=== PATIENT | female | born 1985 | race Caucasian/White ===

== ENCOUNTER 2016-11-20 10:23 | Emergency (ER) | payer MEDICAID, OTHER ==
[~2016-11-20] VITALS: Ht 162.6 cm; Wt 74.5 kg
[2016-11-20] MEDS ORDERED: CETI10TA (10:43)
[2016-11-20] MEDS ORDERED: SULF50TA (10:43)
[2016-11-20] MEDS ORDERED: FLUO10CA9 (10:43)
[2016-11-20] MEDS ORDERED: NABU500T (10:43)
[2016-11-20] MEDS ORDERED: PANT20TA PO (10:43)
[2016-11-20] MEDS ORDERED: FOLI1TAB4 (10:43)
[2016-11-20] MEDS ORDERED: TRAZ-136 (10:43)
[2016-11-20 11:14] LABS: BASO % 0.7 % (0.0-1.0); EOS # 0.4 K/mm3 (0.0-0.50); EOS % 7.2 % (0.0-3.0); LARGE UNSTAINED CELL # 0.1 K/mm3 (0.0-0.4); LARGE UNSTAINED CELL % 0.9 % (0.0-4.0); LYMPH # 1.1 K/mm3 (1.5-4.5); LYMPH % 20.5 % (24.0-44.0); MEAN CORPUSCULAR HEMOGLOBIN 30.8 pg (27.0-33.0); MEAN CORPUSCULAR HGB CONC 32.2 g/dl (32.0-36.5); MEAN CORPUSCULAR VOLUME 95.8 fl (80.0-96.0); MONO # 0.4 K/mm3 (0.0-0.8); MONO % 6.9 % (0.0-5.0); NEUTROPHILS # 3.3 K/mm3 (1.8-7.7); NEUTROPHILS % 63.8 % (36.0-66.0); PLATELET COUNT, AUTOMATED 250 k/mm3 (150-450); WHITE BLOOD COUNT 5.2 K/mm3 (4.0-10.0)
[2016-11-20 11:38] VITALS: BP 133/74
--- NOTE | 2016-11-20 11:45 | REP ---
Pelvic ultrasound including transabdominal, endovaginal and Doppler ultrasound assessment: The bladder is suboptimally distended. The uterus is anteverted and normal size measuring 8.1 x 4.6 x 6.5 cm. The endometrium is upper normal thickness measuring 16.3 mm. However, there is a 3.1 cm nodule versus clot centrally in the endometrial canal. The ovaries are normal size. The right ovary measures 4 x 1 x 3 point 1 x 3.4 cm. Left ovary measures 2.8 x 2.4 x 1.3 cm. There is a 3.1 cm hemorrhagic cyst in the right ovary. There is vascular flow in both right and left ovaries with the Doppler resistive index of the parenchymal arteries on the right measuring 0.64 on the left 0.63. There is a trace of free fluid in the right adnexa. Impression: Hemorrhagic right adnexal 3.1 cm cyst. Polyp/clot within the endometrial canal. There is vascular flow in both ovaries. Trace free fluid in the right adnexa. Signed by Duglas Madison MD 11/20/2016 11:37 A
[2016-11-20] MEDS ORDERED: NAPR500T PO (12:03)
--- NOTE | 2016-11-20 15:48 | ED PDOC ---
Post-Departure Follow-Up dr choudhury and dr banerjee faxed formal report of pelvic us for fu winstong Radha Lopez MD Nov 20, 2016 15:48
== END 2016-11-20 12:10 | disposition home or self-care (01) ==
LOC: M ED 10:23
DX: N92.0 Excessive and frequent menstruation with regular cycle (principal); N83.201 Unspecified ovarian cyst, right side; K21.9 Gastro-esophageal reflux disease without esophagitis; M06.9 Rheumatoid arthritis, unspecified; F99 Mental disorder, not otherwise specified; Z79.899 Other long term (current) drug therapy; Z88.8 Allergy status to other drugs, medicaments and biological substances; Z91.013 Allergy to seafood; F17.210 Nicotine dependence, cigarettes, uncomplicated

== ENCOUNTER 2018-01-04 18:49 | Emergency (ER) | payer OTHER ==
[2018-01-04 19:26] LABS: BASO % 0.4 % (0.0-1.0); EOS # 0.2 10^3/uL (0.0-0.50); HEMATOCRIT 39.4 % (36.0-47.0); HEMOGLOBIN 12.6 g/dl (12.0-15.5); IMMATURE GRANULOCYTE % 0.2 % (0-3.0); LYMPH # 1.5 10^3/uL (1.5-4.5); LYMPH % 31.7 % (24.0-44.0); MEAN CORPUSCULAR VOLUME 90.8 fl (80.0-96.0); MONO # 0.6 10^3/uL (0.0-0.8); MONO % 11.8 % (0.0-5.0); NEUTROPHILS # 2.5 10^3/uL (1.8-7.7); NEUTROPHILS % 50.9 % (36.0-66.0); PLATELET COUNT, AUTOMATED 326 10^3/uL (150-450); RED BLOOD COUNT 4.34 10^6/uL (4.00-5.40); RED CELL DISTRIBUTION WIDTH 13.2 % (11.5-14.5); WHITE BLOOD COUNT 4.8 10^3/uL (4.0-10.0)
== END 2018-01-04 20:32 | disposition home or self-care (01) ==
LOC: M ED 18:49
DX: T81.31XA Disruption of external operation (surgical) wound, not elsewhere classified, initial encounter (principal); Y92.9 Unspecified place or not applicable; Y93.9 Activity, unspecified; Z72.0 Tobacco use; Z79.899 Other long term (current) drug therapy; Z91.013 Allergy to seafood; Z88.8 Allergy status to other drugs, medicaments and biological substances
CPT/HCPCS: 76705

== ENCOUNTER → 2018-05-15 | Outpatient (REF) | payer OTHER ==
[~2018-05-15] MED LIST: CETI10TA; FLUO10CA9; FOLI1TAB11; MELO7.5T7 PO; NABU500T; NAPR-50 PO; PANT20TA2 PO; SULF50TA; TRAZ-163
== END ==
LOC: M LAB REF 11:55
PROVIDERS: ATTEND Physician Assistant
DX: R68.89 Other general symptoms and signs (principal)

== ENCOUNTER → 2018-05-27 | Outpatient (CLI) | payer OTHER | LOC: M LAB 16:06 | PROVIDERS: ATTEND Obstetrics & Gynecology Obstetrics | DX: Z11.3 Encounter for screening for infections with a predominantly sexual mode of transmission (principal) ==

== ENCOUNTER 2018-10-01 13:31 | Emergency (ER) | payer OTHER ==
[~2018-10-01] VITALS: Ht 165.1 cm; Wt 86.4 kg
[~2018-10-01 13:31] MED LIST changes: -NAPR-50 PO; +NAPR-837 PO
[2018-10-01] MEDS ORDERED: PANT20TA2 (13:38)
[2018-10-01] MEDS ORDERED: CEFU1TAB22 (13:38)
[2018-10-01] MEDS ORDERED: VENTAER (13:38)
--- NOTE | 2018-10-01 14:58 | REP ---
Clinical: Pain at the first metacarpal base. Technique: AP, lateral, bilateral oblique views. Findings: The carpal bones, surrounding osseous structures, soft tissues, and joint spaces are normal. There is no evidence for acute fracture or dislocation. No subcutaneous emphysema or radiodense foreign body. Impression: No acute fracture or dislocation Electronically Signed by Mekhi Larson MD 10/01/2018 02:49 P
[2018-10-01] MEDS ORDERED: IBUPROFEN 600 MG TAB PO ONE (16:30)
[2018-10-01 16:46] VITALS: BP 109/71
== END 2018-10-01 16:47 | disposition home or self-care (01) ==
LOC: M ED 13:31
DX: S63.502A Unspecified sprain of left wrist, initial encounter (principal); S60.212A Contusion of left wrist, initial encounter; S60.222A Contusion of left hand, initial encounter; W22.09XA Striking against other stationary object, initial encounter; Y92.098 Other place in other non-institutional residence as the place of occurrence of the external cause; F41.9 Anxiety disorder, unspecified; F32.9 Major depressive disorder, single episode, unspecified; G47.00 Insomnia, unspecified; M06.9 Rheumatoid arthritis, unspecified; J45.909 Unspecified asthma, uncomplicated; F17.210 Nicotine dependence, cigarettes, uncomplicated; Z88.8 Allergy status to other drugs, medicaments and biological substances; Z91.013 Allergy to seafood; Z91.030 Bee allergy status; Z91.018 Allergy to other foods; Z79.899 Other long term (current) drug therapy; Z79.2 Long term (current) use of antibiotics

== ENCOUNTER → 2019-01-07 | Outpatient (CLI) | payer OTHER ==
[~2019-01-07] MED LIST changes: +CEFU1TAB22; +PANT20TA2; +VENTAER
--- NOTE | 2019-01-08 03:14 | REP ---
Clinical: Trauma. Pain. Contusion. Technique: AP, lateral, bilateral oblique views right wrist . Findings: The carpal bones, surrounding osseous structures, soft tissues, and joint spaces are normal. There is no evidence for acute fracture or dislocation. No subcutaneous emphysema or radiodense foreign body. Impression: No acute fracture or dislocation Electronically Signed by Mekhi Lasron MD 01/08/2019 03:06 A
== END ==
LOC: M WUC 18:57
PROVIDERS: ATTEND Physician Assistant
DX: M25.531 Pain in right wrist (principal)

== ENCOUNTER 2019-02-08 11:41 | Observation (INO) | payer OTHER ==
[~2019-02-08] VITALS: Ht 160 cm; Wt 82.5 kg
[~2019-02-08 11:41] MED LIST changes: -TRAZ-163; +TRAZ-163 PO
[2019-02-08 12:23] LABS: VENOUS BASE EXCESS -1.9 (-2.0-2.0); VENOUS HCO3 23.2 MEQ/L (23.0-27.0); VENOUS O2 SATURATION 77.7 % (60.0-80.0); VENOUS PARTIAL PRESSURE CO2 40.5 mmHg (38.0-50.0); VENOUS PARTIAL PRESSURE O2 41.6 mmHg (30.0-50.0); VENOUS PH 7.375 UNITS (7.330-7.430); VENOUS STANDARD HCO3 22.4 MEQ/L; VENOUS TOTAL CO2 24.4 MEQ/L (24.0-28.0)
[2019-02-08 12:27] LABS: BASO % 0.3 % (0.0-1.0); EOS % 0.1 % (0.0-3.0); HEMATOCRIT 47.2 % (36.0-47.0); LYMPH % 9.6 % (24.0-44.0); MEAN CORPUSCULAR HEMOGLOBIN 30.6 pg (27.0-33.0); MEAN CORPUSCULAR HGB CONC 31.8 g/dl (32.0-36.5); MEAN CORPUSCULAR VOLUME 96.3 fl (80.0-96.0); MONO # 0.9 10^3/uL (0.0-0.8); MONO % 9.1 % (0.0-5.0); NEUTROPHILS # 8.1 10^3/uL (1.5-8.5); NEUTROPHILS % 80.5 % (36.0-66.0); PLATELET COUNT, AUTOMATED 359 10^3/uL (150-450)
[2019-02-08 12:54] LABS: HCG, SERUM QUALITATIVE NEGATIVE (NEGATIVE)
[2019-02-08] MEDS ORDERED: NS 1,000 ML IV ONE ×2 (13:00)
--- NOTE | 2019-02-08 13:28 | ECGEPIP ---
[facility] - ED Test Date: 2019-02-08 Pat Name: MARY LOU GARAY Department: Room: - Gender: Female [employer]: claudia : 1985 Requested By: Annette Matta Order Number: [id number] Reading MD: Annette Matta Measurements Intervals Gibson Rate: 79 P: 36 HI: 138 QRS: 87 QRSD: 89 T: 19 QT: 382 QTc: 439 Interpretive Statements SINUS RHYTHM baseline artifact may affect interpretation No prior Electronically Signed on 02-08-2019 13:28:00 EST by Annette Matta
[2019-02-08 13:51] LABS: ACETAMINOPHEN LEVEL < 2.0 UG/ML (10.0-30.0); ALBUMIN 4.6 GM/DL (3.2-5.2); ALT/SGPT 27 U/L (12-78); BILIRUBIN,DIRECT 0.2 MG/DL (0.0-0.2); BILIRUBIN,TOTAL 0.6 MG/DL (0.2-1.0); BLOOD UREA NITROGEN 14 MG/DL (7-18); CALCIUM LEVEL 9.8 MG/DL (8.5-10.1); CARBON DIOXIDE LEVEL 25 MEQ/L (21-32); CHLORIDE LEVEL 107 MEQ/L (98-107); CPK CREATINE PHOSPHOKINASE 110 U/L (26-192); CREATININE FOR GFR 1.04 MG/DL (0.55-1.30); ETHYL ALCOHOL (ETHANOL) < 0.003 % (0.000-0.010); GLOMERULAR FILTRATION RATE > 60.0 (>60); GLUCOSE, FASTING 124 MG/DL (70-100); POTASSIUM SERUM 3.9 MEQ/L (3.5-5.1); SALICYLATE LEVEL < 1.7 MG/DL (5.0-30.0); SODIUM LEVEL 142 MEQ/L (136-145); TOTAL PROTEIN 8.3 GM/DL (6.4-8.2)
--- NOTE | 2019-02-08 14:02 | REP ---
CT BRAIN WITHOUT CONTRAST: 02/08/2019. CLINICAL HISTORY: Altered mental status. FINDINGS: No prior study. Standard noncontrast protocol utilized. Lateral ventricles are midline, symmetric, and without dilatation or displacement. Basal ganglia are symmetric and normal. Third and fourth ventricles were unremarkable. White matter tracts unremarkable. Daley-white junction differentiation well maintained. Cortical stripe is preserved. There is no intra- or extra-axial hemorrhage, mass, acute infarct, edema or other focal abnormality. No abnormal calcifications. Brainstem and cerebellum are unremarkable. The basal cisterns are intact. Mastoids, sinuses, skull base, and calvarium are all unremarkable. IMPRESSION: 1. Normal noncontrast CT brain. Electronically Signed by Christofer Segura MD 02/08/2019 07:57 P
[2019-02-08 15:50] LABS: AMPHETAMINES LEVEL URINE NEGATIVE (NEGATIVE); BARBITURATES URINE NEGATIVE (NEGATIVE); BENZODIAZEPINES URINE NEGATIVE (NEGATIVE); CANNABINOIDS URINE NEGATIVE (NEGATIVE); COCAINE METABOLITE URINE NEGATIVE (NEGATIVE); METHADONE URINE NEGATIVE (NEGATIVE); OPIATES URINE NEGATIVE (NEGATIVE); PHENCYCLIDINE URINE NEGATIVE (NEGATIVE)
[2019-02-08] MEDS ORDERED: FLUO20CA20 PO (16:14)
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
[2019-02-08] MEDS: NS 1,000 ML IV SCH ×2 (17:30→23:32)
[2019-02-08 17:41] VITALS: BP 140/79
[2019-02-09] MEDS: RAMELTEON 8 MG TAB (ROZEREM) PO SCH ×2 (00:30→23:53)
[2019-02-09 06:00] VITALS: BP 130/80
[2019-02-09 07:06] LABS: HEMATOCRIT 39.1 % (36.0-47.0); MEAN CORPUSCULAR HEMOGLOBIN 31.2 pg (27.0-33.0); MEAN CORPUSCULAR VOLUME 97.5 fl (80.0-96.0); RED BLOOD COUNT 4.01 10^6/uL (4.00-5.40); WHITE BLOOD COUNT 7.4 10^3/uL (4.0-10.0)
[2019-02-09 07:47] LABS: ALBUMIN 3.3 GM/DL (3.2-5.2); ALT/SGPT 20 U/L (12-78); BILIRUBIN,TOTAL 0.5 MG/DL (0.2-1.0); BLOOD UREA NITROGEN 12 MG/DL (7-18); CALCIUM LEVEL 8.2 MG/DL (8.5-10.1); CARBON DIOXIDE LEVEL 27 MEQ/L (21-32); CHLORIDE LEVEL 108 MEQ/L (98-107); CREATININE FOR GFR 0.78 MG/DL (0.55-1.30); GLOMERULAR FILTRATION RATE > 60.0 (>60); GLUCOSE, FASTING 112 MG/DL (70-100); MAGNESIUM LEVEL 2.1 MG/DL (1.8-2.4); PHOSPHORUS LEVEL 2.2 MG/DL (2.5-4.9); POTASSIUM SERUM 3.9 MEQ/L (3.5-5.1); SODIUM LEVEL 140 MEQ/L (136-145); TOTAL PROTEIN 6.3 GM/DL (6.4-8.2)
[2019-02-09 08:02] LABS: HEMOGLOBIN 12.5 g/dl (12.0-15.5)
[2019-02-09 08:03] LABS: PLATELET COUNT, AUTOMATED 250 10^3/uL (150-450)
--- NOTE | 2019-02-09 10:26 | IPNPDOC ---
Date Seen The patient was seen on 02/09/19. Progress Note SUBJECTIVE: 33-year-old female with history of asthma and depression, admitted for bizarre behavior. Patient was very noncompliant yesterday, today she is willing to speak with me and let me examine her. She has family at bedside, who report that she was behaving normally one week ago at [facility] and appeared to have acute changes in her mentation over the past few days. She lives with her boyfriend reports that she's been acting strangely, she reports to me that her boyfriend is a serial killer and he has been arrested by FBI. He also reports that FBI had been hurting her for her entire life for the benefit of other people and now they're no longer after her because to take her boyfriend. She is very paranoid and making up stories and arguing with her family because they're disagreeing with her. She is comfortable in bed, has no complaints at this time. 10 point review of system is negative except for above PHYSICAL EXAMINATION: VITAL SIGNS: Please see below. GENERAL: No distress HEENT: Normocephalic, atraumatic, moist mucous membranes NECK: Supple CARDIOVASCULAR EXAMINATION: S1, S2, no murmurs RESPIRATORY EXAMINATION: Clear to auscultation, no wheezing ABDOMINAL EXAMINATION: Soft, nontender, nondistended, positive bowel sounds EXTREMITIES: Range of motion intact SKIN: No rash NEUROLOGICAL EXAMINATION: Alert and oriented 3, no focal deficits PSYCHIATRIC EXAMINATION: Paranoid LABORATORY DATA, IMAGING STUDIES, MICROBIOLOGY: Please see below. ASSESSMENT AND PLAN: 33-year-old female with history of depression admitted for likely psychotic breakdown. PROBLEMS: 1. Acute psychosis: Based on patient's presentation and history, I believe she is having an acute psychotic episode. I don't believe there is involvement of drugs in her current presentation, U tox is also negative. Patient will remain on one-to-one for now, psychiatry consulted (Dr. Villalobos). VS, I&O, 24H, Fishbone Vital Signs/I&O Vital Signs Date Time Temp Pulse Resp B/P (MAP) Pulse Ox O2 Delivery O2 Flow Rate FiO2 02/09/19 06:00 97.9 57 16 130/80 (97) 98 Room Air I&O- Last 24 Hours up to 6 AM 02/09/19 06:00 Intake Total 3480 ml Output Total 600 ml Balance 2880 ml Laboratory Data 24H LABS Laboratory Tests 2 02/08/19 11:50: Immature Granulocyte % (Auto) 0.4, Neutrophils (%) (Auto) 80.5H, Lymphocytes (%) (Auto) 9.6L, Monocytes (%) (Auto) 9.1H, Eosinophils (%) (Auto) 0.1, Basophils (%) (Auto) 0.3, Neutrophils # (Auto) 8.1, Lymphocytes # (Auto) 1.0L, Monocytes # (Auto) 0.9H, Eosinophils # (Auto) 0.0, Basophils # (Auto) 0.0, Nucleated Red Blood Cells % (auto) 0.0, Anion Gap 10, Glomerular Filtration Rate > 60.0, Calcium Level 9.8, Total Bilirubin 0.6, Direct Bilirubin 0.2, Aspartate Amino Transf (AST/SGOT) 18, Alanine Aminotransferase (ALT/SGPT) 27, Alkaline Phosphatase 98, Total Creatine Kinase 110, Total Protein 8.3H, Albumin 4.6, Albumin/Globulin Ratio 1.24, Thyroid Stimulating Hormone (TSH) 3.030, Human Chorionic Gonadotropin, Qual NEGATIVE, Salicylates Level < 1.7L, Acetaminophen Level < 2.0L, Ethyl Alcohol Level < 0.003 02/08/19 12:07: Blood Gas Bicarbonate Standard 22.4, Venous Blood pH 7.375, Venous Blood Partial Pressure CO2 40.5, Venous Blood Partial Pressure O2 41.6, Venous Blood Total Carbon Dioxide 24.4, Venous Blood HCO3 23.2, Venous Blood Oxygen Saturation 77.7, Venous Blood Base Excess -1.9 02/08/19 12:32: Bedside Glucose (Misc Panel) 119H 02/08/19 15:11: Urine Opiates Screen NEGATIVE, Urine Methadone Screen NEGATIVE, Urine Barbiturates Screen NEGATIVE, Urine Phencyclidine Screen NEGATIVE, Urine Amphetamines Screen NEGATIVE, Urine Benzodiazepines Screen NEGATIVE, Urine Cocaine Metabolite Screen NEGATIVE, Urine Cannabinoids Screen NEGATIVE 02/09/19 06:54: Nucleated Red Blood Cells % (auto) 0.0, Anion Gap 5L, Glomerular Filtration Rate > 60.0, Calcium Level 8.2#L, Phosphorus Level 2.2L, Magnesium Level 2.1, Total Bilirubin 0.5, Aspartate Amino Transf (AST/SGOT) 14, Alanine Aminotransferase (ALT/SGPT) 20, Alkaline Phosphatase 72, Total Protein 6.3#L, Albumin 3.3#, Albumin/Globulin Ratio 1.10 CBC/BMP Laboratory Tests 02/08/19 11:50 02/09/19 06:54 ANMOL GARZA MD Feb 09, 2019 10:25
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
[2019-02-09] MEDS: K-PHOS NEUTRAL 250MG TABLET (SOD.PHOSPHATE/POT.PHOSPHATE) PO SCH ×3 (13:25→23:53)
[2019-02-09] MEDS: risperiDONE 0.5 MG TAB PO SCH ×2 (13:25→23:53)
--- NOTE | 2019-02-09 13:38 | REP ---
RIGHT FOOT COMPLETE: 02/09/2019. COMPARISON: 05/09/2011. CLINICAL HISTORY: Pain for a few days. No known injury. FINDINGS: Lateral view shows no heel spurs. Subtalar joints are intact. Visualized portions of distal tibia and fibula intact. Talonavicular, calcaneocuboid joints are normal. Tarsal bones, metatarsals, and phalanges are without fracture or focal lesion. No abnormality of the Lisfranc joint is suggested on this study. IMPRESSION: 1. Negative right foot series for fracture or other acute finding. Electronically Signed by Christofer Segura MD 02/09/2019 05:15 P
[2019-02-09] MEDS ORDERED: RAMELTEON 8 MG TAB (ROZEREM) PO ONE (15:00)
[2019-02-09 22:00] VITALS: BP 132/80
[2019-02-10 06:00] VITALS: BP 130/80
[2019-02-10 06:06] LABS: HEMATOCRIT 38.9 % (36.0-47.0); HEMOGLOBIN 12.9 g/dl (12.0-15.5); MEAN CORPUSCULAR HEMOGLOBIN 31.2 pg (27.0-33.0); MEAN CORPUSCULAR HGB CONC 33.2 g/dl (32.0-36.5); PLATELET COUNT, AUTOMATED 253 10^3/uL (150-450); RED BLOOD COUNT 4.14 10^6/uL (4.00-5.40); WHITE BLOOD COUNT 6.3 10^3/uL (4.0-10.0)
[2019-02-10 06:29] LABS: BLOOD UREA NITROGEN 8 MG/DL (7-18); CALCIUM LEVEL 8.5 MG/DL (8.5-10.1); CARBON DIOXIDE LEVEL 28 MEQ/L (21-32); CHLORIDE LEVEL 106 MEQ/L (98-107); CREATININE FOR GFR 0.69 MG/DL (0.55-1.30); GLOMERULAR FILTRATION RATE > 60.0 (>60); GLUCOSE, FASTING 106 MG/DL (70-100); POTASSIUM SERUM 3.6 MEQ/L (3.5-5.1); SODIUM LEVEL 141 MEQ/L (136-145)
[2019-02-10] MEDS: risperiDONE 0.5 MG TAB PO SCH ×2 (09:00→21:36)
[2019-02-10 14:00] VITALS: BP 149/85
--- NOTE | 2019-02-10 16:18 | IPNPDOC ---
Date Seen The patient was seen on 02/10/19. Progress Note SUBJECTIVE: 33-year-old female with history of asthma and depression, admitted for bizarre behavior. Patient was very noncompliant yesterday, today she is willing to speak with me and let me examine her. She has family at bedside, who report that she was behaving normally one week ago at [facility] and appeared to have acute changes in her mentation over the past few days. She lives with her boyfriend reports that she's been acting strangely, she reports to me that her boyfriend is a serial killer and he has been arrested by FBI. He also reports that FBI had been hurting her for her entire life for the benefit of other people and now they're no longer after her because to take her boyfriend. She is very paranoid and making up stories and arguing with her family because they're disagreeing with her. She is comfortable in bed, has no complaints at this time. 02/10/2019 Patient remains on one-to-one, very delusional, yelling and berating staff, does not wish to be examined by me today. 10 point review of system is negative except for above PHYSICAL EXAMINATION: Refuse physical examination LABORATORY DATA, IMAGING STUDIES, MICROBIOLOGY: Please see below. ASSESSMENT AND PLAN: 33-year-old female with history of depression admitted for likely psychotic breakdown. PROBLEMS: 1. Paranoid delusional disorder: Management as per psychiatry, awaiting transfer to inpatient mental health unit, continue one-to-one, no active medical issues at this time. VS, I&O, 24H, Fishbone Vital Signs/I&O Vital Signs Date Time Temp Pulse Resp B/P (MAP) Pulse Ox O2 Delivery O2 Flow Rate FiO2 02/10/19 14:00 97.8 94 20 149/85 (106) 96 Room Air I&O- Last 24 Hours up to 6 AM 02/10/19 06:00 Intake Total 520 ml Balance 520 ml Laboratory Data 24H LABS Laboratory Tests 2 02/10/19 05:47: Nucleated Red Blood Cells % (auto) 0.0, Anion Gap 7L, Glomerular Filtration Rate > 60.0, Calcium Level 8.5 CBC/BMP Laboratory Tests 02/10/19 05:47 ANMOL GARZA MD Feb 10, 2019 16:18
--- NOTE | 2019-02-10 19:38 | MHCRPDOC ---
[facility] Consultation Consultation DATE OF CONSULTATION: 02/10/19 CONSULTATION REQUESTED BY: REASON FOR CONSULTATION: As per previous notes: "CHIEF COMPLAINT: Bizarre behavior HISTORY OF PRESENT ILLNESS: 33-year-old female with past medical history of asthma and depression brought to the emergency department for bizarre behavior. Patient is laying comfortably in bed, not answering any of my questions, actively ignoring me, not following commands and refused physical examination. Information obtained from ED provider and nurse, family is no longer at bedside. As per emergency department staff patient was brought in by her grandparents for bizarre behavior, early in the day she had thrown her out of the car, was acting in a bizarre manner such as randomly laughing/crying with stories that did not make any sense. In the ED, patient has received 2 L of normal saline, all blood work has returned normal including U tox, CT head was also within normal limits." RELEVANT HISTORY: The patient reports a confusing history where she says her boyfriend is a serial killer, a psychopath, a pedophile, and he has people from the [employer] going after. she mentions several timnes she was talking to him through a sign language and she also talks to her dogs that way. she had a big argument with her boyfriend because he told her she's crazy but she says she's not mentally ill, she told him he's the crazy one. She says she's at her best moment, she thinks she can do whatever she wants, to, she's super happy, she feels at the [place] of the world. PAST PSYCHIATRIC HISTORY: she says she was diagnosed with depression, denies c urrent therapy, current medications or current psych treatment. PAST MEDICAL HISTORY: Unknown FAMILY HISTORY: Mother: Unknown Father: Unknown Siblings: Unknown Children: No children PERSONAL AND SOCIAL HISTORY: The patient was born and raised in [place]. She says she lives with her Bf who is a "psychopaths" Resides in: [place] Marital Status: S Single Children: None Employment: patient is not answering my questions, she keeps talking about what she wants to talk SUBSTANCE ABUSE HISTORY: Smoking: Unknown ETOH: Unknown Illicit Drugs: Unknown LEGAL HISTORY: . MENTAL STATUS EXAMINATION: Patient is a 33 year old female, who is alert, dressed in personal clothes, happy, talkative. Speech is rapid, pressured, circumstantial. Thought processes including: circumstantial and tangential, disorganized. Thought content: focused on being discharged, angry thoughts, denies SI/HI, denies TAV hallucinations but she has grandiose, paranoid and bizarre delusions. Abstract reasoning, and computation: Not assessed at this time. Description of associations: Loose. Description of abnormal or psychotic thoughts: Paranoid, bizarre and grandiose delusions are present. Judgment: Poor Insight: Poor. Orientation to oriented to place and person but not time and date. Recent and remote memory: recent memory is poor. Attention span and concentration: she's not able to focus. Fund of knowledge: Unable to assess, she's psychotic Mood: "I'm great, how are you?". Affect: Congruent with mood DIAGNOSIS: 1. Unspecified psychotic disorder, r/o Bipolar 1 disorder, manic episode with psychosis PLAN: 1. There's no beds available at [facility] at this tiem, she won't be transfered to [facility]. Dr. Colon had talked to Dr. Lange about the psossibility of transferring her tomorrow, 02/11/19 because there's no beds available at this time 2. She would benefit from Zyprexa Zydis 5 mgs PO Q6H for psychosis and it would help her with agitation too. She has refused to take Risperidone 0.5 mgs PO BID, maybe she would accept Zyprexa. Legals are going to be in the chart. Vital Signs Vital Signs Date Time Temp Pulse Resp B/P (MAP) Pulse Ox O2 Delivery O2 Flow Rate FiO2 02/10/19 14:00 97.8 94 20 149/85 (106) 96 Room Air Laboratory Data 24H Labs Laboratory Tests 2 02/10/19 05:47: Nucleated Red Blood Cells % (auto) 0.0, Anion Gap 7L, Glomerular Filtration Rate > 60.0, Calcium Level 8.5 Home Medications Current Medications Current Medications Medications (Trade) Dose Ordered Sig/Omar Route PRN Reason Start Time Stop Time Status Last Admin Dose Admin Home Med (Med Rec Complete!) ASDIRECTED XX 02/08/19 16:30 02/08/19 16:31 DC Potassium Phos/ Sodium Phos (K-Phos Neutral) 500 mg TID PO 02/09/19 09:00 02/09/19 21:01 DC 02/09/19 23:53 Ramelteon (Rozerem) 8 mg QHS PO 02/08/19 21:00 02/09/19 23:53 Risperidone (RisperDAL) 0.5 mg BID PO 02/09/19 09:00 02/09/19 23:53 Sodium Chloride 1,000 ml @ 80 mls/hr [id number] IV 02/08/19 17:30 02/09/19 10:19 DC 02/08/19 23:32 Scheduled Fluoxetine Hcl (Fluoxetine HCl) 20 Mg Capsule, 20 MG PO DAILY, (Reported) Trazodone HCl (Trazodone HCl) 100 Mg Tab, 100 MG PO QHS, (Reported) Allergies Coded Allergies: tree nut (Verified Allergy, Intermediate, ears and tongue itches, 10/01/18) bee pollen (Verified Allergy, Unknown, 10/01/18) shellfish derived (Verified Allergy, Unknown, 10/01/18) topiramate (Verified Adverse Reaction, Unknown, killed her WBCs, 10/01/18) SUE FLORENTINO MD Feb 10, 2019 19:38
[2019-02-10] MEDS: RAMELTEON 8 MG TAB (ROZEREM) PO SCH (21:36)
[2019-02-10 22:00] VITALS: BP 121/59
[2019-02-11 06:00] VITALS: BP 139/84
[2019-02-11] MEDS: risperiDONE 0.5 MG TAB PO SCH (08:14)
--- NOTE | 2019-02-11 13:11 | MHIPNPDOC ---
[facility] Progress Note Progress Note Inpatient Progress Note Jyoti Khoury MRN: N/A Date of : N/A Date of Service: 02/11/2019 History of Present Illness 33-year-old woman who has been seen by multiple psychiatrists who has disorganized and paranoid behavior is recommended for admission, however she is needed to be seen in order to fill out her 939 paperwork which was misplaced. Interval History The patient is seen today. She has multiple family members around but consents to my interview with her briefly in order to fill out her paperwork. She reportedly is still having difficulty with bizarre behavior, although is amenable to interview. She has been hypersexual and focused on male providers and staff, continuing to be fairly impaired. Mental Status Examination General: Well dressed with good hygiene Speech: Mildly pressured. Thought process: Circumstantial. MSK: Smooth and coordinated gait, no signs of tremors or involuntary orofacial movements Thought content: Mildly bizarre. Abstract reasoning, and computation: Impaired. Description of associations: Impaired. Description of abnormal or psychotic thoughts: Denies any suicidal or homicidal ideation. Judgment: Impaired. Insight: Impaired. Orientation: Alert and orientated 3 Cognition: Grossly normal Recent and remote memory: Intact Attention span and concentration: Intact Fund of knowledge: Adequate Mood: "okay" Affect: Flat with little range. Diagnoses Unspecified psychotic disorder. Assessment and Plan 939 paperwork completed. Patient will be admitted to inpatient mental health. Disposition Admission to inpatient mental health. Time Spent 10 minutes. Sunday Vital Signs Vital Signs Date Time Temp Pulse Resp B/P (MAP) Pulse Ox O2 Delivery O2 Flow Rate FiO2 02/11/19 06:00 96.8 64 18 139/84 (102) 97 Room Air Current Medications Current Medications Medications (Trade) Dose Ordered Sig/Omar Route PRN Reason Start Time Stop Time Status Last Admin Dose Admin Home Med (Med Rec Complete!) ASDIRECTED XX 02/08/19 16:30 02/08/19 16:31 DC Potassium Phos/ Sodium Phos (K-Phos Neutral) 500 mg TID PO 02/09/19 09:00 02/09/19 21:01 DC 02/09/19 23:53 Ramelteon (Rozerem) 8 mg QHS PO 02/08/19 21:00 02/10/19 21:36 Risperidone (RisperDAL) 0.5 mg BID PO 02/09/19 09:00 02/11/19 08:14 Sodium Chloride 1,000 ml @ 80 mls/hr [id number] IV 02/08/19 17:30 02/09/19 10:19 DC 02/08/19 23:32 Allergies Coded Allergies: tree nut (Verified Allergy, Intermediate, ears and tongue itches, 10/01/18) bee pollen (Verified Allergy, Unknown, 10/01/18) shellfish derived (Verified Allergy, Unknown, 10/01/18) topiramate (Verified Adverse Reaction, Unknown, killed her WBCs, 10/01/18) DION ROBISON DO Feb 11, 2019 13:11
[2019-02-11 14:00] VITALS: BP 130/80
--- NOTE | 2019-02-11 15:31 | DS.PDOC ---
Discharge Summary General Date of Admission Feb 08, 2019 at 11:42 Date of Discharge 02/11/2019 Attending Physician: ANMOL GARZA MD Discharge Summary PROCEDURES PERFORMED DURING STAY: None. ADMITTING DIAGNOSES: 1. Acute psychotic episode. DISCHARGE DIAGNOSES: 1. Acute psychotic episode. COMPLICATIONS/CHIEF COMPLAINT: Bizarre Behavior. HISTORY OF PRESENT ILLNESS: 33-year-old female with past medical history of anxiety/depression, was admitted for acute psychotic episode, initially admitted to the medical floor with perception that this was due to drug use. Her urine tox was negative and patient's symptoms persisted despite monitoring for 48 hours, evaluated by psychiatry who agreed the patient is undergoing acute psychotic episode. Patient will be transferred to inpatient mental health unit for further management. Patient is medically stable for discharge to inpatient mental health unit. HOSPITAL COURSE: As above. DISCHARGE MEDICATIONS: Please see below. ALLERGIES: Please see below. PHYSICAL EXAMINATION: VITAL SIGNS: Please see below. GENERAL: No distress HEENT: Normocephalic, atraumatic, moist mucous membranes NECK: Supple CARDIOVASCULAR EXAMINATION: S1, S2, no murmurs RESPIRATORY EXAMINATION: Clear to auscultation, no wheezing ABDOMINAL EXAMINATION: Soft, nontender, nondistended, positive bowel sounds EXTREMITIES: Range of motion intact SKIN: No rash NEUROLOGICAL EXAMINATION: Alert and oriented 3, no focal deficits PSYCHIATRIC EXAMINATION: Calm and cooperative LABORATORY DATA: Please see below. PROGNOSIS: Good ACTIVITY: As tolerated. DIET: Regular DISCHARGE PLAN: Follow with PCP and psychiatrist after discharge from inpatient mental health unit DISPOSITION: [facility]. DISCHARGE INSTRUCTIONS: 1. As above. DISCHARGE CONDITION: Stable. TIME SPENT ON DISCHARGE: Greater than 24 minutes. Vital Signs/I&Os Vital Signs Date Time Temp Pulse Resp B/P (MAP) Pulse Ox O2 Delivery O2 Flow Rate FiO2 02/11/19 06:00 96.8 64 18 139/84 (102) 97 Room Air I&O- Last 24 Hours up to 6 AM 02/11/19 06:00 Intake Total 1500 ml Output Total 0 ml Balance 1500 ml Discharge Medications Scheduled Fluoxetine Hcl (Fluoxetine HCl) 20 Mg Capsule, 20 MG PO DAILY, (Reported) Trazodone HCl (Trazodone HCl) 100 Mg Tab, 100 MG PO QHS, (Reported) Allergies Coded Allergies: tree nut (Verified Allergy, Intermediate, ears and tongue itches, 10/01/18) bee pollen (Verified Allergy, Unknown, 10/01/18) shellfish derived (Verified Allergy, Unknown, 10/01/18) topiramate (Verified Adverse Reaction, Unknown, killed her WBCs, 10/01/18) ANMOL GARZA MD Feb 11, 2019 15:31
== END 2019-02-11 15:16 ==
LOC: M ED 11:41 → M ED INP 11:42 → M MSPAV 17:41
PROVIDERS: ADMIT Internal Medicine; ATTEND Internal Medicine
DX: F23 Brief psychotic disorder (principal); F22 Delusional disorders; R41.82 Altered mental status, unspecified; F32.9 Major depressive disorder, single episode, unspecified; J45.909 Unspecified asthma, uncomplicated; Z79.899 Other long term (current) drug therapy; Z88.8 Allergy status to other drugs, medicaments and biological substances; Z91.013 Allergy to seafood; Z91.030 Bee allergy status; Z91.018 Allergy to other foods; F17.200 Nicotine dependence, unspecified, uncomplicated
CPT/HCPCS: 36415; 70450; 73630; 80048; 80053; 80076; 80307; 82550; 82803; 83735; 84100; 84443; 84703; 85025; 85027; 93005; 93041; 96360; 96361; 99285; G0480

== ENCOUNTER 2019-02-11 13:58 | Inpatient (IN) | payer MEDICAID, OTHER ==
[~2019-02-11] VITALS: Ht 162.6 cm; Wt 83.0 kg
[~2019-02-11 13:58] MED LIST changes: +FLUO20CA20 PO
[2019-02-11] MEDS ORDERED: OLANZapine ORAL DISINTEGRATING TAB 5MG PO PRN (14:15)
[2019-02-11 16:00] VITALS: BP 121/73
[2019-02-11] MEDS: traZODone 50 MG TAB PO PRN (23:34)
[2019-02-12 06:28] VITALS: BP 126/81
[2019-02-12] MEDS: FLUTICASONE HFA 110 MCG 12 GM INHALER (FLOVENT) INH SCH ×3 (09:00→21:31)
[2019-02-12] MEDS: COMBIVENT RESPIMAT 100-20MCG INHALER 4GM INH SCH ×5 (09:00→21:00)
[2019-02-12] MEDS: MOM 30ML SUSPENSION UDC PO PRN (09:12)
[2019-02-12] MEDS: IBUPROFEN 400 MG TAB PO PRN (09:13)
[2019-02-12] MEDS ORDERED: COMBIVENT RESPIMAT 100-20MCG INHALER 4GM INH PRN (10:30)
--- NOTE | 2019-02-12 10:41 | MHHPEPDOC ---
[facility] History & Physical History and Physical DATE OF ADMISSION: Feb 11, 2019 at 15:18 New Patient Jyoti Khoury MRN: N/A Date of : N/A Date of Service: 02/12/2019 Chief Complaint "My boyfriend is a serial killer." History of Present Illness The patient, a 33-year-old woman with no reported psychiatric history presents to [facility] initially for bizarre behavior. She is admitted to the medical floor where she was observed with no cause for her unusual behavior. She is admitted to the psychiatric unit due to her bizarre behaviour consistent with ivan in terms of pressured speech, delusional thought process and hypersexuality. When I attempted to meet with the patient with a director data processing present as she has been quite focused on male providers and refuses to see most females. The patient was unable to relate any effectively useful information as she was tangential talking about various dilutional and paranoid topics. The psychosocial information below is extracted from the chart and updated as appropriate. Review Of Systems Patient is unable to engage in a full and comprehensive review of systems due to her mental state. Past Psychiatric History The patient has no reported history of psychiatric involvement. No history of admissions, suicides or medication trials and I'm able to determine from the chart. Allergies Please see below. Family Psychiatric History Unclear if has any family history, patient too sick to determine. Social History The patient reportedly works at [employer] and is employed. Reportedly has a boyfriend. Unclear other aspects of her social history. Substance Abuse History The patient reportedly presented with no positive toxicology. Medical History Unclear due to mental status. Mental Status Examination General: Poor hygiene Speech: Pressured Thought processes: Tangential MSK: Restless Thought content: Paranoid and bizarre Abstract reasoning, and computation: Impaired Description of associations: Impaired Description of abnormal or psychotic thoughts: Denies any suicidal or homicidal ideation. Judgment: Impaired Insight: Impaired Orientation: Alert and orientated 3 Cognition: Grossly normal Recent and remote memory: Intact Attention span and concentration: Impaired secondary to thought process Fund of knowledge: Adequate Mood: "Better than ever" Affect: Labile with an elevated range Diagnoses Bipolar disorder, type 1, most recent episode manic, severe with psychosis. Assessment and Plan Bipolar disorder: Zyprexa 5 mg nightly with 1 dose now. Discussed risks, benefits and potential side effects with patient as far as she is able to understand at this time. Disposition The patient will need admission well likely lasting longer than 2 midnights due to her severe psychosis. Problem List 1. Altered thoughts. Initial Treatment Plan 1. Patient was admitted on a 9.39 legal status. 2. Complete history was obtained. 3. With patients permission, family will be contacted and database will be expanded. 4. Patients medication regimen will be reviewed and changed accordingly. 5. Patient will be provided with protected environment. 6. Patient will be treated with individual, group, and milieu therapies. 7. Patient will receive supportive psych-education. 8. Discharge planning will commence immediately. 9. Outpatient follow-up treatment will be strongly recommended. 10. The initial treatment plan will focus initially on: Estimated Length Of Stay 5 days. Time Spent 70 minutes. Sunday Vital Signs Vital Signs Date Time Temp Pulse Resp B/P (MAP) Pulse Ox O2 Delivery O2 Flow Rate FiO2 02/12/19 06:28 98.8 76 12 126/81 (96) Room Air 02/11/19 16:00 97 Medications Scheduled Fluoxetine Hcl (Fluoxetine HCl) 20 Mg Capsule, 20 MG PO DAILY, (Reported) Trazodone HCl (Trazodone HCl) 100 Mg Tab, 100 MG PO QHS, (Reported) Allergies Coded Allergies: tree nut (Verified Allergy, Intermediate, ears and tongue itches, 10/01/18) bee pollen (Verified Allergy, Unknown, 10/01/18) shellfish derived (Verified Allergy, Unknown, 10/01/18) topiramate (Verified Adverse Reaction, Unknown, killed her WBCs, 10/01/18) DION ROBISON DO Feb 12, 2019 10:41
[2019-02-12] MEDS ORDERED: CETIRIZINE (ZyrTEC) 10 MG TAB PO ONE (11:00)
[2019-02-12] MEDS ORDERED: MONTELUKAST 10 MG TAB PO ONE (11:00)
--- NOTE | 2019-02-12 11:08 | HPE ---
DATE OF ADMISSION: 02/12/2019 CHIEF COMPLAINT: Bizarre behavior HISTORY OF PRESENT ILLNESS: 33-year-old female with a history of asthma, rheumatoid arthritis, depression, seasonal allergies and anxiety. Admitted to inpatient mental darcie unit ([facility]) due to bizarre behavior. Patient complains of asthma symptoms three times a week with two to three nighttime symptoms. Complains of daily wheezing and shortness of breath with exertion. Often times occurring 2 weeks of the month. Patient has no fever or chills. No purulent sputum production. She complains of having seasonal allergies and some rhinorrhea and previously obtained allergy shots at Dr. Alvarez's office, which she has stopped in the past few years. She otherwise denies any fever, chills, weight gain, weight loss, changes in appetite, nausea, vomiting, diarrhea, abdominal pain or constipation. She complains of insomnia and is request her Risperdal to be restarted. PAST MEDICAL HISTORY: Rheumatoid arthritis. Asthma. Depression. Anxiety. Seasonal allergies. PAST SURGICAL HISTORY: Cholecystectomy. Small bowel resection. Loop Electrosurgical Excision Procedure (LEEP). [place] teeth distraction SOCIAL HISTORY: Smokes 2-1/2-3 packs per week since the age of 21 or 22. Drinks vodka with Crystallite 5-7 every night five times a week. Works as a local practical nurse. FAMILY HISTORY: Father alive in his 50s. Unknown medical problems. Mother alive in her 50s with autoimmune disease unknown type. REVIEW OF SYSTEMS: Per history of present illness (HPI). 12-point system otherwise negative. PHYSICAL EXAMINATION: Temperature 98.8, pulse 76, respiratory 12, blood pressure 126/81, 97% on room air. Generally, patient is awake, alert, oriented times three answering questions appropriately. Patient has no icterus, jaundice. No use of respiratory accessory muscles. Able to speak in full sentences. Neck is supple. Full range of motion. No cervical lymphadenopathy or thyromegaly. Lungs are diminished but with very faint respiratory wheezing. Heart, S1, S2 sinus rhythm. Abdomen is soft, nontender, nondistended. Positive bowel sounds. Extremities: No cyanosis, clubbing or pitting edema. 02/10/2019 CBC and metabolic panel have been reviewed. ASSESSMENT/PLAN: 33-year-old with history of asthma, anxiety, depression, rheumatoid arthritis (RA) seasonal allergies requesting for albuterol inhalers to be resumed. 1. Asthma: Patient may be maintained on her home dose of albuterol. Due to recent possible allergic triggers. Patient will be started on Singular and Flovent two puffs twice a day for maintenance therapy. 2. Insomnia: Defer to psychiatrist. 3. Allergic rhinitis/seasonal allergies: On Zyrtec 10 mg daily. MTDD
[2019-02-12] MEDS ORDERED: OLANZapine ORAL DISINTEGRATING TAB 5MG PO ONE (13:15)
[2019-02-12 16:17] VITALS: BP 134/72
[2019-02-12] MEDS ORDERED: OLANZapine ORAL DISINTEGRATING TAB 5MG PO SCH (21:00)
[2019-02-12] MEDS: traZODone 50 MG TAB PO PRN (21:31)
[2019-02-13] MEDS: MONTELUKAST 10 MG TAB PO SCH (08:28)
[2019-02-13] MEDS: CETIRIZINE (ZyrTEC) 10 MG TAB PO SCH (08:28)
[2019-02-13] MEDS: FLUTICASONE HFA 110 MCG 12 GM INHALER (FLOVENT) INH SCH ×2 (08:29→21:23)
[2019-02-13] MEDS: COMBIVENT RESPIMAT 100-20MCG INHALER 4GM INH SCH ×4 (08:32→21:22)
--- NOTE | 2019-02-13 10:46 | MHIPNPDOC ---
[facility] Progress Note Progress Note Inpatient Progress Note Jyoti Khoury MRN: N/A Date of : N/A Date of Service: 02/13/2019 History of Present Illness The patient, a 33-year-old woman with no reported psychiatric history presents to [facility] initially for bizarre behavior. She is admitted to the medical floor where she was observed with no cause for her unusual behavior. She is admitted to the psychiatric unit due to her bizarre behaviour consistent with ivan in terms of pressured speech, delusional thought process and hypersexuality. When I attempted to meet with the patient with a school guidance counselor present as she has been quite focused on male providers and refuses to see most females. The patient was unable to relate any effectively useful information as she was tangential talking about various dilutional and paranoid topics. The psychosocial information below is extracted from the chart and updated as appropriate. Interval History The patient is met with today. She is much less bizarre, paranoid. I had met with school guidance counselor Shannen Baker RN. The patient is much less focused on hypersexuality and is much more insightful. Discussion is undertaken about the cycle education of bipolar disorder and her future treatment needs. She reports that the medication is doing well and she feels better, is sleeping better, has a clear mind and reports that she feels bad about her previous way of thinking and reports she was quite paranoid. She has had no major behavioral problems overnight and has been doing well with attending groups. Review Of Systems Denies any side effects from her medications. No tremors or dizziness, headaches or vision changes. Psychotherapy None on this visit. Vital Signs Reviewed. Mental Status Examination General: Well dressed with good hygiene Speech: Spontaneous and fluid Thought processes: Linear and logical MSK: Smooth and coordinated gait, no signs of tremors or involuntary orofacial movements Thought content: Future orientated Abstract reasoning, and computation: Intact Description of associations: Intact Description of abnormal or psychotic thoughts: Denies any suicidal or homicidal ideation. Denies any auditory or visual hallucinations. Does not appear to be responding to internal stimuli. Does not appear to be endorsing any bizarre or paranoid ideation. Judgment: fair Insight: fair Orientation: Alert and orientated 3 Cognition: Grossly normal Recent and remote memory: Intact Attention span and concentration: Intact Fund of knowledge: Adequate Mood: "okay" Affect: Euthymic with a full range Diagnoses Bipolar disorder, type 1, most recent episode manic, severe with psychosis. Assessment and Plan Bipolar disorder: Increase Zyprexa to 10 mg nightly, observe for further p roblems. Disposition The patient will be kept until Sunday for observation on medication and ideally full stabilization. Time Spent 30 minutes [id number]. Vital Signs Vital Signs Date Time Temp Pulse Resp B/P (MAP) Pulse Ox O2 Delivery O2 Flow Rate FiO2 02/12/19 16:17 98.4 86 17 134/72 (92) 02/12/19 06:28 Room Air 02/11/19 16:00 97 Current Medications Current Medications Medications (Trade) Dose Ordered Sig/Omar Route PRN Reason Start Time Stop Time Status Last Admin Dose Admin Albuterol/ Ipratropium (Combivent Respimat 100-20mcg) 1 puff Q4HP PRN INH SHORTNESS OF BREATH 02/12/19 10:30 Albuterol/ Ipratropium (Combivent Respimat 100-20mcg) 1 puff QID INH 02/12/19 09:00 Cetirizine HCl (ZyrTEC) 10 mg DAILY PO 02/13/19 09:00 02/13/19 08:28 Fluticasone Propionate (Flovent Hfa 110 Mcg) 2 puff BID INH 02/12/19 09:00 02/13/19 08:29 Ibuprofen (Advil) 400 mg Q6HP PRN PO PAIN 02/11/19 14:15 02/12/19 09:13 Magnesium Hydroxide (Milk Of Magnesia) 30 ml DAILYPRN PRN PO CONSTIPATION 02/11/19 14:15 02/12/19 09:12 Montelukast Sodium (Singulair) 10 mg QAM PO 02/13/19 09:00 02/13/19 08:28 Olanzapine (ZyPREXA ZYDIS) 5 mg Q4HP PRN PO AGITATION 02/11/19 14:15 Olanzapine (ZyPREXA ZYDIS) 5 mg QHS PO 02/12/19 21:00 02/12/19 21:31 Trazodone HCl (Desyrel) 50 mg QHSP PRN PO INSOMNIA 02/11/19 23:30 02/12/19 21:31 Allergies Coded Allergies: tree nut (Verified Allergy, Intermediate, ears and tongue itches, 10/01/18) bee pollen (Verified Allergy, Unknown, 10/01/18) shellfish derived (Verified Allergy, Unknown, 10/01/18) topiramate (Verified Adverse Reaction, Unknown, killed her WBCs, 10/01/18) DION ROBISON DO Feb 13, 2019 10:46
[2019-02-13 16:31] VITALS: BP 133/75
[2019-02-13] MEDS: OLANZapine ORAL DISINTEGRATING TAB 5MG PO SCH (21:22)
[2019-02-13] MEDS: traZODone 50 MG TAB PO PRN (21:30)
[2019-02-14 06:36] VITALS: BP 124/74
[2019-02-14] MEDS: FLUTICASONE HFA 110 MCG 12 GM INHALER (FLOVENT) INH SCH ×2 (08:28→21:29)
[2019-02-14] MEDS: MONTELUKAST 10 MG TAB PO SCH (08:29)
[2019-02-14] MEDS: CETIRIZINE (ZyrTEC) 10 MG TAB PO SCH (08:29)
[2019-02-14] MEDS: COMBIVENT RESPIMAT 100-20MCG INHALER 4GM INH SCH ×4 (08:31→21:29)
--- NOTE | 2019-02-14 10:59 | MHIPNPDOC ---
[facility] Progress Note Progress Note Inpatient Progress Note Jyoti Khoury MRN: N/A Date of : N/A Date of Service: 02/14/2019 History of Present Illness The patient, a 33-year-old woman with no reported psychiatric history presents to [facility] initially for bizarre behavior. She is admitted to the medical floor where she was observed with no cause for her unusual behavior. She is admitted to the psychiatric unit due to her bizarre behaviour consistent with ivan in terms of pressured speech, delusional thought process and hypersexuality. When I attempted to meet with the patient with a vault cashier present as she has been quite focused on male providers and refuses to see most females. The patient was unable to relate any effectively useful information as she was tangential talking about various dilutional and paranoid topics. The psychosocial information below is extracted from the chart and updated as appropriate. Interval History The patient is met with today. She reports she is doing better and tolerating the Zyprexa well. She reports no side effects. She does report she has chronic itchy skin, but she takes allergy medications for it. She reports otherwise she is doing well. Staff reports she is amenable, goes to groups frequently and she reports her mood is level and that she no longer feels paranoid or frightened of others and feels that she was pleased about the discussion about her situation so that she would be able to participate in outpatient treatment better. Review Of Systems General: Denies fever or appetite changes Cardiovascular: Denies Chest pain or palpations GI: Denies Nausea, vomiting, or bowel changes Respiratory: Denies shortness of breath or cough Neuro: Denies dizziness, tremors Derm: Denies any rashes or pruritus : Denies any dysuria or urinary problems MSK: Denies any muscle tightness or stiffness HEENT: Denies any vision changes or headaches Psychotherapy None on this visit. Vital Signs Reviewed. Mental Status Examination General: Well dressed with good hygiene Speech: Spontaneous and fluid Thought processes: Linear and logical MSK: Smooth and coordinated gait, no signs of tremors or involuntary orofacial movements Thought content: Future orientated Abstract reasoning, and computation: Intact Description of associations: Intact Description of abnormal or psychotic thoughts: Denies any suicidal or homicidal ideation. Denies any auditory or visual hallucinations. Does not appear to be responding to internal stimuli. Does not appear to be endorsing any bizarre or paranoid ideation. Judgment: fair Insight: fair Orientation: Alert and orientated 3 Cognition: Grossly normal Recent and remote memory: Intact Attention span and concentration: Intact Fund of knowledge: Adequate Mood: "okay" Affect: Euthymic with a full range Diagnoses Bipolar disorder, type 1, most recent episode manic, severe with psychosis. Assessment and Plan Bipolar disorder: Continue Zyprexa 10 mg nightly. Disposition Discharge anticipated on Sunday. Time Spent 15 minutes. Sunday Vital Signs Vital Signs Date Time Temp Pulse Resp B/P (MAP) Pulse Ox O2 Delivery O2 Flow Rate FiO2 02/14/19 06:36 97.9 67 16 124/74 (91) 02/12/19 06:28 Room Air 02/11/19 16:00 97 Current Medications Current Medications Medications (Trade) Dose Ordered Sig/Omar Route PRN Reason Start Time Stop Time Status Last Admin Dose Admin Albuterol/ Ipratropium (Combivent Respimat 100-20mcg) 1 puff Q4HP PRN INH SHORTNESS OF BREATH 02/12/19 10:30 Albuterol/ Ipratropium (Combivent Respimat 100-20mcg) 1 puff QID INH 02/12/19 09:00 02/14/19 08:31 Cetirizine HCl (ZyrTEC) 10 mg DAILY PO 02/13/19 09:00 02/14/19 08:29 Fluticasone Propionate (Flovent Hfa 110 Mcg) 2 puff BID INH 02/12/19 09:00 02/14/19 08:28 Ibuprofen (Advil) 400 mg Q6HP PRN PO PAIN 02/11/19 14:15 02/12/19 09:13 Magnesium Hydroxide (Milk Of Magnesia) 30 ml DAILYPRN PRN PO CONSTIPATION 02/11/19 14:15 02/12/19 09:12 Montelukast Sodium (Singulair) 10 mg QAM PO 02/13/19 09:00 02/14/19 08:29 Olanzapine (ZyPREXA ZYDIS) 5 mg Q4HP PRN PO AGITATION 02/11/19 14:15 Olanzapine (ZyPREXA ZYDIS) 5 mg QHS PO 02/12/19 21:00 02/13/19 18:19 DC 12/11/19 21:31 Olanzapine (ZyPREXA ZYDIS) 10 mg QHS PO 02/13/19 21:00 02/13/19 21:22 Trazodone HCl (Desyrel) 50 mg QHSP PRN PO INSOMNIA 02/11/19 23:30 02/13/19 21:30 Allergies Coded Allergies: tree nut (Verified Allergy, Intermediate, ears and tongue itches, 10/01/18) bee pollen (Verified Allergy, Unknown, 10/01/18) shellfish derived (Verified Allergy, Unknown, 10/01/18) topiramate (Verified Adverse Reaction, Unknown, killed her WBCs, 10/01/18) DION ROBISON DO Feb 14, 2019 10:59
[2019-02-14] MEDS: MOM 30ML SUSPENSION UDC PO PRN (11:30)
[2019-02-14 16:29] VITALS: BP 132/78
[2019-02-14] MEDS: OLANZapine ORAL DISINTEGRATING TAB 5MG PO SCH (21:29)
[2019-02-14] MEDS: traZODone 50 MG TAB PO PRN (21:56)
[2019-02-15 06:09] VITALS: BP 130/76
[2019-02-15] MEDS: MONTELUKAST 10 MG TAB PO SCH (08:19)
[2019-02-15] MEDS: CETIRIZINE (ZyrTEC) 10 MG TAB PO SCH (08:19)
[2019-02-15] MEDS: COMBIVENT RESPIMAT 100-20MCG INHALER 4GM INH SCH ×4 (08:20→20:53)
[2019-02-15] MEDS: FLUTICASONE HFA 110 MCG 12 GM INHALER (FLOVENT) INH SCH ×2 (08:21→20:52)
[2019-02-15] MEDS: SODIUM CHLORIDE NASAL 0.65% SPRAY BTL (OCEAN) SCH ×2 (14:51→21:30)
[2019-02-15 16:09] VITALS: BP 140/77
[2019-02-15] MEDS: OLANZapine ORAL DISINTEGRATING TAB 5MG PO SCH (20:52)
[2019-02-15] MEDS: traZODone 50 MG TAB PO PRN (21:30)
[2019-02-16 06:15] VITALS: BP 120/75
[2019-02-16] MEDS: SODIUM CHLORIDE NASAL 0.65% SPRAY BTL (OCEAN) SCH ×2 (08:33→20:50)
[2019-02-16] MEDS: MONTELUKAST 10 MG TAB PO SCH (08:33)
[2019-02-16] MEDS: CETIRIZINE (ZyrTEC) 10 MG TAB PO SCH (08:33)
[2019-02-16] MEDS: FLUTICASONE HFA 110 MCG 12 GM INHALER (FLOVENT) INH SCH ×2 (08:33→20:49)
[2019-02-16] MEDS: COMBIVENT RESPIMAT 100-20MCG INHALER 4GM INH SCH ×4 (08:34→20:49)
[2019-02-16 16:00] VITALS: BP 136/82
[2019-02-16] MEDS: OLANZapine ORAL DISINTEGRATING TAB 5MG PO SCH (20:50)
[2019-02-16] MEDS: traZODone 50 MG TAB PO PRN (20:50)
[2019-02-16] MEDS: IBUPROFEN 400 MG TAB PO PRN (20:57)
[2019-02-17 06:22] VITALS: BP 143/63
[2019-02-17] MEDS: COMBIVENT RESPIMAT 100-20MCG INHALER 4GM INH SCH (08:26)
[2019-02-17] MEDS: CETIRIZINE (ZyrTEC) 10 MG TAB PO SCH (08:27)
[2019-02-17] MEDS: MONTELUKAST 10 MG TAB PO SCH (08:27)
[2019-02-17] MEDS: FLUTICASONE HFA 110 MCG 12 GM INHALER (FLOVENT) INH SCH (08:27)
[2019-02-17] MEDS: SODIUM CHLORIDE NASAL 0.65% SPRAY BTL (OCEAN) SCH (08:30)
[2019-02-17] MEDS ORDERED: OLAN10TA2 PO (10:12)
--- NOTE | 2019-02-17 10:16 | MHDSPDOC ---
[facility] Discharge Summary Discharge Summary DATE OF ADMISSION: Feb 11, 2019 at 15:18 DATE OF DISCHARGE: 02/17/19 Discharge Jyoti Khoury MRN: N/A Date of : N/A Date of Service: 02/17/2019 Diagnoses Bipolar disorder, type 1, most recent episode manic, severe with psychosis. History of Present Illness The patient, a 33-year-old woman with no reported psychiatric history presents to [facility] initially for bizarre behavior. She is admitted to the medical floor where she was observed with no cause for her unusual behavior. She is admitted to the psychiatric unit due to her bizarre behaviour consistent with ivan in terms of pressured speech, delusional thought process and hypersexuality. When I attempted to meet with the patient with a psychiatric nurse present as she has been quite focused on male providers and refuses to see most females. The patient was unable to relate any effectively useful information as she was tangential talking about various dilutional and paranoid topics. The psychosocial information below is extracted from the chart and updated as appropriate. Consultants Involved Hospitalist/PCP screening Treatment and Progress On The Unit The patient was admitted to the inpatient unit where she was noted to be bizarre and hypersexual. However, she was started on olanzapine 5 mg nightly, increased to 10 mg nightly with very positive results. She became much less bizarre. Her psychosis rapidly resolved. She became amenable with a normal mental status exam, insightful, and no longer altered in any way. After observation over the weekend, she had requested to go, no longer met involuntary criteria on the day of discharge as she had normal mental status exam, no signs of psychosis, was amenable with discharge planning, denied any suicidal or homicidal ideation throughout the entirety of her stay. Declined further voluntary admission and was discharged in good subhash. Discharge Assessment 33-year-old woman with likely first episode of bipolar ivan, responds well to olanzapine. Mental Status Examination General: Well dressed with good hygiene Speech: Spontaneous and fluid Thought processes: Linear and logical MSK: Smooth and coordinated gait, no signs of tremors or involuntary orofacial movements Thought content: Future orientated Abstract reasoning, and computation: Intact Description of associations: Intact Description of abnormal or psychotic thoughts: Denies any suicidal or homicidal ideation. Denies any auditory or visual hallucinations. Does not appear to be responding to internal stimuli. Does not appear to be endorsing any bizarre or paranoid ideation. Judgment: fair Insight: fair Orientation: Alert and orientated 3 Cognition: Grossly normal Recent and remote memory: Intact Attention span and concentration: Intact Fund of knowledge: Adequate Mood: "okay" Affect: Euthymic with a full range Follow Up The social work team worked during the predischarge meeting in order to evaluate for further issues of lethality address them fully before discharge. They worked on safety planning with the patient's family members in order to ensure that the patient will have a safe and effective discharge. Time Spent The amount of time spent in the coordination of care for this patient was approximately 60 minutes. Sunday Vital Signs/I&Os Vital Signs Date Time Temp Pulse Resp B/P (MAP) Pulse Ox O2 Delivery O2 Flow Rate FiO2 02/17/19 06:22 98.5 60 16 143/63 (89) Room Air 02/11/19 16:00 97 Medications Scheduled Olanzapine (Olanzapine) 10 Mg Tablet, 1 TAB PO QPM for mood for 7 Days, #7 Allergies Coded Allergies: tree nut (Verified Allergy, Intermediate, ears and tongue itches, 10/01/18) bee pollen (Verified Allergy, Unknown, 10/01/18) shellfish derived (Verified Allergy, Unknown, 10/01/18) topiramate (Verified Adverse Reaction, Unknown, killed her WBCs, 10/01/18) DION ROBISON DO Feb 17, 2019 10:16
== END 2019-02-17 11:30 | disposition home or self-care (01) | DRG 753 ==
LOC: M PSY 15:18
PROVIDERS: ADMIT Psychiatry & Neurology Addiction Medicine; ATTEND Psychiatry & Neurology Addiction Medicine
DX: F31.2 Bipolar disorder, current episode manic severe with psychotic features (principal); F41.9 Anxiety disorder, unspecified; Z91.030 Bee allergy status; Z91.013 Allergy to seafood; Z88.8 Allergy status to other drugs, medicaments and biological substances; M06.9 Rheumatoid arthritis, unspecified; J45.909 Unspecified asthma, uncomplicated; F17.200 Nicotine dependence, unspecified, uncomplicated; F10.10 Alcohol abuse, uncomplicated; G47.00 Insomnia, unspecified

== ENCOUNTER → 2019-04-16 | Outpatient (CLI) | payer MEDICAID ==
[~2019-04-16] MED LIST changes: +OLAN10TA2 PO; -TRAZ-163 PO; +TRAZ-257 PO
--- NOTE | 2019-04-16 14:42 | REP ---
Clinical: Right ankle pain . Technique: AP, lateral, bilateral oblique views right ankle . Findings: Generalized swelling. No acute fracture or dislocation. Skeletal structures and joint spaces are intact and normal. Ankle mortise appears stable. No subcutaneous emphysema or radiodense foreign body. Impression: Swelling. No acute fracture or dislocation. Electronically Signed by Mekhi Larson MD 04/16/2019 02:34 P
--- NOTE | 2019-04-16 14:43 | REP ---
Clinical: Right foot pain Technique: AP, lateral, bilateral oblique views right foot. Findings: The osseous structures and joint spaces are intact and normal. There is no evidence for acute fracture or dislocation. Surrounding soft tissues are unremarkable. No subcutaneous emphysema or radiodense foreign body. Impression: Age-appropriate right foot series. No acute fracture or dislocation. Electronically Signed by Mekhi Larson MD 04/16/2019 02:35 P
== END ==
LOC: M WUC 14:12
PROVIDERS: ATTEND Nurse Practitioner Family
DX: M25.571 Pain in right ankle and joints of right foot (principal)

== ENCOUNTER → 2019-11-21 | Outpatient (REF) | payer MEDICAID, OTHER ==
[~2019-11-21] MED LIST changes: -PANT20TA2; -PANT20TA2 PO; +PANT20TA6; +PANT20TA6 PO; +SULF500T41; -SULF50TA
== END ==
LOC: M LABWUC 15:27
PROVIDERS: ATTEND Physician Assistant
DX: N39.0 Urinary tract infection, site not specified (principal)

== ENCOUNTER → 2019-11-25 | Outpatient (CLI) | payer MEDICAID, OTHER ==
[2019-11-25 19:36] LABS: APPEARANCE, URINE CLEAR (CLEAR); BACTERIA, URINE AUTO NEGATIVE (NEGATIVE); BILIRUBIN, URINE AUTO NEGATIVE (NEGATIVE); BLOOD, URINE BLOOD 1+ (NEGATIVE); COLOR, URINE YELLOW (YELLOW); GLUCOSE, URINE (UA) AUTO NEGATIVE (NEGATIVE); KETONE, URINE AUTO NEGATIVE (NEGATIVE); LEUKOCYTE ESTERASE, URINE AUTO 2+ (NEGATIVE); NITRITE, URINE AUTO NEGATIVE (NEGATIVE); PROTEIN, URINE AUTO NEGATIVE (NEGATIVE); RBC, URINE AUTO 3 /HPF (0-3); SPECIFIC GRAVITY URINE AUTO 1.013 (1.002-1.035); SQUAMOUS EPITHELIAL CELL UR AU 2 /HPF (0-6); UROBILINOGEN, URINE AUTO 0.2 mg/dL (0.0-2.0); WBC, URINE AUTO 4 /HPF (0-3)
[2019-11-25 19:46] LABS: HEMATOCRIT 39.4 % (36.0-47.0); HEMOGLOBIN 12.5 g/dl (12.0-15.5); MEAN CORPUSCULAR HEMOGLOBIN 30.6 pg (27.0-33.0); MEAN CORPUSCULAR HGB CONC 31.7 g/dl (32.0-36.5); MEAN CORPUSCULAR VOLUME 96.6 fl (80.0-96.0); PLATELET COUNT, AUTOMATED 315 10^3/uL (150-450); RED BLOOD COUNT 4.08 10^6/uL (4.00-5.40); WHITE BLOOD COUNT 7.1 10^3/uL (4.0-10.0)
== END ==
LOC: M WUC 15:35
PROVIDERS: ATTEND Obstetrics & Gynecology Obstetrics
DX: R87.611 Atypical squamous cells cannot exclude high grade squamous intraepithelial lesion on cytologic smear of cervix (ASC-H) (principal)

== ENCOUNTER 2020-04-03 21:10 | Emergency (ER) | payer MEDICAID, OTHER ==
[~2020-04-03] VITALS: Ht 160 cm; Wt 98.4 kg
--- OUTSIDE RECORDS SUMMARY | 2020-04-03 21:14 | CCD | Continuity of Care Document ---
Author Author Jyoti SAENZ [place] Organization Unknown Address [address] [place] [address] Phone [phone] Care Team Providers Care Stair Builder Name Role Phone Jose Valdivia MD AUTM [phone] [facility] AUTM [phone] [employer] [facility] [phone] Problems Description No Information Available Social History Type Date Description Comments Sex Unknown ETOH Use Occasionally consumes alcohol Tobacco Use Start: Unknown End: Unknown Patient is a former smoker Smoking Status Reviewed: 01/27/20 Patient is a former smoker Allergies, Adverse Reactions, Alerts Active Allergies Reaction Severity Comments Date Topamax 01/07/2019 Shellfish-Derived Products 1 03/09/2018 Contrast Dye 01/07/2019 Bee Pollen 04/16/2019 [place] 12/04/2019 Medications Active Medications SIG Qnty Indications Ordering Provide r Date Amoxicillin 875mg Tablets take one tablet every 12 hrs.x 10 days. 20tabs J01.10 Darrius Vaughn JR., M.D. 01/27/2020 Trazodone HCL 300mg Tablets Unknown Fluoxetine HCL 20mg Capsules Unknown Pantoprazole Sodium 20mg Tablets D R Take One Tablet By Mouth Every Day Unknown Folic Acid 1mg Tablets Take One Tablet By Mouth Every Day Unknown Meloxicam 7.5mg Tablets Take One To Two Tablets By Mouth Every Day With Food as Needed For Pain Unknown Sulfasalazine 500mg Tablets DR Take Two Tablets By Mouth Twice A Day Unknown Cyclobenzaprine HCL 5mg Tablets Unknown Ventolin HFA 108(90Base) mcg/Act A erosol Unknown Zyrtec Allergy 10mg Tablets Unknown Latuda Unknown Valacyclovir HCL Unknown 00 History Medications Nitrofurantoin Monohydrate/Macrocrystals 100mg Capsules 1 twice a day x 7 days 14caps N39.0 Darrius Vaughn JR., M.D. 11/21/2019 - 11/12/2011 Immunizations Description No Information Available Vital Signs Date Vital Result Comment 01/27/2020 3:30pm BP Systolic 115 mmHg BP Diastolic 71 mmHg Heart Rate 81 /min Respiratory Rate 16 /min O2 % BldC Oximetry 96 % Body Temperature 98.1 F Weight 198.00 lb Height 65 inches 5'5" BMI (Body Mass Index) 32.9 kg/m2 Pain Level 6 12/04/2019 3:33pm BP Systolic 116 mmHg BP Diastolic 73 mmHg Heart Rate 107 /min O2 % BldC Oximetry 96 % Body Temperature 98.1 F Weight 198.00 lb Height 65 inches 5'5" BMI (Body Mass Index) 32.9 kg/m2 Pain Level 0 Results Test Acquired Date Facility Test Result H/L Range Note Laboratory test finding 11/21/2019 [place] [id number] [phone] Urine Culture FULL REPORT IN L <SEE NOTE> Normal 1 1 FULL REPORT IN LAB NOTES (eC W and [facility]). NO GROWTH CLINICAL SIGNIFICANCE 2 OR MORE ORGANISMS Procedures Description No Information Available Medical Devices Description No Information Available Encounters Type Date Location Provider Dx Diagnosis Office Visit 01/27/2020 4:05p Main Office BRENNA Rizvi J01 .10 Acute frontal sinusitis, unspecified J02.9 Acute pharyngitis, unspecifi ed Z20.828 Contact w and exposure to ot h viral communicable diseases Office Visit 12/04/2019 4:05p Main Office BRENNA Rizvi Z02 .1 Encounter for pre-employment examination Office Visit 11/25/2019 3:25p Main Office Mayra Keating NP J06. 9 Acute upper respiratory infection, unspecified Z20.828 Contact w and exposure to ot h viral communicable diseases Office Visit 11/21/2019 3:45p Main Office BRENNA Rae N39.0 Urinary tract infection, site not specified Assessments Date Code Description Provider 01/27/2020 J01.10 Acute frontal sinusitis, unspeci fied BRENNA Rizvi 01/27/2020 J02.9 Acute pharyngitis, unspecified M BRENNA Briones 01/27/2020 Z20.828 Contact with and (carft spected) exposure to other viral communicable diseases BRENNA Rizvi 12/04/2019 Z02.1 Encounter for pre-employment exa mination BRENNA Rizvi 11/28/2019 Z20.828 Contact with and (craft spected) exposure to other viral communicable diseases BRENNA Rizvi 11/25/2019 J06.9 Acute upper respiratory infectio n, unspecified Mayra Keating, [place] 11/25/2019 Z20.828 Contact with and (craft spected) exposure to other viral communicable diseases Mayra Keating NP 11/21/2019 N39.0 Urinary tract infection, site no t specified BRENNA Rae Plan of Treatment No Information Available Functional Status Description No Information Available Mental Status Description No Information Available Referrals Description No Information Available
--- OUTSIDE RECORDS SUMMARY | 2020-04-03 21:14 | CCD ---
Author Author Hernán Jyoti Nati Organization Unknown Address [address] [place] [address] Phone Care Team Providers Care Director Of Physical Therapy Name Role Phone Nati Jim PCP Allergies, Adverse Reactions, Alerts No Data in Section Problem List Concept Problem Description Status Start Date Created Date Resolv ed Date Snomed Code F29 Unspecified Schizophrenia Spectrum and Other Psy chotic Disorder Active 02/21/2019 02/21/2019 F31.9 Unspecified Bipolar and Related Disorder Active 02/04/2020 Medications Rx Norm Medication Route Route Concept Start Date Stop Date Dosage [place] quency Duration Formula Strength Dosage Form Dosage Form Code Dosage Description Medication Id Account Npid Author First Name Author Last Name Taxonomy Code Taxonomy Desc Phone Number [phone] trazodone by mouth [id number] 02/02/2020 04/02/2020 at bedtime 30 300 mg tablet [id number] [id number] Nati Jim [id number] Nurse Dasia le [phone] [id number] Prozac by mouth [id number] 02/02/2020 04/02/2020 every morning 30 20 mg capsule 63200 [id number] Nati Jim [id number] N philipe Practitioner [phone] [id number] Prozac by mouth [id number] 02/02/2020 04/02/2020 every morning 30 10 mg capsule 55180 [id number] Nati Jim [id number] N urse Practitioner [id number] Latuda by mouth [id number] 02/02/2020 04/02/2020 once a day 30 20 m g tablet as directed 36110 [id number] Nati Jim [id number] Nurse Practitioner [id number] Social History Social History Element Description Concept Effective Date Smoking Status Unknown if ever smoked [id number] Immunizations No Data in Section Vital Signs Encounter Date Height Ins Weight Lbs Bmi Bp Systolic Bp Diastoli c Oxygen Saturation Respiration Rate Pulse Rate Body Temp Head Circumference Heigh t Lying 02/02/2020 0.00 0.00 0.00 0 0 0.00 0 0 0.00 0.0 0.0 0 Procedures Date Concept Id Description Targeted Site Concept Targeted Site Concept Type 02/02/2020 [id number] [facility] Telemed E/M Lvl 3--Est pt CPT Patient has no history of implantable de vices Encounters Encounter Start Date End Date Encounter Type Description Diagnosis Di agnosis Desc Location Author First Name Author Last Name Npid Taxonomy Cod e Taxonomy Desc Phone Number Location Addr1 Location Addr2 Location [facility] Location Sta te Location Zip [id number] 02/02/2020 02/02/2020 [id number] [facility] Telemed E/M Lvl 3--Est p t F29 Unspecified Schizophrenia Spectrum and Other Psychotic Disorder [facility] Hernán Nati [phone] [id number] Nurse [facility] [phone] [address] [place] [phone] Plan of Treatment No Data in Section Lab Results No Data in Section Instructions No Data in Section Functional Cognitive Status No Data in Section Insurance Providers Insurance Id Policy Effective Date Policy Thru Date Company N dangelo [id number] 2018 [employer] Martine luis
--- OUTSIDE RECORDS SUMMARY | 2020-04-03 21:14 | CCD | Continuity of Care Document ---
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 Unavailable Problems Active Problems Provider Date Cervical intraepithelial neoplasia grade 2 Brooke Daniels NP Onset: 01/14/2020 Social History Type Date Description Comments Sex Unknown Tobacco Use Start: Unknown End: Unknown Former Cigarette Smo ker Tobacco Use Start: Unknown Never Smoked Cigars Tobacco Use Start: Unknown Never Smoked A Pipe Tobacco Use Start: Unknown Never Used Smokeless Tobacco ETOH Use Occasionally consumes alcohol Tobacco Use Start: Unknown End: Unknown Patient is a former smoker Recreational Drug Use Denies Drug Use Tattoo/Piercing Pierced ears Seat Belt/Car Seat Always uses seat belt Allergies, Adverse Reactions, Alerts Active Allergies Reaction Severity Comments Date Shellfish unsure of reaction 7 Tree Nuts itching tongue and throat Moderate Bee Sting unsure of reaction 7 Bananas itching of tongue and ears Mild 0 11/28/2016 Topamax destroys WBC's Severe 09/14/2017 Medications Active Medications SIG Qnty Indications Ordering Provide r Date Valacyclovir HCL 1gm Tablets 1 by mouth twice a day for 10 days 20tabs N76.6 Giorgio Garcia M.D. 01/19/2020 Zovirax 5% Cream apply topically to vulva x5 per day for 5 days and as needed 5gm N76.6 Giorgio Howell M.D. 01/19/2020 Trazodone HCL 300mg Tablets Unknown Latuda 20mg Tablets Take One Half Tablet By Mouth Every Evening With Supper Unknown Meloxicam 7.5mg Tablets 1 by mouth every day Unknown Iron 325(65Fe) mg Tablets 1 by mouth every day Unknown Vitamin D3 Super Strength 2000Unit Capsules 1 by mouth day Unknown Epipen 2-Missael 0.3mg/0 .3ML Solution Auto-Inject Inject 0.3ML Intramuscularly Once as Needed For Anaphylaxis Unknown Ventolin HFA 108(90Base) mcg/Act A erosol Inhale 2 Puffs Every 4 To 6 Hours as Needed Unkn own Sulfasalazine 500mg Tablets DR Take Two Tablets By Mouth Twice A Day Unknown Pantoprazole Sodium 20mg Tablets D R Take One Tablet By Mouth Every Day Unknown Fluoxetine HCL 10mg Capsules Take 30MG 3 Capsules By Mouth Daily Unknown 000 Folic Acid 1mg Tablets Take One Tablet By Mouth Every Day Unknown Cetirizine HCL 10mg Tablets Take One Tablet By Mouth Once Daily Unknown History Medications Metronidazole 500mg Tablets one tab by mouth twice daily for 7 days 14talenora N76.0 Giorgio Garcia M.D. 01/14/2020 - 01/21/2020 Flagyl 500mg Tablets 1 tab by mouth twice a day x 7days 14talenora Garcia M.D. 12/17/19 20 - 12/24/2019 Diflucan 150mg Tablets 1 tab by mouth. 1talenora Garcia M.D. 12/17/2019 - 01/2020 Flagyl 500mg Tablets 4 tab by mouth x 1 4talenora Garcia M.D. 10/16/2019 - Diflucan 150mg Tablets 1 tab by mouth. 1talenora Garcia M.D. 10/16/2019 - Immunizations Description No Information Available Vital Signs Date Vital Result Comment 01/19/2020 3:25pm BP Systolic 128 mmHg BP Diastolic 70 mmHg Heart Rate 80 /min Body Temperature 96.9 F Weight 203.00 lb Weight 92.081 kg Height 64 inches 5'4" BMI (Body Mass Index) 34.8 kg/m2 BSA (Body Surface Area) 1.97 m2 01/14/2020 2:58pm BP Systolic 135 mmHg BP Diastolic 75 mmHg Heart Rate 75 /min Body Temperature 97.3 F Weight 203.00 lb Weight 92.081 kg Height 64 inches 5'4" BMI (Body Mass Index) 34.8 kg/m2 BSA (Body Surface Area) 1.97 m2 Results Test Acquired Date Facility Test Result H/L Range Note Culture Herpes Simplex 01/19/2020 [facility] Culture Herpes Simpl (SEE NOTE) 1, 2 Source: Genital 3 Inhouse Ua 01/14/2020 In Office Ua Color yellow Ua Appearance clear Spec [place] 1.005 Ua PH Test Strip 7 Leukocytes 3+ Ua Nitrate neg Ua Protein neg Inhouse Glucose neg Ua Ketones neg Urobilinogen neg Ua Bilirubin neg Blood trace Laboratory test finding 01/14/2020 In Office Inhouse Urine Test negative Cuture Urine 01/14/2020 [facility] Culture Urine (SEE NOTE) 4, 5 Chlamydia GC/Trich 01/14/2020 [facility] Source: Random Void Chlamydia by Clare Negative Negative Gonococcus by Clare Negative Negative Trich vag by Clare Negative Negative Bacterial Vaginosis 01/14/2020 [facility] Source: Genital Nataly species Negative Negative Gardnerella vaginalis Positive Abnormal Negative Trichomonas vaginalis Negative Negative Affirm Vaginitis Panel 01/14/2020 [facility]#Other Observations <pending> Culture Urine 01/14/2020 [facility] Culture Urine Routine <pending> Laboratory test finding 11/25/2019 [facility] HCG, Serum Quantitative < 1.0 MIU/ML Normal 6 Complete Blood Count 11/25/2019 [facility] White Blood Count 7.1 10 Normal 4.0-10.0 Red Blood Count 4.08 10 Normal 4.00-5.40 Hemoglobin 12.5 g/dL Normal 12.0-15.5 Hematocrit 39.4 % Normal 36.0-47.0 Mean Corpuscular Volume 96.6 fl High 80.0-96.0 Mean Corpuscular Hemoglobin 30.6 pg Normal 27.0-33.0 Mean Corpuscular HGB Conc 31.7 g/dL Low 32.0-36.5 Red Cell Distribution Width 12.1 % Normal 11.5-14.5 Platelet Count, Automated 315 10 Normal 150-450 Nucleated Red Blood Cell % 0.0 % Normal 0-0 Ua Routine 11/25/2019 [facility] Appearance, Urine CLEAR Normal Clear Color, Urine YELLOW Normal Yellow PH,Urine 7.0 units Normal 5.0-9.0 Specific [place] Urine Auto 1.013 Normal 1.002-1.035 Protein, Urine Auto NEGATIVE mg/dL Normal Negative Glucose, Urine (Ua) Auto NEGATIVE mg/dL Normal Negative Ketone, Urine Auto NEGATIVE mg/dL Normal Negative Urobilinogen, Urine Auto 0.2 mg/dL Normal 0.0-2.0 Bilirubin, Urine Auto NEGATIVE Normal Negative Nitrite, Urine Auto NEGATIVE Normal Negative Leukocyte Esterase, Urine Auto 2+ High Negative Blood, Urine Blood 1+ High Negative WBC, Urine Auto 4 /HPF High 0-3 RBC, Urine Auto 3 /HPF Normal 0-3 Bacteria, Urine Auto NEGATIVE Normal Negative Squamous Epithelial Cell Ur AU 2 /HPF Normal 0-6 Hyaline Cast, Urine Auto 0 /LPF Normal 0-1 Laboratory test finding 09/24/2019 [facility] l Urine For Chlamydia <pending> Chlamydia GC/Am 09/24/2019 [facility] Source: Random Void 7 Chlamydia trachomatis,Clare Negative Negative Neisseria gonorrhoeae,Clare Negative Negative Laboratory test finding 09/24/2019 In Office Inhouse Urine Test negative Chlamydia GC/Am 08/25/2019 [facility] Source: Genital 8 Chlamydia trachomatis,Clare Negative Negative Neisseria gonorrhoeae,Clare Negative Negative 1 {SOURCE: Genital~.~.~N76.6 2 _CULTURE HERPES SIMPLEX_ 3 ^$[id number] ^^[id number] $$[id number] REPORTED DATE/TIME: 01/22/2020 15:06 Culture: CULTURE HERPES SIMPLEX Status: Final Isolate 1 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 . . . . . .1 Positive Typing was confirmed by monoclonal antibody microscopic immunofluorescence. HSV Culture/Type: P1 Herpes simplex virus type 1 Flag: A P1 [facility] #: [id number] [address] [place] [address] [id number] [facility] [address] Respiratory Assistant : Manuel Schofield MD NPI #: Orthodontic Treatment Coordinator : 01/23/20.0649.XMT.SENT REF 4 {SOURCE: Genital 5 _CULTURE URINE_ ^$685942 ^^209548 $$347147 ^^229418 $$812022 $$550706 $$826818 $$630893 $$711871 $$918088 $$191559 $$345783 $$392999 $$956372 $$872674 $$553408 $$644402 $$189482 $$660253 $$466257 $$782316 $$256456 $$155433 $$439300 $$444206 $$430272 $$660673 ^^618162 $$105230 $$943725 $$705581 -- Continued on next page -- Patient: TANISHA Graves Order: [id number] Page 2 Culture: CULTURE URINE Status: Final -- Continued on next page -- Patient: TANISHA Graves Order: [id number] Page 2 Culture: CULTURE URINE Status: Prelim $$[id number] $$[id number] REPORTED DATE/TIME: 01/18/2020 12:05 Culture: CULTURE URINE Status: Final Urine Culture,Comprehensive: P1 Mixed urogenital anupam 5,000 Colonies/mL Previous result entered on 01/17/2020 06:17 ET Specimen has been received and testing has been initiated. P1 [facility]: [id number] [address] [place] [address] [id number] [facility] [address] Respiratory Assistant : Manuel Schofield MD NPI #: Orthodontic Treatment Coordinator : 01/17/20.0711.XMT.SENT REF 01/18/20.1214.XMT.SENT REF 6 GESTATIONAL AGE APPROXIMATE HCG RANGE (MIU/ML) - 0.2-1 WEEK 5-50 1-2 WEEKS 50-500 2-3 WEEKS 100-5,000 3-4 WEEKS 500-10,000 4-5 WEEKS 1,000-50,000 5-6 WEEKS 10,000-100,000 6-8 WEEKS 15,000-200,000 2-3 MONTHS 10,000-100,00 0 NON FEMALES LESS THAN 3.0 Patient samples may contain human heterophilic antibodies that could react with immunoassays to give falsely elevated or depressed results. This assay has been designed to minimize interference from heterophilic antibodies. Elevated hCG levels have also been associated with trophoblastic disease and nontrophoblastic neoplasms. The possibility of having these diseases should be considered before a diagnosis of is made. This test is not intended for use as a surrogate marker for aiding in the diagnosis or monitoring the treatment of cancer patients. [employer] [facility] methodology. 7 {SOURCE: Random Void 8 {SOURCE: Genital~.~.~<DG1.3 .1>Z01.419</DG1.3.1><DG1.3.1>Z01.419</DG1.3.1> Procedures Description No Information Available Medical Devices Description No Information Available Encounters Description No Information Available Assessments Date Code Description Provider 01/19/2020 N76.6 Ulceration of vulva Brooke Daniels NP 01/14/2020 N76.0 Acute vaginitis Brooke Daniels NP 12/24/2019 Z48.89 Encounter for other specified craft rgical aftercare Giorgio Garcia M.D. 12/12/2019 Z48.89 Encounter for other specified craft rgical aftercare Giorgio Garcia M.D. 11/19/2019 Z01.818 Encounter for other preprocedura l examination Giorgio Garcia M.D. 10/16/2019 Z71.9 Counseling, unspecified Giorgio Garcia M.D. 09/24/2019 R87.611 Atypical squamous ce lls cannot exclude high grade squamous intraepithelial lesion on cytologic smear of cervix (Asc-H) Brooke Daniels NP 09/24/2019 Z11.3 Encounter for screen ing for infections with a predominantly sexual mode of transmission Brooke Daniels NP 08/25/2019 Z01.419 Encounter for gyneco logical examination (general) (routine) without abnormal findings Brooke Daniels NP Plan of Treatment 01/19/2020 - Brooke Daniels NP* N76.6 Ulceration of vulva* New Medication:* Valacyclovir HCL 1 gm - 1 by mouth twice a day for 10 days * Zovirax 5 % - apply topically to vulva x5 per day for 5 days and as needed * Follow up:* As needed. * Recommendations:* discussed findings, med as directed pending result of culture for hsv. Reviewed dx, med use. If + will send rx for future outbreaks for use . Functional Status Description No Information Available Mental Status Description No Information Available Referrals Description No Information Available
--- OUTSIDE RECORDS SUMMARY | 2020-04-03 21:14 | CCD ---
Continuity of Care Document (CCD) Created on: 01/20/2020 Jyoti Khoury External Reference #: [id number] : [id number] Sex: Female Author Author Jyoti MAYBERRY Organization Unknown Address [address] [place], [place] [address] Phone [phone] Care Team Providers Care Disability Counselor Name Role Phone AUTM Unavailable Problems Active [...] needed 5gm N76.6 Giorgio Howell M.D. 01/19/2020 Metronidazole 500mg Tablets one tab by mouth twice daily for 7 days 14tabs N76.0 Giorgio Garcia M.D. 01/14/2020 Trazodone HCL 300mg Tablets Unknown Latuda 20mg [...] By Mouth Once Daily Unknown History Medications Flagyl 500mg Tablets 1 tab by mouth twice a day x 7days 14talenora Garcia M.D. 12/17/19 20 - 12/24/2019 Diflucan 150mg Tablets 1 tab by mouth. 1talenora Garcia M.D. 12/17/2019 - 01/2020 Flagyl 500mg Tablets 4 tab by mouth x 1 4delmar Garcia M.D. 10/16/2019 - Diflucan 150mg Tablets 1 tab by mouth. 1delmar Garcia M.D. 10/16/2019 - Immunizations Description No [...] Date Facility Test Result H/L Range Note Inhouse Ua 01/14/2020 In Office Ua Color yellow Ua Appearance clear Spec [facility] 1.005 Ua PH Test Strip 7 Leukocytes 3+ Ua Nitrate neg Ua Protein neg Inhouse Glucose neg Ua Ketones neg Urobilinogen neg Ua Bilirubin neg Blood trace Laboratory test finding 01/14/2020 In Office Inhouse Urine Test negative Cuture Urine 01/14/2020 [facility] Culture Urine (SEE NOTE) 1, 2 Chlamydia GC/Trich 01/14/2020 [facility] Source: Random Void Chlamydia by Clare Negative Negative Gonococcus by Clare Negative Negative Trich vag by Clare Negative Negative Bacterial Vaginosis 01/14/2020 [facility] Source: Genital Nataly species Negative Negative Gardnerella vaginalis Positive Abnormal Negative Trichomonas vaginalis Negative Negative Affirm Vaginitis Panel 01/14/2020 [facility] Z#Other Observations <pending> Culture Urine 01/14/2020 [facility] Culture Urine Routine <pending> Laboratory test finding 11/25/2019 [facility] HCG, Serum Quantitative < 1.0 MIU/ML Normal 3 Complete Blood Count 11/25/2019 [facility] White Blood Count 7.1 10 Normal 4.0-10.0 [...] 0.0 % Normal 0-0 Ua Routine 11/25/2019 [facility] Appearance, Urine CLEAR Normal Clear Color, Urine YELLOW Normal Yellow PH,Urine 7.0 units Normal 5.0-9.0 Specific [place] Urine Auto 1.013 Normal 1.002-1.035 Protein, Urine [...] /LPF Normal 0-1 Laboratory test finding 09/24/2019 [facility] l Urine For Chlamydia <pending> Chlamydia GC/Am 09/24/2019 [facility] Source: Random Void 4 Chlamydia trachomatis,Clare Negative Negative Neisseria gonorrhoeae,Clare Negative Negative Laboratory test finding 09/24/2019 In Office Inhouse Urine Test negative Chlamydia GC/Am 08/25/2019 [facility] Source: Genital 5 Chlamydia trachomatis,Clare Negative Negative Neisseria gonorrhoeae,Clare Negative Negative 1 {SOURCE: Genital 2 _CULTURE URINE_ ^$164067 ^^044046 $$787445 ^^170478 $$406417 $$665752 $$626055 $$130871 $$767555 $$700045 $$571320 $$650258 $$013512 $$743556 $$744596 $$833397 $$753470 $$103465 $$067372 $$471671 $$871841 $$017844 $$570112 $$752271 $$445747 $$793953 $$597056 ^^317160 $$312358 $$005828 $$837879 -- Continued on next page -- Patient: TANISHA Graves Order: [id number] Page 2 Culture: CULTURE URINE Status: Final -- Continued on next page -- Patient: TANISHA Graves Order: [id number] Page 2 Culture: CULTURE URINE Status: Prelim $$[id number] $$[id number] REPORTED DATE/TIME: 01/18/2020 12:05 Culture: CULTURE URINE Status: Final Urine Culture,Comprehensive: P1 Mixed urogenital anupam 5,000 Colonies/mL Previous result entered on 01/17/2020 06:17 ET Specimen has been received and testing has been initiated. P1 Test performed by: [facility] #: [id number] [address] [place] [address] [id number] [facility] [address] [employer] G : Manuel Schofield MD NPI #: Commercial Insurance Underwriter : 01/17/20.0711.XMT.SENT REF 01/18/20.1214.XMT.SENT REF 3 GESTATIONAL AGE APPROXIMATE HCG RANGE (MIU/ML) - [...] or monitoring the treatment of cancer patients. [employer] methodology. 4 {SOURCE: Random Void 5 {SOURCE: Genital~.~.~<DG1.3 .1>Z01.419</DG1.3.1><DG1.3.1>Z01.419</DG1.3.1> Procedures Description No Information Available Medical Devices Description No Information Available Encounters Type Date Location Provider Dx Diagnosis Office Visit 01/19/2020 3:[address] [facility] Brooke Daniels NP N76.6 Ulceration of vulva Assessments Date Code Description Provider 01/19/2020 N76.6 [...]
--- OUTSIDE RECORDS SUMMARY | 2020-04-03 21:14 | CCD | Continuity of Care Document ---
Author Author [facility] Organization [facility] Address Unknown Phone Unavailable Care Team Providers Care Assistive Technology Trainer Name Role Phone Robert Celeste MD Unavailable Unavailable Allergies, Adverse Reactions, Alerts Substance Reaction Status Criticality bee venom protein (honey bee) Active No Information shellfish derived Active No Information Medications Medication Instructions Dosage Effective Dates (start - stop) Sta tus Comments sulfasalazine 500 mg tablet,delayed release TAKE THREE TABLETS BY MOUTH TWICE A DAY - Active meloxicam 7.5 mg tablet take 1-2 tablet by oral route every da y prn pain - Active folic acid 1 mg tablet take 1 Tablet by oral route every day 1 MG - Active cyclobenzaprine 5 mg tablet take 0.5 - 1 tabs by Oral route every bedtime as needed 0.5-1 tabs - Active Please public relations counselor. trazodone 300 mg tablet take 1 tablet by oral route every day w ith food 300 MG - Active Latuda 20 mg tablet take 1 tablet by oral route every day with food (at least 350 calories) 20 MG - Active Prozac 20 mg capsule take 1 capsule by oral route every day in the morning 20 MG - Active pantoprazole 20 mg tablet,delayed release take 2 table t by oral route every day 40 MG - Active cetirizine 10 mg tablet take 1 tablet by oral route every day 10 MG - Active Problems Condition Type Effective Dates (start - stop) Clinical S tatus Comments Body mass index (BMI) 28.0-28.9, adult Diagnosis inter pretation (observable entity) - Body mass index (BMI) 28.0-28.9, adult Diagnosis inter pretation (observable entity) - Rheu arthritis w rheu factor mult site w/o org/sys inv olv Diagnosis interpretation (observable entity) Other vermin exterminator (current) drug therapy Diagnosis inter pretation (observable entity) Rheu arthritis w rheu factor mult site w/o org/sys inv olv Diagnosis interpretation (observable entity) Other mcfp (current) drug therapy Diagnosis inter pretation (observable entity) Rheu arthritis w rheu factor mult site w/o org/sys inv olv Diagnosis interpretation (observable entity) Other mcfp (current) drug therapy Diagnosis inter pretation (observable entity) Rheu arthritis w rheu factor mult site w/o org/sys inv olv Diagnosis interpretation (observable entity) Other vermin exterminator (current) drug therapy Diagnosis inter pretation (observable entity) Myalgia, other site Diagnosis interpretation (observable entity) Rheu arthritis w rheu factor mult site w/o org/sys inv olv Diagnosis interpretation (observable entity) Other vermin exterminator (current) drug therapy Diagnosis inter pretation (observable entity) Rheu arthritis w rheu factor mult site w/o org/sys inv olv Diagnosis interpretation (observable entity) Other mcfp (current) drug therapy Diagnosis inter pretation (observable entity) Rheu arthritis w rheu factor mult site w/o org/sys inv olv Diagnosis interpretation (observable entity) Other vermin exterminator (current) drug therapy Diagnosis inter pretation (observable entity) Hypermobility syndrome Diagnosis interpretation (observable entity) RA w/ rheumatoid factor of multiple sites w/o organ in volvement Diagnosis interpretation (observable entity) Other mcfp (current) drug therapy Diagnosis inter pretation (observable entity) Pain in unspecified knee Diagnosis interpretation (observable entit y) RA w/ rheumatoid factor of multiple sites w/o organ in volvement Diagnosis interpretation (observable entity) Other vermin exterminator (current) drug therapy Diagnosis inter pretation (observable entity) RA w/ rheumatoid factor of multiple sites w/o organ in volvement Diagnosis interpretation (observable entity) Other vermin exterminator (current) drug therapy Diagnosis inter pretation (observable entity) RA w/ rheumatoid factor of multiple sites w/o organ in volvement Diagnosis interpretation (observable entity) Other vermin exterminator (current) drug therapy Diagnosis inter pretation (observable entity) RA w/ rheumatoid factor of multiple sites w/o organ in volvement Diagnosis interpretation (observable entity) Other mcfp (current) drug therapy Diagnosis inter pretation (observable entity) RA w/ rheumatoid factor of multiple sites w/o organ in volvement Diagnosis interpretation (observable entity) Other vermin exterminator (current) drug therapy Diagnosis inter pretation (observable entity) RA w/ rheumatoid factor of multiple sites w/o organ in volvement Diagnosis interpretation (observable entity) Other mcfp (current) drug therapy Diagnosis inter pretation (observable entity) RA w/ rheumatoid factor of multiple sites w/o organ in volvement Diagnosis interpretation (observable entity) Other vermin exterminator (current) drug therapy Diagnosis inter pretation (observable entity) Seropositive rheumatoid arthritis Problem (finding) - Active Arthropathy Problem (finding) - Active Mapped f rom [facility] Chronic Conditions table on 05/12/2014 by the ICD9 to SNOMED Bulk Mapping Utility. The mapped diagnosis code was Inflammatory Arthritis - multiple sites, 716.99, added by Vinita Damon, with responsible provider Vinita Meneses PA-C. Onset date 04/28/2013; last addressed on 04/28/2013. Clinical finding Problem (finding) - Active Rikki ed from [facility] Chronic Conditions table on 05/12/2014 by the ICD9 to SNOMED Bulk Mapping Utility. The mapped diagnosis code was Positive RF and ACCP,Positive RF and ACCP, 796.4, added by Vinita Damon, with responsible provider Vinita Meneses PA-C. Onset date 08/15/2012; last addressed on 11/14/2012. Rheumatoid factor positive Problem (finding) - Active Procedures Procedure Date No Information Results Test Name Date and Time Measure Units Reference Range Abnormal Flag St atus Comments No Information Advance Directives Directive Yes / No Effective Date File Name No Information Encounters Encounter Description Practice Location Reason(s) For Visit Diagnose s Date Provider Providers Copied on Encounter [facility], [address] [place] [address], [id number], [place] tel:[phone] [facility] No Information Booker Jones. [address] [place] [address], [id number], [place]. tel:[phone] [facility], [address] [place] [address], [id number], [place] tel:[phone] [facility] Rheu arthritis w rheu factor mult site w/o org/sys involvOther mcfp (current) drug therapy Brian Acosta. [address] [place] [address], [id number], [place]. tel:[phone] Referring Provider: Edmund Hicks MD, [address], [address]. tel:[phone] [facility], [address] [place] [address], [id number], [place] tel:[phone] [facility] Rheu arthritis w rheu factor mult site w/o org/sys involvOther mcfp (current) drug therapy Brian Acosta. [address] [place] [address], [id number], [place]. tel:[phone] Referring Provider: Edmund Hicks MD, [address], [address]. tel:[phone] [facility], [address] [place] [address], [id number], [place] tel:[phone] [facility] Rheu arthritis w rheu factor mult site w/o org/sys involvOther vermin exterminator (current) drug therapy Sol Corea. [address] [place], [place], [id number], [place]. tel:[phone] Referring Provider: Edmund Hicks MD, [address], [address]. tel:[phone] [facility], [address] [place] [address], [id number], [place] tel:[phone] [facility] Rheu arthritis w rheu factor mult site w/o org/sys involvOther vermin exterminator (current) drug therapyMyalgia, other site Harley Macias. [address] [place], [place], [id number], [place]. tel:[phone] Referring Provider: Edmund Hicks MD, [address], [address]. tel:[phone] [facility], [address] [place] [address], [id number], [place] tel:[phone] [facility] Rheu arthritis w rheu factor mult site w/o org/sys involvOther vermin exterminator (current) drug therapy Martidara Castlene. [address] [place] [address], [id number], [place]. tel:[phone] Referring Provider: Edmund Hicks MD, [address], [address]. tel:[phone] [facility], [address] [place] [address], [id number], [place] tel:[phone] [facility] Rheu arthritis w rheu factor mult site w/o org/sys involvOther mcfp (current) drug therapy Zaira Talamantes. [address] [place] [address], [id number], [place]. tel:[phone] Referring Provider: Edmund Hicks MD, [address], [address]. tel:[phone] [facility], [address] [place] [address], [id number], [place] tel:[phone] [facility] Rheu arthritis w rheu factor mult site w/o org/sys involvOther mcfp (current) drug therapyHypermobility syndrome Santy Fall. [address] [place] [address], [id number], [place]. tel:[phone] Referring Provider: Edmund Hicks MD, [address], [address]. tel:[phone] [facility], [address] [place] [address], [id number], [place] tel:[phone] [facility] RA w/ rheumatoid factor of multiple sites w/o organ involvementOther mcfp (current) drug therapyPain in unspecified knee Re Camara [address] [place] [address], [id number], [place]. tel:[phone] Referring Provider: Edmund Hicks MD, [address], [address]. tel:[phone] [facility], [address] [place] [address], [id number], [place] tel:[phone] [facility] RA w/ rheumatoid factor of multiple sites w/o organ involvementOther vermin exterminator (current) drug therapyBody mass index (BMI) 28.0-28.9, adult Re Camara [address] [place] [address], [id number], [place]. tel:[phone] Referring Provider: Edmund Hicks MD, [address], [address]. tel:[phone] [facility], [address] [place] [address], [id number], [place] tel:[phone] [facility] RA w/ rheumatoid factor of multiple sites w/o organ involvementOther vermin exterminator (current) drug therapyBody mass index (BMI) 28.0-28.9, adult Re Camara [address] [place] [address], [id number], [place]. tel:[phone] Referring Provider: Edmund Hicks MD, [address], [address]. tel:[phone] [facility], [address] [place] [address], [id number], [place] tel:[phone] [facility] RA w/ rheumatoid factor of multiple sites w/o organ involvementOther vermin exterminator (current) drug therapy Scottyjamarcus Johnson. [address] [place] [address], [id number], [place]. tel:[phone] Referring Provider: Edmund Hicks MD, [address], [address]. tel:[phone] [facility], [address] [place] [address], [id number], [place] tel:[phone] [facility] RA w/ rheumatoid factor of multiple sites w/o organ involvementOther mcfp (current) drug therapy Zaira Talamantes. [address] [place] [address], [id number], [place]. tel:[phone] Referring Provider: Edmund Hicks MD, [address], [address]. tel:[phone] [facility], [address] [place] [address], [id number], [place] tel:[phone] [facility] RA w/ rheumatoid factor of multiple sites w/o organ involvementOther mcfp (current) drug therapy Zaira Talamantes. [address] [place] [address], [id number], [place]. tel:[phone] Referring Provider: Edmund Hicks MD, [address], [address]. tel:[phone] [facility], [address] [place] [address], [id number], [place] tel:[phone] [facility] RA w/ rheumatoid factor of multiple sites w/o organ involvementOther mcfp (current) drug therapy Zaira Talamantes. [address] [place], [place], [id number], [place]. tel:[phone] Referring Provider: Edmund Hicks MD, [address], [address]. tel:[phone] [facility], [address] [place] [address], [id number], [place] tel:[phone] [facility] RA w/ rheumatoid factor of multiple sites w/o organ involvementOther mcfp (current) drug therapy Zaira Talamantes. [address] [place] [address], [id number], [place]. tel:[phone] Referring Provider: Edmund Hicks MD, [address], [address]. tel:[phone] [facility], [address] [place] [address], [id number], [place] tel:[phone] [facility] No Information Zaira Talamantes. [address] [place] [address], [id number], [place]. tel:[phone] Referring Provider: Edmund Hicks MD, [address], [address]. tel:[phone] [facility], [address] [place] [address], [id number], [place] tel:[phone] [facility] No Information Zaira Talamantes. [address] [place] [address], [id number], [place]. tel:[phone] Referring Provider: Edmund Hicks MD, [address], [address]. tel:[phone] [facility], [address] [place] [address], [id number], [place] tel:[phone] [facility] No Information Primo Chakraborty. [address] [place] [address], [id number], [place]. tel:[phone] Referring Provider: Edmund Hicks MD, [address], [address]. tel:[phone] Family History Family Member Type Diagnosis Age At Onset grandmother Problem (finding) Rheumatoid arthritis Brother Problem (finding) Gout Mother Problem (finding) Psoriasis Immunizations Vaccine Date Status Comments Influenza, injectable, MDCK, preservativ e free, 0.5 mL dosage, Flucelvax Quad administered Note: approx ; Sourc e: Other Provider Influenza, injectable, MDCK, Flucelvax Quad administered Source: Other Provider Influenza, injectable, quadrivalent, spl it virus, 18 years or older Afluria Quad administered Source: New Immuniza tion Record Influenza, injectable, trivalent, split virus, 4 years and older, Fluvirin [id number] administered Source: Other Provid er pt unaware of having PPV23 administered Sourc e: New Immunization Record Payers Payer name Insurance type Covered green party ID Authorization(s ) [facility] Medicaid 16 [id number] [facility] Medicaid 16 [id number] Social History Type Description Quantity Date Captured Comments Sex Female Smoking Status No Information Vital Signs Date / Time: Height Weight BMI Pulse Rate Blood Pressure Temperatu re Respiratory Rate Body Surface Area Head Circumference BMI percentile Pulse Ox In haled Ox No Information Chief Complaint And Reason For Visit No Information Reason For Referral Reason For Referral No Information Plan Of Treatment Date Type Action Status Goal Tobacco cessation counseling com pleted Goal Tobacco cessation counseling com pleted Goal Lifestyle education regarding di et completed Goal Tobacco cessation counseling com pleted Goal Tobacco cessation counseling com pleted Goal Lifestyle education regarding di et completed Goal Tobacco cessation counseling com pleted Goal Tobacco cessation counseling com pleted Referral Ordered: *KNEE X-RAY, 1 OR 2 VIEWS Right ordered Referral Ordered: *KNEE X-RAY, 1 OR 2 VIEWS Left ordered History Of Present Illness Encounter Date Complaint History Of Present I llness No Information Functional Status Date Functional Assessment No Information Medications Administered Medication Instructions Dosage Effective Dates (start - stop) Sta tus Comments No Information Instructions Date Instruction Additional Informati on Risks/benefits of medications reviewed Labs ordered to check disease activity. Call if symptoms return Labs ordered to check blood counts, liver and kidney functions to monitor safety of medication. Discussed / Reviewed Labs continue same medication plan call if symptoms worsen Labs ordered to check disease activity. Risks/benefits of medications reviewed Call if symptoms return Labs ordered to check blood counts, liver and kidney functions to monitor safety of medication. Discussed / Reviewed Labs continue same medication plan call if symptoms worsen Risks/benefits of medications reviewed Labs ordered to check disease activity. Call if symptoms return Labs ordered to check blood counts, liver and kidney functions to monitor safety of medication. Discussed / Reviewed Labs hold medication and call if any side eff ect develops continue same medication plan Risks/benefits of medications reviewed Avoid sun and use high SPF sunblock Labs ordered to check disease activity. Labs ordered to check blood counts, liver and kidney functions to monitor safety of medication. Discussed / Reviewed Labs call if symptoms worsen Weight reduction urged. maintain adequate water intake every day Lifestyle education regarding diet Relat ed to Body mass index (BMI) 28.0-28.9, adult Lifestyle education regarding diet Relat ed to Body mass index (BMI) 28.0-28.9, adult Reviewed importance of compl iance/adherence to medications prescribed Discussed importance of hold ing DMARDs/ biologics if patient develops an infection and to notify the treating physician Discussed the need to hold D MARDS/Biologics before and after surgery/procedure. Physical Examination Exam Findings Details No Information
--- OUTSIDE RECORDS SUMMARY | 2020-04-03 21:14 | CCD | Continuity of Care Document ---
Author Author Jyoti MAYBERRY Organization Unknown Address [address] [place], [place] [address] Phone [phone] Care Team Providers Care Journeyman Electrician Name Role Phone AUTM Unavailable Problems Active [...] Ua Color yellow Ua Appearance clear Spec [place] 1.005 Ua PH Test Strip 7 Leukocytes 3+ Ua Nitrate neg Ua Protein neg Inhouse Glucose neg Ua Ketones neg Urobilinogen neg Ua Bilirubin neg Blood trace Laboratory test finding 01/14/2020 In Office Inhouse Urine Test negative Cuture Urine 01/14/2020 [facility] Culture Urine (SEE NOTE) 1, 2 Chlamydia GC/Trich 01/14/2020 [facility] Source: Random Void Chlamydia by Clare Negative Negative Gonococcus by [facility]care Negative Negative Trich vag by Clare Negative Negative Bacterial Vaginosis 01/14/2020 [facility] Source: Genital Nataly species Negative Negative Gardnerella vaginalis Positive Abnormal Negative Trichomonas vaginalis Negative Negative Affirm Vaginitis Panel 01/14/2020 [facility]#Other Observations <pending> Culture Urine 01/14/2020 [facility] Culture Urine Routine <pending> Laboratory test finding 11/25/2019 [facility] HCG, Serum Quantitative < 1.0 MIU/ML Normal 3 Complete Blood Count 11/25/2019 [facility] White Blood Count 7.1 10 Normal 4.0-10.0 [...] 0.0 % Normal 0-0 Ua Routine 11/25/2019 [facility] Appearance, Urine CLEAR Normal Clear Color, Urine YELLOW Normal Yellow PH,Urine 7.0 units Normal 5.0-9.0 Specific [place] Urine Auto 1.013 Normal 1.002-1.035 Protein, Urine [...] /LPF Normal 0-1 Laboratory test finding 09/24/2019 [facility] Urine For Chlamydia <pending> Chlamydia GC/Am 09/24/2019 [facility] Source: Random Void 4 Chlamydia trachomatis,Clare Negative Negative Neisseria gonorrhoeae,Clare Negative Negative Laboratory test finding 09/24/2019 In Office Inhouse Urine Test negative Chlamydia GC/Am 08/25/2019 [facility] Source: Genital 5 Chlamydia trachomatis,Clare Negative Negative Neisseria gonorrhoeae,Clare Negative Negative 1 {SOURCE: Genital 2 _CULTURE URINE_ ^$[id number] ^^[id number] $$598871 ^^081309 $$613481 $$383824 $$035143 $$567939 $$278467 $$775805 $$423159 $$338432 $$696191 $$941569 $$952255 $$369443 $$999859 $$941735 $$657902 $$559180 $$356598 $$265091 $$972154 $$730612 $$442760 $$631815 $$842131 ^^261355 $$220920 $$362272 $$840757 -- Continued on next page -- Patient: TANISHA Graves Order: [id number] Page 2 Culture: CULTURE URINE Status: Final -- Continued on next page -- Patient: TANISHA Graves Order: [id number] Page 2 Culture: CULTURE URINE Status: Prelim $$[id number] $$[id number] REPORTED DATE/TIME: 01/18/2020 12:05 Culture: CULTURE URINE Status: Final Urine Culture,Comprehensive: P1 Mixed urogenital anupam 5,000 Colonies/mL Previous result entered on 01/17/2020 06:17 ET Specimen has been received and testing has been initiated. P1 Test performed by: [facility] #: [id number] [address] [place] [id number] [facility] [address] Otologist : Manuel Schofield MD NPI #: Customs Compliance Specialist : 01/17/20.0711.XMT.SENT REF 01/18/20.1214.XMT.SENT REF 3 GESTATIONAL [...] or monitoring the treatment of cancer patients. [employer] methodology. 4 {SOURCE: Random Void 5 {SOURCE: [...]
--- OUTSIDE RECORDS SUMMARY | 2020-04-03 21:14 | CCD | Continuity of Care Document ---
Author Author Jyoti SAENZ MA Organization Unknown Address [address] [place] [address] Phone [phone] Care Team Providers Care Spring Upholsterer Name Role Phone Jose Valdivia MD AUTM [phone] [facility] AUTM [phone] [employer] AUTM [phone] Problems Description No Information Available Social History [...] H/L Range Note Laboratory test finding 11/21/2019 [place] [id number] [phone] Urine Culture FULL REPORT IN L <SEE NOTE> Normal 1 1 FULL REPORT IN LAB NOTES (eC W and [facility]). NO GROWTH CLINICAL SIGNIFICANCE 2 OR MORE ORGANISMS Procedures Description No Information Available Medical Devices Description No Information Available Encounters Type Date Location Provider Dx Diagnosis Office Visit 12/04/2019 4:05p Main Office BRENNA [...] BRENNA Briones 01/27/2020 Z20.828 Contact with and (craft spected) exposure to other viral communicable diseases BRENNA Rizvi 12/04/2019 Z02.1 Encounter for pre-employment exa mination BRENNA Rizvi 11/28/2019 Z20.828 Contact with and (craft spected) exposure to other viral communicable diseases BRENNA Rizvi 11/25/2019 J06.9 Acute upper respiratory infectio n, unspecified Mayra Keating NP 11/25/2019 Z20.828 Contact with and (craft spected) exposure to other viral communicable diseases Mayra Keating NP 11/21/2019 N39.0 Urinary tract infection, site no t specified BRENNA Rae Plan of Treatment No Information Available Functional Status Description No Information Available Mental Status Description No Information Available Referrals Description No Information Available
--- OUTSIDE RECORDS SUMMARY | 2020-04-03 21:14 | CCD ---
Author Author Iris Jimie Nati Organization Unknown Address [address] [address] Phone Care Team Providers Care Toddler Teacher Name Role Phone Nati Jim PCP Allergies, Adverse Reactions, Alerts No Data in Section Problem List Concept Problem Description Status Start Date Created Date Resolv ed Date Snomed Code F29 Unspecified Schizophrenia Spectrum and Other Psy chotic Disorder Active 02/21/2019 02/21/2019 F31.9 Unspecified Bipolar and Related Disorder Active 03/16/2020 Medications Rx Norm Medication Route Route Concept Start Date Stop Date Dosage [place] quency Duration Formula Strength Dosage Form Dosage Form Code Dosage Description Medication Id Account Npid Author First Name Author Last Name Taxonomy Code Taxonomy Desc Phone Number [phone] trazodone by mouth [id number] 02/02/2020 04/02/2020 at bedtime 30 300 mg tablet 97833 [id number] [phone] Nati Jim [id number] Nurse P rey [phone] [id number] Prozac by mouth [id number] 02/02/2020 04/02/2020 every morning 30 20 mg capsule 59049 [id number] Nati Jim [id number] N philipe Practitioner [phone] [id number] Prozac by mouth [id number] 02/02/2020 04/02/2020 every morning 30 10 mg capsule 26954 [id number] Nati Jim [id number] N philipe Practitioner [id number] [id number] Latuda by mouth [id number] 02/02/2020 04/02/2020 once a day 30 20 m g tablet as directed 91630 [id number] Nati Jim [id number] Nurse Practitioner [phone] Social History Social History Element Description Concept Effective Date Smoking Status Unknown if ever smoked [id number] Immunizations No Data in Section Vital Signs Encounter Date Height Ins Weight Lbs Bmi Bp Systolic Bp Diastoli c Oxygen Saturation Respiration Rate Pulse Rate Body Temp Head Circumference Heigh t Lying 03/16/2020 0.00 0.00 0.00 0 0 0.00 0 0 0.00 0.0 0.0 0 Procedures Date Concept Id Description Targeted Site Concept Targeted Site Concept Type 03/16/2020 [id number] [facility] Tele[facility] E/M Lvl 3--Est pt CPT Patient has no history of implantable de vices Encounters Encounter Start Date End Date Encounter Type Description Diagnosis Di agnosis Desc Location Author First Name Author Last Name Npid Taxonomy Cod e Taxonomy Desc Phone Number Location Addr1 Location Addr2 Location [facility] Location Sta te Location Zip [id number] 03/16/2020 03/16/2020 [id number] [facility] Telemed E/M Lvl 3--Est p t F29 Unspecified Schizophrenia Spectrum and Other Psychotic Disorder [facility] Nati [phone] [id number] Nurse [facility] [phone] [address] [phone] Plan of Treatment No Data in Section Lab Results No Data in Section Instructions No Data in Section Functional Cognitive Status No Data in Section Insurance Providers Insurance Id Policy Effective Date Policy Thru Date Company N dangelo [id number] 2018 [employer] Managed Charly luis
--- OUTSIDE RECORDS SUMMARY | 2020-04-03 21:15 | CCD | Continuity of Care Document ---
Author Author Jyoti MAYBERRY Organization Unknown Address [address] [place], [place] [address] Phone [phone] Care Team Providers Care Rubbish Collection Supervisor Name Role Phone AUTM Unavailable Problems Active [...] SIG Qnty Indications Ordering Provide r Date Metronidazole 500mg Tablets one tab by mouth [...] Facility Test Result H/L Range Note Culture Urine 01/14/2020 [facility] Culture Urine Routine <pending> Affirm Vaginitis Panel 01/14/2020 [facility] Z#Other Observations <pending> Bacterial Vaginosis 01/14/2020 [facility] Source: Genital 1 Nataly species Negative Negative Gardnerella vaginalis Positive Abnormal Negative Trichomonas vaginalis Negative Negative Chlamydia GC/Trich 01/14/2020 [facility] Source: Random Void Chlamydia by [place] Negative Negative Gonococcus by Clare Negative Negative Trich vag by Clare Negative Negative Cuture Urine 01/14/2020 [facility] Culture Urine (SEE NOTE) 2 Laboratory test finding 01/14/2020 In Office Inhouse Urine Test negative Inhouse Ua 01/14/2020 In Office Ua Color yellow Ua Appearance clear Spec [place] 1.005 Ua PH Test Strip 7 Leukocytes 3+ Ua Nitrate neg Ua Protein neg Inhouse Glucose neg Ua Ketones neg Urobilinogen neg Ua Bilirubin neg Blood trace Laboratory test finding 11/25/2019 [facility] HCG, Serum Quantitative < 1.0 MIU/ML Normal 3 Complete Blood Count 11/25/2019 [facility] White Blood Count 7.1 10 Normal 4.0-10.0 [...] 0.0 % Normal 0-0 Ua Routine 11/25/2019 [facility] Appearance, Urine CLEAR Normal Clear Color, Urine YELLOW Normal Yellow PH,Urine 7.0 units Normal 5.0-9.0 Specific [place] Urine Auto 1.013 Normal 1.002-1.035 Protein, Urine [...] /LPF Normal 0-1 Laboratory test finding 09/24/2019 [facility] l Urine For Chlamydia <pending> Chlamydia GC/Am 09/24/2019 [facility] Source: Random Void 4 Chlamydia trachomatis,Clare Negative Negative Neisseria gonorrhoeae,Clare Negative Negative Laboratory test finding 09/24/2019 In Office Inhouse Urine Test negative Chlamydia GC/Am 08/25/2019 [facility] Source: Genital 5 Chlamydia trachomatis,Clare Negative Negative Neisseria gonorrhoeae,Clare Negative Negative 1 {SOURCE: Genital 2 _CULTURE URINE_ ^$[id number] ^^[id number] $$852420 ^^[id number] $$761308 $$861255 $$207976 $$041050 $$504135 $$792244 $$323629 $$174919 $$481383 $$393638 $$268766 $$806446 $$302898 $$737724 $$555977 $$987653 $$711774 $$043479 $$858822 $$184845 $$154739 $$640462 $$296270 ^^917259 $$243422 $$772949 $$722001 -- Continued on next page -- Patient: TANISHA Graves Order: Page 2 Culture: CULTURE URINE Status: Final -- Continued on next page -- Patient: TANISHA Graves Order: [id number] Page 2 Culture: CULTURE URINE Status: Prelim $$[id number] $$[id number] REPORTED DATE/TIME: 01/18/2020 12:05 Culture: CULTURE URINE Status: Final Urine Culture,Comprehensive: P1 Mixed urogenital anupam 5,000 Colonies/mL Previous result entered on 01/17/2020 06:17 ET Specimen has been received and testing has been initiated. P1 Test performed by: [facility] #: [id number] [address] [id number] [facility] [address] Processing Technologist : Manuel Schofield MD NPI #: Teachers' Aide : 01/17/20.0711.XMT.SENT REF 01/18/20.1214.XMT.SENT REF 3 GESTATIONAL [...] monitoring the treatment of cancer patients. Siemens [place] methodology. 4 {SOURCE: Random Void 5 {SOURCE: [...] findings Brooke Daniels NP Plan of Treatment No Information Available Functional Status Description No Information Available Mental Status Description No Information Available Referrals Description No Information Available
--- OUTSIDE RECORDS SUMMARY | 2020-04-03 21:15 | CCD | Continuity of Care Document ---
Author Author Jyoti MAYBERRY Organization Unknown Address [address] [place] [phone] Phone [phone] Care Team Providers Care Vice President Of Manufacturing Name Role Phone AUTM Unavailable Problems Description No Information Available Social History [...] SIG Qnty Indications Ordering Provide r Date Cetirizine HCL 10mg Tablets Take One Tablet By Mouth Once Daily Unknown Folic Acid 1mg Tablets Take One Tablet By Mouth Every Day Unknown Fluoxetine HCL 10mg Capsules Take 30MG 3 Capsules By Mouth Daily Unknown 000 Pantoprazole Sodium 20mg Tablets D R Take One Tablet By Mouth Every Day Unknown Sulfasalazine 500mg Tablets DR Take Two Tablets By Mouth Twice A Day Unknown Ventolin HFA 108(90Base) mcg/Act A erosol Inhale 2 Puffs Every 4 To 6 Hours as Needed Unkn own Epipen 2-Missael 0.3mg/0 .3ML Solution Auto-Inject Inject 0.3ML Intramuscularly Once as Needed For Anaphylaxis Unknown Vitamin D3 Super Strength 2000Unit Capsules 1 by mouth day Unknown Iron 325(65Fe) mg Tablets 1 by mouth every day Unknown Meloxicam 7.5mg Tablets 1 by mouth every day Unknown Latuda 20mg Tablets Take One Half Tablet By Mouth Every Evening With Supper Unknown Trazodone HCL 300mg Tablets Unknown History Medications Flagyl 500mg Tablets 1 tab by mouth twice a day x 7days 14talenora Garcia M.D. 12/17/19 20 - 12/24/2019 Diflucan 150mg Tablets 1 tab by mouth. 1delmar Garcia M.D. 12/17/2019 - 01/2020 Flagyl 500mg Tablets 4 tab by mouth x 1 4talenora Garcia M.D. 10/16/2019 - Diflucan 150mg Tablets 1 tab by mouth. 1talenora Garcia M.D. 10/16/2019 - Immunizations Description No Information Available Vital Signs Date Vital Result Comment 01/14/2020 2:58pm BP Systolic 135 mmHg BP Diastolic 75 mmHg Heart Rate 75 /min Body Temperature 97.3 F Weight 203.00 lb Weight 92.081 kg Height 64 inches 5'4" BMI (Body Mass Index) 34.8 kg/m2 BSA (Body Surface Area) 1.97 m2 12/24/2019 3:35pm BP Systolic 120 mmHg BP Diastolic 60 mmHg Heart Rate 70 /min Weight 199.00 lb Weight 90.266 kg Height 64 inches 5'4" BMI (Body Mass Index) 34.2 kg/m2 BSA (Body Surface Area) 1.95 m2 Results Test Acquired Date Facility Test Result H/L Range Note Laboratory test finding 01/14/2020 In Office Inhouse Urine Test negative Inhouse Ua 01/14/2020 In Office Ua Color yellow Ua Appearance clear Spec [place] 1.005 Ua PH Test Strip 7 Leukocytes 3+ Ua Nitrate neg Ua Protein neg Inhouse Glucose neg Ua Ketones neg Urobilinogen neg Ua Bilirubin neg Blood trace Laboratory test finding 11/25/2019 [facility] HCG, Serum Quantitative < 1.0 MIU/ML Normal 1 Complete Blood Count 11/25/2019 [facility] White Blood Count 7.1 10 Normal 4.0-10.0 [...] 0.0 % Normal 0-0 Ua Routine 11/25/2019 [facility] Appearance, Urine CLEAR Normal Clear Color, Urine YELLOW Normal Yellow PH,Urine 7.0 units Normal 5.0-9.0 Specific [place] Urine Auto 1.013 Normal 1.002-1.035 Protein, Urine [...] /LPF Normal 0-1 Laboratory test finding 09/24/2019 [facility] l Urine For Chlamydia <pending> Chlamydia GC/Am 09/24/2019 [facility] Source: Random Void 2 Chlamydia trachomatis,Clare Negative Negative Neisseria gonorrhoeae,Clare Negative Negative Laboratory test finding 09/24/2019 In Office Inhouse Urine Test negative Chlamydia GC/Am 08/25/2019 [facility] Source: Genital 3 Chlamydia trachomatis,Clare Negative Negative Neisseria gonorrhoeae,Clare Negative Negative 1 GESTATIONAL AGE APPROXIMATE HCG RANGE (MIU/ML) - [...] monitoring the treatment of cancer patients. Siemens [place] methodology. 2 {SOURCE: Random Void 3 {SOURCE: Genital~.~.~<DG1.3 .1>Z01.419</DG1.3.1><DG1.3.1>Z01.419</DG1.3.1> Procedures Description No Information Available Medical Devices Description No Information Available Encounters Description No Information Available Assessments Date Code Description Provider 12/24/2019 Z48.89 Encounter for other specified craft [...]
--- OUTSIDE RECORDS SUMMARY | 2020-04-03 21:16 | CCD ---
Author Author [facility] Organization [facility] Address Unknown Phone Unavailable Support Name Relationship Address Phone HARLEY BATES Next Of Kin [address] [place] [address] CASANDRA RICE Next Of Kin [address] [facility] CLI [facility] [address] [place] [address] SHERRILL GARAY Next Of Kin [address] [place] [address] [place] JAMIA MARIA Next Of Kin [address] [place] [address] DENICE TITUS Next Of Kin [address] [place] [address] NO, CONTACT Next Of Kin Unknown STREAM Next Of Kin [address] [place] [address] CONTACT, OTHER NO Next Of Kin - -, - - - Hector ELLIS Next Of Kin [address] [place] [address] [employer] [place] [address] MARCELA ELLIS Next Of Kin [address] [place] [address] CELL [facility] Next Of Kin [address] [place] [address] BRADLY CHARLES Next Of Kin [address] [place] [address] CELL [employer] [place] [address] GREGORIA ROBERTS Next Of Kin - -, [place] - NONE, PT PER Next Of Kin - -, - - - ADVANCED ASTHMA [employer] [place] [address] DENICE GARAY Next Of Kin [address] [place] [address] ELIEL GARAY Next Of Kin [address] [place] [address] Care Team Providers Care Curriculum And Instruction Specialist Name Role Phone Keating, Mayra SPRINKLER HELPER Unavailable Unavailable Keating, Mayra SPRINKLER HELPER Unavailable Unavailable Keating, Mayra SPRINKLER HELPER Unavailable Unavailable Keating, Mayra SPRINKLER HELPER Unavailable Unavailable Keating, Mayra SPRINKLER HELPER Unavailable Unavailable Keating, Mayra SPRINKLER HELPER Unavailable Unavailable Keating, Mayra SPRINKLER HELPER Unavailable Unavailable Keating, Mayra SPRINKLER HELPER Unavailable Unavailable Keating, Mayra SPRINKLER HELPER Unavailable Unavailable Keating, Mayra SPRINKLER HELPER Unavailable Unavailable Keating, Mayra SPRINKLER HELPER Unavailable Unavailable KOPIDLANSKY, Maria R RICH REFINING MACHINE OPERATOR-SWITCH COUPLER-C Unavailable Unava ilable KOPIDLANSKY, Maria R RICH REFINING MACHINE OPERATOR-SWITCH COUPLER-C Unavailable Unava ilable KOPIDLANSKY, Maria R RICH APRN-SWITCH COUPLER-C Unavailable Unava ilable KOPIDLANSKY, Maria R RICH APRN-SWITCH COUPLER-C Unavailable Unava ilable KOPIDLANSKY, Maria R RICH APRN-SWITCH COUPLER-C Unavailable Unava ilable KOPIDLANSKY, Maria R RICH APRN-SWITCH COUPLER-C Unavailable Unava ilable KOPIDLANSKY, Maria R RICH APRN-SWITCH COUPLER-C Unavailable Unava ilable KOPIDLANSKY, Maria R RICH APRN-SWITCH COUPLER-C Unavailable Unava ilable KOPIDLANSKY, Maria R RICH REFINING MACHINE OPERATOR-SWITCH COUPLER-C Unavailable Unava ilable KOPIDLANSKY, Maria R RICH REFINING MACHINE OPERATOR-SWITCH COUPLER-C Unavailable Unava ilable KOPIDLANSKY, Maria R RICH REFINING MACHINE OPERATOR-SWITCH COUPLER-C Unavailable Unava ilable KOPIDLANSKY, Maria R RICH REFINING MACHINE OPERATOR-SWITCH COUPLER-C Unavailable Unava ilable KOPIDLANSKY, Maria R RICH REFINING MACHINE OPERATOR-SWITCH COUPLER-C Unavailable Unava ilable KOPIDLANSKY, Maria R RICH REFINING MACHINE OPERATOR-SWITCH COUPLER-C Unavailable Unava ilable KOPIDLANSKY, R DEYSI REFINING MACHINE OPERATOR-SWITCH COUPLER-C Unavailable Unava ilable KOPIDLANSKY, R DEYSI REFINING MACHINE OPERATOR-SWITCH COUPLER-C Unavailable Unava ilable KOPIDLANSKY, R DEYSI REFINING MACHINE OPERATOR-SWITCH COUPLER-C Unavailable Unava ilable KOPIDLANSKY, Maria R RICH REFINING MACHINE OPERATOR-SWITCH COUPLER-C Unavailable Unava ilable KOPIDLANSKY, R DEYSI REFINING MACHINE OPERATOR-SWITCH COUPLER-C Unavailable Unava ilable KOPIDLANSKY, R DEYSI REFINING MACHINE OPERATOR-SWITCH COUPLER-C Unavailable Unava ilable KOPIDLANSKY, R DEYSI REFINING MACHINE OPERATOR-SWITCH COUPLER-C Unavailable Unava ilable KOPIDLANSKY, R DEYSI REFINING MACHINE OPERATOR-SWITCH COUPLER-C Unavailable Unava ilable Jessie Valdivia MD Unavailable Unavailable Jessie Valdivia MD Unavailable Unavailable Jessie Valdivia MD Unavailable Unavailable Jessie aVldivia MD Unavailable Unavailable Jessie Valdiiva MD Unavailable Unavailable Jessie Valdivia MD Unavailable Unavailable Jessie Valdivia MD Unavailable Unavailable Jessie Valdivia MD Unavailable Unavailable Jessie Valdivia MD Unavailable Unavailable Jessie Valdivia MD Unavailable Unavailable Jessie Valdivia MD Unavailable Unavailable Jessie Valdivia MD Unavailable Unavailable Jessie Valdivia MD Unavailable Unavailable Jessie Valdivia MD Unavailable Unavailable Jessie Valdivia MD Unavailable Unavailable Jessie Valdivia MD Unavailable Unavailable Jessie Valdivia MD Unavailable Unavailable Jessie Valdivia MD Unavailable Unavailable Jessie Valdivia MD Unavailable Unavailable Jessie Valdivia MD Unavailable Unavailable Jessie Valdivia MD Unavailable Unavailable Jessie Valdivia MD Unavailable Unavailable Jessie Valdivia MD Unavailable Unavailable Jessie Valdivia MD Unavailable Unavailable Jessie Valdivia MD Unavailable Unavailable Jessie Valdivia MD Unavailable Unavailable Jessie Valdivia MD Unavailable Unavailable Jessie Valdivia MD Unavailable Unavailable Jessie Valdivia MD Unavailable Unavailable Jessie Valdivia MD Unavailable Unavailable Jessie Valdivia MD Unavailable Unavailable Jessie Valdivia MD Unavailable Unavailable Jessie Valdivia MD Unavailable Unavailable Jessie Valdivia MD Unavailable Unavailable Jessie Valdivia MD Unavailable Unavailable Jessie Valdivia MD Unavailable Unavailable Jessie Valdivia MD Unavailable Unavailable Jessie Valdivia MD Unavailable Unavailable Jessie Valdivia MD Unavailable Unavailable Jessie Valdivia MD Unavailable Unavailable Jessie Valdivia MD Unavailable Unavailable Jessie Valdivia MD Unavailable Unavailable Jessie Valdivia MD Unavailable Unavailable Jessie Valdivia MD Unavailable Unavailable Jessie Valdivia MD Unavailable Unavailable Jessie Valdivia MD Unavailable Unavailable Jessie Valdivia MD Unavailable Unavailable Jessie Valdivia MD Unavailable Unavailable Valdivia, Jessie Garcia MD Unavailable Unavailable Valdivia, Jessie Garcia MD Unavailable Unavailable Valdivia, Jessie Garcia MD Unavailable Unavailable Valdivia, Jessie Garcia MD Unavailable Unavailable Valdivia, Jessie Garcia MD Unavailable Unavailable Valdivia, Jessie Garcia MD Unavailable Unavailable Valdivia, Jessie Garcia MD Unavailable Unavailable Valdivia, Jessie Garcia MD Unavailable Unavailable Valdivia, Jessie Garcia MD Unavailable Unavailable Valdivia, Jessie Garcia MD Unavailable Unavailable Valdivia, Jessie Garcia MD Unavailable Unavailable Valdivia, Jessie Garcia MD Unavailable Unavailable Valdivia, Jessie Garcia MD Unavailable Unavailable Valdivia, Jessie Garcia MD Unavailable Unavailable Valdivia, Jessie Garcia MD Unavailable Unavailable Valdivia, Jessie Garcia MD Unavailable Unavailable Valdivia, Jessie Garcia MD Unavailable Unavailable Valdivia, Jessie Garcia MD Unavailable Unavailable Valdivia, Jessie Garcia MD Unavailable Unavailable Valdivia, Jessie Garcia MD Unavailable Unavailable Valdivia, Jessie Garcia MD Unavailable Unavailable Valdivia, Jessie Garcia MD Unavailable Unavailable Valdivia, Jessie Garcia MD Unavailable Unavailable Valdivia, Jessie Garcia MD Unavailable Unavailable Valdivia, Jessie Garcia MD Unavailable Unavailable Valdivia, Jessie Garcia MD Unavailable Unavailable Valdivia, Jessie Garcia MD Unavailable Unavailable Valdivia, Jessie Garcia MD Unavailable Unavailable Valdivia, Jessie Garcia MD Unavailable Unavailable Valdivia, Jessie Garcia MD Unavailable Unavailable Valdivia, Jessie Garcia MD Unavailable Unavailable Valdivia, Jessie Garcia MD Unavailable Unavailable Valdivia, Jessie Garcia MD Unavailable Unavailable Valdivia, Jessie Garcia MD Unavailable Unavailable Valdivia, Jessie Garcia MD Unavailable Unavailable Valdivia, Jessie Garcia MD Unavailable Unavailable Valdivia, Jessie Garcia MD Unavailable Unavailable Valdivia, Jessie Garcia MD Unavailable Unavailable Valdivia, Jessie Garcia MD Unavailable Unavailable Valdivia, Jessie Garcia MD Unavailable Unavailable Valdivia, Jessie Garcia MD Unavailable Unavailable Monica Medina Unavailable LETTIERE, A EDDA PA Unavailable Unavailable LETTIERE, A EDDA PA Unavailable Unavailable LETTIERE, A EDDA PA Unavailable Unavailable LETTIERE, A EDDA PA Unavailable Unavailable LETTIERE, A EDDA PA Unavailable Unavailable LETTIERE, A EDDA PA Unavailable Unavailable LETTIERE, A EDDA PA Unavailable Unavailable LETTIERE, A EDDA PA Unavailable Unavailable LETTIERE, A EDDA PA Unavailable Unavailable LETTIERE, A EDDA PA Unavailable Unavailable LETTIERE, A EDDA PA Unavailable Unavailable LETTIERE, A EDDA PA Unavailable Unavailable LETTIERE, A EDDA PA Unavailable Unavailable LETTIERE, A EDDA PA Unavailable Unavailable LETTIERE, A EDDA PA Unavailable Unavailable LETTIERE, A EDDA PA Unavailable Unavailable LETTIERE, A EDDA PA Unavailable Unavailable LETTIERE, A EDDA PA Unavailable Unavailable LETTIERE, A EDDA PA Unavailable Unavailable LETTIERE, A EDDA PA Unavailable Unavailable LETTIERE, A EDDA PA Unavailable Unavailable LETTIERE, A EDDA PA Unavailable Unavailable LETTIERE, A EDDA PA Unavailable Unavailable LETTIERE, A EDDA PA Unavailable Unavailable LETTIERE, A EDDA PA Unavailable Unavailable LETTIERE, A EDDA PA Unavailable Unavailable LETTIERE, A EDDA PA Unavailable Unavailable LETTIERE, A EDDA PA Unavailable Unavailable LETTIERE, A EDDA PA Unavailable Unavailable KHAIRALLAH, RAMZI MD Unavailable Unavailable KHAIRALLAH, RAMZI MD Unavailable Unavailable KHAIRALLAH, RAMZI MD Unavailable Unavailable KHAIRALLAH, RAMZI MD Unavailable Unavailable KHAIRALLAH, RAMZI MD Unavailable Unavailable KHAIRALLAH, RAMZI MD Unavailable Unavailable KHAIRALLAH, RAMZI MD Unavailable Unavailable KHAIRALLAH, RAMZI MD Unavailable Unavailable KHAIRALLAH, RAMZI MD Unavailable Unavailable KHAIRALLAH, RAMZI MD Unavailable Unavailable KHAIRALLAH, RAMZI MD Unavailable Unavailable KHAIRALLAH, RAMHECTOR MD Unavailable Unavailable KHAIRALLAH, RAMZI MD Unavailable Unavailable KHAIRALLAH, RAMZI MD Unavailable Unavailable KHAIRALLAH, RAMZI MD Unavailable Unavailable KHAIRALLAH, RAMHECTOR MD Unavailable Unavailable KHAIRALLAH, RAMHECTOR MD Unavailable Unavailable KHAIRALLAH, RAMHECTOR MD Unavailable Unavailable KHAIRALLAH, RAMHECTOR MD Unavailable Unavailable KHAIRALLAH, RAMHECTOR MD Unavailable Unavailable KHAIRALLAH, RAMZI MD Unavailable Unavailable KHAIRALLAH, RAMHECTOR MD Unavailable Unavailable KHAIRALLAH, RAMHECTOR MD Unavailable Unavailable KHAIRALLAH, RAMHECTOR MD Unavailable Unavailable KHAIRALLAH, RAMHECTOR MD Unavailable Unavailable KHAIRALLAH, RAMHECTOR MD Unavailable Unavailable KHAIRALLAH, RAMZI MD Unavailable Unavailable KHAIRALLAH, RAMHECTOR MD Unavailable Unavailable KHAIRALLAH, RAMHECTOR MD Unavailable Unavailable KHAIRALLAH, RAMHECTOR MD Unavailable Unavailable KHAIRALLAH RAMHECTOR MD Unavailable Unavailable KHAIRALLAH, RAMZI MD Unavailable Unavailable KHAIRALLAH, RAMZI MD Unavailable Unavailable KHAIRALLAH, RAMZI MD Unavailable Unavailable KHAIRALLAH, RAMZI MD Unavailable Unavailable KHAIRALLAH, RAMZI MD Unavailable Unavailable KHAIRALLAH, RAMHECTOR MD Unavailable Unavailable KHAIRALLAH, RAMZI MD Unavailable Unavailable KHAIRALLAH, RAMZI MD Unavailable Unavailable KHAIRALLAH, RAMZI MD Unavailable Unavailable KHAIRALLAH, RAMZI MD Unavailable Unavailable KHAIRALLAH, RAMZI MD Unavailable Unavailable KHAIRALLAH, RAMZI MD Unavailable Unavailable KHAIRALLAH, RAMZI MD Unavailable Unavailable KHAIRALLAH, RAMZI MD Unavailable Unavailable KHAIRALLAH, RAMZI MD Unavailable Unavailable KHAIRALLAH, RAMZI MD Unavailable Unavailable KHAIRALLAH, RAMZI MD Unavailable Unavailable KHAIRALLAH, RAMZI MD Unavailable Unavailable KHAIRALLAH, RAMZI MD Unavailable Unavailable KHAIRALLAH, RAMZI MD Unavailable Unavailable KHAIRALLAH, RAMZI MD Unavailable Unavailable KHAIRALLAH, RAMZI MD Unavailable Unavailable KHAIRALLAH, RAMZI MD Unavailable Unavailable KHAIRALLAH, RAMZI MD Unavailable Unavailable KHAIRALLAH, RAMZI MD Unavailable Unavailable KHAIRALLAH, RAMZI MD Unavailable Unavailable KHAIRALLAH, RAMZI MD Unavailable Unavailable KHAIRALLAH, RAMZI MD Unavailable Unavailable KHAIRALLAH, RAMZI MD Unavailable Unavailable KHAIRALLAH, RAMZI MD Unavailable Unavailable KHAIRALLAH, RAMZI MD Unavailable Unavailable KHAIRALLAH, RAMZI MD Unavailable Unavailable KHAIRALLAH, RAMZI MD Unavailable Unavailable KHAIRALLAH, RAMZI MD Unavailable Unavailable KHAIRALLAH, RAMZI MD Unavailable Unavailable KHAIRALLAH, RAMZI MD Unavailable Unavailable KHAIRALLAH, RAMZI MD Unavailable Unavailable KHAIRALLAH, RAMZI MD Unavailable Unavailable KHAIRALLAH, RAMZI MD Unavailable Unavailable KHAIRALLAH, RAMZI MD Unavailable Unavailable KHAIRALLAH, RAMZI MD Unavailable Unavailable KHAIRALLAH, RAMZI MD Unavailable Unavailable KHAIRALLAH, RAMZI MD Unavailable Unavailable KHAIRALLAH, RAMZI MD Unavailable Unavailable KHAIRALLAH, RAMZI MD Unavailable Unavailable KHAIRALLAH, RAMZI MD Unavailable Unavailable KHAIRALLAH, RAMZI MD Unavailable Unavailable KHAIRALLAH, RAMZI MD Unavailable Unavailable KHAIRALLAH, RAMZI MD Unavailable Unavailable KHAIRALLAH, RAMZI MD Unavailable Unavailable KHAIRALLAH, RAMZI MD Unavailable Unavailable KHAIRALLAH, RAMZI MD Unavailable Unavailable KHAIRALLAH, RAMZI MD Unavailable Unavailable KHAIRALLAH, RAMZI MD Unavailable Unavailable KHAIRALLAH, RAMZI MD Unavailable Unavailable Jose, B Naresh Unavailable Unavailable Jose, B Naresh Unavailable Unavailable Jose, B Naresh Unavailable Unavailable Jose, B Naresh Unavailable Unavailable Jose, B Naresh Unavailable Unavailable Jose, B Naresh Unavailable Unavailable Jose, B Naresh Unavailable Unavailable Jose, B Naresh Unavailable Unavailable Jose, B Naresh Unavailable Unavailable Jose, B Naresh Unavailable Unavailable Jose, B Naresh Unavailable Unavailable Jose, B Naresh Unavailable Unavailable Jose, B Naresh Unavailable Unavailable Jose, B Naresh Unavailable Unavailable Jose, B Naresh Unavailable Unavailable Jose, B Naresh Unavailable Unavailable Jose, B Naresh Unavailable Unavailable Jose, B Naresh Unavailable Unavailable Jose, B Naresh Unavailable Unavailable Jose, B Naresh Unavailable Unavailable Jose, B Naresh Unavailable Unavailable Jose, B Naresh Unavailable Unavailable Jose, B Naresh Unavailable Unavailable Jose, B Naresh Unavailable Unavailable Jose, B Naresh Unavailable Unavailable Jose, B Naresh Unavailable Unavailable Jose, B Naresh Unavailable Unavailable Jose, B Naresh Unavailable Unavailable Jose, B Naresh Unavailable Unavailable Jose, B Naresh Unavailable Unavailable Jose, B Naresh Unavailable Unavailable Jose, B Naresh Unavailable Unavailable Jose, B Naresh Unavailable Unavailable Jose, B Naresh Unavailable Unavailable Jose, B Naresh Unavailable Unavailable Jose, B Naresh Unavailable Unavailable Jose, B Naresh Unavailable Unavailable Jose, B Naresh Unavailable Unavailable Jose, B Naresh Unavailable Unavailable Jose, B Naresh Unavailable Unavailable Jose, B Naresh Unavailable Unavailable Jose, B Naresh Unavailable Unavailable Jose, B Naresh Unavailable Unavailable Jose, B Naresh Unavailable Unavailable ANUSHA, F TROY MD Unavailable Unavailable ANUSHA, F TROY MD Unavailable Unavailable ANUSHA, F TROY MD Unavailable Unavailable ANUSHA, F TROY MD Unavailable Unavailable ANUSHA, F TROY MD Unavailable Unavailable ANUSHA, F TROY MD Unavailable Unavailable ANUSHA, F TROY MD Unavailable Unavailable ANUSHA, F TROY MD Unavailable Unavailable ANUSHA, F TORY MD Unavailable Unavailable ANUSHA, F TROY MD Unavailable Unavailable ANUSHA, F TROY MD Unavailable Unavailable ANUSHA, F TROY MD Unavailable Unavailable ANUSHA, F TROY MD Unavailable Unavailable ANUSHA, F TROY MD Unavailable Unavailable ANUSHA, F TROY MD Unavailable Unavailable ANUSHA, F TROY MD Unavailable Unavailable ANUSHA, F TROY MD Unavailable Unavailable ANUSHA, F TROY MD Unavailable Unavailable ANUSHA, F TROY MD Unavailable Unavailable ANUSHA, F TROY MD Unavailable Unavailable ANUSHA, F TROY MD Unavailable Unavailable ANUSHA, F TROY MD Unavailable Unavailable ANUSHA, F TROY MD Unavailable Unavailable ANUSHA, F TROY MD Unavailable Unavailable ANUSHA, F TROY MD Unavailable Unavailable ANUSHA, F TROY MD Unavailable Unavailable ANUSHA, F TROY MD Unavailable Unavailable Amyot, Humberto Unavailable Erica Oswald Unavailable Siena OSHEA PA Unavailable Unavailable Siena OSHEA PA Unavailable Unavailable Siena OSHEA PA Unavailable Unavailable Siena OSHEA PA Unavailable Unavailable SLASiena VORA MARQUIS PA Unavailable Unavailable SLASiena VORA MARQUIS PA Unavailable Unavailable Siena OSHEA MARQUIS PA Unavailable Unavailable Siena OSHEA PA Unavailable Unavailable Siena OSHEA PA Unavailable Unavailable Siena OSHEA MARQUIS PA Unavailable Unavailable Siena OSHEA MARQUIS PA Unavailable Unavailable Siena OSHEA MARQUIS PA Unavailable Unavailable Siena OSHEA MARQUIS PA Unavailable Unavailable Siena OSHEA PA Unavailable Unavailable Siena OSHEA PA Unavailable Unavailable Siena OSHEA PA Unavailable Unavailable Siena OSHEA MARQUIS PA Unavailable Unavailable Siena OSHEA MARQUIS PA Unavailable Unavailable Siena OSHEA PA Unavailable Unavailable Siena OSHEA PA Unavailable Unavailable Siena OSHEA PA Unavailable Unavailable Siena OSHEA PA Unavailable Unavailable Siena OSHEA PA Unavailable Unavailable Siena OSHEA MARQUIS PA Unavailable Unavailable Siena OSHEA PA Unavailable Unavailable Siena OSHEA PA Unavailable Unavailable Siena OSHEA PA Unavailable Unavailable Siena OSHEA PA Unavailable Unavailable Siena OSHEA PA Unavailable Unavailable Siena OSHEA MARQUIS PA Unavailable Unavailable Siena OSHEAREY PA Unavailable Unavailable Siena OSHEA PA Unavailable Unavailable Siena OSHEA PA Unavailable Unavailable Siena OSHEA PA Unavailable Unavailable Siena OSHEA PA Unavailable Unavailable Siena OSHEA PA Unavailable Unavailable Siena OSHEA MARQUIS PA Unavailable Unavailable Siena OSHEA PA Unavailable Unavailable Siena OSHEA PA Unavailable Unavailable Siena OSHEA PA Unavailable Unavailable Siena OSHEA PA Unavailable Unavailable Siena OSHEAREY PA Unavailable Unavailable Siena OSHEA MARQUIS PA Unavailable Unavailable Siena OSHEA MARQUIS PA Unavailable Unavailable Siena OSHEA MARQUIS PA Unavailable Unavailable Siena OSHEAREY PA Unavailable Unavailable SLAVICH, J MARQUIS PA Unavailable Unavailable SLAVICH, Siena MARQUIS PA Unavailable Unavailable SLAVICH, Siena MARQUIS PA Unavailable Unavailable SLAVICH, J MARQUIS PA Unavailable Unavailable SLAVICH, J MARQUIS PA Unavailable Unavailable SOLO, H MICHELE SPRINKLER HELPER Unavailable Unavailable SOLO, H MICHELE SPRINKLER HELPER Unavailable Unavailable SOLO, H MICHELE SPRINKLER HELPER Unavailable Unavailable SOLO, H MICHELE SPRINKLER HELPER Unavailable Unavailable SOLO, H MICHELE SPRINKLER HELPER Unavailable Unavailable SOLO, H MICHELE SPRINKLER HELPER Unavailable Unavailable SOLO, H MICHELE SPRINKLER HELPER Unavailable Unavailable Andres, L Humberto CNM Unavailable Unavailable Andres, L Humberto CNM Unavailable Unavailable Andres, L Humberto CNM Unavailable Unavailable Andres, L Humberto CNM Unavailable Unavailable Andres, L Humberto CNM Unavailable Unavailable Andres, L Humberto CNM Unavailable Unavailable Andres, L Humberto CNM Unavailable Unavailable Andres, L Humberto CNM Unavailable Unavailable Andres, L Humberto CNM Unavailable Unavailable Andres, L Humberto CNM Unavailable Unavailable Andres, L Humberto CNM Unavailable Unavailable Andres, L Humberto CNM Unavailable Unavailable Andres, L Humberto CNM Unavailable Unavailable Andres, L Humberto CNM Unavailable Unavailable Andres, L Humberto CNM Unavailable Unavailable Andres, L Humberto CNM Unavailable Unavailable Andres, L Humberto CNM Unavailable Unavailable Andres, L Humberto CNM Unavailable Unavailable Andres, L Humberto CNM Unavailable Unavailable Andres, L Humberto CNM Unavailable Unavailable Andres, L Humberto CNM Unavailable Unavailable Andres, L Humberto CNM Unavailable Unavailable Andres, L Humberto CNM Unavailable Unavailable Andres, L Humberto CNM Unavailable Unavailable Andres, L Humberto CNM Unavailable Unavailable Andres, L Humberto CNM Unavailable Unavailable Andres, L Humberto CNM Unavailable Unavailable Andres, L Humberto CNM Unavailable Unavailable Pikarsky, Dave SPRINKLER HELPER Unavailable Unavailable Pikarsky, Dave SPRINKLER HELPER Unavailable Unavailable Pikarsky, Dave SPRINKLER HELPER Unavailable Unavailable Pikarsky, Dave SPRINKLER HELPER Unavailable Unavailable Pikarsky, Dave SPRINKLER HELPER Unavailable Unavailable Pikarsky, Dave SPRINKLER HELPER Unavailable Unavailable Pikarsky, Dave SPRINKLER HELPER Unavailable Unavailable Pikarsky, Dave SPRINKLER HELPER Unavailable Unavailable Pikarsky, Dave SPRINKLER HELPER Unavailable Unavailable Pikarsky, Dave SPRINKLER HELPER Unavailable Unavailable Pikarsky, Dave SPRINKLER HELPER Unavailable Unavailable Pikarsky, Dave SPRINKLER HELPER Unavailable Unavailable Pikarsky, Dave SPRINKLER HELPER Unavailable Unavailable Pikarsky, Dave SPRINKLER HELPER Unavailable Unavailable Pikarsky, Dave SPRINKLER HELPER Unavailable Unavailable Pikarsky, Dave SPRINKLER HELPER Unavailable Unavailable Pikarsky, Dave SPRINKLER HELPER Unavailable Unavailable Pikarsky, Dave SPRINKLER HELPER Unavailable Unavailable Pikarsky, Dave SPRINKLER HELPER Unavailable Unavailable Pikarsky, Dave SPRINKLER HELPER Unavailable Unavailable Pikarsky, Dave SPRINKLER HELPER Unavailable Unavailable Pikarsky, Dave SPRINKLER HELPER Unavailable Unavailable Pikarsky, Dave SPRINKLER HELPER Unavailable Unavailable Pikarsky, Dave SPRINKLER HELPER Unavailable Unavailable BOOKER, JUDE ELIEL SPRINKLER HELPER Unavailable Unavailable BOOKER, JUDE ELIEL SPRINKLER HELPER Unavailable Unavailable BOOKER, JUDE ELIEL SPRINKLER HELPER Unavailable Unavailable BOOKER, JUDE ELIEL SPRINKLER HELPER Unavailable Unavailable BOOKER, JUDE ELIEL SPRINKLER HELPER Unavailable Unavailable BOOKER, JUDE ELIEL SPRINKLER HELPER Unavailable Unavailable BOOKER, JUDE ELIEL SPRINKLER HELPER Unavailable Unavailable BOOKER, JUDE ELIEL SPRINKLER HELPER Unavailable Unavailable BOOKER, JUDE ELIEL SPRINKLER HELPER Unavailable Unavailable BOOKER, JUDE ELIEL SPRINKLER HELPER Unavailable Unavailable BOOKER, JUDE ELIEL SPRINKLER HELPER Unavailable Unavailable BOOKER, JUDE ELIEL SPRINKLER HELPER Unavailable Unavailable BOOKER, JUDE ELIEL SPRINKLER HELPER Unavailable Unavailable BOOKER, JUDE ELIEL SPRINKLER HELPER Unavailable Unavailable BOOKER, JUDE ELIEL SPRINKLER HELPER Unavailable Unavailable BOOKER, JUDE ELIEL SPRINKLER HELPER Unavailable Unavailable BOOKER, JUDE ELIEL SPRINKLER HELPER Unavailable Unavailable BOOKER, JUDE ELIEL SPRINKLER HELPER Unavailable Unavailable BOOKER, JUDE ELIEL SPRINKLER HELPER Unavailable Unavailable BOOKER, JUDE ELIEL SPRINKLER HELPER Unavailable Unavailable BOOKER, JUDE ELIEL SPRINKLER HELPER Unavailable Unavailable BOOKER, JUDE ELIEL SPRINKLER HELPER Unavailable Unavailable BOOKER, JUDE ELIEL SPRINKLER HELPER Unavailable Unavailable Mclean, Hattie Chen PA Unavailable Unavailable McleanHattie PA Unavailable Unavailable McleanHattie April PA Unavailable Unavailable McleanHattie April PA Unavailable Unavailable McleanHattielyn PA Unavailable Unavailable McleanHattie April PA Unavailable Unavailable McleanHattien PA Unavailable Unavailable McleanHattie April PA Unavailable Unavailable McleanHattie April PA Unavailable Unavailable McleanHattie April PA Unavailable Unavailable FIORELLA PEMBERTON MD Unavailable Unavailable FIORELLA PEMBERTON MD Unavailable Unavailable FIORELLA PEMBERTON MD Unavailable Unavailable FIORELLA PEMBERTON MD Unavailable Unavailable FIORELLA PEMBERTON MD Unavailable Unavailable PEMBERTON, FIORELLA MD Unavailable Unavailable PEMBERTON, FIORELLA MD Unavailable Unavailable PEMBERTON, FIORELLA MD Unavailable Unavailable PEMBERTON, FIORELLA MD Unavailable Unavailable PEMBERTON, FIORELLA MD Unavailable Unavailable PEMBERTON, FIORELLA MD Unavailable Unavailable PEMBERTON, FIORELLA MD Unavailable Unavailable PEMBERTON, FIORELLA MD Unavailable Unavailable PEMBERTON, FIORELLA MD Unavailable Unavailable PEMBERTON, FIORELLA MD Unavailable Unavailable PEMBERTON, FIORELLA MD Unavailable Unavailable PEMBERTON, FIORELLA MD Unavailable Unavailable PEMBERTON, FIORELLA MD Unavailable Unavailable PEMBERTON, FIORELLA MD Unavailable Unavailable PEMBERTON, FIORELLA MD Unavailable Unavailable PEMBERTON, FIORELLA MD Unavailable Unavailable PEMBERTON, FIORELLA MD Unavailable Unavailable PEMBERTON, FIORELLA MD Unavailable Unavailable PEMBERTON, FIORELLA MD Unavailable Unavailable PEMBERTON, FIORELLA MD Unavailable Unavailable PEMBERTON, FIORELLA MD Unavailable Unavailable PEMBERTON, FIORELLA MD Unavailable Unavailable PEMBERTON, FIORELLA MD Unavailable Unavailable PEMBERTON, FIORELLA MD Unavailable Unavailable PEMBERTON, FIORELLA MD Unavailable Unavailable Re-disclosure Warning The records that you are about to access may contain information from federally-assisted alcohol or drug abuse programs. If such information is present, then the following federally mandated warning applies: This information has been disclosed to you from records protected by federal confidentiality rules (42 CFR part 2). The federal rules prohibit you from making any further disclosure of this information unless further disclosure is expressly permitted by the written consent of the person to whom it pertains or as otherwise permitted by 42 CFR part 2. A general authorization for the release of medical or other information is NOT sufficient for this purpose. The Federal rules restrict any use of the information to criminally investigate or prosecute any alcohol or drug abuse patient.The records that you are about to access may contain highly sensitive health information, the redisclosure of which is protected by Article [address]-F of the [facility] Public Health law. If you continue you may have access to information: Regarding HIV / AIDS; Provided by facilities licensed or operated by the [facility] Office of Mental Health; or Provided by the [facility] Office for People With Developmental Disabilities. If such information is present, then the following [facility] mandated warning applies: This information has been disclosed to you from confidential records which are protected by state law. State law prohibits you from making any further disclosure of this information without the specific written consent of the person to whom it pertains, or as otherwise permitted by law. Any unauthorized further disclosure in violation of state law may result in a fine or group home sentence or both. A general authorization for the release of medical or other information is NOT sufficient authorization for further disc losure. Allergies and Adverse Reactions Type Description Substance Reaction Status Data Source(s ) Food allergy Tree nuts Tree nuts [facility] Food allergy SHELLFISH SHELLFISH [facility] ENVIRONMENTAL BEES BEES [facility] Drug allergy TOPIRAMATE TOPIRAMATE CHILLS; LOW WBC Cartha [facility] Family History Family Member Name Family Member Gender Family Member Status Date o f Status Description Data Source(s) Unknown Problem (finding) 05/23/2012 12:00:00 AM EDT [facility] ([facility]) Encounters Encounter Providers Location Date Indications Data Source(s ) Attender: DAVID BARARGAN MD [facility] 03/16/2020 07:08:00 PM EST - 03/16/2020 07:08:00 PM EST [facility] ( [facility]) Outpatient Attender: MICHELE JIM NP [facility] 03/16/2020 04:00:00 AM EST - 03/16/2020 04:00:00 AM EST [facility] ([facility]) Attender: MICHELE JIM NP 03/16/2020 12:00:00 AM EST [facility] ([facility]) Outpatient Attender: MICHELE JIM NP [facility] 02/02/2020 04:00:00 AM EST - 02/02/2020 04:00:00 AM EST [facility] ([facility]) Attender: MICHELE JIM NP 02/02/2020 12:00:00 AM EST [facility] ([facility]) Outpatient Attender: EDDA dominguez 01/27/2020 03:05:00 PM EST [facility] ([facility] Outpatient Attender: ELIEL BOOKER NPConsultant: Naresh Garcia 01/19/2020 03:17:00 PM EST - 01/19/2020 03:17:00 PM EST [facility] Outpatient Attender: ELIEL BOOKER [facility] 01/19/2020 02 :45:00 PM EST [facility] ([facility]) Outpatient Attender: ELIEL BOOKER NPConsultant: Naresh Garcia 01/14/2020 02:43:00 PM EST - 01/14/2020 02:43:00 PM EST [facility] Outpatient Attender: TROY TAVARES MDConsultant: Naresh tabares 12/24/2019 02:55:00 PM EDT - 12/24/2019 02:55:00 PM EDT [facility] Outpatient Attender: TROY TAVARES MD Family Practice 11/2019 03:00:00 PM EDT [facility] ([facility] Outpatient Attender: TROY TAVARES MDConsultant: Naresh tabares 12/12/2019 02:36:00 PM EDT - 12/12/2019 02:36:00 PM EDT [facility] Outpatient Attender: EDDA dominguez 12/04/2019 04:05:00 PM EDT [facility] ([facility] Outpatient Attender: TROY TAVARES MDConsultant: Naresh tabares 12/01/2019 10:30:00 AM EDT - 12/01/2019 03:10:00 PM EDT [facility] Patient discharged. Outpatient Attender: Mayra yepez 11/25/2019 03:25:00 PM EDT [facility] ([facility]) Outpatient Attender: TROY TAVARES MDConsultant: Naresh tabares 11/25/2019 09:15:48 AM EDT - 11/26/2019 11:11:00 AM EDT [facility] Patient discharged. Outpatient Attender: April dominguez 11/21/2019 03:45:00 PM EDT [facility] ([facility]) Outpatient Attender: TROY TAVARES MD Family Practice 11/03 01:45:00 PM EDT [facility] ([facility]) Outpatient Attender: TROY TAVARES MDConsultant: Naresh tabares 11/19/2019 01:33:00 PM EDT - 11/19/2019 01:33:00 PM EDT [facility] OutpatientOFFICE/OUTPATIENT VISIT, EST Attender: Dave morley NP [facility] 11/13/2019 01:40:00 PM EDT - 11/13/2019 01:40:00 PM ED T Other half-way (current) drug therapyRheu arthritis w rheu factor mult site w/o org/sys involv [facility] ([facility]) Other superintendent terminal (current) drug therapy Rheu arthritis w rheu factor mult site w /o org/sys involv Outpatient Attender: DEYSI BARRON RRWY-ONP-DDshgque r: Jose Valdivia MD 10/20/2019 11:01:00 AM EDT - 10/20/2019 11:58:[address] [facility] Outpatient Attender: TROY TAVARES MD Family Practice 10/03 01:45:00 PM EDT [facility] ([facility]) Outpatient Attender: TROY TAVARES MDConsultant: Naresh tabares 10/16/2019 01:30:00 PM EDT - 10/16/2019 01:30:00 PM EDT [facility] Outpatient Attender: ELIEL BOOKER NPConsultant: Naresh Garcia 09/24/2019 09:31:00 AM EDT - 09/24/2019 09:31:00 AM EDT [facility] Outpatient Attender: ELIEL BOOKER NP [facility] 09/24/2019 09 :30:00 AM EDT [facility] ([facility]) TEMPMHCTelemed 30" Psychotherapy Attender: Monica mclean [facility] 09/04/2019 03:30:00 AM EDT - 09/04/2019 03:30:00 AM EDT [facility] ([facility]) Attender: Monica Medina 09/04/2019 12:00:0 0 AM EDT [facility] ([facility]) Outpatient Attender: MICHELE JIM NP [facility] alejandre 09/02/2019 04:00:00 AM EDT - 09/02/2019 04:00:00 AM EDT [facility] ([facility]) Attender: MICHELE JIM NP 09/02/2019 12:00:00 AM EDT [facility] ([facility]) Outpatient Attender: ELIEL BOOKER NPConsultant: Naresh Garcia 08/25/2019 02:46:00 PM EDT - 08/25/2019 02:46:00 PM EDT [facility] Outpatient Attender: DEYSI BOONE 08/25/2019 09:55:00 AM EDT R63.5,F31.9,M06.9 [facility] R63.5,F31.9,M06.9 Outpatient Attender: DEYSI Hutton r: Jose Valdivia MD 08/25/2019 09:15:00 AM EDT - 08/25/2019 09:53:[address] [facility] [address] [address] [address] 08/21/2019 12:00:00 AM EDT eCW1 ([facility]) TEMPMHCTelemed 30" Psychotherapy Attender: Monica mclean [facility] 08/07/2019 03:30:00 AM EDT - 08/07/2019 03:30:00 AM EDT [facility] ([facility]) Attender: Monica Medina 08/07/2019 12:00:0 0 AM EDT [facility] ([facility]) Outpatient Attender: MICHELE JIM NP [facility]re 07/23/2019 05:00:00 AM EDT - 07/23/2019 05:00:00 AM EDT [facility] ([facility]) Attender: MICHELE JIM NP 07/23/2019 12:00:00 AM EDT [facility] ([facility]) OutpatientOFFICE/OUTPATIENT VISIT, EST Attender: Dave morley NP [facility] 07/14/2019 03:20:00 PM EDT - 07/14/2019 03:20:00 PM ED T Other superintendent terminal (current) drug therapyRheu arthritis w rheu factor mult site w/o org/sys involv [facility] ([facility]) Other half-way (current) drug therapy Rheu arthritis w rheu factor mult site w /o org/sys involv TEMPMHCTelemed 20" psychotherapy Attender: Monica mclean [facility] 07/10/2019 03:30:00 AM EDT - 07/10/2019 03:30:00 AM EDT [facility] ([facility]) Attender: Monica Medina 07/10/2019 12:00:0 0 AM EDT [facility] ([facility]) Attender: MARQUIS CEJA [facility] 07/08/2019 03:48:00 PM EDT - 07/08/2019 03:48:00 PM EDT [facility] ( [facility]) Outpatient Attender: MICHELE JIM NP [facility] 05/28/2019 03:30:00 AM EDT - 05/28/2019 03:30:00 AM EDT [facility] ([facility]) Attender: MICHELE JIM NP 05/28/2019 12:00:00 AM EDT [facility] ([facility]) Outpatient Attender: MICHELE JIM NP [facility] 05/13/2019 03:30:00 AM EDT - 05/13/2019 03:30:00 AM EDT [facility] ([facility]) Attender: MICHELE JIM NP 05/13/2019 12:00:00 AM EDT [facility] ([facility]) 05/12/2019 12:46:00 PM EDT - 020 12:46:00 PM EDT [facility] ([facility]) Outpatient Attender: FIORELLA PEMBERTON MD Physical Therapy 02:45:00 PM EST [facility] Extended Individual Psychotherapy - 45 min Attender: Claudette Medina [facility] 05/02/2019 03:30:00 AM EST - 05/02/2019 03:30:00 AM EST [facility] ([facility]) Attender: Monica Medina 05/02/2019 12:00:0 0 AM EST [facility] ([facility]) OFFICE OUTPATIENT NEW 30 MINUTES Attender: FIORELLA PEMBERTON MD Ph ysical Therapy 04/25/2019 07:15:00 AM EST [facility] ([facility]) Extended Individual Psychotherapy - 45 min [facility] 04[facility] 05:00:00 AM EST - 04/17/2019 05:00:00 AM EST [facility] ([facility]) Attender: Monica Medina 04/17/2019 12:00:0 0 AM EST [facility] ([facility]) Outpatient Attender: MICHELE JIM NP [facility] 04/15/2019 03:30:00 AM EST - 04/15/2019 03:30:00 AM EST [facility] ([facility]) Attender: MICHELE JIM NP 04/15/2019 12:00:00 AM EST [facility] ([facility]) Outpatient Attender: Humberto HOOKSonsultant: Naresh mclean 04/08/2019 03:18:00 PM EST - 04/08/2019 03:18:00 PM EST [facility] Outpatient Attender: Humberto HOOKS Family Practice 04/08/2019 0 2:30:00 PM EST [facility] ([facility]) Outpatient Attender: MICHELE JIM NP [facility] 04/01/2019 05:15:00 AM EST - 04/01/2019 05:15:00 AM EST [facility] ([facility]) Brief Individual Psychotherapy - 30 min Attender: Monica arnold [facility] 04/01/2019 04:30:00 AM EST - 04/01/2019 04:30:00 AM EST [facility] ([facility]) Health Monitoring - 15 Min Attender: Erica hampton [facility] 04/01/2019 04:00:00 AM EST - 04/01/2019 04:00:00 AM EST [facility] ([facility]) Attender: Monica Medina 04/01/2019 12:00:0 0 AM EST [facility] ([facility]) Attender: MICHELE IJM NP 04/01/2019 12:00:00 AM EST [facility] ([facility]) Attender: Erica Oswald 04/01/2019 12:00:00 AM EST [facility] ([facility]) Psychiatric Diagnostic Evaluation with Medical Service s Attender: MICHELE JIM NP [facility] 03/18/2019 11:00:00 AM EST - 03/18/2019 11:00:00 AM EST [facility] ([facility]) Attender: MICHELE JIM NP 03/18/2019 12:00:00 AM EST [facility] ([facility]) Psychiatric Diagnostic Evaluation (Non-Medical) Attender: Evan garciajavad Medina [facility] 03/14/2019 04:00:00 AM EST - 03/14/2019 04:00:00 AM EST [facility] ([facility]) Attender: Monica Medina 03/14/2019 12:00:0 0 AM EST [facility] ([facility]) OutpatientOFFICE/OUTPATIENT VISIT, EST Attender: MARQUIS CEJA [facility] 03/10/2019 11:40:00 AM EST - 03/10/2019 11:40:00 AM ES T Other half-way (current) drug therapyRheu arthritis w rheu factor mult site w/o org/sys involv [facility] ([facility]) Other superintendent terminal (current) drug therapy Rheu arthritis w rheu factor mult site w /o org/sys involv Outpatient Attender: Jose Valdivia MDReferrer: Jose Valdivia MD 02/21/2019 10:52:00 AM EST - 02/21/2019 11:19:00 AM EST [facility] Extended Individual Psychotherapy - 45 min Attender: Salvatore Alonzo [facility] 02/21/2019 08:00:00 AM EST - 02/21/2019 08:00:00 AM EST [facility] ([facility]) Attender: Humberto Alonzo 02/21/2019 12:00:00 AM Cora Deluca ([facility]) Outpatient 02/20/2019 07:54:00 PM EST [facility] Functional Status Immunizations Vaccine Date Status Description Data Source(s) Influenza, injectable, MDCK, preservative free, blake valent 02/04/2019 12:00:00 AM EST completed Influenza, injectable, MDCK, preservative free, 0.5 mL dosage, Flucelvax Quad [facility] ([facility]) Note: approx ; Source: Other Provider Medications Medication Brand Name Start Date Product Form Dose Route Admi nistrative Instructions Pharmacy Instructions Status Indications Reaction Description Data Source(s) Fluoxetine 10 MG Oral Capsule [Prozac] Prozac 02/02/2020 12:0 0:00 AM EST 10 mg by mouth completed [id number] Prozac by mouth [id number] 1 04/03/2019 04/02/2020 every morning 30 10 mg capsule 60248 [id number] Tammi Jim [id number] Nurse Practitioner Edith ([facility]) Fluoxetine 20 MG Oral Capsule [Prozac] Prozac 02/02/2020 12:0 0:00 AM EST 20 mg by mouth completed [id number] Prozac by mouth [id number] 04/03/2019 04/02/2020 every morning 30 20 mg capsule 46336 [id number] Tammi Jim [id number] Nurse Practitioner Edith ([facility]) Lurasidone Hydrochloride 20 MG Oral Tablet [Latuda] Latuda 02/02/2020 12:00:00 AM EST 20 mg by mouth completed [id number] Latuda by mouth [id number] 02/02/2020 04/02/2020 once a day 30 20 mg tablet as directed 19783 [id number] Michele Jim [id number] Nurse Practitioner Shavon cali ([facility]) Trazodone Hydrochloride 300 MG Oral Tablet trazodone 02/01 12:00:00 AM EST 300 mg by mouth completed [id number] trazodone by mout h [id number] 02/02/2020 04/02/2020 at bedtime 30 300 mg tablet 43631 [id number] [phone] Michele Jim [id number] [facility] Amoxicillin 875 MG Oral Tablet Amoxicillin 01/27/2020 12:00:00 AM EST active [facility] ([facility] Acyclovir 50 MG/ML Topical Cream [Zovirax] Zovirax 01/19/2020 12:00:00 AM EST active [facility] ([facility]) valacyclovir 1000 MG Oral Tablet Valacyclovir HCL 01/19/2020 12:00: 00 AM EST ORAL active [facility] ([facility]) Metronidazole 500 MG Oral Tablet Metronidazole 01/14/2020 12:00:00 AM EST ORAL completed [facility] ([facility]) Fluconazole 150 MG Oral Tablet [Diflucan] Diflucan 12/17/2019 1 2:00:00 AM EDT ORAL completed [facility] ([facility]) Metronidazole 500 MG Oral Tablet [Flagyl] Flagyl 12/17/2019 12:00 :00 AM EDT ORAL completed [facility] ([facility]) NITROFURANTOIN, MACROCRYSTALS 25 MG / Ni trofurantoin, Monohydrate 75 MG Oral Capsule Nitrofurantoin Monohydrate/Macrocrystals 11/21/2019 12:00:00 AM EDT completed [facility] ([facility] Sulfasalazine 500 MG Delayed Release Ora l Tablet sulfasalazine 500 mg tablet,delayed release sulfasalazine 500 mg tablet,delayed release 11/13/2019 12:00:00 AM EDT active TAKE THR EE TABLETS BY MOUTH TWICE A DAY [facility] ([facility]) Metformin hydrochloride 500 MG Oral Tablet Metformin 10/19 11:56:50 AM EDT 500 MG active [facility] Trazodone Hydrochloride 300 MG Oral Tablet Trazodone 10/19 11:25:57 AM EDT 300 MG active [facility] Fluconazole 150 MG Oral Tablet [Diflucan] Diflucan 10/16/2019 1 2:00:00 AM EDT ORAL completed [facility] ([facility]) Metronidazole 500 MG Oral Tablet [Flagyl] Flagyl 10/16/2019 12:00 :00 AM EDT ORAL completed [facility] ([facility]) Epinephrine Epinephrine (Epipen) 0.3 mg/0.3 mL auto-in jector Epinephrine (Epipen) 0.3 mg/0.3 mL auto-injector 09/11/2019 02:18:17 PM EDT 0.3 MG active [facility] Trazodone Hydrochloride 150 MG Oral Tablet trazodone 09/01 12:00:00 AM EDT 150 mg completed [id number] trazodone 09/02/2019 150 mg tablet 38405 [id number] Michele Jim [id number] Nurse Dasia le [facility] ([facility] Prazosin 1 MG Oral Capsule prazosin 09/02/2019 12:00:00 AM EDT 1 mg by mouth completed [id number] prazosin by mouth [id number] 09/02/2019 at bedtime 30 1 mg capsule 79871 [id number] Michele Jim [id number] Nurse Practitioner [facility] ([facility]) Metformin hydrochloride 500 MG Oral Tablet Metformin 08/24 09:53:42 AM EDT [address] [facility] Mirtazapine 15 MG Oral Tablet Mirtazapine 08/25/2019 09:32:14 AM EDT 15 MG active [facility] Mirtazapine 15 MG Oral Tablet Mirtazapine 08/25/2019 09:32:14 AM EDT 15 MG completed [facility] Trazodone Hydrochloride 50 MG Oral Tablet Trazodone 2019 09:31:13 AM EDT [address] [facility] Trazodone Hydrochloride 50 MG Oral Tablet Trazodone 2019 09:31:13 AM EDT 50 MG active [facility] Lurasidone Hydrochloride 20 MG Oral Tablet Lurasidone 08/25/2019 09:30:32 AM EDT 20 MG active [facility] Lurasidone Hydrochloride 20 MG Oral Tablet Lurasidone (Latuda) 20 mg tablet Lurasidone (Latuda) 20 mg tablet 08/25/2019 09:30:32 AM EDT 20 MG active [facility] Folic Acid 1 MG Oral Tablet folic acid 1 mg tablet folic aci d 1 mg tablet 07/14/2019 12:00:00 AM EDT 1 {tbl} ORAL active take 1 Tablet by [facility] meloxicam 7.5 MG Oral Tablet meloxicam 7.5 mg tablet meloxic am 7.5 mg tablet 07/14/2019 12:00:00 AM EDT active take 1-2 tablet by oral route every day [facility] Sulfasalazine 500 MG Delayed Release Ora l Tablet sulfasalazine 500 mg tablet,delayed release sulfasalazine 500 mg tablet,delayed release 07/14/2019 12:00:00 AM EDT completed TAKE TWO TABLETS BY MOUTH TWICE A DAY [facility] ([facility]) Sulfasalazine 500 MG Delayed Release Ora l Tablet sulfasalazine 500 mg tablet,delayed release sulfasalazine 500 mg tablet,delayed release 07/08/2019 12:00:00 AM EDT completed TAKE TWO TABLETS BY MOUTH TWICE A DAY [facility] Lurasidone Hydrochloride 20 MG Oral Tablet [Latuda] Latuda 06/28/2019 12:00:00 AM EDT 20 mg by mouth completed [id number] Latuda by mouth [id number] 06/28/2019 11/01/2019 once a day 30 20 mg tablet as directed 87696 [id number] [id number] Michele Jim [id number] Nurse Practitioner Shavon cali ([facility]) Lurasidone Hydrochloride 20 MG Oral Tablet [Latuda] Latuda 06/28/2019 12:00:00 AM EDT 20 mg by mouth completed [id number] Latuda by mouth [id number] 06/28/2019 09/21/2019 once a day 30 20 mg tablet as directed 37405 [id number] Michele Jim [id number] Nurse Practitioner Shavon cali ([facility]) Mirtazapine 30 MG Oral Tablet mirtazapine 05/28/2019 12:00:00 AM EDT 30 mg by mouth completed [id number] mirtazapine by mouth [id number] 05/2707/27/2019 at bedtime 30 30 mg tablet 36467 [id number] [id number] Geena Jim [id number] Nurse Practitioner [facility] ([facility]) Lurasidone Hydrochloride 20 MG Oral Tablet [Latuda] Latuda 05/28/2019 12:00:00 AM EDT 20 mg by mouth completed [id number] Latuda by mouth [id number] 05/28/2019 07/27/2019 once a day 30 20 mg tablet with meals 16008 1 [id number] [phone] Michele Jim [id number] Nurse Practitioner [facility] ([facility]) Mirtazapine 30 MG Oral Tablet mirtazapine 05/28/2019 12:00:00 AM EDT 30 mg by mouth completed [id number] mirtazapine by mouth [id number] 05/2709/21/2019 at bedtime 30 30 mg tablet 17310 160648 [id number] Geena Jim [id number] Nurse Practitioner [facility] ([facility]) Mirtazapine 30 MG Oral Tablet mirtazapine 05/28/2019 12:00:00 AM EDT 30 mg by mouth completed 113757 mirtazapine by mouth [id number] 05/2709/21/2019 at bedtime 30 30 mg tablet 68892 [id number] Geena Jim [id number] Nurse Practitioner [facility] ([facility]) quetiapine 50 MG Oral Tablet [Seroquel] Seroquel 05/13/2019 12: 00:00 AM EDT 50 mg by mouth completed [id number] Seroquel by mouth [id number] 05/13/2019 05/28/2019 at bedtime 30 50 mg tablet 47604 [id number] [id number] Geena Jim [id number] Nurse Practitioner [facility] ([facility]) Trazodone Hydrochloride 50 MG Oral Tablet trazodone 2019 12:00:00 AM EDT 50 mg by mouth completed [id number] trazodone by mouth [id number] 05/13/2019 06/27/2019 at bedtime 30 50 mg tablet 69737 [id number] Geena Jim [id number] Nurse Practitioner [facility] ([facility]) quetiapine 25 MG Oral Tablet [Seroquel] Seroquel 04/15/2019 12: 00:00 AM EST 25 mg by mouth completed [id number] Seroquel by mouth [id number] 04/15/2019 05/15/2019 at bedtime 30 25 mg tablet 38896 127998 [id number] Geena Jim [id number] Nurse Practitioner [facility] ([facility]) Doxycycline Monohydrate 100 MG Oral Capsule Doxycycline [place] hydrate 04/08/2019 12:00:00 AM EST completed [facility] ([facility]) Fluconazole 150 MG Oral Tablet Fluconazole 04/08/2019 12:00:00 AM EST ORAL completed [facility] ([facility]) Fluoxetine 20 MG Oral Capsule [Prozac] Prozac 04/01/2019 12:0 0:00 AM EST 20 mg by mouth completed [id number] Prozac by mouth [id number] 0 04/01/2019 11/01/2019 every morning 30 20 mg capsule 35010 [id number] Tammi Jim [id number] Nurse Practitioner [facility] ([facility]) Fluoxetine 20 MG Oral Capsule [Prozac] Prozac 04/01/2019 12:0 0:00 AM EST 20 mg by mouth completed [id number] Prozac by mouth [id number] 0 04/01/2019 09/21/2019 every morning 30 20 mg capsule 57962 [id number] Tammi Jim [id number] Nurse Practitioner [facility] ([facility]) Trazodone Hydrochloride 100 MG Oral Tablet trazodone 04/01 12:00:00 AM EST 100 mg by mouth completed [id number] trazodone by mout h [id number] 04/01/2019 05/01/2019 at bedtime 30 100 mg tablet 45930 [id number] [phone] Michele Jim [id number] Nurse Practitioner [facility] ([facility]) pantoprazole 20 MG Delayed Release Oral Tablet Pantoprazole Pantoprazole 03/28/2019 02:02:53 PM EST 20 MG [facility] pantoprazole 20 MG Delayed Release Oral Tablet Pantoprazole Pantoprazole 03/28/2019 02:02:53 PM EST [address] [facility] Lurasidone Hydrochloride 20 MG Oral Tablet [Latuda] Latuda 03/18/2019 12:00:00 AM EST 20 mg by mouth completed [id number] Latuda by mouth [id number] 03/18/2019 05/28/2019 once a day 30 20 mg tablet with meals [id number] 1 [id number] Michele Jim [id number] Nurse Practitioner Shavon cali ([facility]) Lurasidone Hydrochloride 20 MG Oral Tablet [Latuda] Latuda 03/18/2019 12:00:00 AM EST 20 mg by mouth completed [id number] Latuda by mouth [id number] 03/18/2019 05/15/2019 once a day 30 20 mg tablet with meals 33219 1 [id number] Michele Jim [id number] Nurse Practitioner Shavon cali ([facility]) Cyclobenzaprine hydrochloride 5 MG Oral Tablet cyclobe nzaprine 5 mg tablet cyclobenzaprine 5 mg tablet 03/10/2019 12:00:00 AM EST ORAL active take 0.5 - 1 tabs by Oral route every bedtime as needed [facility] ([facility]) Please ip counsel. Sulfasalazine 500 MG Delayed Release Ora l Tablet sulfasalazine 500 mg tablet,delayed release sulfasalazine 500 mg tablet,delayed release 03/10/2019 12:00:00 AM EST completed TAKE TWO TABLETS BY MOUTH TWICE A DAY [facility] ([facility]) lorcaserin hydrochloride 10 MG Oral Tablet Lorcaserin (Belviq) 10 mg tablet Lorcaserin (Belviq) 10 mg tablet 02/21/2019 11:11:46 AM EST 10 MG completed [facility] lorcaserin hydrochloride 10 MG Oral Tablet Lorcaserin Lorcas george 02/21/2019 11:11:46 AM EST [address] [facility] olanzapine 10 MG Oral Tablet Olanzapine Olanzapine 02/21/2019 11: 02:37 AM EST 10 MG completed [facility] olanzapine 10 MG Oral Tablet Olanzapine (Zyprexa) 10 m g tablet Olanzapine (Zyprexa) 10 mg tablet 02/21/2019 11:02:37 AM EST [address] [facility] Trazodone Hydrochloride 100 MG Oral Tablet Trazodone 11/07 09:37:10 AM EDT [address] [facility] Trazodone Hydrochloride 100 MG Oral Tablet Trazodone 11/07 09:37:10 AM EDT [address] [facility] Fluoxetine 20 MG Oral Capsule Fluoxetine 11/07/2018 09:35:59 AM EDT [address] [facility] Fluoxetine 20 MG Oral Capsule Fluoxetine (Prozac) 20 m g capsule Fluoxetine (Prozac) 20 mg capsule 11/07/2018 09:35:59 AM EDT [address] [facility] folic acid 1 mg tablet Folic Acid 1 MG Oral Tablet 10/07/2018 12:00 :00 AM EDT 1 {tbl} ORAL completed take 1 Tablet by oral route every day [facility] ([facility]) Sulfasalazine 500 MG Delayed Release Ora l Tablet sulfasalazine 500 mg tablet,delayed release sulfasalazine 500 mg tablet,delayed release 10/07/2018 12:00:00 AM EDT completed TAKE TWO TABLETS BY MOUTH TWICE A DAY [facility] ([facility]) meloxicam 7.5 MG Oral Tablet meloxicam 7.5 mg tablet meloxic am 7.5 mg tablet 10/07/2018 12:00:00 AM EDT completed take 1-2 tablet by oral route every day prn pain [facility] ([facility]) Cyclobenzaprine hydrochloride 5 MG Oral Tablet cyclobe nzaprine 5 mg tablet cyclobenzaprine 5 mg tablet 10/07/2018 12:00:00 AM EDT ORAL completed take 0.5 - 1 tabs by Oral route every bedtime as need ed [facility] ([facility]) Please ip counsel. pantoprazole 20 MG Delayed Release Oral Tablet Pantoprazole Pantoprazole 12/27/2017 03:47:00 PM EDT [address] [facility] pantoprazole 20 MG Delayed Release Oral Tablet Pantoprazole Pantoprazole 12/27/2017 03:47:00 PM EDT [address] [facility] Epinephrine Epinephrine (Epipen 2-Missael) 0.3 MG/0.3 ML a uto-injector Epinephrine (Epipen 2-Missael) 0.3 MG/0.3 ML auto-injector 12/25/2017 12:58:00 PM EDT 0.3 MG completed [facility] Ergocalciferol 23716 UNT Oral Capsule Vitamin D2 50,00 0 unit capsule Vitamin D2 50,000 unit capsule 1.00 {capsule} ORAL completed take 1 capsule by [facility] Melatonin 3 MG Oral Tablet melatonin 3 mg tablet melatonin 3 mg tab let 1 {tbl} ORAL completed take 1 tablet by oral route every bedtime [facility] ([facility]) Trazodone Hydrochloride 100 MG Oral Tablet trazodone 1 00 mg tablet trazodone 100 mg tablet 1 {tbl} ORAL completed ta ke 1 tablet by oral route every evening after meals [facility] ([facility]) Mirtazapine 30 MG Oral Tablet mirtazapine 30 mg tablet nabeel zapine 30 mg tablet 1.00 {tbl} ORAL completed john e 1 tablet by oral route every day before bed[facility] olanzapine 10 MG Oral Tablet [Zyprexa] Zyprexa 10 mg t ablet Zyprexa 10 mg tablet 1.00 {tbl} ORAL completed olanzapine 10 MG Oral Tablet [facility]xa] [facility] Fluoxetine 10 MG Oral Capsule [Prozac] Prozac 10 mg ca psule Prozac 10 mg capsule 3 {capsule} ORAL completed Fluoxetine 10 MG Oral Capsule [facility]zac] [facility] Trazodone Hydrochloride 50 MG Oral Tablet trazodone 50 mg tablet trazodone 50 mg tablet 1.00 {tbl} ORAL completed ta ke 1 tablet by oral route every day at bed[facility] Insurance Providers Payer name Policy type / Coverage type Policy ID Covered democrat ID Covered democrat's relationship to rowland Policy [place] Plan Information [facility] [id number] SP [id number] [facility] [id number] SP [id number] [facility] COMM[facility] [id number] 18 [id number] [facility] XIX [id number] 18 [id number] [facility] O [id number] S [id number] [facility] [id number] SP [id number] [facility] Communty Plan Medicaid [id number] Self 11 [id number] [facility] Communty Plan Medicaid [id number] Self 11 [id number] [facility] Communty Plan Medicaid [id number] Self 11 [id number] [facility] I [id number] Self [id number] [facility] Communty Plan Medicaid [id number] Self 11 [id number] [facility] Communty Plan Medicaid [id number] Self 11 [id number] [facility] COMMUNITY PLAN [id number] 18 [id number] [facility] Community Plan Medicaid [id number] Self [id number] [facility] COMMUNITY PLAN MCDO [id number] SP [id number] [facility] Community Plan Medicaid [id number] Self [id number] [facility] Community Plan Medicaid [id number] Self [id number] MEDICAID [id number] SP [id number] MEDICAID M [id number] Self [id number] EXCELLUS H [id number] Self [id number] [employer] [place] [id number] SP [id number] [place] PPO 302/307 [id number] SP [id number] Problems, Conditions, and Diagnoses Code Display Name Description Problem Type Effective Dates Data Source(s) F31.9 Bipolar disorder, unspecified Unspecified Bipola r and Related Disorder Condition 03/16/2020 12:00:00 AM EST [facility] ([facility]) F29 Unspecified psychosis not du e to a substance or known physiological condition Unspecified Schizophrenia Spectrum and Other Psychotic Disorder Condition 03/16/2020 12:00:00 AM EST [facility] ([facility]) [id number] Cervical intraepithelial neoplasia grade 2 Cervical intraepithelial neoplasia grade 2 Problem 01/14/2020 12:00:00 AM EST [facility] ([facility]) N766 Ulceration of vulva Ulceration of vulva Diagnosis 1 03/20/2019 03:17:00 PM EST [facility] [id number] Encounter for test, result neg ative Encounter for test, result negative Diagnosis 01/14/2020 02:43:00 PM EST [facility] N760 Acute vaginitis Acute vaginitis Diagnosis 01/14/2020 02:4 3:00 PM EST [facility] [id number] Encounter for surgical after care following surgery on the genitourinary system Encounter for surgical aftercare followi ng surgery on the genitourinary system Diagnosis 12/24/2019 02:55:00 PM EDT [facility] N871 Moderate cervical dysplasia Moderate cervical dysplasi a Diagnosis 12/01/2019 10:30:00 AM EDT [facility] [id number] High grade squamous intraepi thelial lesion on cytologic smear of cervix (HGSIL) High grade squamous intraepithelial lesi on on cytologic smear of cervix (HGSIL) Diagnosis 11/19/2019 01:33:00 PM EDT [facility] [id number] Encounter for other preprocedural examin ation Encounter for other preprocedural examination Diagnosis 11/19/2019 01:33:00 PM EDT [facility] [id number] Encounter for gynecological examination (general) (routine) without abnormal findings Encounter for gynecological examination (general) (routine) without abnormal findings Diagnosis 08/25/2019 02:46:00 PM EDT [facility] Surgeries/Procedures Procedure Description Date Indications Data Source(s) [facility] [place] E/M Lvl 3--Est pt 03/16/2020 12:00:00 AM EST - 03/16/2020 12:00:00 AM EST [facility] ([facility]) [facility] [place] E/M Lvl 3--Est pt 03/16/2020 12:00:[address] [facility] ([facility]) [facility] [place] E/M Lvl 3--Est pt 02/02/2020 12:00:00 AM EST - 02/02/2020 12:00:00 AM EST [facility] ([facility]) [facility] [place] E/M Lvl 3--Est pt 02/02/2020 12:00:[address] [facility] ([facility]) OFFICE/OUTPATIENT VISIT, EST 11/13/2019 12:00:00 AM EDT - 11/13/2019 12:00:00 AM EDT [facility] ([facility]) ROUTINE VENIPUNCTURE 11/13/2019 12:00:00 AM EDT - 11/13/2019 12:00:00 AM EDT [facility] ([facility]) TEMPMHCTelemed 30" Psychotherapy 020 12:00:00 AM EDT - 09/04/2019 12:00:00 AM EDT [facility] ([facility]) TEMPMHCTelemed 30" Psychotherapy 09/04/2019 12:00:00 A M EDT [facility] ([facility]) MHC Telemed E/M Lvl 3--Est pt 09/02/2019 12:00:00 AM EDT - 09/02/2019 12:00:00 AM EDT [facility] ([facility]) MHC Telemed E/M Lvl 3--Est pt 09/02/2019 12:00:00 AM E DT [facility] ([facility]) TEMPMHCTelemed 30" Psychotherapy 020 12:00:00 AM EDT - 08/07/2019 12:00:00 AM EDT [facility] ([facility]) TEMPMHCTelemed 30" Psychotherapy 08/07/2019 12:00:00 A M EDT [facility] ([facility]) MHC Telemed E/M Lvl 3--Est pt 07/23/2019 12:00:00 AM EDT - 07/23/2019 12:00:00 AM EDT [facility] ([facility]) MHC Telemed E/M Lvl 3--Est pt 07/23/2019 12:00:00 AM E DT [facility] ([facility]) OFFICE/OUTPATIENT VISIT, EST 07/14/2019 12:00:00 AM EDT - 07/14/2019 12:00:00 AM EDT [facility] ([facility]) ROUTINE VENIPUNCTURE 07/14/2019 12:00:00 AM EDT - 07/14/2019 12:00:00 AM EDT [facility] ([facility]) MRI Upper Extremity Any Joint 07/11/2019 12:00:00 AM E DT [facility] ([facility]) MRI Upper Extremity Any Joint 07/11/2019 12:00:00 AM E DT [facility] ([facility]) TEMPMHCTelemed 20" psychotherapy 020 12:00:00 AM EDT - 07/10/2019 12:00:00 AM EDT [facility] ([facility]) TEMPMHCTelemed 20" psychotherapy 07/10/2019 12:00:00 A M EDT [facility] ([facility]) RADEX ANKLE COMPLETE MINIMUM 3 VIEWS 07/03/2019 12:00: 00 AM EDT [facility] ([facility]) MHC Telemed E/M Lvl 3--Est pt 05/28/2019 12:00:00 AM EDT - 05/28/2019 12:00:00 AM EDT [facility] ([facility]) MHC Telemed E/M Lvl 3--Est pt 05/28/2019 12:00:00 AM E DT [facility] ([facility]) RADEX ANKLE COMPLETE MINIMUM 3 VIEWS 05/27/2019 12:00: 00 AM EDT [facility] ([facility]) OFFICE OUTPATIENT VISIT 15 MINUTES 05/12 12:00:00 AM EDT - 05/13/2019 12:00:00 AM EDT [facility] ([facility]) OFFICE OUTPATIENT VISIT 15 MINUTES 05/13/2019 12:00:00 AM EDT [facility] ([facility]) FX Medial Malleolus W/O Manipulation 05/05/2019 12:00: 00 AM EST [facility] ([facility]) CLTX TIBIAL SHAFT FX W/O MANIPULATION 05/05/2019 12:00 :00 AM EST [facility] ([facility]) Extended Individual Psychotherapy - 45 min 05/02/2019 12:00:00 AM EST - 05/02/2019 12:00:00 AM EST [facility] ([facility]) Extended Individual Psychotherapy - 45 min 0 12:00:00 AM EST [facility] ([facility]) MRI Lower Extremity Any Joint 05/01/2019 12:00:[address] [facility] ([facility]) Extended Individual Psychotherapy - 45 min 04/17/2019 12:00:00 AM EST - 04/17/2019 12:00:00 AM EST [facility] ([facility]) Extended Individual Psychotherapy - 45 min 0 12:00:00 AM EST [facility] ([facility]) OFFICE OUTPATIENT VISIT 15 MINUTES 04/15 12:00:00 AM EST - 04/15/2019 12:00:00 AM EST [facility] ([facility]) OFFICE OUTPATIENT VISIT 15 MINUTES 04/15/2019 12:00:00 AM EST [facility] ([facility]) Brief Individual Psychotherapy - 30 min 04/01/2019 12:00:00 AM EST - 04/01/2019 12:00:00 AM EST [facility] ([facility]) Brief Individual Psychotherapy - 30 min 04/01/2019 12: 00:00 AM EST [facility] ([facility]) OFFICE OUTPATIENT VISIT 15 MINUTES 04/01 12:00:00 AM EST - 04/01/2019 12:00:00 AM EST [facility] ([facility]) OFFICE OUTPATIENT VISIT 15 MINUTES 04/01/2019 12:00:00 AM EST [facility] ([facility]) PREVENT MED TRADITIONAL [facility] PRACTITIONER&/RISK FACTOR REDJ SPX 15 MIN 04/01/2019 12:00:00 AM EST - 04/01/2019 12:00:00 AM EST [facility] ([facility]) PREVENT MED TRADITIONAL [facility] PRACTITIONER&/RISK FACTOR REDJ SPX 15 MIN 04/01 12:00:00 AM EST [facility] ([facility]) Psychiatric Diagnostic Evaluation with Medical Services 03/18/2019 12:00:00 AM EST - 03/18/2019 12:00:00 AM EST [facility] ([facility]) Psychiatric Diagnostic Evaluation with Medical Services 03/18/2019 12:00:00 AM EST [facility] ([facility]) Psychiatric Diagnostic Evaluation (Non-Medical) 03/14/2019 12:00:00 AM EST - 03/14/2019 12:00:00 AM EST [facility] ([facility]) Psychiatric Diagnostic Evaluation (Non-Medical) 2019 12:00:00 AM EST [facility] ([facility]) OFFICE/OUTPATIENT VISIT, EST 03/10/2019 12:00:00 AM EST - 03/10/2019 12:00:00 AM EST [facility] ([facility]) ROUTINE VENIPUNCTURE 03/10/2019 12:00:00 AM EST - 03/10/2019 12:00:00 AM EST [facility] ([facility]) Extended Individual Psychotherapy - 45 min 02/21/2019 12:00:00 AM EST - 02/21/2019 12:00:00 AM EST [facility] ([facility]) Extended Individual Psychotherapy - 45 min 9 12:00:00 AM EST [facility] ([facility]) Results ID Date Data Source [id number] 02/10/2020 12:00:00 AM EST [facility] Name Value Range Interpretation Code Description Data Anahy rce(s) Supporting Document(s) SARS coronavirus 2 Ag [facility] This lab was ordered by [facility] and reported by [facility]. ID Date Data Source [id number] 02/02/2020 12:00:00 AM EST [facility] Name Value Range Interpretation Code Description Data Anahy rce(s) Supporting Document(s) SARS coronavirus 2 Ag [facility] This lab was ordered by [facility] and reported by [facility]. ID Date Data Source [id number] 01/27/2020 12:00:00 AM EST [facility] Name Value Range Interpretation Code Description Data Anahy rce(s) Supporting Document(s) SARS coronavirus 2 Ag [facility] This lab was ordered by [facility] and reported by [facility]. ID Date Data Source [id number] 01/26/2020 12:00:00 AM EST [facility] Name Value Range Interpretation Code Description Data Anahy rce(s) Supporting Document(s) SARS coronavirus 2 Ag [facility] This lab was ordered by [facility] and reported by [facility]. ID Date Data Source [id number] 01/19/2020 03:50:00 PM EST [facility] ([facility]) Name Value Range Interpretation Code Description Data Anahy rce(s) Supporting Document(s) Culture Herpes Simpl Laboratory test result [facility] ([facility]) {SOURCE: Genital~.~.~N76.6 Source: Laboratory test result [facility] ([facility]) {SOURCE: Genital~.~.~N76.6 ID Date Data Source [id number] 01/23/2020 06:48:00 AM EST [facility] Name Value Range Interpretation Code Description Data Anahy rce(s) Supporting Document(s) CULTURE HERPES SIMPLEX [facility] _CULTURE HERPES SIMPLEX_ SOURCE: Genital [facility] $$[id number] DATE/TIME: 01/22/2020 1 5:06Culture: CULTURE HERPES SIMPLEX Status: FinalIsolate 1 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 . . . . . .1PositiveTyping was confirmed by monoclonal antibody microscopicimmunofluorescence.HSV Culture/Type: Y8Ydkbkw simplex virus type 1 Flag: AP1 [facility] [id number] [address] [facility] [id number] [facility] [id number] Director : Manuel Schofield MD NPI #:Ski Lift Operator : [email or web address] REF ID Date Data Source [id number] 01/14/2020 03:44:00 PM EST [facility] ([facility]) Name Value Range Interpretation Code Description Data Anahy rce(s) Supporting Document(s) Bacteria identified in Urine by Culture Laboratory test result [facility] ([facility]) ID Date Data Source [id number] 01/14/2020 03:44:00 PM EST [facility] ([facility]) Name Value Range Interpretation Code Description Data Anahy rce(s) Supporting Document(s) Z#Other Observations Laboratory test result [facility] ([facility]) ID Date Data Source [id number] 01/14/2020 03:44:00 PM EST [facility] ([facility]) Name Value Range Interpretation Code Description Data Anahy rce(s) Supporting Document(s) Source: Laboratory test result [facility] ([facility]) {SOURCE: Genital Nataly species Laboratory test result [facility] ([facility]) {SOURCE: Genital Gardnerella vaginalis Laboratory test result Abn ormal (applies to non-numeric results) [facility] ([facility]) {SOURCE: Genital Trichomonas vaginalis Laboratory test result [facility] ([facility]) {SOURCE: Genital ID Date Data Source [id number] 01/14/2020 03:44:00 PM EST [facility] ([facility]) Name Value Range Interpretation Code Description Data Anahy rce(s) Supporting Document(s) Source: Laboratory test result [facility] ([facility]) {SOURCE: Genital Trich vag by [facility] Laboratory test result [facility] ([facility]) {SOURCE: Genital Gonococcus by [facility] Laboratory test result [facility] ([facility]) {SOURCE: Genital Chlamydia by [facility] Laboratory test result [facility] ([facility]) {SOURCE: Genital ID Date Data Source [id number] 01/14/2020 03:44:00 PM EST [facility] ([facility]) Name Value Range Interpretation Code Description Data Anahy rce(s) Supporting Document(s) Culture Urine Laboratory test result [facility] ([facility]) {SOURCE: Genital ID Date Data Source [id number] 01/18/2020 12:14:00 PM [facility] Name Value Range Interpretation Code Description Data Anahy rce(s) Supporting Document(s) CULTURE URINE [facility] _CULTURE URINE_$$[id number]$$530231$$045847$$436405$$842369$$142764$$051215$$279312$$662424$$ 439949$$524262$$872790$$421719$$893446$$984525$$471631$$436744$$638288$$876989$$ 434935$$416200$$032888$$165021$$355376$$735164$$282394$$[id number] -- Continued on next page --Patient: TANISHA Alejandre Order: [id number] Page 2Culture: CULTURE URINE Status: Final ==== -- Continued on next page --Patient: TANISHA Alejandre Order: [id number] Page 2Culture: CULTURE URINE Status: Prelim =====$$[id number]$$[id number] DATE/TIME: 01/18/2020 12:05Culture: CULTURE URINE Status: FinalUrine Culture,Comprehensive: [id number] urogenital flora5,000 Colonies/mL Previous result entered on 01/17/2020 06:17 ET Specimen has been received and testing has been initiated.P1 Test performed by: [facility] #: [id number] [address] [place] [address] [id number] [facility] [id number] Director : Manuel Schofield MD NPI #:Ski Lift Operator : 01/17/[email or web address] REF 01/18/[email or web address] REF ID Date Data Source [id number] 01/18/2020 06:42:00 AM EST [facility] Name Value Range Interpretation Code Description Data Anahy rce(s) Supporting Document(s) SOURCE: Random Void [facility] Chlamydia trachomatis rRNA [Presence] in Unspecified specimen by Probe and target amplification method Negative Negative [facility] Neisseria gonorrhoeae rRNA [Presence] in Unspecified specimen by Probe and target amplification method Negative Negative [facility] Trichomonas vaginalis DNA [Presence] in Unspecified specimen by Probe and target amplification method Negative Negative [facility] ID Date Data Source [id number] 01/16/2020 09:01:00 PM EST [facility] Name Value Range Interpretation Code Description Data Anahy rce(s) Supporting Document(s) SOURCE: Genital [facility] Nataly sp rRNA [Presence] in Vaginal fluid by DNA probe Negative N egative [facility] Gardnerella vaginalis rRNA [Presence] in Genital specimen by DNA probe Positive Negative A [facility] Trichomonas vaginalis rRNA [Presence] in Genital specimen by DNA probe Negative Negative [facility] ID Date Data Source [id number] 01/14/2020 03:12:00 PM EST [facility] ([facility]) Name Value Range Interpretation Code Description Data Anahy rce(s) Supporting Document(s) Inhouse Urine Test Laboratory test result [facility] ([facility]) ID Date Data Source [id number] 01/14/2020 03:12:00 PM EST [facility] ([facility]) Name Value Range Interpretation Code Description Data Anahy rce(s) Supporting Document(s) Appearance of Urine Laboratory test result [facility] ([facility]) Spec Cascade 1.005 [facility] ([facility]) pH of Urine by Test strip 7 MEDE NT ([facility]) Color of Urine Laboratory test result [facility] ([facility]) Protein [Presence] in Urine by Test strip Laboratory test result [facility] ([facility]) Nitrate [Presence] in Urine Laboratory test result [facility] ([facility]) Leukocytes Laboratory test result [facility] ([facility]) Inhouse Glucose Laboratory test result [facility] ([facility]) Ketones [Presence] in Urine by Test strip Laboratory test result [facility] ([facility]) Urobilinogen Laboratory test result [facility] ([facility]) Blood type and Indirect antibody screen panel - Blood Laboratory test result [facility] ([facility]) Bilirubin.total [Presence] in Urine by Test strip Laboratory test res ult [facility] ([facility]) ID Date Data Source [id number] 12/02/2019 03:35:00 [place] [address] OPERATIVE SUMMARYNAME: TANISHA BARRETO Star DATE OF : 1985ATTENDING PHYS: TROY Tavares MD DATE: 12/01/19 MR#: [id number] OF PROCEDURE: 12/01/19PREOPERATIVE DIAGNOSIS: TONY 2 with endocervical involvement.POSTOPERATIVE DIAGNOSIS: TONY 2 with endocervical involvement.FINDINGS: 1. Normal-appearing cervix. 2. Lugol negative areas noted at the 10 to 2 o'clock position anteriorly on the cervix.PROCEDURE: Cone biopsySURGEON: CROW MejíaTHESIA CARE PROVIDER: Jalil Walker CRNATYPE OF ANESTHESIA: MACESTIMATED BLOOD LOSS: 250 ccIV FLUID: 1200 cc LRURINE OUPUT: 160 ccDRAINAGE: None.IMPLANTS: None.FENCE MAKER: None.SPECIMEN: Cervical cone biopsyBLOOD ADMINISTERED: NoneCOMPLICATIONS: NoneDESCRIPTION OF PROCEDURE: After consent was reviewed with the patient and IV started,she was taken to the operating room where MAC anesthesia was administered without any [address] [place] [address] OPERATIVE SUMMARYNAME: TANISHA Alejandre DATE OF : 1985ATTENDING PHYS: TROY Tavares MD DATE: 12/01/19 MR#: [id number]. The patient was then placed in the dorsal lithotomy position, Pillai catheter was inserted,pneumatic stockings applied and she was prepped and draped in the normal sterile fashion. Thepatient was examined under anesthesia. The uterus was noted to be of normal size and no adnexalmass was appreciated. A weighted speculum was then placed in the vagina. The anterior vaginalwall was retracted and the anterior aspect of the cervix was grasped with a toothed tenaculum.Because the patient's vagina was so deep, we had a problem reaching the cervix with the scalpel.Therefore, we took out the weighted speculum, we took out the vaginal retractor and we took offthe tenaculum and then we inserted a Tessalon-coated speculum with the four osborn. The cervixwas then brought into view by attaching the tenaculum to the anterior aspect of the cervix. Lugolsolution was then applied to the cervix and starting from the 2 o'clock position, we injectedapproximately 5 cc of a mixture of 5 units of Vasopressin in 50 cc and 5 cc was injected at the 2o'clock position, the 10 o'clock position, the 8 o'clock and the 5 o'clock position. Using the scalpelthat was placed on the long handle, we started at the 3 o'clock position and made a circumferentialincision going through the 6, 9, 12 and back to the 3. The specimen was then removed. A moderateamount of bleeding was noted from the cervix and this was controlled by the injection ofapproximately 20 more units of the Vasopressin solution. Approximately 10 cc of a 2% lidocainewith epinephrine was also injected circumferentially on the cervix. The cervix was then cauterizedand then Monsel solution was added. Adequate hemostasis was then visualized. The patient wasthen awakened from anesthesia and transferred to recovery room in stable condition. Lap andinstrument count were correct.DD: TROY Tavares MD 12/01/19 14:40DT: JULIANA 12/02/19 03:23DS: TROY Tavares MD 12/06/19 14:49 2 Name Value Range Interpretation Code Description Data Anahy rce(s) Supporting Document(s) ID Date Data Source [id number] 11/25/2019 03:36:00 PM EDT [facility] ([facility]) Name Value Range Interpretation Code Description Data Anahy rce(s) Supporting Document(s) Appearance, Urine Laboratory test result Normal (applies to non-numeric results) [facility] ([facility]) PH,Urine 7.0 units 5.0-9.0 Normal (applies to non-numeric resul ts) [facility] ([facility]) Color, Urine Laboratory test result Normal (applies to non -numeric results) [facility] ([facility]) Specific Cascade Urine Auto 1.013 1.002-1.035 Norm al (applies to non-numeric results) [facility] ([facility]) Ketone, Urine Auto Laboratory test result Normal (applies to non-numeric results) [facility]) Glucose, Urine (Ua) Auto Laboratory test result Normal (applies to non-numeric results) [facility] ([facility]) Protein, Urine Auto Laboratory test result Erica l (applies to non-numeric results) [facility]) Urobilinogen, Urine Auto 0.2 mg/dL 0.0-2.0 Normal (applies to non-numeric results) [facility] ([facility]) Bilirubin, Urine Auto Laboratory test result Nor mal (applies to non-numeric results) [facility] ([facility]) Nitrite, Urine Auto Laboratory test result Erica l (applies to non-numeric results) [facility] ([facility]) Leukocyte Esterase, Urine Auto Laboratory test result Abov e high normal [facility]) WBC, Urine Auto 4 /HPF 0-3 Above high normal [facility] ([facility]) Blood, Urine Blood Laboratory test result Above high erica l [facility]) RBC, Urine Auto 3 /HPF 0-3 Normal (applies to non-numeric results) [facility] ([facility]) Squamous Epithelial Cell Ur AU 2 /HPF 0-6 N ormal (applies to non-numeric results) [facility] Bacteria, Urine Auto Laboratory test result Norm al (applies to non-numeric results) [facility] ([facility]) Hyaline Cast, Urine Auto 0 /LPF 0-1 Normal (applies to non -numeric results) [facility] ([facility]) ID Date Data Source [id number] 11/25/2019 03:36:00 PM EDT [facility] ([facility]) Name Value Range Interpretation Code Description Data Anahy rce(s) Supporting Document(s) Red Blood Count 4.08 10 4.00-5.40 Normal (applies to non-numeric results) [facility] ([facility]) Hemoglobin 12.5 g/dL 12.0-15.5 Normal (applies to non-numeric resul ts) [facility] ([facility]) White Blood Count 7.1 10 4.0-10.0 Normal (applies to non-numeri c results) [facility] ([facility]) Hematocrit 39.4 % 36.0-47.0 Normal (applies to non-numeric resul ts) [facility] Mean Corpuscular HGB Conc 31.7 g/dL 32.0-36.5 Below low normal [facility] ([facility]) Mean Corpuscular Volume 96.6 fl 80.0-96.0 Above high normal [facility] ([facility]) Mean Corpuscular Hemoglobin 30.6 pg 27.0-33.0 Norm al (applies to non-numeric results) [facility] ([facility]) Platelet Count, Automated 315 10 150-450 Normal (applies to non-numeric results) [facility]) Red Cell Distribution Width 12.1 % 11.5-14.5 Norm al (applies to non-numeric results) [facility] ([facility]) Nucleated Red Blood Cell % 0.0 % 0-0 Normal (applies to n on-numeric results) [facility] ([facility]) ID Date Data Source [id number] 11/25/2019 03:36:00 PM EDT [facility] ([facility]) Name Value Range Interpretation Code Description Data Anahy rce(s) Supporting Document(s) Choriogonadotropin.beta subunit [Moles/volume] in Seru m or Plasma Laboratory test result Normal (applies to non-numeric results) [facility] ([facility]) GESTATIONAL AGE APPROXIMATE HCG RANGE (MIU/ML) - [...] monitoring the treatment of cancer patients. Siemens [place] methodology. ID Date Data Source [id number] 11/21/2019 03:27:00 PM EDT [facility] ([facility]) Name Value Range Interpretation Code Description Data Anahy rce(s) Supporting Document(s) Bacteria identified in Urine by Culture Laboratory test result [facility] ([facility]) FULL REPORT IN LAB NOTES ([facility] and [facility] ). NO GROWTH CLINICAL SIGNIFICANCE 2 OR MORE ORGANISMS ID Date Data Source [id number] 11/18/2019 12:00:00 AM EDT [facility] Name Value Range Interpretation Code Description Data Anahy rce(s) Supporting Document(s) SARS coronavirus 2 RNA [Presence] in Res piratory specimen by [facility] with probe detection [facility] This lab was ordered by [facility] and reported by [facility]. ID Date Data Source [id number] 11/13/2019 01:44:00 PM EDT [facility] ([facility]) Name Value Range Interpretation Code Description Data Anahy rce(s) Supporting Document(s) 16 U/L (11-39) AST (SGOT) [facility] ([facility]) Unless otherwise specified, testing perf ormed by [employer] [place] [address]

ID Date Data Source [id number] 11/13/2019 01:44:00 PM EDT [facility] ([facility]) Name Value Range Interpretation Code Description Data Anahy rce(s) Supporting Document(s) 0.90 mg/dL (0.60-1.00) CREATININE [facility] ([facility]) >60 (>59) GFR ( AMER) [facility] ([facility]) >60 (>59) GFR [facility]) GFR INTERPRETATION [facility] ([facility]) --NORMAL KIDNEY FUNCTION OR MILD DISEASE - GFR >OR= 60CHRONIC KIDNEY DISEASE - GFR 15 - 59RENAL FAILURE - GFR <15 Est. GFR calculation based on the MDRDstudy equation, which assumes a steadystate for creatinine. Est. GFR should notbe used for medication dosing.Unless otherwise specified, testing performed by [employer] [place] [address]

ID Date Data Source [id number] 11/13/2019 01:44:00 PM EDT [facility] ([facility]) Name Value Range Interpretation Code Description Data Anahy rce(s) Supporting Document(s) <0.3 (0.0-0.5) C REACTIVE PROTEIN @ [facility] ( [facility]) Unless otherwise specified, testing perf ormed by [facility] [address] [place] [address]

ID Date Data Source [id number] 11/13/2019 01:44:00 PM EDT [facility] ([facility]) Name Value Range Interpretation Code Description Data Anahy rce(s) Supporting Document(s) 14 mm/h (0-20) ESR [facility] ([facility]) Unless otherwise specified, testing perf ormed by [facility] [address] [place] [address]

ID Date Data Source [id number] 11/13/2019 01:44:00 PM EDT [facility] ([facility]) Name Value Range Interpretation Code Description Data Anahy rce(s) Supporting Document(s) 4.37 10*6/uL (4.00-5.40) RBC [facility] ([facility]) 13.6 g/dL (12.0-16.0) HGB [facility] ([facility]) 6.9 10*3/uL (4.1-11.0) WBC [facility]) 31.1 pg (27.0-32.0) MCH [facility] ([facility]) 41.4 % (36.0-47.0) HCT [facility] ([facility]) 94.7 fL (80.0-95.0) MCV [facility] ([facility]) 32.9 g/dL (32.0-36.0) MCHC [facility] ([facility]) 12.7 % (10.5-14.5) RDW [facility] ([facility]) 341 10*3/uL (150-450) PLT [facility] ([facility]) 17.9 % (16.0-52.0) LYMPH % [facility] ([facility]) 7.7 fL (7.1-10.7) MPV [facility] ([facility]) 7.9 % (0.0-8.0) MONO % [facility] 69.4 % (35.0-75.0) NEUT % [facility] ([facility]) 4.3 % (0.0-5.0) EOS % [facility] 4.8 10*3/uL (1.8-7.7) NEUT # [facility] ([facility]) 0.5 % (0.0-4.0) BASO % [facility] 1.2 10*3/uL (1.2-4.8) LYMPH # [facility] ([facility]) 0.5 10*3/uL (0.0-0.8) MONO # [facility] ([facility]) 0.3 10*3/uL (0.0-0.5) EOS # [facility] ([facility]) 0.0 10*3/uL (0.0-0.2) BASO # [facility] ([facility]) Unless otherwise specified, testing perf ormed by [facility] [address] [place] [address]

ID Date Data Source [id number] 11/13/2019 01:44:00 PM EDT [facility] ([facility]) Name Value Range Interpretation Code Description Data Anahy rce(s) Supporting Document(s) 4.1 g/dL (3.5-4.6) ALBUMIN [facility]) Unless otherwise specified, testing perf ormed by [facility] [address] [place] [address]

ID Date Data Source [id number] 11/13/2019 01:44:00 PM EDT [facility] ([facility]) Name Value Range Interpretation Code Description Data Anahy rce(s) Supporting Document(s) 32 U/L (12-78) ALT (SGPT) [facility] ([facility]) Unless otherwise specified, testing perf ormed by [facility] [place] [facility] [address] [place] [address]

ID Date Data Source [id number] 11/13/2019 10:05:19 PM EDT [facility] Name Value Range Interpretation Code Description Data Anahy rce(s) Supporting Document(s) WBC 6.9 10*3/uL (4.1-11.0) [facility] RBC 4.37 10*6/uL (4.00-5.40) [facility] HGB 13.6 g/dL (12.0-16.0) [facility] HCT 41.4 % (36.0-47.0) [facility] MCV 94.7 fL (80.0-95.0) [facility] MCH 31.1 pg (27.0-32.0) [facility] MCHC 32.9 g/dL (32.0-36.0) [facility] RDW 12.7 % (10.5-14.5) [facility] PLT 341 10*3/uL (150-450) [facility] MPV 7.7 fL (7.1-10.7) [facility] NEUT % 69.4 % (35.0-75.0) [facility] LYMPH % 17.9 % (16.0-52.0) [facility] MONO % 7.9 % (0.0-8.0) [facility] EOS % 4.3 % (0.0-5.0) [facility] [place] [facility] BASO % 0.5 % (0.0-4.0) [facility] [place] [facility] NEUT # 4.8 10*3/uL (1.8-7.7) [facility] LYMPH # 1.2 10*3/uL (1.2-4.8) [facility] MONO # 0.5 10*3/uL (0.0-0.8) [facility] Eosinophils [#/volume] in Blood by Automated count 0.3 10*3/uL (0.0-0 .5) [facility] BASO # 0.0 10*3/uL (0.0-0.2) [facility] ID Date Data Source 11/13/2019 10:13:32 PM EDT [facility] Name Value Range Interpretation Code Description Data Anahy rce(s) Supporting Document(s) ALBUMIN 4.1 g/dL (3.5-4.6) [facility] ID Date Data Source 11/13/2019 10:13:32 PM EDT [facility] Name Value Range Interpretation Code Description Data Anahy rce(s) Supporting Document(s) ALT (SGPT) 32 U/L (12-78) [facility] ID Date Data Source 11/13/2019 10:13:32 PM EDT [facility] Name Value Range Interpretation Code Description Data Anahy rce(s) Supporting Document(s) AST (SGOT) 16 U/L (11-39) [facility] ID Data Source 11/13/2019 10:13:32 PM EDT [facility] Name Value Range Interpretation Code Description Data Anahy rce(s) Supporting Document(s) CREATININE 0.90 mg/dL (0.60-1.00) [facility] GFR >60 ml/min/1.73m2 (>59) [facility] GFR ( AMER) >60 ml/min/1.73m2 (>59) [facility] GFR INTERPRETATION [facility] --NORMAL KIDNEY FUNCTION OR MILD DISEASE - GFR >OR= 60CHRONIC KIDNEY DISEASE - GFR 15 - 59RENAL FAILURE - GFR <15 Est. GFR calculation based on the MDRDstudy equation, which assumes a steadystate for creatinine. Est. GFR should notbe used for medication dosing. ID Date Data Source 11/13/2019 10:13:32 PM EDT [facility] Name Value Range Interpretation Code Description Data Anahy rce(s) Supporting Document(s) C REACTIVE PROTEIN @ <0.3 mg/dL (0.0-0.5) [facility] ID Date Data Source 11/13/2019 10:35:29 PM EDT [facility] Name Value Range Interpretation Code Description Data Anahy rce(s) Supporting Document(s) ESR 14 mm/h (0-20) Laboratory [facility] ID Date Data Source [id number] 11/11/2019 12:00:00 AM EDT [facility] Name Value Range Interpretation Code Description Data Anahy rce(s) Supporting Document(s) SARS coronavirus 2 RNA [Presence] in Res piratory specimen by [facility] with probe detection [facility] This lab was ordered by [facility] and reported by [facility]. ID Date Data Source [id number] 11/03/2019 12:00:00 AM EDT [facility] Name Value Range Interpretation Code Description Data Anahy rce(s) Supporting Document(s) SARS coronavirus 2 RNA [Presence] in Res piratory specimen by [facility] with probe detection [facility] This lab was ordered by [facility] and reported by [facility]. ID Date Data Source [id number] 10/27/2019 12:00:00 AM EDT [facility] Name Value Range Interpretation Code Description Data Anahy rce(s) Supporting Document(s) SARS coronavirus 2 RNA [Presence] in Res piratory specimen by [facility] with probe detection [facility] This lab was ordered by [facility] and reported by [facility]. ID Date Data Source [id number] 10/21/2019 12:00:00 AM EDT [facility] Name Value Range Interpretation Code Description Data Anahy rce(s) Supporting Document(s) SARS coronavirus 2 RNA [Presence] in Res piratory specimen by [facility] with probe detection [facility] This lab was ordered by [facility] and reported by [facility]. ID Date Data Source [id number] 10/20/2019 11:16:[address] [facility] Patient Name: MARY LOU GARAY : 1985 Sex: F Pt Unit #: [id number] Location:[facility] Provider: Visit Date/Time: 10/20/19 Primary Insurance: [facility] Secondary Insurance: Self Pay Intake Vital Signs 10/20/19 11:16 Current Height 5 ft 4.25 in Current Weight 205 lb 2 oz Weight Measurement Method Standing Scale BMI 34.9 BP 110/70 Blood Pressure Location Lt brachial Position Sitting Respiration 18 Pulse 80 Pulse Strength Normal Pulse Source Pulse Oximeter Temp 98.1 F Temp Source Oral Pulse Oximetry (%) 96 Oxygen Delivery Method room air Intake Visit Reasons: Medication check Nurse Note: 34 year old female presents today for a medication check of Metformin. Patient notes sheis taking for weight loss and that it is not working. Patient has gained 1# since last visit. Patient reports only occasional diarrhea. Cone Treater Required: No Accompanied by: Self / Same as Patient Is patient in pain?: No Allergies BEE STINGS Allergy (Severe, Verified 11/20/18 07:06) Anaphylaxis coconut Allergy (Mild, Verified 11/20/18 07:06) Mouth and throat itch tree nut Allergy (Mild, Verified 11/20/18 07:06) mouth and throat itch shellfish derived Allergy (Unknown, Verified 11/20/18 07:06) Iodine and Iodide Containing Produc Adverse Reaction (Severe, Verified 11/20/18 07:06) Rash topiramate [From Topamax] Adverse Reaction (Intermediate, Verified 11/20/18 07:06) Other, not listed Medications albuterol sulfate 90 mcg/actuation 1 - 2 puffs inhalation Q4HR cetirizine 10 mg PO DAILY cyclobenzaprine PO epinephrine (EpiPen) 0.3 mg (0.3 mL) IM .prn ferrous sulfate 325 mg PO QDAY folic acid 1 mg PO DAILY lurasidone (Latuda) 20 mg PO QPM meloxicam 7.5 mg PO DAILY metformin 500 mg PO QDAY pantoprazole 20 mg PO DAILY sulfasalazine 1 GM PO BID trazodone 300 mg PO HS Is last menstrual period known: Yes Last menstrual period: 10/03/19 Patient : No Vision Wearing glasses?: Yes Fall Risk History of falls: No Ambulatory Aid:: None Gait/Transferring:: Normal Medications:: Psychotropics HIV Testing Offer - [facility] HIV testing Offer: Yes Requirement for HIV testing offer been met?: Declines today. Pretest education received and acknowledged SBIRT Annual Questionnaire Are you currently in recovery for alcohol or substance use?: No How many times in the past year have you had 4 or more drinks in a day?: None How many times in the past year have you used a recreational drug or used a prescription medication for nonmedical reasons?: None Do you need a note to return Do you need a note to return to daycare/school/sports/work: No Coronavirus Screening Screening Have you traveled outside of [facility] or [facility] in the last 14 days.: No [facility] Medical History (Updated 10/20/19 @ 21:35 by Deysi Barron NP) abnormal pap smear allergies/hay fever Anxiety Asthma Depression Depression Fracture of fifth toe, right, closed fractures Gastroesophageal reflux disease Headache Human papilloma virus infection Insomnia menses @ 15 Nicotine dependence in remissi on Obesity Postoperative abdominal pain Recurrent acute sinusitis Rheumatoid arthritis Sepsis Viral pharyngitis Surgical History History of - surgery History of - surgery History of - surgery History of - surgery History of - surgery Family History Mother Autoimmune disease Father No problems noted. Other Abnormal vision Alcoholism Asthma Depression Diabetes Disorder of thyroid gland Kidney disease Psychiatric disorder Rheumatoid arthritis Stroke Social History Does the Patient have a Healthcare Proxy: Yes (CASANDRA RICE) Does Patient have a DNR?: No Does Patient have a Living Will?: No Does the Patient have a MOLST?: No Advance Directives on File or in chart?: No Hx Recent Travel (where): No Female Reproductive History Menstrual Date of last menstrual period: 10/03/19 HPI Additional HPI HPI Details: 34 yr old female patient presents to clinic today for follow uup after starting metformin. She reports that she has had minimal side effects, and that she has actually gained a pound since starting metformin. she reports that she is interested in other options for weight loss Review of Systems Const Reports as per HPI, Reports system reviewed and no additional complaints, except as documented, Denies body aches, Denies chills, Denies fatigue, Denies fever(s), Denies headache(s), Denies increased appetite, Denies lethargy, Denies malaise, Denies night sweats, Denies poor appetite, Denies weakness, Denies weight gain and Denies weight loss Eyes Reports as per HPI, Reports system reviewed and no additional complaints, except as documented, Denies change in vision, Denies diplopia, Denies eye discharge, Denies itchy eyes, Denies loss of vision, Denies other visual disturbances, Denies eye pain, Denies requires corrective lenses, Deniesseeing flashes and Denies photophobia ENT Reports system reviewed and no additional complaints, except as documented, Reports as per HPI, Denies change in voice, Denies dysphagia, Denies vertigo, Denies dizziness, Denies otalgia, Denies facial pain, Denies headache(s), Denies hoarseness, Denies lip swelling, Denies epistaxis, Denies mouth pain, Denies nasal obstruction, Denies neck pain, Denies odynophagia, Denies tinnitus, Denies sinus pressure, Denies throat swelling and Denies tongue swelling Card Reports as per HPI, Reports system reviewed and no additional complaints, except as documented, Denies chest pain, Denies syncope, Denies pedal edema, Denies irregular heart rhythm, Denies leg edema, Denies lightheadedness, Denies palpitations and Denies dyspnea Resp Reports as per HPI, Reports system reviewed and no additional complaints, except as documented, Denies chest congestion, Denies cough and Denies dyspnea GI Reports as per HPI, Reports system reviewed and no additional complaints, except as documented, Denies change in bowel habits, Denies constipation, Denies cramping, Denies dysphagia, Denies dyspepsia, Denies heartburn, Denies diarrhea, Denies nausea, Denies odynophagia and Denies vomiting Genitourinary: Reports system reviewed and no additional complaints, except as documented and as perHPI; Denies hematuria, difficulty voiding, post void dribbling, hot flashes, dysuria, pelvic pain, sexual dysfunction, flank pain, urinary frequency, urinary incontinence, urinary hesitancy, urinary urgency, vaginal discharge, vaginal dryness or vaginal odor Musc Reports system reviewed and no additional complaints, except as documented, Reports as per HPI, Denies back pain, Denies myalgias, Denies deformity, Denies arthralgias, Denies joint swelling, Denies limited range of motion, Denies muscle cramps, Denies muscle weakness, Denies neck pain and Denies tingling Skin/Breast Reports system reviewed and no additional comp laints, except as documented, Reports as per HPI, Denies change in breast shape, Denies change in hair, Denies dry skin, Denies hirsutism, Denies alopecia, Denies nail changes, Denies new lesions, Denies erythema, Denies photosensitivity, Denies rash, Denies skin pain, Denies skin swelling, Denies skin ulcer, Denies sores and Denies wounds Neuro Reports system reviewed and no additional complaints, except as documented, Reports as per HPI, Denies abnormal movements, Denies abnormal speech, Denies behavioral changes, Denies confusion, Denies vertigo, Denies dizziness, Denies syncope, Denies headache(s), Denies localized weakness, Denies loss of vision, Denies memory loss, Denies other visual disturbances, Denies radicular pain, Denies restless legs, Denies seizure-like activity, Denies tingling, Denies paresthesias, Denies tremor(s) and Denies weakness Psych Reports system reviewed and no additional complaints, except as documented, Reports as per HPI, Denies behavioral changes, Denies change in appetite, Denies confusion, Denies depression, Denies difficulty concentrating, Denies hopelessness, Denies memory loss, Denies mood swings, Denies panic attacks, Denies paranoia, Denies hallucinations, Denies homicidal ideation and Denies suicidal ideation Endo Reports system reviewed and no additional complaints, except as documented, Reports as per HPI, Denies cold intolerance, Denies fatigue, Denies increase in ring/shoe/hat size and Denies palpitations Chintan/Lymph Reports system reviewed and no additional complaints, except as documented, Reports as per HPI, Denies easy bleeding, Denies easy bruising and Denies lymphadenopathy Aller/Immun Denies itchy eyes, Denies lip swelling, Denies throat swelling and Denies tongue swelling Exam Const General: cooperative, comfortable and no acute distress Nutritional Appearance: overweight Orientation: alert, awake and oriented x3 HENMT Head: normal to inspection, normocephalic and atraumatic Ears: hearing grossly normal bilaterally, external ears normal, TM's normal bilaterally and EAC's normal General nose exam: external nose normal, nares normal, nasal mucous membranes and turbinates normal and septum normal Face and sinus: normal facial exam and face symmetric Mouth: oral mucosae normal, lip normal, tongue normal and moist mucous membranes Throat: posterior oropharynx normal and uvula midline Eyes Alignment and Position: alignment normal and position normal Periorbital: periorbital findings normal Eyelids: eyelids normal Conjunctivae: conjunctivae normal Sclera: sclerae normal Pupils: PERRL and normal by confrontation EOM: EOM intact bilaterally Neck Neck: normal visual inspection, full ROM, no lymphadenopathy, trachea midline and supple Chest Chest: normal palpation of entire chest wall Resp Effort Inspection: normal respiratory effort, able to speak in complete sentences, no audible wheezes and no cough Auscultation: clear to auscultation bilaterally Cardio Palpation: normal PMI Rate: regular rate Rhythm: regular rhythm Heart Sounds: S1 normal, S2 normal, no click, no gallops, no murmurs and no rubs GI Inspection: Yes normal to inspection, No edema and Yes obesity Palpation: soft and no hepatosplenomegaly Auscultation: normal bowel sounds General: deferred Musc Cervical Spine: cervical ROM normal Thoracic/Lumbar Spine: thoraco-lumbar ROM normal Skin Lesions: no lesions Rashes: no rashes Trauma: no lacerations or abrasions Wounds: no wounds Hair: normal Nails: normal Neuro General: patient alert, patient awake, patient oriented x3, gait normal and normal light touch, painand propioception Cranial Nerves: CN's II-XII intact bilaterally, PERRL, no nystagmus, facial strength normal, tongue midline, hearing normal, able to rotate head bilaterally and able to elevate shoulders bilaterally Cognition: normal cognition Speech: speech normal Gait: normal gait Motor: muscle tone normal throughout and strength 5/5 throughout Sensory Exam: no sensory deficits noted Extrem General: normal to inspection, full ROM, capillary refill normal, no joint enlargement noted, pedal edema present and calf tenderness Psych Appearance: grossly normal Mental Status: mental status grossly normal Speech and Movement: speech and movement normal Mood: congruent mood Affect: normal affect Attitude: cooperative Thought Process: normal Thought Content: normal Insight: insight good Judgment: judgment good Assessment Plan Assessment Plan (1) Morbid obesity due to excess calories: Status: Acute Code(s): E66.01 - Morbid (severe) obesity due to excess calories SNOMED Code(s): 435778597 Category: Medical Plan - Deysi Barron NP: Patient taking metformin. discussed higher dose and advised that it might not be appropriate d/t normal blood sugar. discussed other treatment options and patient declines them at this time. Discussed that referal to bariatric surgeon might be appropriate as they sometimes do medical managment. She agrees to this. She is asking to go to [place] that [place] if possible. will refer Orders Other Medications: Refilled: metformin 500 mg PO QDAY 90 tabs 1RF Electronically Signed By: <Electronically signed by Deysi Barron NP> Date/Time Signed: 10/20/192136 Name Value Range Interpretation Code Description Data Anahy rce(s) Supporting Document(s) ID Date Data Source [id number] 10/13/2019 12:00:00 AM EDT [facility] Name Value Range Interpretation Code Description Data Anahy rce(s) Supporting Document(s) SARS coronavirus 2 RNA [Presence] in Res piratory specimen by [facility] with probe detection [facility] This lab was ordered by [facility] and reported by [facility]. ID Date Data Source [id number] 10/07/2019 12:00:00 AM EDT [facility] Name Value Range Interpretation Code Description Data Anahy rce(s) Supporting Document(s) SARS coronavirus 2 RNA [Presence] in Res piratory specimen by [facility] with probe detection [facility] This lab was ordered by [facility] and reported by [facility]. ID Date Data Source [id number] 09/30/2019 12:00:00 AM EDT [facility] Name Value Range Interpretation Code Description Data Anahy rce(s) Supporting Document(s) SARS coronavirus 2 RNA [facility] This lab was ordered by [facility] and reported by [facility]. ID Date Data Source [id number] 09/24/2019 10:54:00 AM EDT [facility] ([facility]) Name Value Range Interpretation Code Description Data Anahy rce(s) Supporting Document(s) Neisseria gonorrhoeae,[facility] Laboratory test result [facility] ([facility]) {SOURCE: Random Void Source: Laboratory test result [facility] ([facility]) {SOURCE: Random Void Chlamydia trachomatis,[facility] Laboratory test result [facility] ([facility]) {SOURCE: Random Void ID Date Data Source [id number] 09/24/2019 10:54:00 AM EDT [facility] ([facility]) Name Value Range Interpretation Code Description Data Anahy rce(s) Supporting Document(s) Chlamydia sp DNA [Presence] in Urine by Probe and targ et amplification method Laboratory test result [facility] ([facility]) ID Date Data Source [id number] 09/27/2019 06:33:00 AM EDT [facility] Name Value Range Interpretation Code Description Data Anahy rce(s) Supporting Document(s) SOURCE: Random Void [facility] Chlamydia trachomatis rRNA [Presence] in Unspecified specimen by Probe and target amplification method Negative Negative [facility] Neisseria gonorrhoeae rRNA [Presence] in Unspecified specimen by Probe and target amplification method Negative Negative [facility] ID Date Data Source [id number] 09/24/2019 10:29:00 AM EDT [facility] ([facility]) Name Value Range Interpretation Code Description Data Anahy rce(s) Supporting Document(s) Cervix Pathology biopsy report Laboratory test result [facility] ([facility]) Endocervical Biopsy Jar 1 Laboratory test result [facility] ([facility]) ID Date Data Source [id number] 09/24/2019 09:58:00 AM EDT [facility] ([facility]) Name Value Range Interpretation Code Description Data Anahy rce(s) Supporting Document(s) Inhouse Urine Test Laboratory test result [facility] ([facility]) ID Date Data Source [id number] 09/17/2019 12:00:00 AM EDT [facility] Name Value Range Interpretation Code Description Data Anahy rce(s) Supporting Document(s) SARS coronavirus 2 RNA [facility] This lab was ordered by [facility] and reported by [facility]. ID Date Data Source [id number] 09/11/2019 12:00:00 AM EDT [facility] Name Value Range Interpretation Code Description Data Anahy rce(s) Supporting Document(s) SARS coronavirus 2 RNA [facility] This lab was ordered by [facility] and reported by [facility]. ID Date Data Source [id number] 09/04/2019 01:05:00 PM EDT [facility] Name Value Range Interpretation Code Description Data Anahy rce(s) Supporting Document(s) SARS coronavirus 2 RNA [facility] This lab was ordered by [facility] and reported by [facility]. ID Date Data Source [id number] 08/28/2019 11:45:00 AM EDT [facility] Name Value Range Interpretation Code Description Data Anahy rce(s) Supporting Document(s) SARS CORONAVIRUS 2 RNA [facility] This lab was ordered by [facility] and reported by [facility]. ID Date Data Source [id number] 08/25/2019 03:54:00 PM EDT [facility] ([facility]) Name Value Range Interpretation Code Description Data Anahy rce(s) Supporting Document(s) Neisseria gonorrhoeae,[facility] Laboratory test result [facility] ([facility]) {SOURCE: Genital~.~.~[id number] Source: Laboratory test result [facility] ([facility]) {SOURCE: Genital~.~.~Z01.419Z01.419 Chlamydia trachomatis,[facility] Laboratory test result [facility] ([facility]) {SOURCE: Genital~.~.~Z01.419Z01.419 ID Date Data Source [id number] 08/29/2019 09:09:00 AM EDT [facility] Name Value Range Interpretation Code Description Data Anahy rce(s) Supporting Document(s) SOURCE: Genital [facility] Chlamydia trachomatis rRNA [Presence] in Unspecified specimen by Probe and target amplification method Negative Negative [facility] Neisseria gonorrhoeae rRNA [Presence] in Unspecified specimen by Probe and target amplification method Negative Negative [facility] ID Date Data Source [id number] 08/25/2019 11:11:[address] [facility] Method of Collection:: Clean Catch Name Value Range Interpretation Code Description Data Anahy rce(s) Supporting Document(s) Leukocytes [#/volume] in Blood by Automated count 6.3 10*3/uL 4.45-[address] [facility] Erythrocytes [#/volume] in Blood by Automated count 4.43 10*6/uL 4.20 -5.[address] [facility] Hemoglobin [Moles/volume] in Blood 14.1 g/dL 10.7-15.[address] [facility] Hematocrit [Volume Fraction] of Blood by Automated count 42.4 % 3 7-[address] [facility] Erythrocyte mean corpuscular volume [Ent itic volume] in Cord blood by Automated count 95.7 fL 80-96 N [facility] ital Erythrocyte mean corpuscular hemoglobin [Entitic mass] by Automated count 31.8 pg 27-31 Above high normal [facility] Erythrocyte mean corpuscular hemoglobin concentration [Mass/volume] in Cord blood 33.3 g/dL 33-37 [facility] ital Erythrocyte distribution width [Entitic volume] by Automated count 12 % 11-[address] [facility] Platelets [#/volume] in Blood by Automated count 318 10*3/uL 130-[address] [facility] Platelet mean volume [Entitic volume] in Blood 9.0 fL 9.1-13. [address] [facility] Neutrophils/100 leukocytes in Blood by Automated count 63.5 % 41- [address] [facility] Neutrophils [#/volume] in Blood by Automated count 4.0 U 1.7-7.[address] [facility] Lymphocytes/100 leukocytes in Blood by Automated count 21.1 % 14- [address] [facility] Lymphocytes [#/volume] in Blood by Automated count 1.3 U 0.6-4.[address] [facility] Monocytes/100 leukocytes in Blood by Automated count 6.9 % 4-[address] [facility] Monocytes [#/volume] in Blood by Automated count 0.4 U 0.2-1.[address] [facility] Eosinophils/100 leukocytes in Blood by Automated count 7.7 % 0-[address] [facility] Eosinophils [#/volume] in Blood by Automated count 0.5 U 0.0-0.[address] [facility] Basophils/100 leukocytes in Blood by Automated count 0.6 % 0.4-[address] [facility] Basophils [#/volume] in Blood by Automated count 0.0 U 0.0-0.[address] [facility] NUCLEATED RED BLOOD CELL 0 % [facility] NUCLEATED RED BLOOD CELL# 0 U [facility] Immature granulocytes [Presence] in Blood by Automated count 0-[address] [facility] Immature granulocytes [#/volume] in Blood by Automated count 0.0 U 0-0.[address] [facility] Manual Differential panel - Blood NO [facility] ID Date Data Source [id number] 08/25/2019 11:55:[address] [facility] Method of Collection:: Clean Catch Name Value Range Interpretation Code Description Data Anahy rce(s) Supporting Document(s) Urea nitrogen [Mass/volume] in Serum or Plasma 14 mg/dL 9-[address] [facility] Sodium [Moles/volume] in Serum or Plasma 138 mmol/L 132-146 [facility] Potassium [Moles/volume] in Serum or Plasma 4.4 mmol/L 3.5-5.5 [facility] Chloride [Moles/volume] in Serum or Plasma 104 mmol/L 99-109 [facility] Carbon dioxide, total [Moles/volume] in Serum or Plasma 27 mmol/L 20 -31 [facility] Anion gap in Serum or Plasma 11 mmol/L 8-16 [facility] Glucose [Mass/volume] in Serum or Plasma 97 mg/dL 74-[address] [facility] Creatinine 0.9 mg/dL 0.5-1.1 [facility] Glomerular filtration rate/1.73 sq M.pre dicted [Volume Rate/Area] in Serum or Plasma Greater Than [address] [facility] Alanine aminotransferase [Enzymatic acti vity/volume] in Serum or Plasma by With P-5'-P 30 U/L 10-49 [facility] Aspartate aminotransferase [Enzymatic ac tivity/volume] in Serum or Plasma by With P-5'-P 20 U/L 0-33 N [facility] pital Alkaline phosphatase [Enzymatic activity/volume] in Serum or Plasma 107 U/L 45-[address] [facility] Calcium [Mass/volume] in Serum or Plasma 9.2 mg/dL 8.5-10.[address] [facility] Bilirubin.total [Mass/volume] in Serum or Plasma 0.3 mg/dL 0.3-1.[address] [facility] Albumin [Mass/volume] in Serum or Plasma by Bromocresol purple (BCP) dye binding method 4.0 g/dL 3.2-4.8 N [facility] Protein [Mass/volume] in Serum or Plasma 7.4 g/dL 5.7-8.[address] [facility] ID Date Data Source [id number] 08/26/2019 08:09:[address] [facility] Method of Collection:: Clean Catch Name Value Range Interpretation Code Description Data Anayh rce(s) Supporting Document(s) Thyroxine (T4) [Mass/volume] in Serum or Plasma 6.4 ug/dL 4.5-12.0 [facility] Performed at: RN - [facility] [place] [id number] Director: Jyoti Jackson MD, Phone: [phone] ID Date Data Source [id number] 08/25/2019 11:55:[address] [facility] Method of Collection:: Clean Catch Name Value Range Interpretation Code Description Data Anahy rce(s) Supporting Document(s) Triglycerides 128 mg/dL 0-150 [facility] Cholesterol 190 mg/dL 120-200 N [facility] HDL Cholesterol 52 mg/dL [facility] HDL Less than 40 mg/dL: Major risk for CHDHDL Greater than 59 mg/dL: Low risk for CHD LDL Cholesterol, Calc 113 mg/dL 0-[address] [facility] ID Date Data Source [id number] 08/25/2019 11:55:[address] [facility] Method of Collection:: Clean Catch Name Value Range Interpretation Code Description Data Anahy rce(s) Supporting Document(s) Thyrotropin [Units/volume] in Serum or Plasma by Detec tion limit <= 0.005 mIU/L 1.87 u[iU]/mL 0.35[facility] Date Data Source [id number] 08/25/2019 10:25:[address] [facility] Method of Collection:: Clean Catch Name Value Range Interpretation Code Description Data Anahy rce(s) Supporting Document(s) Color of Urine [facility] Appearance of Urine CLEAR [facility] pH of Urine by Test strip 5.0 5-8 [facility] Specific gravity of Urine by Refractometry 1.025 1.005-1.030 [facility] Leukocyte esterase [Presence] in Urine by Test strip NEGAT [facility] Nitrite [Presence] in Urine by Test strip NEGATIVE [facility] Protein [Presence] in Urine by Test strip NEGATIVE [facility] Glucose [Mass/volume] in Urine by Automated test strip NEGATIVE NEG ATIVE [facility] Ketones [Presence] in Urine by Test strip NEGATIVE [facility] Urobilinogen [Presence] in Urine 0.2-1 EU/dl [facility] Bilirubin.total [Presence] in Urine by Automated test strip NEGATIVE [facility] Erythrocytes [#/volume] in Urine by Test strip NEGATIVE NEGATIVE [facility] URINE MICROSCOPIC? (CIF) NO [facility] ID Date Data Source [id number] [facility]OU GARAY : 1985 Sex: F Pt Unit #: [id number] Location:[facility] Provider: Visit Date/Time: 08/25/19 Primary Insurance: [facility] Secondary Insurance: Self Pay Intake Vital Signs 08/25/19 09:22 Current Height 5 ft 4.25 in Current Weight 204 lb 2 oz Weight Measurement Method Standing Scale BMI 34.7 BP 124/62 Blood Pressure Location Lt brachial Position Sitting Respiration 18 Pulse 82 Pulse Strength Normal Pulse Source Pulse Oximeter Temp 98.1 F Temp Source Oral Pulse Oximetry (%) 96 Oxygen Delivery Method room air Intake Visit Reasons: Test result Nurse Note: 34 year old female presents today and patient would like to have labs ordered, and patient notes she is fasting today. Patients last labs were 11/20/18. [facility] Treat[facility] Required: No Accompanied by: Self / Same as Patient Is patient in pain?: No Allergies BEE STINGS Allergy (Severe, Verified 11/20/18 07:06) Anaphylaxis coconut Allergy (Mild, Verified 11/20/18 07:06) Mouth and throat itch tree nut Allergy (Mild, Verified 11/20/18 07:06) mouth and throat itch shellfish derived Allergy (Unknown, Verified 11/20/18 07:06) Iodine and Iodide Containing Produc Adverse Reaction (Severe, Verified 11/20/18 07:06) Rash topiramate [From Topamax] Adverse Reaction (Intermediate, Verified 11/20/18 07:06) Other, not listed Medications albuterol sulfate 90 mcg/actuation 1 - 2 puffs inhalation Q4HR cetirizine 10 mg PO DAILY cyclobenzaprine PO epinephrine (EpiPen) 0.3 mg IM ferrous sulfate 325 mg PO QDAY folic acid 1 mg PO DAILY lurasidone (Latuda) 20 mg PO QPM meloxicam 7.5 mg PO DAILY metformin 500 mg PO QDAY mirtazapine 15 mg PO QDAY pantoprazole 20 mg PO DAILY sulfasalazine 1 GM PO BID trazodone 50 mg PO QDAY Is last menstrual period known: Yes Last menstrual period: 08/11/19 Patient : No Fall Risk History of falls: No Ambulatory Aid:: None Gait/Transferring:: Normal HIV Testing Offer - ages 13-64 HIV testing Offer: Yes Requirement for HIV testing offer been met?: Declines today. Pretest education received and acknowledged SBIRT Annual Questionnaire Are you currently in recovery for alcohol or substance use?: No How many times in the past year have you had 4 or more drinks in a day?: None How many times in the past year have you used a recreational drug or used a prescription medication for nonmedical reasons?: None Do you need a note to return Do you need a note to return to daycare/school/sports/work: No Coronavirus Screening Screening Have you traveled outside of [facility] or [facility] in the last 14 days.: No Has patient experienced coronavirus symptoms: No [facility] Medical History abnormal pap smear allergies/hay fever Anxiety Asthma Depression fractures Gastroesophageal reflux disease Headache Human papilloma virus infection Insomnia menses @ 15 Nicotine dependence in remission Obesity Recurrent acute sinusitis Rheumatoid arthritis Family History Mother Autoimmune disease Father No problems noted. Other Abnormal vision Alcoholism Asthma Depression Diabetes Disorder of thyroid gland Kidney disease Psychiatric disorder Rheumatoid arthritis Stroke Social History Does the Patient have a Healthcare Proxy: Yes (CASANDRA RICE) Does Patient have a DNR?: No Does Patient have a Living Will?: No Does the Patient have a MOLST?: No Advance Directives on File or in chart?: No Hx Recent Travel (where): No Female Reproductive History Menstrual Date of last menstrual period: 08/11/19 HPI Additional HPI HPI Details: 34 yr old female patient presents to clinic today for medication refills. she reports thatshe does have chronic conditions of Bi-polar disorder and Rheumatoid arthritis. She reports that she is followed by [facility] in [place] and Dr. Goss, a psychiatrist in [place]. She reports that she does not require med refills today, just wants basic labs. Review of Systems Const Reports as per HPI, Reports system reviewed and no additional complaints, except as documented, Denies body aches, Denies chills, Denies excessive sweating, Denies fever(s), Denies frequent falls,Denies headache(s), Denies lethargy, Denies night sweats, Denies poor appetite, Denies snoring and Reports weight gain Eyes Reports as per HPI, Reports system reviewed and no additional complaints, except as documented, Denies change in vision, Denies itchy eyes, Denies loss of peripheral vision and Denies photophobia ENT Reports system reviewed and no additional complaints, except as documented, Reports as per HPI, Denies change in voice, Denies otalgia, Denies facial pain, Denies headache(s), Denies lip swelling,Denies nasal discharge, Denies odynophagia, Denies tinnitus, Denies throat swelling and Denies tongue swelling Card Reports as per HPI, Reports s ystem reviewed and no additional complaints, except as documented, Denies chest pain, Denies syncope, Denies edema, Denies leg ulcers, Denies leg edema, Denies palpitations, Denies dyspnea on exertion and Denies orthopnea Resp Reports as per HPI, Reports system reviewed and no additional complaints, except as documented, Denies chest congestion, Denies cough, Denies dyspnea on exertion and Denies snoring GI Reports as per HPI, Reports system reviewed and no additional complaints, except as documented, Denies melena, Denies change in bowel habits, Denies coffee ground emesis, Denies fecal incontinence, Denies odynophagia, Denies vomiting and Denies hematemesis Genitourinary: Reports system reviewed and no additional complaints, except as documented and as perHPI; Denies abnormal vaginal bleeding, difficulty voiding, dyspareunia, dysuria, pelvic pain, flank pain or urinary frequency Musc Reports system reviewed and no additional complaints, except as documented, Reports as per HPI, Denies back pain, Denies myalgias, Denies arthralgias, Denies joint swelling, Denies muscle cramps and Denies muscle weakness Skin/Breast Reports system reviewed and no additional complaints, except as documented, Reports as per HPI, Denies change in hair, Denies dry skin, Denies hirsutism, Denies alopecia, Denies nail changes, Denies photosensitivity, Denies rash, Denies striae and Denies unusual bruising Neuro Reports system reviewed and no additional complaints, except as documented, Reports as per HPI, Denies abnormal movements, Denies abnormal speech, Denies behavioral changes, Denies confusion, Denies syncope, Denies frequent falls, Denies headache(s), Denies localized weakness, Denies other visual disturbances, Denies seizure-like activity and Denies paresthesias Psych Reports system reviewed and no additional complaints, except as documented, Reports as per HPI, Denies behavioral changes, Denies confusion, Denies depression, Denies mood swings, Denies panic attacks, Denies hallucinations, Denies homicidal ideation and Denies suicidal ideation Endo Reports system reviewed and no additional complaints, except as documented, Reports as per HPI, Denies excessive sweating, Denies increase in ring/shoe/hat size and Denies palpitations Chintan/Lymph Reports system reviewed and no additional complaints, except as documented, Reports as per HPI, Denies easy bruising and Denies lymphadenopathy Aller/Immun Reports system reviewed and no additional complaints, except as documented, Reports as per HPI, Denies urticaria, Denies itchy eyes, Denies lip swelling, Denies throat swelling and Denies tongue swelling Exam Const General: cooperative, comfortable and no acute distress Nutritional Appearance: overweight Orientation: alert, awake and oriented x3 [facility] Head: normal to inspection, normocephalic and atraumatic Ears: hearing grossly normal bilaterally, external ears normal, TM's normal bilaterally and EAC's normal General nose exam: external nose normal, nares normal, nasal mucous membranes and turbinates normal and septum normal Face and sinus: normal facial exam and face symmetric Mouth: oral mucosae normal, lip normal, tongue normal and moist mucous membranes Throat: posterior oropharynx normal and uvula midline Eyes General: appearance normal, both eyes and all related structures Visual Campos: normal visual campos by confrontation Alignment and Position: alignment normal and position normal Periorbital: periorbital findings normal Eyelids: eyelids normal Conjunctivae: conjunctivae normal Sclera: sclerae normal Pupils: PERRL and normal by confrontation EOM: EOM intact bilaterally Neck Neck: normal visual inspection, full ROM, no lymphadenopathy, trachea midline and supple Neck mass: No Chest Chest: normal palpation of entire chest wall Resp Effort Inspection: normal respiratory effort, able to speak in complete sentences, no audible wheezes and no cough Auscultation: clear to auscultation bilaterally Cardio Palpation: normal PMI Rate: regular rate Rhythm: regular rhythm Heart Sounds: S1 normal and S2 normal GI Inspection: Yes normal to inspection, No edema and Yes obesity Palpation: soft and no hepatosplenomegaly Auscultation: normal bowel sounds General: deferred Musc Cervical Spine: cervical ROM normal Thoracic/Lumbar Spine: thoraco-lumbar ROM normal Skin Lesions: no lesions Rashes: no rashes Trauma: no lacerations or abrasions Wounds: no wounds Hair: normal Nails: normal Neuro General: patient alert, patient awake, patient oriented x3, gait normal and normal light touch, painand propioception Cranial Nerves: CN's II- XII intact bilaterally, PERRL, no nystagmus, facial strength normal, tongue midline, hearing normal, able to rotate head bilaterally and able to elevate shoulders bilaterally Extrem General: normal to inspection, full ROM and capillary refill normal Psych Appearance: grossly normal Mental Status: mental status grossly normal Speech and Movement: speech and movement normal Mood: congruent mood Affect: normal affect Attitude: cooperative Thought Process: normal Thought Content: normal Insight: insight good Assessment Plan Assessment Plan (1) Encounter to discuss test results: Code(s): Z71.2 - Person consulting for explanation of examination or test findings Plan - Deysi Barron NP: entered in error, please disregard (2) Weight gain: Status: Acute Code(s): R63.5 - Abnormal weight gain SNOMED Code(s): 6899108 Category: Medical Plan - Deysi Barron NP: Patient reports significant weight gain since starting antipsychotic medication. She reports that she cannot tell me exactly how much weight she has gained but it is in the forearm of about 50 pounds. She reports she does not feel like she eats more than she did normally, however she has gained weight. Will get appropriate labs and will advise of lab results as they are available. Discussed starting metformin at a 500 mg/day dose. Patient verbalizes understanding and agreement will send metformin to the pharmacy. And will see patient back in 1 month for reevaluation. We will recheck renal function at that time. Orders: Orders: CMP Today LIPID PANEL Today TSH Today CBC W AUTO DIFF Today T4 - Thyroxine Today UA W/ CULTURE IF ABNORMAL Today (3) Bipolar 1 disorder: Status: Acute Code(s): F31.9 - Bipolar disorder, unspecified SNOMED Code(s): 652303151 Category: Medical Plan - Deysi Barron NP: Patient reports that she does have a d iagnosis of bipolar disorder. States that she is seeing a psychiatrist in [place] for this. States that she feels she does have a good relationship with her psychiatrist, and would like to continue using her if that is feasible. Discussed with patient that psychiatrist/patient relationship is important. Will not change or interfere at this time. She does report that the psychiatrist does feel her antipsychotic medications. Orders: Orders: CMP Today LIPID PANEL Today TSH Today CBC W AUTO DIFF Today T4 - Thyroxine Today UA W/ CULTURE IF ABNORMAL Today (4) Rheumatoid arthritis: Status: Acute Code(s): M06.9 - Rheumatoid arthritis, unspecified SNOMED Code(s): 43559375 Category: Medical Plan - Deysi Barron NP: Patient does report a history of rheumatoid arthritis. States that she does see a certified executive chef and [facility] arthritis health building in [place]. States that she does not see the same certified executive chef every time, however she does see someone from the same group. She reports that they do feel her medication, her medication is helpful for her, will obtain appropriate lab results and will advise as lab results are available on results to patient. Orders: Orders: CMP Today LIPID PANEL Today TSH Today CBC W AUTO DIFF Today T4 - Thyroxine Today UA W/ CULTURE IF ABNORMAL Today Orders Other Medications: New: metformin 500 mg PO QDAY 30 tabs 2RF Electronically Signed By: <Electronically signed by Deysi Barron NP> Date/Time Signed: 08/25/19 1339 Name Value Range Interpretation Code Description Data Anahy rce(s) Supporting Document(s) ID Date Data Source [id number] 09/04/2019 10:11:34 AM EDT [facility] Name Value Range Interpretation Code Description Data Anahy rce(s) Supporting Document(s) HPV SOURCE [facility] [place] [facility] HPV GENOTYPE 16 Laboratory [facility] of [facility] Positive HPV GENOTYPE 18 45 [facility] [place] [facility] [employer] Negative INTERPRETIVE INFORMATION: HPV G enotypes 16, 18/45 by [facility]MA, [facility] This test detects E6/E7 viral messenger RNA of the high-risk HPV types 16, 18, and 45, only. It is intended for use in women 21 years and older with ASC-US cervical cytology results and in women 30 years and older with positive high- risk HPV results. Sensitivity may be affected by specimen collection methods, stage of infection, and the presence of interfering substances. Results should be interpreted in conjunction with other available laboratory and clinical data. This test is not intended for use as a stand-alone test. This test is intended for medical purposes only and is not valid for the evaluation of suspected sexual abuse or for other forensic purposes. HPV testing should not be used for screening or management of atypical squamous cells of undetermined significance (ASCUS) in women under age 21. Performed by [facility], [address] [place] [address] [email or web address], Jeffrey Haynes MD, Lab. Director ID Date Data Source [id number] 08/20/2019 12:05:00 PM EDT [facility] Name Value Range Interpretation Code Description Data Anahy rce(s) Supporting Document(s) SARS CORONAVIRUS 2 RNA [facility] This lab was ordered by [facility] [place] [facility] and reported by [facility]. ID Date Data Source [id number] 08/14/2019 07:15:00 AM EDT [facility] Name Value Range Interpretation Code Description Data Anahy rce(s) Supporting Document(s) SARS CORONAVIRUS 2 RNA [facility] This lab was ordered by [facility] [place] [facility] and reported by [facility]. ID Date Data Source [id number] 08/12/2019 11:30:00 AM EDT [facility] Name Value Range Interpretation Code Description Data Anahy rce(s) Supporting Document(s) SARS CORONAVIRUS 2 RNA [facility] This lab was ordered by [facility] [place] [facility] and reported by [facility]. ID Date Data Source [id number] 08/06/2019 12:00:00 AM EDT [facility] Name Value Range Interpretation Code Description Data Anahy rce(s) Supporting Document(s) SARS CORONAVIRUS 2 RNA [facility] This lab was ordered by [facility] [place] [facility] and reported by [facility]. ID Date Data Source [id number] 08/04/2019 10:30:00 AM EDT [facility] Name Value Range Interpretation Code Description Data Anahy rce(s) Supporting Document(s) SARS CORONAVIRUS 2 RNA [facility] This lab was ordered by [facility] [place] [facility] and reported by [facility]. ID Date Data Source [id number] 07/31/2019 07:00:00 AM EDT [facility] Name Value Range Interpretation Code Description Data Anahy rce(s) Supporting Document(s) SARS CORONAVIRUS 2 RNA [facility] This lab was ordered by [facility] [place] [facility] and reported by [facility]. ID Date Data Source [id number] 07/29/2019 07:00:00 PM EDT [facility] Name Value Range Interpretation Code Description Data Anahy rce(s) Supporting Document(s) SARS CORONAVIRUS 2 RNA [facility] This lab was ordered by [facility] [place] [facility] and reported by [facility]. ID Date Data Source [id number] 07/25/2019 12:00:00 AM EDT [facility] Name Value Range Interpretation Code Description Data Anahy rce(s) Supporting Document(s) SARS CORONAVIRUS 2 RNA [facility] This lab was ordered by [facility] [place] [facility] and reported by [facility]. ID Date Data Source [id number] 07/14/2019 03:44:00 PM EDT [facility] ([facility]) Name Value Range Interpretation Code Description Data Anahy rce(s) Supporting Document(s) 4.0 g/dL (3.5-4.6) ALBUMIN [facility] ([facility]) Unless otherwise specified, testing perf ormed by [facility] [place] [address]

ID Date Data Source [id number] 07/14/2019 03:44:00 PM EDT [facility] ([facility]) Name Value Range Interpretation Code Description Data Anahy rce(s) Supporting Document(s) 31 U/L (12-78) ALT (SGPT) [facility] ([facility]) Unless otherwise specified, testing perf ormed by [facility] [address] [place] [address]

ID Date Data Source [id number] 07/14/2019 03:44:00 PM EDT [facility] ([facility]) Name Value Range Interpretation Code Description Data Anahy rce(s) Supporting Document(s) 15 U/L (11-39) AST (SGOT) [facility] ([facility]) Unless otherwise specified, testing perf ormed by Laboratory [place] [place] [address]

ID Date Data Source [id number] 07/14/2019 03:44:00 PM EDT [facility] ([facility]) Name Value Range Interpretation Code Description Data Anayh rce(s) Supporting Document(s) >60 (>59) GFR [facility] 0.89 mg/dL (0.60-1.00) CREATININE [facility]) >60 (>59) GFR ( AMER) [facility] ([facility]) GFR INTERPRETATION [facility] ([facility]) --NORMAL KIDNEY FUNCTION OR MILD DISEASE - GFR >OR= 60CHRONIC KIDNEY DISEASE - GFR 15 - 59RENAL FAILURE - GFR <15 Est. GFR calculation based on the MDRDstudy equation, which assumes a steadystate for creatinine. Est. GFR should notbe used for medication dosing.Unless otherwise specified, testing performed by [facility] [address] [place] [address]

ID Date Data Source [id number] 07/14/2019 03:44:00 PM EDT [facility] ([facility]) Name Value Range Interpretation Code Description Data Anahy rce(s) Supporting Document(s) <0.3 (0.0-0.5) C REACTIVE PROTEIN @ [facility] ( [facility]) Unless otherwise specified, testing perf ormed by [facility] [address] [place] [address]

ID Date Data Source [id number] 07/14/2019 03:44:00 PM EDT [facility] ([facility]) Name Value Range Interpretation Code Description Data Anahy rce(s) Supporting Document(s) 10 mm/h (0-20) ESR [facility] ([facility]) Unless otherwise specified, testing perf ormed by [facility] [facility] [place] [address]

ID Date Data Source [id number] 07/14/2019 03:44:00 PM EDT [facility] ([facility]) Name Value Range Interpretation Code Description Data Anahy rce(s) Supporting Document(s) 5.6 10*3/uL (4.1-11.0) WBC [facility]) 4.48 10*6/uL (4.00-5.40) RBC [facility] 14.1 g/dL (12.0-16.0) HGB [facility] ([facility]) 42.0 % (36.0-47.0) HCT [facility] ([facility]) 31.6 pg (27.0-32.0) MCH [facility] ([facility]) 33.6 g/dL (32.0-36.0) MCHC [facility] ([facility]) 93.8 fL (80.0-95.0) MCV [facility] ([facility]) 312 10*3/uL (150-450) PLT [facility] ([facility]) 13.6 % (10.5-14.5) RDW [facility] ([facility]) 28.5 % (16.0-52.0) LYMPH % [facility] ([facility]) 54.8 % (35.0-75.0) NEUT % [facility] ([facility]) 7.8 fL (7.1-10.7) MPV [facility] ([facility]) 8.6 % (0.0-8.0) Above high normal MONO % [facility] ([facility]) 1.0 % (0.0-4.0) BASO % [facility] 7.1 % (0.0-5.0) Above high normal EOS % [facility]) 0.5 10*3/uL (0.0-0.8) MONO # [facility] ([facility]) 1.6 10*3/uL (1.2-4.8) LYMPH # [facility] ([facility]) 3.1 10*3/uL (1.8-7.7) NEUT # [facility] ([facility]) 0.1 10*3/uL (0.0-0.2) BASO # [facility] ([facility]) Unless otherwise specified, testing perf ormed by [facility] [place] [facility] [place] [address] [place] [address]

0.4 10*3/uL (0.0-0.5) EOS # [facility] ([facility]) ID Date Data Source [id number]/14/2019 09:20:59 PM EDT [facility] [place] [facility] Name Value Range Interpretation Code Description Data Anahy rce(s) Supporting Document(s) WBC 5.6 10*3/uL (4.1-11.0) [facility] [facility] RBC 4.48 10*6/uL (4.00-5.40) [facility] [facility] HGB 14.1 g/dL (12.0-16.0) [facility] [facility] HCT 42.0 % (36.0-47.0) [facility] [facility] MCV 93.8 fL (80.0-95.0) [facility] [facility] MCH 31.6 pg (27.0-32.0) [facility] [facility] MCHC 33.6 g/dL (32.0-36.0) [facility] [facility] RDW 13.6 % (10.5-14.5) [facility] [facility] PLT 312 10*3/uL (150-450) [facility] MPV 7.8 fL (7.1-10.7) [facility] [place] [facility] [facility] NEUT % 54.8 % (35.0-75.0) [facility] LYMPH % 28.5 % (16.0-52.0) [facility] [facility] MONO % 8.6 % (0.0-8.0) H [facility] [place] [facility] EOS % 7.1 % (0.0-5.0) H [facility] [place] [facility] BASO % 1.0 % (0.0-4.0) [facility] [place] [facility] NEUT # 3.1 10*3/uL (1.8-7.7) [facility] LYMPH # 1.6 10*3/uL (1.2-4.8) Laboratory [facility] [place] - [facility] MONO # 0.5 10*3/uL (0.0-0.8) Laboratory [facility] [place] - C[facility] Eosinophils [#/volume] in Blood by Automated count 0.4 10*3/uL (0.0-0 .5) [facility] [place] [facility] [facility] BASO # 0.1 10*3/uL (0.0-0.2) Laboratory [facility] [place] [facility] ID Date Data Source [id number]/14/2019 09:35:35 PM EDT [facility] Name Value Range Interpretation Code Description Data Anahy rce(s) Supporting Document(s) ESR 10 mm/h (0-20) [facility] [place] [facility] ID Date Data Source [id number]/14/2019 09:37:00 PM EDT [facility] Name Value Range Interpretation Code Description Data Anahy rce(s) Supporting Document(s) ALT (SGPT) 31 U/L (12-78) [facility] [place] [facility] [facility] ID Date Data Source [id number]/14/2019 09:37:00 PM EDT [facility] Name Value Range Interpretation Code Description Data Anahy rce(s) Supporting Document(s) ALBUMIN 4.0 g/dL (3.5-4.6) Laboratory [facility] - [facility] ID Data Source [id number]/14/2019 09:37:00 PM EDT [facility] Name Value Range Interpretation Code Description Data Anahy rce(s) Supporting Document(s) AST (SGOT) 15 U/L (11-39) [facility] [place] [facility] ID Date Data Source [id number]/14/2019 09:37:00 PM EDT [facility] Name Value Range Interpretation Code Description Data Anahy rce(s) Supporting Document(s) CREATININE 0.89 mg/dL (0.60-1.00) [facility] GFR >60 ml/min/1.73m2 (>59) [facility] GFR ( AMER) >60 ml/min/1.73m2 (>59) [facility] [place] [facility] GFR INTERPRETATION [facility] [place] [facility] --NORMAL KIDNEY FUNCTION OR MILD DISEASE - GFR >OR= 60CHRONIC KIDNEY DISEASE - GFR 15 - 59RENAL FAILURE - GFR <15 Est. GFR calculation based on the MDRDstudy equation, which assumes a steadystate for creatinine. Est. GFR should notbe used for medication dosing. ID Date Data Source [id number] 07/14/2019 09:37:00 PM EDT Laboratory [facility] Name Value Range Interpretation Code Description Data Anahy rce(s) Supporting Document(s) C REACTIVE PROTEIN @ <0.3 mg/dL (0.0-0.5) Laborato [facility] [place] [facility] ID Date Data Source [id number] 04/08/2019 04:31:00 PM EST [facility] ([facility]) Name Value Range Interpretation Code Description Data Anahy rce(s) Supporting Document(s) Chlamydia trachomatis,[place] Laboratory test result [facility] ([facility]) {SOURCE: Genital~.~.~Z01.419 Source: Laboratory test result [facility] ([facility]) {SOURCE: Genital~.~.~Z01.419 Neisseria gonorrhoeae,[place] Laboratory test result [facility] ([facility]) {SOURCE: Genital~.~.~Z01.419 ID Date Data Source [id number] 04/11/2019 08:59:00 PM EST [facility] Name Value Range Interpretation Code Description Data Anahy rce(s) Supporting Document(s) SOURCE: Genital [facility] Chlamydia trachomatis rRNA [Presence] in Unspecified specimen by Probe and target amplification method Negative Negative [facility] Neisseria gonorrhoeae rRNA [Presence] in Unspecified specimen by Probe and target amplification method Negative Negative [facility] ID Date Data Source [id number] 03/10/2019 12:04:00 PM EST [facility] ([facility]) Name Value Range Interpretation Code Description Data Anahy rce(s) Supporting Document(s) 26 U/L (11-39) AST (SGOT) [facility] ([facility]) Unless otherwise specified, testing perf ormed by [facility] [address] [place] [address] ID Date Data Source [id number] 03/10/2019 12:04:00 PM EST [facility] ([facility]) Name Value Range Interpretation Code Description Data Anahy rce(s) Supporting Document(s) 53 U/L (12-78) ALT (SGPT) [facility] ([facility]) Unless otherwise specified, testing perf ormed by [facility] [address] [place] [address] ID Date Data Source [id number] 03/10/2019 12:04:00 PM EST [facility] ([facility]) Name Value Range Interpretation Code Description Data Anahy rce(s) Supporting Document(s) 3.9 g/dL (3.5-4.6) ALBUMIN [facility] Unless otherwise specified, testing perf ormed by [facility] [address] [place] [address] ID Date Data Source [id number] 03/10/2019 12:04:00 PM EST [facility] ([facility]) Name Value Range Interpretation Code Description Data Anahy rce(s) Supporting Document(s) 0.80 mg/dL (0.60-1.00) CREATININE [facility]) >60 (>59) GFR ( AMER) [facility]) >60 (>59) GFR [facility]) GFR INTERPRETATION [facility]) --NORMAL KIDNEY FUNCTION OR MILD DISEASE - GFR >OR= 60CHRONIC KIDNEY DISEASE - GFR 15 - 59RENAL FAILURE - GFR <15 Est. GFR calculation based on the MDRDstudy equation, which assumes a steadystate for creatinine. Est. GFR should notbe used for medication dosing.Unless otherwise specified, testing performed by [facility] [address] [place] [address]

ID Date Data Source [id number] 03/10/2019 12:04:00 PM EST [facility] ([facility]) Name Value Range Interpretation Code Description Data Anahy rce(s) Supporting Document(s) <0.3 (0.0-0.5) C REACTIVE PROTEIN @ [facility] ( [facility]) Unless otherwise specified, testing perf ormed by [facility] [address] [place] [address] ID Date Data Source [id number] 03/10/2019 12:04:00 PM EST [facility] ([facility]) Name Value Range Interpretation Code Description Data Anahy rce(s) Supporting Document(s) 12 mm/h (0-20) ESR [facility] ([facility]) Unless otherwise specified, testing perf ormed by [facility] [address] [place] [address] ID Date Data Source [id number] 03/10/2019 12:04:00 PM EST [facility] ([facility]) Name Value Range Interpretation Code Description Data Anahy rce(s) Supporting Document(s) 4.56 10*6/uL (4.00-5.40) RBC [facility] 6.8 10*3/uL (4.1-11.0) WBC [facility]) 43.0 % (36.0-47.0) HCT [facility] ([facility]) 14.3 g/dL (12.0-16.0) HGB [facility] ([facility]) 33.3 g/dL (32.0-36.0) MCHC [facility] ([facility]) 94.2 fL (80.0-95.0) MCV [facility] ([facility]) 31.4 pg (27.0-32.0) MCH [facility] ([facility]) 338 10*3/uL (150-450) PLT [facility] ([facility]) 13.0 % (10.5-14.5) RDW [facility] ([facility]) 7.7 fL (7.1-10.7) MPV [facility] ([facility]) 23.5 % (16.0-52.0) LYMPH % [facility] ([facility]) 59.6 % (35.0-75.0) NEUT % [facility] ([facility]) 11.5 % (0.0-8.0) Above high normal MONO % [facility] ([facility]) 4.4 % (0.0-5.0) EOS % [facility] ([facility]) 1.6 10*3/uL (1.2-4.8) LYMPH # [facility] ([facility]) 1.0 % (0.0-4.0) BASO % [facility] ([facility]) 4.1 10*3/uL (1.8-7.7) NEUT # [facility] ([facility]) 0.1 10*3/uL (0.0-0.2) BASO # [facility] ([facility]) Unless otherwise specified, testing perf ormed by [facility] [place] [facility] [address] 0.8 10*3/uL (0.0-0.8) MONO # [facility] ([facility]) 0.3 10*3/uL (0.0-0.5) EOS # [facility] ([facility]) ID Date Data Source [id number] 03/10/2019 08:55:25 PM EST [facility] Name Value Range Interpretation Code Description Data Anahy rce(s) Supporting Document(s) WBC 6.8 10*3/uL (4.1-11.0) [facility] [facility] RBC 4.56 10*6/uL (4.00-5.40) [facility] HGB 14.3 g/dL (12.0-16.0) [facility] HCT 43.0 % (36.0-47.0) [facility] MCV 94.2 fL (80.0-95.0) [facility] MCH 31.4 pg (27.0-32.0) [facility] MCHC 33.3 g/dL (32.0-36.0) [facility] RDW 13.0 % (10.5-14.5) [facility] PLT 338 10*3/uL (150-450) [facility] MPV 7.7 fL (7.1-10.7) [facility] [place] [facility] [facility] NEUT % 59.6 % (35.0-75.0) [facility] LYMPH % 23.5 % (16.0-52.0) [facility] MONO % 11.5 % (0.0-8.0) H [facility] [place] [facility] EOS % 4.4 % (0.0-5.0) [facility] [place] [facility] BASO % 1.0 % (0.0-4.0) [facility] [place] [facility] NEUT # 4.1 10*3/uL (1.8-7.7) [facility] LYMPH # 1.6 10*3/uL (1.2-4.8) [facility] MONO # 0.8 10*3/uL (0.0-0.8) [facility] Eosinophils [#/volume] in Blood by Automated count 0.3 10*3/uL (0.0-0 .5) [facility] [place] [facility]ORE BASO # 0.1 10*3/uL (0.0-0.2) [facility] ID Date Data Source [id number] 03/10/2019 09:04:38 PM EST [facility] - CORE Name Value Range Interpretation Code Description Data Anahy rce(s) Supporting Document(s) ALBUMIN 3.9 g/dL (3.5-4.6) [facility] [place] [facility] ID Date Data Source [id number] 03/10/2019 09:04:38 PM EST [facility] - CORE Name Value Range Interpretation Code Description Data Anahy rce(s) Supporting Document(s) ALT (SGPT) 53 U/L (12-78) [facility] [place] [facility] ID Date Data Source [id number] 03/10/2019 09:04:38 PM EST [facility] [facility] - CORE Name Value Range Interpretation Code Description Data Anahy rce(s) Supporting Document(s) AST (SGOT) 26 U/L (11-39) [facility] [place] [facility] ID Date Data Source [id number] 03/10/2019 09:04:38 PM EST [facility] - CORE Name Value Range Interpretation Code Description Data Anahy rce(s) Supporting Document(s) C REACTIVE PROTEIN @ <0.3 mg/dL (0.0-0.5) [facility] [place] [facility] ID Date Data Source [id number] 03/10/2019 09:04:38 PM EST [facility] - CORE Name Value Range Interpretation Code Description Data Anahy rce(s) Supporting Document(s) CREATININE 0.80 mg/dL (0.60-1.00) [facility] - CORE GFR >60 ml/min/1.73m2 (>59) [facility] - CORE GFR ( AMER) >60 ml/min/1.73m2 (>59) [facility] [place] [facility] GFR INTERPRETATION [facility] [place] [facility] --NORMAL KIDNEY FUNCTION OR MILD DISEASE - GFR >OR= 60CHRONIC KIDNEY DISEASE - GFR 15 - 59RENAL FAILURE - GFR <15 Est. GFR calculation based on the MDRDstudy equation, which assumes a steadystate for creatinine. Est. GFR should notbe used for medication dosing. ID Date Data Source [id number] 03/10/2019 09:34:46 PM EST [facility] Name Value Range Interpretation Code Description Data Anahy rce(s) Supporting Document(s) ESR 12 mm/h (0-20) [facility] [place] [facility] ID Date Data Source [id number] 02/21/2019 10:58:[address] [facility] Patient Name: MARY LOU GARAY : 1985 Sex: F Pt Unit #: [id number] Location:[facility] Provider: Visit Date/Time: 02/21/19 Primary Insurance: [facility] [facility] Secondary Insurance: Self Pay Intake Vital Signs 02/21/19 10:58 Current Height 5 ft 4.25 in Current Weight 195 lb BMI 33.2 BP 122/82 Blood Pressure Location Lt brachial Position Sitting Respiration 18 Pulse 101 H Pulse Strength Normal Pulse Source Pulse Oximeter Temp 98.4 F Temp Source Oral Pulse Oximetry (%) 99 Oxygen Delivery Method room air Intake Visit Reasons: Hospital Discharge Follow-up Nurse Note: pt is here today for hospital follow up pt was in [facility] dec [facility]16 pt was diagnosed with bi polar Is patient in pain?: No Allergies BEE STINGS Allergy (Severe , Verified 11/20/18 07:06) Anaphylaxis coconut Allergy (Mild, Verified 11/20/18 07:06) Mouth and throat itch tree nut Allergy (Mild, Verified 11/20/18 07:06) mouth and throat itch shellfish derived Allergy (Unknown, Verified 11/20/18 07:06) Iodine and Iodide Containing Produc Adverse Reaction (Severe, Verified 11/20/18 07:06) Rash topiramate [From Topamax] Adverse Reaction (Intermediate, Verified 11/20/18 07:06) Other, not listed HIV Testing Offer - ages 13-64 Requirement for HIV testing offer been met?: [facility] Does the Patient have a Healthcare Proxy: Yes (CASANDRA RICE) Does Patient have a DNR?: No Does Patient have a Living Will?: No Does the Patient have a MOLST?: No Advance Directives on File or in chart?: No Hx Recent Travel (where): No HPI Additional HPI HPI Details: Had a psychotic episode when she thought the FBI was after her. She was taken off her othermedications and started on Zyprexa and she is doing better now. Saw [facility] today and they will be seeing her for counselling and for medications. She is moving in to a new place and she would like a note saying she can have her dog with her there. She is a lot anxious when her dog is around. I ave written a note in support of this today. She denies thoughts of self harm. Quit smoking 3 months ago. Stopped taking Chantix a few months ago. Having problems losing weight in spite of efforts at diet and exercise. She goes to [employer] 3times a week and tries to eat healthy. Wondering about medications for this. Review of Systems Const Denies fatigue and Denies malaise Card Denies chest pain and Denies dyspnea Resp Denies dyspnea GI Denies change in stool character, Denies constipation and Denies diarrhea Denies difficulty voiding and Denies dysuria Endo Denies fatigue Exam Const General: cooperative and healthy appearing Resp Effort Inspection: normal respiratory effort Auscultation: clear to auscultation bilaterally, no rales, no rhonchi and no wheezes Cardio Rate: regular rate Rhythm: regular rhythm Heart Sounds: S1 normal, S2 normal, no gallops, no murmurs and no rubs Psych Appearance: grossly normal Affect: normal affect Attitude: cooperative Assessment Plan Assessment Plan (1) Hospital discharge follow-up: Code(s): Z09 - Encounter for follow- up examination after completed treatment for conditions other than malignant neoplasm (2) Bipolar 1 disorder: Status: Acute Code(s): F31.9 - Bipolar disorder, unspecified SNOMED Code(s): 436882945 Category: Medical Plan - Jose Valdivia MD: With recent hospitalization. Much better now. Continue Zyprexa and [facility]. (3) Weight gain: Status: Acute Code(s): R63.5 - Abnormal weight gain SNOMED Code(s): 6002738 Category: Medical Plan - Jose Valdivia MD: Trial of Belviq. Continue diet and exercise. Recheck one month. Orders Other Medications: New: lorcaserin (Belviq) 10 mg PO BID 60 tabs 0RF weight loss MDD 2 E66.9 Electronically Signed By: <Electronically signed by Jose Valdivia MD> Date/Time Signed: 02/21/19 1429 Name Value Range Interpretation Code Description Data Anahy rce(s) Supporting Document(s) Procedure Social History Code Duration Value Status Description Data Source(s ) Smoking 03/16/2020 12:00:00 AM EST Unknown if ever smoked comp leted Unknown if ever smoked [facility] ([facility]) Smoking 02/02/2020 12:00:00 AM EST Unknown if ever smoked comp leted Unknown if ever smoked [facility] ([facility]) Smoking 01/27/2020 12:00:00 AM EST Patient is a former smoker completed Patient is a former smoker [facility] ([facility] Caffeine Use Details 11/13/2019 12:00:00 AM EDT coffee and soda, 24 oz completed coffee and soda, 24 oz [facility] ([facility]) 11/13/2019 12:00:00 AM EDT Occasional cigarette smoker completed Occasional cigarette smoker [facility] ([facility]) Smoking 11/13/2019 12:00:00 AM EDT Unknown if ever smoked comp leted Unknown if ever smoked [facility] ([facility]) Smoking 09/04/2019 12:00:00 AM EDT Unknown if ever smoked comp leted Unknown if ever smoked [facility] ([facility]) Smoking 09/02/2019 12:00:00 AM EDT Unknown if ever smoked comp leted Unknown if ever smoked [facility] ([facility]) Smoking 08/21/2019 12:00:00 AM EDT Never Smoker completed Never S mary eCW1 ([facility]) Smoking 08/07/2019 12:00:00 AM EDT Unknown if ever smoked comp leted Unknown if ever smoked [facility] ([facility]) Smoking 07/23/2019 12:00:00 AM EDT Unknown if ever smoked comp leted Unknown if ever smoked [facility] ([facility]) Smoking 07/10/2019 12:00:00 AM EDT Unknown if ever smoked comp leted Unknown if ever smoked [facility] ([facility]) Smoking 05/28/2019 12:00:00 AM EDT Unknown if ever smoked comp leted Unknown if ever smoked [facility] ([facility]) Smoking 05/13/2019 12:00:00 AM EDT Unknown if ever smoked comp leted Unknown if ever smoked [facility] ([facility]) Smoking 05/02/2019 12:00:00 AM EST Unknown if ever smoked comp leted Unknown if ever smoked [facility] ([facility]) Smoking 04/25/2019 12:00:00 AM EST Patient is a former smoker completed Patient is a former smoker MED[facility] ([facility]) Smoking 04/17/2019 12:00:00 AM EST Unknown if ever smoked comp leted Unknown if ever smoked [facility] ([facility]) Smoking 04/15/2019 12:00:00 AM EST Unknown if ever smoked comp leted Unknown if ever smoked [facility] ([facility]) Smoking 04/01/2019 12:00:00 AM EST Unknown if ever smoked comp leted Unknown if ever smoked [facility] ([facility]) Smoking 03/18/2019 12:00:00 AM EST Unknown if ever smoked comp leted Unknown if ever smoked [facility] ([facility]) Smoking 03/14/2019 12:00:00 AM EST Unknown if ever smoked comp leted Unknown if ever smoked [facility] ([facility]) Caffeine Use Details 03/10/2019 12:00:00 AM EST coffee and soda, 24 oz completed coffee and soda, 24 oz [facility] ([facility]) Smoking 02/21/2019 12:00:00 AM EST Unknown if ever smoked comp leted Unknown if ever smoked [facility] ([facility]) Vital Signs ID Date Data Source UNK Name Value Range Interpretation Code Description Data Source(s) Diastolic blood pressure 0 mm[Hg] Normal (applies to non-numeric results) 0 mm[Hg] [facility] ([facility]) Systolic blood pressure 0 mm[Hg] Normal (applies t o non-numeric results) 0 mm[Hg] [facility] ([facility]) Body mass index (BMI) [Ratio] 0.00 kg/m2 No rmal (applies to non-numeric results) 0.00 kg/m2 [facility] ([facility]) Body weight Measured 0.00 lbs Normal (applies to n on-numeric results) 0.00 lbs [facility] ([facility]) Body height 0.00 in Normal (applies to non-numeric resu lts) 0.00 in [facility] ([facility]) Diastolic blood pressure 0 mm[Hg] Normal (applies to non-numeric results) 0 mm[Hg] [facility]) Systolic blood pressure 0 mm[Hg] Normal (applies t o non-numeric results) 0 mm[Hg] [facility] ([facility]) Body mass index (BMI) [Ratio] 0.00 kg/m2 No rmal (applies to non-numeric results) 0.00 kg/m2 [facility] ([facility]) Body weight Measured 0.00 lbs Normal (applies to n on-numeric results) 0.00 lbs [facility] ([facility]) Body height 0.00 in Normal (applies to non-numeric resu lts) 0.00 in [facility] ([facility]) Body mass index (BMI) [Ratio] 32.9 kg/m2 32.9 k g/m2 MEDENT ([facility] Body height 65 [in_i] 65 [in_i] MEDENT ([facility] 5'5" Body weight 198.00 [lb_av] 198.00 [lb_av] MEDEN T ([facility] Body temperature 98.1 [degF] 98.1 [degF] MEDENT ([facility] Oxygen saturation in Arterial blood by Pulse oximetry 96 % 96 % [facility] Respiratory rate 16 /min 16 /min MEDENT ( [facility], [facility] Heart rate 81 /min 81 /min MEDENT ([facility], [facility] Diastolic blood pressure 71 mm[Hg] 71 mm[Hg] MED[facility] ([facility] Systolic blood pressure 115 mm[Hg] 115 mm[Hg] M EDENT ([facility], [facility] Body surface area Derived from formula 1.97 m2 1.97 m2 [facility] ([facility] Body mass index (BMI) [Ratio] 34.8 kg/m2 34.8 k g/m2 [facility] Body height 64 [in_i] 64 [in_i] MEDENT ([facility]) 5'4" Body weight 92.081 kg 92.081 kg MED[facility] ([facility]) Body weight 203.00 [lb_av] 203.00 [lb_av] MEDEN T ([facility]) Body temperature 96.9 [degF] 96.9 [degF] MED[facility] ([facility]) Heart rate 80 /min 80 /min MED[facility] ([facility]) Diastolic blood pressure 70 mm[Hg] 70 mm[Hg] [facility] ([facility]) Systolic blood pressure 128 mm[Hg] 128 mm[Hg] [facility] Body surface area Derived from formula 1.97 m2 1.97 m2 [facility] ([facility]) Body mass index (BMI) [Ratio] 34.8 kg/m2 34.8 k g/m2 [facility] Body height 64 [in_i] 64 [in_i] MED[facility] ([facility]) 5'4" Body weight 92.081 kg 92.081 kg MED[facility] ([facility]) Body weight 203.00 [lb_av] 203.00 [lb_av] MEDEN T ([facility]) Body temperature 97.3 [degF] 97.3 [degF] [facility] ([facility]) Heart rate 75 /min 75 /min [facility] ([facility]) Diastolic blood pressure 75 mm[Hg] 75 mm[Hg] [facility] ([facility]) Systolic blood pressure 135 mm[Hg] 135 mm[Hg] M EDENT ([facility]) Body surface area Derived from formula 1.95 m2 1.95 m2 [facility] ([facility]) Body mass index (BMI) [Ratio] 34.2 kg/m2 34.2 k g/m2 [facility] ([facility]) Body height 64 [in_i] 64 [in_i] MED[facility] ([facility]) 5'4" Body weight 90.266 kg 90.266 kg [facility] ([facility]) Body weight 199.00 [lb_av] 199.00 [lb_av] MEDEN T ([facility]) Heart rate 70 /min 70 /min [facility] ([facility]) Diastolic blood pressure 60 mm[Hg] 60 mm[Hg] [facility] ([facility]) Systolic blood pressure 120 mm[Hg] 120 mm[Hg] M EDENT ([facility]) Body surface area Derived from formula 1.96 m2 1.96 m2 [facility] Body mass index (BMI) [Ratio] 34.7 kg/m2 34.7 k g/m2 [facility] ([facility]) Body height 64 [in_i] 64 [in_i] MED[facility] ([facility]) 5'4" Body weight 91.627 kg 91.627 kg [facility] ([facility]) Body weight 202.00 [lb_av] 202.00 [lb_av] MEDEN T ([facility]) Body temperature 98.6 [degF] 98.6 [degF] [facility] ([facility]) Heart rate 82 /min 82 /min [facility] ([facility]) Diastolic blood pressure 78 mm[Hg] 78 mm[Hg] [facility] ([facility]) Systolic blood pressure 110 mm[Hg] 110 mm[Hg] M EDENT ([facility]) Body mass index (BMI) [Ratio] 32.9 kg/m2 32.9 k g/m2 [facility] ([facility] Body height 65 [in_i] 65 [in_i] MEDENT ([facility] 5'5" Body weight 198.00 [lb_av] 198.00 [lb_av] MEDEN T ([facility] Body temperature 98.1 [degF] 98.1 [degF] MED[facility] ([facility] Oxygen saturation in Arterial blood by Pulse oximetry 96 % 96 % [facility] ([facility] Heart rate 107 /min 107 /min MED[facility] ([facility] Diastolic blood pressure 73 mm[Hg] 73 mm[Hg] [facility] ([facility] Systolic blood pressure 116 mm[Hg] 116 mm[Hg] [facility] Body mass index (BMI) [Ratio] 32.9 kg/m2 32.9 k g/m2 [facility] ([facility] Body height 65 [in_i] 65 [in_i] MED[facility] ([facility] 5'5" Body weight 198.00 [lb_av] 198.00 [lb_av] MEDEN T ([facility], [facility] Body temperature 98.7 [degF] 98.7 [degF] [facility] Oxygen saturation in Arterial blood by Pulse oximetry 99 % 99 % [facility] ([facility] Respiratory rate 16 /min 16 /min MED[facility] ( [facility] Heart rate 78 /min 78 /min [facility] ([facility] Diastolic blood pressure 80 mm[Hg] 80 mm[Hg] [facility] ([facility] Systolic blood pressure 124 mm[Hg] 124 mm[Hg] [facility] ([facility] Body mass index (BMI) [Ratio] 32.4 kg/m2 32.4 k g/m2 [facility] ([facility] Body height 65 [in_i] 65 [in_i] MEDENT ([facility] 5'5" Body weight 195.00 [lb_av] 195.00 [lb_av] MEDEN T ([facility], [facility] Body temperature 98.7 [degF] 98.7 [degF] [facility] ([facility]) Oxygen saturation in Arterial blood by Pulse oximetry 96 % 96 % [facility] ([facility]) Heart rate 67 /min 67 /min [facility] ([facility]) Diastolic blood pressure 66 mm[Hg] 66 mm[Hg] [facility] ([facility]) Systolic blood pressure 118 mm[Hg] 118 mm[Hg] [facility]) Body surface area Derived from formula 1.96 m2 1.96 m2 [facility] ([facility]) Body mass index (BMI) [Ratio] 34.5 kg/m2 34.5 k g/m2 [facility] ([facility]) Body height 64 [in_i] 64 [in_i] [facility] ([facility]) 5'4" Body weight 91.174 kg 91.174 kg [facility] ([facility]) Body weight 201.00 [lb_av] 201.00 [lb_av] [facility] ([facility] Body temperature 98.2 [degF] 98.2 [degF] [facility] ([facility]) Heart rate 85 /min 85 /min [facility] ([facility]) Diastolic blood pressure 65 mm[Hg] 65 mm[Hg] [facility] ([facility]) Systolic blood pressure 120 mm[Hg] 120 mm[Hg] [facility] ([facility]) Body mass index (BMI) [Ratio] 33.37 kg/m2 Overweight 33.37 kg/m2 [facility] ([facility]) Diastolic blood pressure 58 mm[Hg] 58 mm[Hg] [facility] ([facility]) Systolic blood pressure 108 mm[Hg] 108 mm[Hg] N extGen ([facility]) Body weight 90.265 kg 90.265 kg [facility] ([facility] Body height 164.47 cm 164.47 [facility] Body surface area 1.97 m2 1.97 m2 [facility] ([facility]) Body surface area Derived from formula 1.97 m2 1.97 m2 [facility] ([facility]) Body mass index (BMI) [Ratio] 35.0 kg/m2 35.0 k g/m2 [facility] ([facility]) Body height 64 [in_i] 64 [in_i] [facility] ([facility]) 5'4" Body weight 92.534 kg 92.534 kg [facility] ([facility]) Body weight 204.00 [lb_av] 204.00 [lb_av] MEDEN T ([facility]) Body temperature 98.1 [degF] 98.1 [degF] [facility] ([facility]) Heart rate 80 /min 80 /min [facility] ([facility]) Diastolic blood pressure 70 mm[Hg] 70 mm[Hg] [facility] ([facility]) Systolic blood pressure 112 mm[Hg] 112 mm[Hg] [facility] ([facility]) Body weight 93.612 kg 93.612 kg [facility] ([facility]) Body weight 206.38 [lb_av] 206.38 [lb_av] MEDEN T ([facility]) Respiratory rate 16 /min 16 /min [facility] ( [facility]) Body temperature 98.0 [degF] 98.0 [degF] [facility] ([facility]) Heart rate 89 /min 89 /min [facility] Diastolic blood pressure 74 mm[Hg] 74 mm[Hg] [facility] Systolic blood pressure 128 mm[Hg] 128 mm[Hg] [facility]) Diastolic blood pressure 0 mm[Hg] Normal (applies to non-numeric results) 0 mm[Hg] [facility] ([facility]) Systolic blood pressure 0 mm[Hg] Normal (applies t o non-numeric results) 0 mm[Hg] [facility] ([facility]) Body mass index (BMI) [Ratio] 0.00 kg/m2 No rmal (applies to non-numeric results) 0.00 kg/m2 [facility] ([facility]) Body weight Measured 0.00 lbs Normal (applies to n on-numeric results) 0.00 lbs [facility] ([facility]) Body height 0.00 in Normal (applies to non-numeric resu lts) 0.00 in [facility] ([facility]) Body surface area 1.97 m2 1.97 m2 [facility] ([facility]) Body mass index (BMI) [Ratio] 35.0 kg/m2 35.0 k g/m2 [facility] ([facility]) Body height 64 [in_i] 64 [in_i] [facility] ([facility]) 5'4" Body weight 92.534 kg 92.534 kg [facility] ([facility]) Body weight 204.00 [lb_av] 204.00 [lb_av] MEDEN T ([facility]) Body temperature 98.1 [degF] 98.1 [degF] [facility] ([facility]) Heart rate 78 /min 78 /min [facility] ([facility]) Diastolic blood pressure 75 mm[Hg] 75 mm[Hg] [facility] ([facility]) Systolic blood pressure 116 mm[Hg] 116 mm[Hg] M EDENT ([facility]) Body mass index (BMI) [Ratio] 35.70 kg/m2 35.70 kg/m2 eCW1 ([facility]) Body height [in_i] eCW1 ([facility]) Body weight 208 [lb_av] 208 [lb_av] eCW1 ([facility]) Diastolic blood pressure 0 mm[Hg] Normal (applies to non-numeric results) 0 mm[Hg] [facility] ([facility]) Systolic blood pressure 0 mm[Hg] Normal (applies t o non-numeric results) 0 mm[Hg] [facility] ([facility]) Body mass index (BMI) [Ratio] 0.00 kg/m2 No rmal (applies to non-numeric results) 0.00 kg/m2 [facility] ([facility]) Body weight Measured 0.00 lbs Normal (applies to n on-numeric results) 0.00 lbs [facility] ([facility]) Body height 0.00 in Normal (applies to non-numeric resu lts) 0.00 in [facility] ([facility]) Body mass index (BMI) [Ratio] 33.20 kg/m2 Overweight 33.20 kg/m2 [facility] ([facility]) Diastolic blood pressure 58 mm[Hg] 58 mm[Hg] [facility] ([facility]) Systolic blood pressure 116 mm[Hg] 116 mm[Hg] N [facility] ([facility]) Body weight 89.811 kg 89.811 kg [facility] ([facility]) Body height 164.47 cm 164.47 cm [facility] Diastolic blood pressure 0 mm[Hg] Normal (applies to non-numeric results) 0 mm[Hg] [facility] ([facility]) Systolic blood pressure 0 mm[Hg] Normal (applies t o non-numeric results) 0 mm[Hg] [facility] ([facility]) Body mass index (BMI) [Ratio] 0.00 kg/m2 No rmal (applies to non-numeric results) 0.00 kg/m2 [facility] ([facility]) Body weight Measured 0.00 lbs Normal (applies to n on-numeric results) 0.00 lbs [facility] ([facility]) Body height 0.00 in Normal (applies to non-numeric resu lts) 0.[facility]) Diastolic blood pressure 0 mm[Hg] Normal (applies to non-numeric results) 0 mm[Hg] [facility] Systolic blood pressure 0 mm[Hg] Normal (applies t o non-numeric results) 0 mm[Hg] [facility] ([facility]) Body mass index (BMI) [Ratio] 0.00 kg/m2 No rmal (applies to non-numeric results) 0.00 kg/m2 [facility] ([facility]) Body weight Measured 0.00 lbs Normal (applies to n on-numeric results) 0.00 lbs [facility] ([facility]) Body height 0.00 in Normal (applies to non-numeric resu lts) 0.00 in [facility] ([facility]) Body mass index (BMI) [Ratio] 31.3 kg/m2 31.3 k g/m2 [facility] ([facility] ) Body weight 191.00 [lb_av] 191.00 [lb_av] MEDEN T ([facility] ) Body height 65.5 [in_i] 65.5 [in_i] [facility] ([facility] ) 5'5.50" Body temperature 98.4 [degF] 98.4 [degF] [facility] ([facility] ) Body mass index (BMI) [Ratio] 34.3 kg/m2 34.3 k g/m2 [facility] ([facility] Body height 64 [in_i] 64 [in_i] [facility] ([facility] 5'4" Body weight 200.00 [lb_av] 200.00 [lb_av] [facility] T ([facility] Body temperature 982.0 [degF] 982.0 [degF] MEDE NT ([facility] Oxygen saturation in Arterial blood by Pulse oximetry 98 % 98 % [facility] ([facility] Respiratory rate 14 /min 14 /min [facility] ( [facility] Heart rate 90 /min 90 /min [facility] ([facility] Diastolic blood pressure 68 mm[Hg] 68 mm[Hg] [facility] ([facility] Systolic blood pressure 100 mm[Hg] 100 mm[Hg] M EDENT ([facility] Diastolic blood pressure 0 mm[Hg] Normal (applies to non-numeric results) 0 mm[Hg] [facility] ([facility]) Systolic blood pressure 0 mm[Hg] Normal (applies t o non-numeric results) 0 mm[Hg] [facility] ([facility]) Body mass index (BMI) [Ratio] 0.00 kg/m2 No rmal (applies to non-numeric results) 0.00 kg/m2 [facility] ([facility]) Body weight Measured 0.00 lbs Normal (applies to n on-numeric results) 0.00 lbs [facility] ([facility]) Body height 0.00 in Normal (applies to non-numeric resu lts) 0.00 in [facility] ([facility]) Body surface area 1.96 m2 1.96 m2 [facility] ([facility]) Body mass index (BMI) [Ratio] 34.3 kg/m2 34.3 k g/m2 [facility] ([facility]) Body height 64 [in_i] 64 [in_i] [facility] ([facility]) 5'4" Body weight 90.720 kg 90.720 kg [facility] ([facility]) Body weight 200.00 [lb_av] 200.00 [lb_av] MEDEN T ([facility]) Heart rate 75 /min 75 /min [facility] ([facility]) Diastolic blood pressure 80 mm[Hg] 80 mm[Hg] [facility] ([facility]) manual on left arm Systolic blood pressure 118 mm[Hg] 118 mm[Hg] M EDENT ([facility]) manual on left arm Diastolic blood pressure 62 mm[Hg] 62 mm[Hg] [facility] ([facility]) machine on right arm Systolic blood pressure 144 mm[Hg] 144 mm[Hg] M EDENT ([facility]) machine on right arm Respiratory rate 20 min Normal (applies to non-numeric results) 20 min [facility] ([facility]) Body height --lying 78 min Normal (applies to non-nume maryan results) 78 min [facility] ([facility]) Diastolic blood pressure 76 mm[Hg] Normal (applies to non-numeric results) 76 mm[Hg] [facility] ([facility]) Systolic blood pressure 108 mm[Hg] Normal (applies t o non-numeric results) 108 mm[Hg] [facility] ([facility]) Body mass index (BMI) [Ratio] 33.98 kg/m2 No rmal (applies to non-numeric results) 33.98 kg/m2 [facility] ([facility]) Body weight Measured 198.00 lbs Normal (applies to n on-numeric results) 198.00 lbs [facility] ([facility]) Body height 64.00 in Normal (applies to non-numeric resu lts) 64.00 in [facility] ([facility]) Respiratory rate 20 min Normal (applies to non-numeric results) 20 min [facility] ([facility]) Body height --lying 78 min Normal (applies to non-nume maryan results) 78 min [facility] ([facility]) Diastolic blood pressure 76 mm[Hg] Normal (applies to non-numeric results) 76 mm[Hg] [facility] ([facility]) Systolic blood pressure 108 mm[Hg] Normal (applies t o non-numeric results) 108 mm[Hg] [facility] ([facility]) Body mass index (BMI) [Ratio] 33.98 kg/m2 No rmal (applies to non-numeric results) 33.98 kg/m2 [facility] ([facility]) Body weight Measured 198.00 lbs Normal (applies to n on-numeric results) 198.00 lbs [facility] ([facility]) Body height 64.00 in Normal (applies to non-numeric resu lts) 64.00 in [facility] ([facility]) Respiratory rate 20 min Normal (applies to non-numeric results) 20 min [facility] ([facility]) Body height --lying 84 min Normal (applies to non-nume maryan results) 84 min [facility] ([facility]) Diastolic blood pressure 58 mm[Hg] Normal (applies to non-numeric results) 58 mm[Hg] [facility] ([facility]) Systolic blood pressure 108 mm[Hg] Normal (applies t o non-numeric results) 108 mm[Hg] [facility] ([facility]) Body mass index (BMI) [Ratio] 28.10 kg/m2 No rmal (applies to non-numeric results) 28.10 kg/m2 [facility] ([facility]) Body weight Measured 165.00 lbs Normal (applies to n on-numeric results) 165.00 lbs [facility] ([facility]) Body height 64.25 in Normal (applies to non-numeric resu lts) 64.25 in [facility] ([facility]) Body mass index (BMI) [Ratio] 33.54 kg/m2 Overweight 33.54 kg/m2 [facility] ([facility]) Diastolic blood pressure 66 mm[Hg] 66 mm[Hg] [facility] ([facility]) Systolic blood pressure 100 mm[Hg] 100 mm[Hg] N [facility] ([facility]) Body weight 90.718 kg 90.718 kg [facility] ([facility] Body height 164.47 cm 164.47 cm [facility] ([facility]) ID Date Data Source [id number] 01/14/2020 02:44:35 PM [facility] Name Value Range Interpretation Code Description Data Source(s) WEIGHT RECORDED 198.00 pounds 198.00 pounds [facility] Height 65 Inches 065 Inches [facility] Patient Treatment Plan of Care Planned Activity Planned Date Details Description Data Source (s) Sulfasalazine 500 MG Delayed Release Oral Tablet 11/13/2019 12:00:0 0 AM EDT [facility] ([facility]) Folic Acid 1 MG Oral Tablet 07/14/2019 12:00:00 AM EDT [facility] ([facility]) meloxicam 7.5 MG Oral Tablet 07/14/2019 12:00:00 AM EDT [facility] ([facility]) Sulfasalazine 500 MG Delayed Release Oral Tablet 07/14/2019 12:00:0 0 AM EDT [facility] ([facility]) Sulfasalazine 500 MG Delayed Release Oral Tablet 07/08/2019 12:00:0 0 AM EDT [facility] ([facility]) Cyclobenzaprine hydrochloride 5 MG Oral Tablet 03/10/2019 12:00:00 AM EST [facility] ([facility]) Sulfasalazine 500 MG Delayed Release Oral Tablet 03/10/2019 12:00:0 0 AM EST [facility] ([facility]) folic acid 1 mg tablet 10/07/2018 12:00:00 AM EDT [facility] ([facility]) meloxicam 7.5 MG Oral Tablet 10/07/2018 12:00:00 AM EDT [facility] ([facility]) Cyclobenzaprine hydrochloride 5 MG Oral Tablet 10/07/2018 12:00:00 AM EDT [facility] ([facility]) Sulfasalazine 500 MG Delayed Release Oral Tablet 10/07/2018 12:00:0 0 AM EDT [facility] ([facility]) Mirtazapine 30 MG Oral Tablet [facility] ([facility]) Trazodone Hydrochloride 50 MG Oral Tablet [facility] ([facility]) Melatonin 3 MG Oral Tablet N [facility] ([facility]) olanzapine 10 MG Oral Tablet [Zyprexa] [facility] ([facility]) Ergocalciferol [id number] UNT Oral Capsule [facility] ([facility]) Fluoxetine 10 MG Oral Capsule [Prozac] [facility] ([facility]) Trazodone Hydrochloride 100 MG Oral Tablet [facility] ([facility])
[2020-04-03 21:29] LABS: BASO % 0.6 % (0.0-1.0); EOS # 0.3 10^3/uL (0.0-0.5); EOS % 5.8 % (0.0-3.0); HEMATOCRIT 43.3 % (36.0-47.0); HEMOGLOBIN 13.9 g/dl (12.0-15.5); LYMPH % 40.4 % (24.0-44.0); MEAN CORPUSCULAR HEMOGLOBIN 30.4 pg (27.0-33.0); MEAN CORPUSCULAR HGB CONC 32.1 g/dl (32.0-36.5); MEAN CORPUSCULAR VOLUME 94.7 fl (80.0-96.0); MONO # 0.6 10^3/uL (0.0-0.8); MONO % 12.4 % (0.0-5.0); NEUTROPHILS % 40.4 % (36.0-66.0); PLATELET COUNT, AUTOMATED 271 10^3/uL (150-450); RED BLOOD COUNT 4.57 10^6/uL (4.00-5.40)
[2020-04-03] MEDS ORDERED: PROZ20CA11 (21:41)
[2020-04-03] MEDS ORDERED: TRAZ1TAB14 (21:41)
[2020-04-03] MEDS ORDERED: TRAZ300T2 (21:41)
[2020-04-03] MEDS ORDERED: FLUO10CA16 (21:41)
[2020-04-03] MEDS ORDERED: FLUO20CA22 (21:41)
[2020-04-03] MEDS ORDERED: LATU20TA (21:41)
[2020-04-03 21:56] LABS: HCG, SERUM QUALITATIVE NEGATIVE (NEGATIVE)
[2020-04-03 22:05] LABS: ACETAMINOPHEN LEVEL < 2.0 UG/ML (10.0-30.0); ALBUMIN 3.9 GM/DL (3.2-5.2); ALT/SGPT 36 U/L (12-78); BILIRUBIN,DIRECT < 0.1 MG/DL (0.0-0.2); BILIRUBIN,TOTAL 0.1 MG/DL (0.2-1.0); BLOOD UREA NITROGEN 13 MG/DL (7-18); CARBON DIOXIDE LEVEL 31 MEQ/L (21-32); CHLORIDE LEVEL 107 MEQ/L (98-107); CPK CREATINE PHOSPHOKINASE 74 U/L (26-192); CREATININE FOR GFR 1.11 MG/DL (0.55-1.30); ETHYL ALCOHOL (ETHANOL) 0.132 % (0.000-0.010); GLOMERULAR FILTRATION RATE > 60.0 (>60); GLUCOSE, FASTING 83 MG/DL (70-100); POTASSIUM SERUM 3.9 MEQ/L (3.5-5.1); SALICYLATE LEVEL < 1.7 MG/DL (5.0-30.0); SODIUM LEVEL 144 MEQ/L (136-145); TOTAL PROTEIN 7.3 GM/DL (6.4-8.2)
[2020-04-03 22:07] LABS: AMPHETAMINES LEVEL URINE NEGATIVE (NEGATIVE); BARBITURATES URINE NEGATIVE (NEGATIVE); BENZODIAZEPINES URINE NEGATIVE (NEGATIVE); CANNABINOIDS URINE NEGATIVE (NEGATIVE); COCAINE METABOLITE URINE NEGATIVE (NEGATIVE); METHADONE URINE NEGATIVE (NEGATIVE); OPIATES URINE NEGATIVE (NEGATIVE); PHENCYCLIDINE URINE NEGATIVE (NEGATIVE)
--- OUTSIDE RECORDS SUMMARY | 2020-04-03 22:36 | CCD ---
Author Author [facility] Organization [facility] Address Unknown Phone Unavailable Support Name Relationship Address Phone HARLEY BATES Next Of Kin [address] [place] [address] CASANDRA RICE Next Of Kin [address] [facility] [address] [facility] [address] [place] [address] SHERRILL GARAY Next Of Kin [address] [place] [address] [place] JAMIA MARIA Next Of Kin [address] [place] [address] DENICE TITUS Next Of Kin [address] [place] [address] NO, CONTACT Next Of Kin Unknown STREAM Next Of Kin [address] [place] [address] CONTACT, OTHER NO Next Of Kin - -, - - - Hector ELLIS Next Of Kin [address] [place] [address] [employer] [place] [address] MARCELA ELLIS Next Of Kin [address] [place] [address] CELL [facility] Next Of Kin [address] [place] [address] BRADLY CHARLES Next Of Kin [address] [place] [address] CELL AD[employer]ANCED [employer] [place] [address] GREGORIA ROBERTS Next Of Kin - -, [place] - NONE, PT PER Next Of Kin - -, - - - ADVANCED ASTHMA [employer] [place] [address] DENICE GARAY Next Of Kin [address] [place] [address] ELIEL GARAY Next Of Kin [address] [place] [address] Care Team Providers Care Shop And Alteration Tailor Name Role Phone Keating, Mayra CASH SPECIALIST Unavailable Unavailable Keating, Mayra CASH SPECIALIST Unavailable Unavailable Keating, Mayra CASH SPECIALIST Unavailable Unavailable Keating, Mayra CASH SPECIALIST Unavailable Unavailable Keating, Mayra CASH SPECIALIST Unavailable Unavailable Keating, Mayra CASH SPECIALIST Unavailable Unavailable Keating, Mayra CASH SPECIALIST Unavailable Unavailable Keating, Mayra CASH SPECIALIST Unavailable Unavailable Keating, Mayra CASH SPECIALIST Unavailable Unavailable Keating, Mayra CASH SPECIALIST Unavailable Unavailable Keating, Mayra CASH SPECIALIST Unavailable Unavailable KOPIDLANSKY, Maria R RICH PIPE COVERER AND INSULATOR-SLACKLINE OPERATOR-C Unavailable Unava ilable KOPIDLANSKY, Maria R RICH PIPE COVERER AND INSULATOR-SLACKLINE OPERATOR-C Unavailable Unava ilable KOPIDLANSKY, Maria R RICH APRN-SLACKLINE OPERATOR-C Unavailable Unava ilable KOPIDLANSKY, Maria R RICH APRN-SLACKLINE OPERATOR-C Unavailable Unava ilable KOPIDLANSKY, Maria R RICH APRN-SLACKLINE OPERATOR-C Unavailable Unava ilable KOPIDLANSKY, Maria R RICH APRN-SLACKLINE OPERATOR-C Unavailable Unava ilable KOPIDLANSKY, Maria R RICH APRN-SLACKLINE OPERATOR-C Unavailable Unava ilable KOPIDLANSKY, Maria R RICH APRN-SLACKLINE OPERATOR-C Unavailable Unava ilable KOPIDLANSKY, Maria R RICH PIPE COVERER AND INSULATOR-SLACKLINE OPERATOR-C Unavailable Unava ilable KOPIDLANSKY, Maria R RICH PIPE COVERER AND INSULATOR-SLACKLINE OPERATOR-C Unavailable Unava ilable KOPIDLANSKY, Maria R RICH PIPE COVERER AND INSULATOR-SLACKLINE OPERATOR-C Unavailable Unava ilable KOPIDLANSKY, Maria R RICH PIPE COVERER AND INSULATOR-SLACKLINE OPERATOR-C Unavailable Unava ilable KOPIDLANSKY, Maria R RICH PIPE COVERER AND INSULATOR-SLACKLINE OPERATOR-C Unavailable Unava ilable KOPIDLANSKY, Maria R RICH PIPE COVERER AND INSULATOR-SLACKLINE OPERATOR-C Unavailable Unava ilable KOPIDLANSKY, R DEYSI PIPE COVERER AND INSULATOR-SLACKLINE OPERATOR-C Unavailable Unava ilable KOPIDLANSKY, R DEYSI PIPE COVERER AND INSULATOR-SLACKLINE OPERATOR-C Unavailable Unava ilable KOPIDLANSKY, R DEYSI PIPE COVERER AND INSULATOR-SLACKLINE OPERATOR-C Unavailable Unava ilable KOPIDLANSKY, Maria R RICH PIPE COVERER AND INSULATOR-SLACKLINE OPERATOR-C Unavailable Unava ilable KOPIDLANSKY, R DEYSI PIPE COVERER AND INSULATOR-SLACKLINE OPERATOR-C Unavailable Unava ilable KOPIDLANSKY, R DEYSI PIPE COVERER AND INSULATOR-SLACKLINE OPERATOR-C Unavailable Unava ilable KOPIDLANSKY, R DEYSI PIPE COVERER AND INSULATOR-SLACKLINE OPERATOR-C Unavailable Unava ilable KOPIDLANSKY, R DEYSI PIPE COVERER AND INSULATOR-SLACKLINE OPERATOR-C Unavailable Unava ilable Jessie Valdivia MD Unavailable [...] Unavailable Unavailable Jessie Valdivia MD Unavailable Unavailable eJssie Valdivia MD Unavailable Unavailable Jessie Valdivia MD [...] Jessie Garcia MD Unavailable Unavailable Valdivia, Jessie Gacria MD Unavailable Unavailable Valdivia, Jessie Gacria MD Unavailable Unavailable Valdivia, Jessie Garcia MD [...] Unavailable Valdivia, Jessie Garcia MD Unavailable Unavailable Validvia, Jessie Garcia MD Unavailable Unavailable Valdivia, Jessie [...] MARQUIS PA Unavailable Unavailable SOLO, H MICHELE CASH SPECIALIST Unavailable Unavailable SOLO, H MICHELE CASH SPECIALIST Unavailable Unavailable SOLO, H MICHELE CASH SPECIALIST Unavailable Unavailable SOLO, H MICHELE CASH SPECIALIST Unavailable Unavailable SOLO, H MICHELE CASH SPECIALIST Unavailable Unavailable SOLO, H MICHELE CASH SPECIALIST Unavailable Unavailable SOLO, H MICHELE CASH SPECIALIST Unavailable Unavailable Andres, L Humberto CNM Unavailable [...] L Humberto CNM Unavailable Unavailable Pikarsky, Dave CASH SPECIALIST Unavailable Unavailable Pikarsky, Dave CASH SPECIALIST Unavailable Unavailable Pikarsky, Dave CASH SPECIALIST Unavailable Unavailable Pikarsky, Dave CASH SPECIALIST Unavailable Unavailable Pikarsky, Dave CASH SPECIALIST Unavailable Unavailable Pikarsky, Dave CASH SPECIALIST Unavailable Unavailable Pikarsky, Dave CASH SPECIALIST Unavailable Unavailable Pikarsky, Dave CASH SPECIALIST Unavailable Unavailable Pikarsky, Dave CASH SPECIALIST Unavailable Unavailable Pikarsky, Dave CASH SPECIALIST Unavailable Unavailable Pikarsky, Dave CASH SPECIALIST Unavailable Unavailable Pikarsky, Dave CASH SPECIALIST Unavailable Unavailable Pikarsky, Dave CASH SPECIALIST Unavailable Unavailable Pikarsky, Dave CASH SPECIALIST Unavailable Unavailable Pikarsky, Dave CASH SPECIALIST Unavailable Unavailable Pikarsky, Dave CASH SPECIALIST Unavailable Unavailable Pikarsky, Dave CASH SPECIALIST Unavailable Unavailable Pikarsky, Dave CASH SPECIALIST Unavailable Unavailable Pikarsky, Dave CASH SPECIALIST Unavailable Unavailable Pikarsky, Dave CASH SPECIALIST Unavailable Unavailable Pikarsky, Dave CASH SPECIALIST Unavailable Unavailable Pikarsky, Dave CASH SPECIALIST Unavailable Unavailable Pikarsky, Dave CASH SPECIALIST Unavailable Unavailable Pikarsky, Dave CASH SPECIALIST Unavailable Unavailable BOOKER, JUDE ELIEL CASH SPECIALIST Unavailable Unavailable BOOKER, JUDE ELIEL CASH SPECIALIST Unavailable Unavailable BOOKER, JUDE ELIEL CASH SPECIALIST Unavailable Unavailable BOOKER, JUDE ELIEL CASH SPECIALIST Unavailable Unavailable BOOKER, JUDE ELIEL CASH SPECIALIST Unavailable Unavailable BOOKER, JUDE ELIEL CASH SPECIALIST Unavailable Unavailable BOOKER, JUDE ELIEL CASH SPECIALIST Unavailable Unavailable BOOKER, JUDE ELIEL CASH SPECIALIST Unavailable Unavailable BOOKER, JUDE ELIEL CASH SPECIALIST Unavailable Unavailable BOOKER, JUDE ELIEL CASH SPECIALIST Unavailable Unavailable BOOKER, JUDE ELIEL CASH SPECIALIST Unavailable Unavailable BOOKER, JUDE ELIEL CASH SPECIALIST Unavailable Unavailable BOOKER, JUDE ELEIL CASH SPECIALIST Unavailable Unavailable BOOKER, JUDE ELIEL CASH SPECIALIST Unavailable Unavailable BOOKER, JUDE ELIEL CASH SPECIALIST Unavailable Unavailable BOOKER, JUDE ELIEL CASH SPECIALIST Unavailable Unavailable BOOKER, JUDE ELIEL CASH SPECIALIST Unavailable Unavailable BOOKER, JUDE ELIEL CASH SPECIALIST Unavailable Unavailable BOOKER, JUDE ELIEL CASH SPECIALIST Unavailable Unavailable BOOKER, JUDE ELIEL CASH SPECIALIST Unavailable Unavailable BOOKER, JUDE ELIEL CASH SPECIALIST Unavailable Unavailable BOOKER, JUDE ELIEL CASH SPECIALIST Unavailable Unavailable BOOKER, JUDE ELIEL CASH SPECIALIST Unavailable Unavailable Mclean, Hattie Chen PA Unavailable [...] Unavailable Unavailable PEMBERTON, FIORELLA MD Unavailable Unavailable PEMBRETON, FIORELLA MD Unavailable Unavailable PEMBERTON, FIORELLA MD [...] is protected by Article 27-F of the [facility] Public Health law. If you continue you may have access to information: Regarding HIV / AIDS; Provided by facilities licensed or operated by the [facility] Office of Mental Health; or Provided by the [facility] Office for People With Developmental Disabilities. If such information is present, then the following [facility] mandated warning applies: This information has been [...] law may result in a fine or halfway sentence or both. A general authorization for the release of medical or other information is NOT sufficient authorization for further disc losure. Allergies and Adverse Reactions Type Description Substance Reaction Status Data Source(s ) Food allergy Tree nuts Tree nuts [facility] Food allergy SHELLFISH SHELLFISH [facility] ENVIRONMENTAL BEES BEES [facility] Drug allergy TOPIRAMATE TOPIRAMATE CHILLS; LOW WBC [facility] Family History Family Member Name Family Member Gender Family Member Status Date o f Status Description Data Source(s) Unknown Problem (finding) 05/23/2012 12:00:00 AM EDT [facility] ([facility]) Encounters Encounter Providers Location Date Indications Data Source(s ) Attender: DAVID BARRAGAN [facility] 03/16/2020 07:08:00 PM EST - 03/16/2020 07:08:00 PM EST [facility] ( [facility]) Outpatient Attender: MICHELE JIM NP [facility] 03/16/2020 04:00:00 AM EST - 03/16/2020 04:00:00 AM EST [facility] ([facility]) Attender: MICHELE JIM NP 03/16/2020 12:00:00 AM EST [facility] ([facility]) Outpatient Attender: MICHELE JIM NP [facility] 02/02/2020 04:00:00 AM EST - 02/02/2020 04:00:00 AM EST [facility] ([facility]) Attender: MICHELE JIM NP 02/02/2020 12:00:00 AM EST [facility] ([facility]) Outpatient Attender: EDDA dominguez 01/27/2020 03:05:00 PM EST [facility] ([facility]) Outpatient Attender: ELIEL BOOKER NPConsultant: Naresh Garcia 01/19/2020 03:17:00 PM EST - 01/19/2020 03:17:00 PM EST [facility] Outpatient Attender: ELIEL BOOKER CASH SPECIALIST Family Practice 01/19/2020 02 :45:00 PM EST [facility] ([facility]) Outpatient Attender: ELIEL BOOKER NPConsultant: Naresh Garcia 01/14/2020 02:43:00 PM EST - 01/14/2020 02:43:00 PM EST [facility] Outpatient Attender: TROY TAVARES MDConsultant: Naresh tabares 12/24/2019 02:55:00 PM EDT - 12/24/2019 02:55:00 PM EDT [facility] Outpatient Attender: TROY TAVARES MD Family Practice 11/2019 03:00:00 PM EDT [facility] ([facility] Outpatient Attender: TROY TAVARES MDConsultant: Naresh tabares 12/12/2019 02:36:00 PM EDT - 12/12/2019 02:36:00 PM EDT [facility] Outpatient Attender: EDDA dominguez 12/04/2019 04:05:00 PM EDT [facility] ([facility]) Outpatient Attender: TROY TAVARES MDConsultant: Naresh tabares 12/01/2019 10:30:00 AM EDT - 12/01/2019 03:10:00 PM EDT [facility] Patient discharged. Outpatient Attender: Mayra yepez 11/25/2019 03:25:00 PM EDT [facility] ([facility]) Outpatient Attender: TROY TAVARES MDConsultant: Naresh tabares 11/25/2019 09:15:48 AM EDT - 11/26/2019 11:11:00 AM EDT [facility] Patient discharged. Outpatient Attender: April dominguez 11/21/2019 03:45:00 PM EDT [facility] ([facility]) Outpatient Attender: TROY TAVARES MD Family Practice 11/03 01:45:00 PM EDT [facility] ([facility] Outpatient Attender: TROY TAVARES MDConsultant: Naresh tabares 11/19/2019 01:33:00 PM EDT - 11/19/2019 01:33:00 PM EDT [facility] OutpatientOFFICE/OUTPATIENT VISIT, EST Attender: Dave morley NP [facility] 11/13/2019 01:40:00 PM EDT - 11/13/2019 01:40:00 PM ED T Other halfway (current) drug therapyRheu arthritis w rheu factor mult site w/o org/sys involv [facility] ([facility]) Other exterminator termite (current) drug therapy Rheu arthritis w rheu factor mult site w /o org/sys involv Outpatient Attender: DEYSI BARRON CSYK-AXB-ISwacpcq r: Jose Valdivia MD 10/20/2019 11:01:00 AM EDT - 10/20/2019 11:58:[address] [facility] Outpatient Attender: TROY TAVARES MD Family Practice 10/03 01:45:00 PM EDT [facility] ([facility]) Outpatient Attender: TROY TAVARES MDConsultant: Naresh tabares 10/16/2019 01:30:00 PM EDT - 10/16/2019 01:30:00 PM EDT [facility] Outpatient Attender: ELIEL BOOKER NPConsultant: Naresh Garcia 09/24/2019 09:31:00 AM EDT - 09/24/2019 09:31:00 AM EDT [facility] Outpatient Attender: ELIEL BOOKER NP [facility] 09/24/2019 09 :30:00 AM EDT [facility] ([facility]) TEMPMHCTelemed 30" Psychotherapy Attender: Monica mclean [facility] 09/04/2019 03:30:00 AM EDT - 09/04/2019 03:30:00 AM EDT [facility] ([facility]) Attender: Monica Medina 09/04/2019 12:00:0 0 AM EDT [facility] ([facility]) Outpatient Attender: MICHELE JIM NP [facility] alejandre 09/02/2019 04:00:00 AM EDT - 09/02/2019 04:00:00 AM EDT [facility] ([facility]) Attender: MICHELE JIM NP 09/02/2019 12:00:00 AM EDT [facility] ([facility]) Outpatient Attender: ELIEL BOOKER NPConsultant: Naresh Garcia 08/25/2019 02:46:00 PM EDT - 08/25/2019 02:46:00 PM EDT [facility] Outpatient Attender: DEYSI BOONE 08/25/2019 09:55:00 AM EDT R63.5,F31.9,M06.9 [facility] R63.5,F31.9,M06.9 Outpatient Attender: DEYSI Hutton r: Jose Valdivia MD 08/25/2019 09:15:00 AM EDT - 08/25/2019 09:53:[address] [facility] [address] [place] [address] 08/21/2019 12:00:00 AM EDT eCW1 ([facility]) TEMPMHCTelemed 30" Psychotherapy Attender: Monica mclean [facility] 08/07/2019 03:30:00 AM EDT - 08/07/2019 03:30:00 AM EDT [facility] ([facility]) Attender: Monica Medina 08/07/2019 12:00:0 0 AM EDT [facility] ([facility]) Outpatient Attender: MICHELE JIM NP [facility] alejandre 07/23/2019 05:00:00 AM EDT - 07/23/2019 05:00:00 AM EDT [facility] ([facility]) Attender: MICHELE JIM NP 07/23/2019 12:00:00 AM EDT [facility] ([facility]) OutpatientOFFICE/OUTPATIENT VISIT, EST Attender: Dave morley NP [facility] 07/14/2019 03:20:00 PM EDT - 07/14/2019 03:20:00 PM ED T Other exterminator termite (current) drug therapyRheu arthritis w rheu factor mult site w/o org/sys involv [facility] ([facility]) Other halfway (current) drug therapy Rheu arthritis w rheu factor mult site w /o org/sys involv TEMPMHCTelemed 20" psychotherapy Attender: Monica mclean [facility] 07/10/2019 03:30:00 AM EDT - 07/10/2019 03:30:00 AM EDT [facility] ([facility]) Attender: Monica Medina 07/10/2019 12:00:0 0 AM EDT [facility] ([facility]) Attender: MARQUIS CEJA [facility] 07/08/2019 03:48:00 PM EDT - 07/08/2019 03:48:00 PM EDT [facility] ( [facility]) Outpatient Attender: MICHELE JIM NP [facility] 05/28/2019 03:30:00 AM EDT - 05/28/2019 03:30:00 AM EDT [facility] ([facility]) Attender: MICHELE JIM NP 05/28/2019 12:00:00 AM EDT [facility] ([facility]) Outpatient Attender: MICHELE JIM NP [facility] 05/13/2019 03:30:00 AM EDT - 05/13/2019 03:30:00 AM EDT [facility] ([facility]) Attender: MICHELE JIM NP 05/13/2019 12:00:00 AM EDT [facility] ([facility]) 05/12/2019 12:46:00 PM EDT - 020 12:46:00 PM EDT [facility] ([facility]) Outpatient Attender: FIORELLA PEMBERTON MD Physical Therapy 02:45:00 PM EST [facility] Extended Individual Psychotherapy - 45 min Attender: Claudette Medina [facility] 05/02/2019 03:30:00 AM EST - 05/02/2019 03:30:00 AM EST [facility] ([facility]) Attender: Monica Medina 05/02/2019 12:00:0 0 AM EST [facility] ([facility]) OFFICE OUTPATIENT NEW 30 MINUTES Attender: FIORELLA PEMBERTON MD Ph ysical Therapy 04/25/2019 07:15:00 AM EST [facility] ([facility]) Extended Individual Psychotherapy - 45 min [facility] 04[facility]17[facility] 05:00:00 AM EST - 04/17/2019 05:00:00 AM EST [facility] ([facility]) Attender: Monica Medina 04/17/2019 12:00:0 0 AM EST [facility] ([facility]) Outpatient Attender: MICHELE JIM NP [facility] 04/15/2019 03:30:00 AM EST - 04/15/2019 03:30:00 AM EST [facility] ([facility]) Attender: MICHELE JIM NP 04/15/2019 12:00:00 AM EST [facility] ([facility]) Outpatient Attender: Humberto HOOKSonsultant: Naresh mclean 04/08/2019 03:18:00 PM EST - 04/08/2019 03:18:00 PM EST [facility] Outpatient Attender: Humberto HOOKS Family Practice 04/08/2019 0 2:30:00 PM EST [facility] ([facility]) Outpatient Attender: MICHELE JIM NP [facility] 04/01/2019 05:15:00 AM EST - 04/01/2019 05:15:00 AM EST [facility] ([facility]) Brief Individual Psychotherapy - 30 min Attender: Monica arnold [facility] 04/01/2019 04:30:00 AM EST - 04/01/2019 04:30:00 AM EST [facility] ([facility]) Health Monitoring - 15 Min Attender: Erica hampton [facility] 04/01/2019 04:00:00 AM EST - 04/01/2019 04:00:00 AM EST [facility] ([facility]) Attender: Monica Medina 04/01/2019 12:00:0 0 AM EST [facility] ([facility]) Attender: MICHELE JIM NP 04/01/2019 12:00:00 AM EST [facility] ([facility]) Attender: Erica Oswald 04/01/2019 12:00:00 AM EST [facility] ([facility]) Psychiatric Diagnostic Evaluation with Medical Service s Attender: MICHELE JIM NP [facility] 03/18/2019 11:00:00 AM EST - 03/18/2019 11:00:00 AM EST [facility] ([facility]) Attender: MICHELE JIM NP 03/18/2019 12:00:00 AM EST [facility] ([facility]) Psychiatric Diagnostic Evaluation (Non-Medical) Attender: Evan garciajavad Medina [facility] 03/14/2019 04:00:00 AM EST - 03/14/2019 04:00:00 AM EST [facility] ([facility]) Attender: Monica Medina 03/14/2019 12:00:0 0 AM EST [facility] ([facility]) OutpatientOFFICE/OUTPATIENT VISIT, EST Attender: MARQUIS CEJA [facility] 03/10/2019 11:40:00 AM EST - 03/10/2019 11:40:00 AM ES T Other halfway (current) drug therapyRheu arthritis w rheu factor mult site w/o org/sys involv [facility] ([facility]) Other exterminator termite (current) drug therapy Rheu arthritis w rheu factor mult site w /o org/sys involv Outpatient Attender: Jose Valdivia MDReferrer: Jose Valdivia MD 02/21/2019 10:52:00 AM EST - 02/21/2019 11:19:00 AM EST [facility] Extended Individual Psychotherapy - 45 min Attender: Salvatore Alonzo [facility] 02/21/2019 08:00:00 AM EST - 02/21/2019 08:00:00 AM EST [facility] ([facility]) Attender: Humberto Alonzo 02/21/2019 12:00:00 AM Cora Deluca ([facility]) Outpatient 02/20/2019 07:54:00 PM EST [facility] [...] AM EST 10 mg by mouth completed [id number] Prozac by mouth [id number] 1 04/03/2019 04/02/2020 every morning 30 10 mg capsule 43802 [id number] Tammi Jim [id number] Nurse Practitioner Edith ([facility]) Fluoxetine 20 MG Oral Capsule [Prozac] Prozac 02/02/2020 12:0 0:00 AM EST 20 mg by mouth completed [id number] Prozac by mouth [id number] 04/03/2019 04/02/2020 every morning 30 20 mg capsule [id number] Tammi Jim [id number] Nurse Practitioner Edith ([facility]) Lurasidone Hydrochloride 20 MG Oral Tablet [Latuda] Latuda 02/02/2020 12:00:00 AM EST 20 mg by mouth completed [id number] Latuda by mouth [id number] 02/02/2020 04/02/2020 once a day 30 20 mg tablet as directed [id number] Michele Jim [id number] Nurse Practitioner Shavon cali ([facility]) Trazodone Hydrochloride 300 MG Oral Tablet trazodone 02/01 12:00:00 AM EST 300 mg by mouth completed [id number] trazodone by mout h [id number] 02/02/2020 04/02/2020 at bedtime 30 300 mg tablet 73208 [id number] Michele Jim [id number] [facility] Amoxicillin 875 MG Oral Tablet Amoxicillin 01/27/2020 12:00:00 AM EST active [facility] ([facility]) Acyclovir 50 MG/ML Topical Cream [Zovirax] Zovirax 01/19/2020 12:00:00 AM EST active [facility] ([facility]) valacyclovir 1000 MG Oral Tablet Valacyclovir HCL 01/19/2020 12:00: 00 AM EST ORAL active [facility] ([facility]) Metronidazole 500 MG Oral Tablet Metronidazole 01/14/2020 12:00:00 AM EST ORAL completed [facility] ([facility]) Fluconazole 150 MG Oral Tablet [Diflucan] Diflucan 12/17/2019 1 2:00:00 AM EDT ORAL completed [facility] ([facility]) Metronidazole 500 MG Oral Tablet [Flagyl] Flagyl 12/17/2019 12:00 :00 AM EDT ORAL completed [facility] ([facility]) NITROFURANTOIN, MACROCRYSTALS 25 MG / Ni trofurantoin, Monohydrate 75 MG Oral Capsule Nitrofurantoin Monohydrate/Macrocrystals 11/21/2019 12:00:00 AM EDT completed [facility] ([facility]) Sulfasalazine 500 MG Delayed Release Ora l Tablet sulfasalazine 500 mg tablet,delayed release sulfasalazine 500 mg tablet,delayed release 11/13/2019 12:00:00 AM EDT active TAKE THR EE TABLETS BY MOUTH TWICE A DAY [facility] ([facility]) Metformin hydrochloride 500 MG Oral Tablet Metformin 10/19 11:56:50 AM EDT 500 MG active [facility] Trazodone Hydrochloride 300 MG Oral Tablet Trazodone 10/19 11:25:57 AM EDT 300 MG active [facility] Fluconazole 150 MG Oral Tablet [Diflucan] Diflucan 10/16/2019 1 2:00:00 AM EDT ORAL completed [facility] ([facility]) Metronidazole 500 MG Oral Tablet [Flagyl] Flagyl 10/16/2019 12:00 :00 AM EDT ORAL completed [facility] ([facility]) Epinephrine Epinephrine (Epipen) 0.3 mg/0.3 mL auto-in jector Epinephrine (Epipen) 0.3 mg/0.3 mL auto-injector 09/11/2019 02:18:17 PM EDT 0.3 MG active [facility] Trazodone Hydrochloride 150 MG Oral Tablet trazodone 09/01 12:00:00 AM EDT 150 mg completed [id number] trazodone 09/02/2019 150 mg tablet 25145 [id number] Michele Jim [id number] Nurse Dasia le [facility] ([facility]) Prazosin 1 MG Oral Capsule prazosin 09/02/2019 12:00:00 AM EDT 1 mg by mouth completed [id number] prazosin by mouth [id number] 09/02/2019 at bedtime 30 1 mg capsule 16109 [id number] Michele Jim [id number] Nurse Practitioner [facility] ([facility]) Metformin hydrochloride 500 MG Oral Tablet Metformin 08/24 09:53:42 AM EDT [address] [facility] Mirtazapine 15 MG Oral Tablet Mirtazapine 08/25/2019 09:32:14 AM EDT 15 MG active [facility] Mirtazapine 15 MG Oral Tablet Mirtazapine 08/25/2019 09:32:14 AM EDT 15 MG completed [facility] Trazodone Hydrochloride 50 MG Oral Tablet Trazodone 2019 09:31:13 AM EDT [address] [facility] Trazodone Hydrochloride 50 MG Oral Tablet Trazodone 2019 09:31:13 AM EDT 50 MG active [facility] Lurasidone Hydrochloride 20 MG Oral Tablet Lurasidone 08/25/2019 09:30:32 AM EDT 20 MG active [facility] Lurasidone Hydrochloride 20 MG Oral Tablet Lurasidone (Latuda) 20 mg tablet Lurasidone (Latuda) 20 mg tablet 08/25/2019 09:30:32 AM EDT 20 MG active [facility] Folic Acid 1 MG Oral Tablet folic acid 1 mg tablet folic aci d 1 mg tablet 07/14/2019 12:00:00 AM EDT 1 {tbl} ORAL active take 1 Tablet by oral route every day [facility] ([facility]) meloxicam 7.5 MG Oral Tablet meloxicam 7.5 mg tablet meloxic am 7.5 mg tablet 07/14/2019 12:00:00 AM EDT active take 1-2 tablet by oral route every day prn pain [facility] ([facility]) Sulfasalazine 500 MG Delayed Release Ora l Tablet sulfasalazine 500 mg tablet,delayed release sulfasalazine 500 mg tablet,delayed release 07/14/2019 12:00:00 AM EDT completed TAKE TWO TABLETS BY MOUTH TWICE A DAY [facility] ([facility]) Sulfasalazine 500 MG Delayed Release Ora l Tablet sulfasalazine 500 mg tablet,delayed release sulfasalazine 500 mg tablet,delayed release 07/08/2019 12:00:00 AM EDT completed TAKE TWO TABLETS BY MOUTH TWICE A DAY [facility]) Lurasidone Hydrochloride 20 MG Oral Tablet [Latuda] Latuda 06/28/2019 12:00:00 AM EDT 20 mg by mouth completed [id number] Latuda by mouth [id number] 06/28/2019 11/01/2019 once a day 30 20 mg tablet as directed [id number] Michele Jim [id number] Nurse Practitioner Shavon cali ([facility]) Lurasidone Hydrochloride 20 MG Oral Tablet [Latuda] Latuda 06/28/2019 12:00:00 AM EDT 20 mg by mouth completed [id number] Latuda by mouth [id number] 06/28/2019 09/21/2019 once a day 30 20 mg tablet as directed 94730 [id number] Michele Jim [id number] Nurse Practitioner Shavon cali ([facility]) Mirtazapine 30 MG Oral Tablet mirtazapine 05/28/2019 12:00:00 AM EDT 30 mg by mouth completed [id number] mirtazapine by mouth [id number] 05/2707/27/2019 at bedtime 30 30 mg tablet 14675 [id number] Geena Jim [id number] Nurse Practitioner [facility] ([facility]) Lurasidone Hydrochloride 20 MG Oral Tablet [Latuda] Latuda 05/28/2019 12:00:00 AM EDT 20 mg by mouth completed [id number] Latuda by mouth [id number] 05/28/2019 07/27/2019 once a day 30 20 mg tablet with meals 83430 1 [id number] Michele Jim [id number] Nurse Practitioner [facility] ([facility]) Mirtazapine 30 MG Oral Tablet mirtazapine 05/28/2019 12:00:00 AM EDT 30 mg by mouth completed [id number] mirtazapine by mouth [id number] 05/2709/21/2019 at bedtime 30 30 mg tablet 79189 306018 [id number] Geena Jim [id number] Nurse Practitioner [facility] ([facility]) Mirtazapine 30 MG Oral Tablet mirtazapine 05/28/2019 12:00:00 AM EDT 30 mg by mouth completed 111708 mirtazapine by mouth [id number] 05/2709/21/2019 at bedtime 30 30 mg tablet 73930 [id number] Geena Jim [id number] Nurse Practitioner [facility] ([facility]) quetiapine 50 MG Oral Tablet [Seroquel] Seroquel 05/13/2019 12: 00:00 AM EDT 50 mg by mouth completed [id number] Seroquel by mouth [id number] 05/13/2019 05/28/2019 at bedtime 30 50 mg tablet 78076 002240 [id number] Geena Jim [id number] Nurse Practitioner [facility] ([facility]) Trazodone Hydrochloride 50 MG Oral Tablet trazodone 2019 12:00:00 AM EDT 50 mg by mouth completed [id number] trazodone by mouth [id number] 05/13/2019 06/27/2019 at bedtime 30 50 mg tablet 79365 [id number] [id number] Geena Jim [id number] Nurse Practitioner [facility] ([facility]) quetiapine 25 MG Oral Tablet [Seroquel] Seroquel 04/15/2019 12: 00:00 AM EST 25 mg by mouth completed [id number] Seroquel by mouth [id number] 04/15/2019 05/15/2019 at bedtime 30 25 mg tablet 34465 [id number] Geena Jim [id number] Nurse Practitioner [facility] ([facility]) Doxycycline Monohydrate 100 MG Oral Capsule Doxycycline [place] hydrate 04/08/2019 12:00:00 AM EST completed [facility] ([facility]) Fluconazole 150 MG Oral Tablet Fluconazole 04/08/2019 12:00:00 AM EST ORAL completed [facility] ([facility]) Fluoxetine 20 MG Oral Capsule [Prozac] Prozac 04/01/2019 12:0 0:00 AM EST 20 mg by mouth completed [id number] Prozac by mouth [id number] 0 04/01/2019 11/01/2019 every morning 30 20 mg capsule 46260 [id number] Tammi Jim [id number] Nurse Practitioner [facility] ([facility]) Fluoxetine 20 MG Oral Capsule [Prozac] Prozac 04/01/2019 12:0 0:00 AM EST 20 mg by mouth completed [id number] Prozac by mouth [id number] 0 04/01/2019 09/21/2019 every morning 30 20 mg capsule 62644 [id number] Tammi Jim [id number] Nurse Practitioner [facility] ([facility]) Trazodone Hydrochloride 100 MG Oral Tablet trazodone 04/01 12:00:00 AM EST 100 mg by mouth completed [id number] trazodone by mout h [id number] 04/01/2019 05/01/2019 at bedtime 30 100 mg tablet 91053 [id number] Michele Jim [id number] Nurse Practitioner [facility] ([facility]) pantoprazole 20 MG Delayed Release Oral Tablet Pantoprazole Pantoprazole 03/28/2019 02:02:53 PM EST [address] [facility] pantoprazole 20 MG Delayed Release Oral Tablet Pantoprazole Pantoprazole 03/28/2019 02:02:53 PM EST [address] [facility] Lurasidone Hydrochloride 20 MG Oral Tablet [Latuda] Latuda 03/18/2019 12:00:00 AM EST 20 mg by mouth completed [id number] Latuda by mouth [id number] 03/18/2019 05/28/2019 once a day 30 20 mg tablet with meals 44306 1 97142 [phone] Michele Jim [id number] Nurse Practitioner Shavon cali ([facility]) Lurasidone Hydrochloride 20 MG Oral Tablet [Latuda] Latuda 03/18/2019 12:00:00 AM EST 20 mg by mouth completed [id number] Latuda by mouth [id number] 03/18/2019 05/15/2019 once a day 30 20 mg tablet with meals 91047 1 52474 [id number] Michele Jim [id number] Nurse Practitioner Shavon cali ([facility]) Cyclobenzaprine hydrochloride 5 MG Oral Tablet cyclobe nzaprine 5 mg tablet cyclobenzaprine 5 mg tablet 03/10/2019 12:00:00 AM EST ORAL active take 0.5 - 1 tabs by Oral route every bedtime as needed [facility] ([facility]) Please funeral counselor. Sulfasalazine 500 MG Delayed Release Ora l Tablet sulfasalazine 500 mg tablet,delayed release sulfasalazine 500 mg tablet,delayed release 03/10/2019 12:00:00 AM EST completed TAKE TWO TABLETS BY MOUTH TWICE A DAY [facility] ([facility]) lorcaserin hydrochloride 10 MG Oral Tablet Lorcaserin (Belviq) 10 mg tablet Lorcaserin (Belviq) 10 mg tablet 02/21/2019 11:11:46 AM EST 10 MG completed [facility] lorcaserin hydrochloride 10 MG Oral Tablet Lorcaserin Lorcas george 02/21/2019 11:11:46 AM EST [address] [facility] olanzapine 10 MG Oral Tablet Olanzapine Olanzapine 02/21/2019 11: 02:37 AM EST 10 MG completed [facility] olanzapine 10 MG Oral Tablet Olanzapine (Zyprexa) 10 m g tablet Olanzapine (Zyprexa) 10 mg tablet 02/21/2019 11:02:37 AM EST [address] [facility] Trazodone Hydrochloride 100 MG Oral Tablet Trazodone 11/07 09:37:10 AM EDT [address] [facility] Trazodone Hydrochloride 100 MG Oral Tablet Trazodone 11/07 09:37:10 AM EDT [address] [facility] Fluoxetine 20 MG Oral Capsule Fluoxetine 11/07/2018 09:35:59 AM EDT 20 MG completed [facility] Fluoxetine 20 MG Oral Capsule Fluoxetine (Prozac) 20 m g capsule Fluoxetine (Prozac) 20 mg capsule 11/07/2018 09:35:59 AM EDT [address] [facility] folic acid 1 mg tablet Folic [...] need ed [facility] ([facility]) Please funeral counselor. pantoprazole 20 MG Delayed Release Oral Tablet Pantoprazole Pantoprazole 12/27/2017 03:47:00 PM EDT [address] [facility] pantoprazole 20 MG Delayed Release Oral Tablet Pantoprazole Pantoprazole 12/27/2017 03:47:00 PM EDT [address] [facility] Epinephrine Epinephrine (Epipen 2-Missael) 0.3 MG/0.3 ML a uto-injector Epinephrine (Epipen 2-Missael) 0.3 MG/0.3 ML auto-injector 12/25/2017 12:58:00 PM EDT 0.3 MG completed [facility] Ergocalciferol [id number] UNT Oral Capsule Vitamin D2 50,00 0 unit capsule Vitamin D2 50,000 unit capsule 1.00 {capsule} ORAL completed take 1 capsule by oral route every week [facility] ([facility]) Melatonin 3 MG Oral [...] by oral route every day before bedtime [facility] ([facility]) olanzapine 10 MG Oral Tablet [Zyprexa] Zyprexa 10 mg t ablet Zyprexa 10 mg tablet 1.00 {tbl} ORAL completed olanzapine 10 MG Oral Tablet [Zyprexa] [facility] ([facility]) Fluoxetine 10 MG Oral Capsule [Prozac] Prozac 10 mg ca psule Prozac 10 mg capsule 3 {capsule} ORAL completed Fluoxetine 10 MG Oral Capsule [Prozac] [facility] ([facility]) Trazodone Hydrochloride 50 MG Oral Tablet trazodone 50 mg tablet trazodone 50 mg tablet 1.00 {tbl} ORAL completed ta ke 1 tablet by oral route every day at bedtime [facility] ([facility]) Insurance Providers Payer name Policy type / Coverage type Policy ID Covered green party ID Covered green party's relationship to rowland Policy [place] Plan Information [facility] [id number] SP [id number] [facility] [id number] SP [id number] [facility] COMM[facility] PLAN [id number] [facility] XIX [id number] 18 [id number] [facility] O [id number] S [id number] [facility] [id number] SP [id number] [facility] Communty Plan Medicaid [id number] Self 11 [id number] [facility] Medicaid [id number] Self 11 [id number] [facility] Medicaid [id number] Self 11 [id number] [facility] I [id number] Self [id number] [facility] Plan Medicaid [id number] Self [id number] [facility] Plan Medicaid [id number] Self 11 [id number] [facility] [id number] 18 [id number] [facility] Medicaid [id number] Self [id number] [facility] PL[facility] MCDO [id number] SP [id number] [facility] Medicaid [id number] Self [id number] [facility] Medicaid [id number] Self [id number] MEDICAID [id number] SP [id number] MEDICAID M [id number] Self [id number] EXCELLUS H [id number] Self [id number] [employer] [place] [id number] SP [id number] [employer] [place] PPO 302/[id number] SP [id number] Problems, Conditions, and Diagnoses Code Display Name Description Problem Type Effective Dates Data Source(s) F31.9 Bipolar disorder, unspecified Unspecified Bipola r and Related Disorder Condition 03/16/2020 12:00:00 AM EST [facility] ([facility]) F29 Unspecified psychosis not du e to a substance or known physiological condition Unspecified Schizophrenia Spectrum and Other Psychotic Disorder Condition 03/16/2020 12:00:00 AM EST [facility] ([facility]) [id number] Cervical intraepithelial neoplasia grade 2 Cervical intraepithelial neoplasia grade 2 Problem 01/14/2020 12:00:00 AM EST [facility] ([facility]) N766 Ulceration of vulva Ulceration of vulva Diagnosis 1 03/20/2019 03:17:00 PM EST [facility] Z3202 Encounter for test, result neg ative Encounter for test, result negative Diagnosis 01/14/2020 02:43:00 PM EST [facility] N760 Acute vaginitis Acute vaginitis Diagnosis 01/14/2020 02:4 3:00 PM EST [facility] [id number] Encounter for surgical after care following surgery on the genitourinary system Encounter for surgical aftercare followi ng surgery on the genitourinary system Diagnosis 12/24/2019 02:55:00 PM EDT [facility] N871 Moderate cervical dysplasia Moderate cervical dysplasi a Diagnosis 12/01/2019 10:30:00 AM EDT [facility] P30007 High grade squamous intraepi thelial lesion on cytologic smear of cervix (HGSIL) High grade squamous intraepithelial lesi on on cytologic smear of cervix (HGSIL) Diagnosis 11/19/2019 01:33:00 PM EDT [facility] [id number] Encounter for other preprocedural examin ation Encounter for other preprocedural examination Diagnosis 11/19/2019 01:33:00 PM EDT [facility] [id number] Encounter for gynecological examination (general) (routine) without abnormal findings Encounter for gynecological examination (general) (routine) without abnormal findings Diagnosis 08/25/2019 02:46:00 PM EDT [facility] Surgeries/Procedures Procedure Description Date Indications Data Source(s) [facility] Telemed E/M Lvl 3--Est pt 03/16/2020 12:00:00 AM EST - 03/16/2020 12:00:00 AM EST [facility] ([facility]) [facility] Telemed E/M Lvl 3--Est pt 03/16/2020 12:00:[address] [facility] ([facility]) [facility] Telemed E/M Lvl 3--Est pt 02/02/2020 12:00:00 AM EST - 02/02/2020 12:00:00 AM EST [facility] ([facility]) [facility] Telemed E/M Lvl 3--Est pt 02/02/2020 12:00:[address] [facility] ([facility]) OFFICE/OUTPATIENT VISIT, EST 11/13/2019 12:00:00 AM EDT - 11/13/2019 12:00:00 AM EDT [facility] ([facility]) ROUTINE VENIPUNCTURE 11/13/2019 12:00:00 AM EDT - 11/13/2019 12:00:00 AM EDT [facility] ([facility]) TEMPMHCTelemed 30" Psychotherapy 020 12:00:00 AM EDT - 09/04/2019 12:00:00 AM EDT [facility] ([facility]) TEMPMHCTelemed 30" Psychotherapy 09/04/2019 12:00:00 A M EDT [facility] ([facility]) MHC Telemed E/M Lvl 3--Est pt 09/02/2019 12:00:00 AM EDT - 09/02/2019 12:00:00 AM EDT [facility] ([facility]) MHC Telemed E/M Lvl 3--Est pt 09/02/2019 12:00:00 AM E DT [facility] ([facility]) TEMPMHCTelemed 30" Psychotherapy 020 12:00:00 AM EDT - 08/07/2019 12:00:00 AM EDT [facility] ([facility]) TEMPMHCTelemed 30" Psychotherapy 08/07/2019 12:00:00 A M EDT [facility] ([facility]) MHC Telemed E/M Lvl 3--Est pt 07/23/2019 12:00:00 AM EDT - 07/23/2019 12:00:00 AM EDT [facility] ([facility]) MHC Telemed E/M Lvl 3--Est pt 07/23/2019 12:00:00 AM E DT [facility] ([facility]) OFFICE/OUTPATIENT VISIT, EST 07/14/2019 12:00:00 AM EDT - 07/14/2019 12:00:00 AM EDT [facility] ([facility]) ROUTINE VENIPUNCTURE 07/14/2019 12:00:00 AM EDT - 07/14/2019 12:00:00 AM EDT [facility] ([facility]) MRI Upper Extremity Any Joint 07/11/2019 12:00:00 AM E DT [facility] ([facility]) MRI Upper Extremity Any Joint 07/11/2019 12:00:00 AM E DT [facility] ([facility]) TEMPMHCTelemed 20" psychotherapy 020 12:00:00 AM EDT - 07/10/2019 12:00:00 AM EDT [facility] ([facility]) TEMPMHCTelemed 20" psychotherapy 07/10/2019 12:00:00 A M EDT [facility] ([facility]) RADEX ANKLE COMPLETE MINIMUM 3 VIEWS 07/03/2019 12:00: 00 AM EDT [facility] ([facility]) MHC Telemed E/M Lvl 3--Est pt 05/28/2019 12:00:00 AM EDT - 05/28/2019 12:00:00 AM EDT [facility] ([facility]) MHC Telemed E/M Lvl 3--Est pt 05/28/2019 12:00:00 AM E DT [facility] ([facility]) RADEX ANKLE COMPLETE MINIMUM 3 VIEWS 05/27/2019 12:00: 00 AM EDT [facility] ([facility]) OFFICE OUTPATIENT VISIT 15 MINUTES 05/12 12:00:00 AM EDT - 05/13/2019 12:00:00 AM EDT [facility] ([facility]) OFFICE OUTPATIENT VISIT 15 MINUTES 05/13/2019 12:00:00 AM EDT [facility] ([facility]) FX Medial Malleolus W/O Manipulation 05/05/2019 12:00: 00 AM EST [facility] ([facility]) CLTX TIBIAL SHAFT FX W/O MANIPULATION 05/05/2019 12:00 :00 AM EST [facility] ([facility]) Extended Individual Psychotherapy - 45 min 05/02/2019 12:00:00 AM EST - 05/02/2019 12:00:00 AM EST [facility] ([facility]) Extended Individual Psychotherapy - 45 min 0 12:00:00 AM EST [facility] ([facility]) MRI Lower Extremity Any Joint 05/01/2019 12:00:[address] [facility] ([facility]) Extended Individual Psychotherapy - 45 min 04/17/2019 12:00:00 AM EST - 04/17/2019 12:00:00 AM EST [facility] ([facility]) Extended Individual Psychotherapy - 45 min 0 12:00:00 AM EST [facility] ([facility]) OFFICE OUTPATIENT VISIT 15 MINUTES 04/15 12:00:00 AM EST - 04/15/2019 12:00:00 AM EST [facility] ([facility]) OFFICE OUTPATIENT VISIT 15 MINUTES 04/15/2019 12:00:00 AM EST [facility] ([facility]) Brief Individual Psychotherapy - 30 min 04/01/2019 12:00:00 AM EST - 04/01/2019 12:00:00 AM EST [facility] ([facility]) Brief Individual Psychotherapy - 30 min 04/01/2019 12: 00:00 AM EST [facility] ([facility]) OFFICE OUTPATIENT VISIT 15 MINUTES 04/01 12:00:00 AM EST - 04/01/2019 12:00:00 AM EST [facility] ([facility]) OFFICE OUTPATIENT VISIT 15 MINUTES 04/01/2019 12:00:00 AM EST [facility] ([facility]) PREVENT MED INSTRUCTIONAL LEADER&/RISK FACTOR REDJ SPX 15 MIN 04/01/2019 12:00:00 AM EST - 04/01/2019 12:00:00 AM EST [facility] ([facility]) PREVENT MED INSTRUCTIONAL LEADER&/RISK FACTOR REDJ SPX 15 MIN 04/01 12:00:00 AM EST [facility] ([facility]) Psychiatric Diagnostic Evaluation with Medical Services 03/18/2019 12:00:00 AM EST - 03/18/2019 12:00:00 AM EST [facility] ([facility]) Psychiatric Diagnostic Evaluation with Medical Services 03/18/2019 12:00:00 AM EST [facility] ([facility]) Psychiatric Diagnostic Evaluation (Non-Medical) 03/14/2019 12:00:00 AM EST - 03/14/2019 12:00:00 AM EST [facility] ([facility]) Psychiatric Diagnostic Evaluation (Non-Medical) 2019 12:00:00 AM EST [facility] ([facility]) OFFICE/OUTPATIENT VISIT, EST 03/10/2019 12:00:00 AM EST - 03/10/2019 12:00:00 AM EST [facility] ([facility]) ROUTINE VENIPUNCTURE 03/10/2019 12:00:00 AM EST - 03/10/2019 12:00:00 AM EST [facility] ([facility]) Extended Individual Psychotherapy - 45 min 02/21/2019 12:00:00 AM EST - 02/21/2019 12:00:00 AM EST [facility] ([facility]) Extended Individual Psychotherapy - 45 min 9 12:00:00 AM EST [facility] ([facility]) Results ID Date Data Source [id number] 02/10/2020 12:00:00 AM EST [facility] Name Value Range Interpretation Code Description Data Anahy rce(s) Supporting Document(s) SARS coronavirus 2 Ag [facility] This lab was ordered by [facility] and reported by [facility]. ID Date Data Source [id number] 02/02/2020 12:00:00 AM EST [facility] Name Value Range Interpretation Code Description Data Anahy rce(s) Supporting Document(s) SARS coronavirus 2 Ag [facility] This lab was ordered by [facility] and reported by [facility]. ID Date Data Source [id number] 01/27/2020 12:00:00 AM EST [facility] Name Value Range Interpretation Code Description Data Anahy rce(s) Supporting Document(s) SARS coronavirus 2 Ag [facility] This lab was ordered by [facility] and reported by [facility]. ID Date Data Source [id number] 01/26/2020 12:00:00 AM EST [facility] Name Value Range Interpretation Code Description Data Anahy rce(s) Supporting Document(s) SARS coronavirus 2 Ag [facility] This lab was ordered by [facility] and reported by [facility]. ID Date Data Source [id number] 01/19/2020 03:50:00 PM EST [facility] ([facility]) Name Value Range Interpretation Code Description Data Anahy rce(s) Supporting Document(s) Culture Herpes Simpl Laboratory test result [facility] ([facility]) {SOURCE: Genital~.~.~N76.6 Source: Laboratory test result [facility] ([facility]) {SOURCE: Genital~.~.~N76.6 ID Date Data Source [id number] 01/23/2020 06:48:00 AM EST [facility] Name Value Range Interpretation Code Description Data Anahy rce(s) Supporting Document(s) CULTURE HERPES SIMPLEX [facility] _CULTURE HERPES SIMPLEX_ SOURCE: Genital [facility] $$[id number] DATE/TIME: 01/22/2020 1 5:06Culture: CULTURE HERPES SIMPLEX Status: FinalIsolate 1 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 . . . . . .1PositiveTyping was confirmed by monoclonal antibody microscopicimmunofluorescence.HSV Culture/Type: W0Ceukqo simplex virus type 1 Flag: AP1 [facility]: [id number] [address] [facility] [id number] [facility] [id number] Director : Manuel Schofield MD NPI #:[employer] Manager : [email or web address] REF ID Date Data Source [id number] 01/14/2020 03:44:00 PM EST [facility] ([facility]) Name Value Range Interpretation Code Description Data Anahy rce(s) Supporting Document(s) Bacteria identified in Urine by Culture Laboratory test result [facility] ([facility]) ID Date Data Source [id number] 01/14/2020 03:44:00 PM EST [facility] ([facility]) Name Value Range Interpretation Code Description Data Anahy rce(s) Supporting Document(s) Z#Other Observations Laboratory test result [facility] ([facility]) ID Date Data Source [id number] 01/14/2020 03:44:00 PM EST [facility] ([facility]) Name Value Range Interpretation Code Description Data Anahy rce(s) Supporting Document(s) Source: Laboratory test result [facility] ([facility]) {SOURCE: Genital Nataly species Laboratory test result [facility] ([facility]) {SOURCE: Genital Gardnerella vaginalis Laboratory test result Abn ormal (applies to non-numeric results) [facility] ([facility]) {SOURCE: Genital Trichomonas vaginalis Laboratory test result [facility] ([facility]) {SOURCE: Genital ID Date Data Source [id number] 01/14/2020 03:44:00 PM EST [facility] ([facility]) Name Value Range Interpretation Code Description Data Anahy rce(s) Supporting Document(s) Source: Laboratory test result [facility] ([facility]) {SOURCE: Genital Trich vag by [place] Laboratory test result [facility] ([facility]) {SOURCE: Genital Gonococcus by [facility] Laboratory test result [facility] ([facility]) {SOURCE: Genital Chlamydia by [facility] Laboratory test result [facility] ([facility]) {SOURCE: Genital ID Date Data Source [id number] 01/14/2020 03:44:00 PM EST [facility] ([facility]) Name Value Range Interpretation Code Description Data Anahy rce(s) Supporting Document(s) Culture Urine Laboratory test result [facility] ([facility]) {SOURCE: Genital ID Date Data Source [id number] 01/18/2020 12:14:00 PM [facility] Name Value Range Interpretation Code Description Data Anahy rce(s) Supporting Document(s) CULTURE URINE [facility] _CULTURE URINE_$$[id number]$$[id number]$$[id number]$$[id number]$$[id number]$$[id number]$$[id number]$$[id number]$$[id number]$$ [id number]$$[id number]$$709697$$333230$$[id number]$$701953$$994909$$618916$$623497$$627788$$ 839794$$[id number]$$868306$$987434$$880809$$[id number]$$[id number]$$[id number] -- Continued on next page --Patient: TANISHA Alejandre Order: [id number] Page 2Culture: CULTURE URINE Status: Final ==== -- Continued on next page --Patient: TANISHA Alejandre Order: [id number] Page 2Culture: CULTURE URINE Status: Prelim =====[id number] DATE/TIME: 01/18/2020 12:05Culture: CULTURE URINE Status: FinalUrine Culture,Comprehensive: [id number] urogenital flora5,000 Colonies/mL Previous result entered on 01/17/2020 06:17 ET Specimen has been received and testing has been initiated.P1 Test performed by: [facility] #: [id number] [address] [place] [id number] [facility] [id number] Director : Manuel Schofield MD NPI #:[employer] Manager : 01/17/20.0711.XMT.SENT REF 01/18/20.1214.XMT.SENT REF ID Date Data Source [id number] 01/18/2020 06:42:00 AM EST [facility] Name Value Range Interpretation Code Description Data Anahy rce(s) Supporting Document(s) SOURCE: Random Void [facility] Chlamydia trachomatis rRNA [Presence] in Unspecified specimen by Probe and target amplification method Negative Negative [facility] Neisseria gonorrhoeae rRNA [Presence] in Unspecified specimen by Probe and target amplification method Negative Negative [facility] Trichomonas vaginalis DNA [Presence] in Unspecified specimen by Probe and target amplification method Negative Negative [facility] ID Date Data Source [id number] 01/16/2020 09:01:00 PM EST [facility] Name Value Range Interpretation Code Description Data Anahy rce(s) Supporting Document(s) SOURCE: Genital [facility] Nataly sp rRNA [Presence] in Vaginal fluid by DNA probe Negative N egative [facility] Gardnerella vaginalis rRNA [Presence] in Genital specimen by DNA probe Positive Negative A [facility] Trichomonas vaginalis rRNA [Presence] in Genital specimen by DNA probe Negative Negative [facility] ID Date Data Source [id number] 01/14/2020 03:12:00 PM EST [facility] ([facility]) Name Value Range Interpretation Code Description Data Anahy rce(s) Supporting Document(s) Inhouse Urine Test Laboratory test result [facility] ([facility]) ID Date Data Source [id number] 01/14/2020 03:12:00 PM EST [facility] ([facility]) Name Value Range Interpretation Code Description Data Anahy rce(s) Supporting Document(s) Appearance of Urine Laboratory test result [facility] ([facility]) Spec [place] 1.005 [facility] ([facility]) pH of Urine by Test strip 7 [facility] NT ([facility]) Color of Urine Laboratory test result [facility] ([facility]) Protein [Presence] in Urine by Test strip Laboratory test result [facility] ([facility]) Nitrate [Presence] in Urine Laboratory test result [facility] ([facility]) Leukocytes Laboratory test result [facility] ([facility]) Inhouse Glucose Laboratory test result [facility] ([facility]) Ketones [Presence] in Urine by Test strip Laboratory test result [facility] ([facility]) Urobilinogen Laboratory test result [facility] ([facility]) Blood type and Indirect antibody screen panel - Blood Laboratory test result [facility] ([facility]) Bilirubin.total [Presence] in Urine by Test strip Laboratory test res ult [facility] ([facility]) ID Date Data Source [id number] 12/02/2019 03:35:00 [place] [address] OPERATIVE SUMMARYNAME: TANISHA BARRETO Star DATE OF : 1985ATTENDING PHYS: TROY Tavares MD DATE: 12/01/19 MR#: [id number] PROCEDURE: 12/01/19PREOPERATIVE DIAGNOSIS: TONY 2 with endocervical involvement.POSTOPERATIVE DIAGNOSIS: TONY 2 with endocervical involvement.FINDINGS: 1. Normal-appearing cervix. 2. Lugol negative areas noted at the 10 to 2 o'clock position anteriorly on the cervix.PROCEDURE: Cone biopsySURGEON: CROW MejíaTHESIA CARE PROVIDER: Jalil Walker CRNATYPE OF ANESTHESIA: MACESTIMATED BLOOD LOSS: 250 ccIV FLUID: 1200 cc LRURINE OUPUT: 160 ccDRAINAGE: None.IMPLANTS: None.SAW OFFBEARER: None.SPECIMEN: Cervical cone biopsyBLOOD ADMINISTERED: NoneCOMPLICATIONS: NoneDESCRIPTION OF PROCEDURE: After consent was reviewed with the patient and IV started,she was taken to the operating room where MAC anesthesia was administered without any [address] [place] [address] OPERATIVE SUMMARYNAME: TANISHA Alejandre DATE OF : 1985ATTENDING PHYS: TROY Tavares MD DATE: 12/01/19 MR#: [id number]. The patient was then placed in the [...] rce(s) Supporting Document(s) ID Date Data Source [id number] 11/25/2019 03:36:00 PM EDT [facility] ([facility]) Name Value Range Interpretation Code Description Data Anahy rce(s) Supporting Document(s) Appearance, Urine Laboratory test result Normal (applies to non-numeric results) [facility] ([facility]) PH,Urine 7.0 units 5.0-9.0 Normal (applies to non-numeric resul ts) [facility] ([facility]) Color, Urine Laboratory test result Normal (applies to non -numeric results) [facility] ([facility]) Specific [place] Urine Auto 1.013 1.002-1.035 Norm al (applies to non-numeric results) [facility] ([facility]) Ketone, Urine Auto Laboratory test result Normal (applies to non-numeric results) [facility]) Glucose, Urine (Ua) Auto Laboratory test result Normal (applies to non-numeric results) [facility] ([facility]) Protein, Urine Auto Laboratory test result Erica l (applies to non-numeric results) [facility] ([facility]) Urobilinogen, Urine Auto 0.2 mg/dL 0.0-2.0 Normal (applies to non-numeric results) [facility] ([facility]) Bilirubin, Urine Auto Laboratory test result Nor mal (applies to non-numeric results) [facility] ([facility]) Nitrite, Urine Auto Laboratory test result Erica l (applies to non-numeric results) [facility] ([facility]) Leukocyte Esterase, Urine Auto Laboratory test result Abov e high normal [facility]) WBC, Urine Auto 4 /HPF 0-3 Above high normal [facility] ([facility]) Blood, Urine Blood Laboratory test result Above high erica l [facility]) RBC, Urine Auto 3 /HPF 0-3 Normal (applies to non-numeric results) [facility] ([facility]) Squamous Epithelial Cell Ur AU 2 /HPF 0-6 N ormal (applies to non-numeric results) [facility] Bacteria, Urine Auto Laboratory test result Norm al (applies to non-numeric results) [facility] ([facility]) Hyaline Cast, Urine Auto 0 /LPF 0-1 Normal (applies to non -numeric results) [facility] ([facility]) ID Date Data Source [id number] 11/25/2019 03:36:00 PM EDT [facility] ([facility]) Name Value Range Interpretation Code Description Data Anahy rce(s) Supporting Document(s) Red Blood Count 4.08 10 4.00-5.40 Normal (applies to non-numeric results) [facility] ([facility]) Hemoglobin 12.5 g/dL 12.0-15.5 Normal (applies to non-numeric resul ts) [facility] ([facility]) White Blood Count 7.1 10 4.0-10.0 Normal (applies to non-numeri c results) [facility] ([facility]) Hematocrit 39.4 % 36.0-47.0 Normal (applies to non-numeric resul ts) [facility] Mean Corpuscular HGB Conc 31.7 g/dL 32.0-36.5 Below low normal [facility] ([facility]) Mean Corpuscular Volume 96.6 fl 80.0-96.0 Above high normal [facility] ([facility]) Mean Corpuscular Hemoglobin 30.6 pg 27.0-33.0 Norm al (applies to non-numeric results) [facility] ([facility]) Platelet Count, Automated 315 10 150-450 Normal (applies to non-numeric results) [facility]) Red Cell Distribution Width 12.1 % 11.5-14.5 Norm al (applies to non-numeric results) [facility] ([facility]) Nucleated Red Blood Cell % 0.0 % 0-0 Normal (applies to n on-numeric results) [facility] ([facility]) ID Date Data Source [id number] 11/25/2019 03:36:00 PM EDT [facility] ([facility]) Name Value Range Interpretation Code Description Data Anahy rce(s) Supporting Document(s) Choriogonadotropin.beta subunit [Moles/volume] in Seru m or Plasma Laboratory test result Normal (applies to non-numeric results) [facility] ([facility]) GESTATIONAL AGE APPROXIMATE HCG RANGE (MIU/ML) - [...] monitoring the treatment of cancer patients. Siemens [place] methodology. ID Date Data Source [id number] 11/21/2019 03:27:00 PM EDT [facility] ([facility]) Name Value Range Interpretation Code Description Data Anahy rce(s) Supporting Document(s) Bacteria identified in Urine by Culture Laboratory test result [facility] ([facility]) FULL REPORT IN LAB NOTES ([facility] and [facility] ). NO GROWTH CLINICAL SIGNIFICANCE 2 OR MORE ORGANISMS ID Date Data Source [id number] 11/18/2019 12:00:00 AM EDT [facility] Name Value Range Interpretation Code Description Data Anahy rce(s) Supporting Document(s) SARS coronavirus 2 RNA [Presence] in Res piratory specimen by [facility]ARE with probe detection [facility] This lab was ordered by [facility] and reported by [facility]. ID Date Data Source [id number] 11/13/2019 01:44:00 PM EDT [facility] ([facility]) Name Value Range Interpretation Code Description Data Anahy rce(s) Supporting Document(s) 16 U/L (11-39) AST (SGOT) [facility] ([facility]) Unless otherwise specified, testing perf ormed by [facility] [place] [address]

ID Date Data Source [id number] 11/13/2019 01:44:00 PM EDT [facility] ([facility]) Name Value Range Interpretation Code Description Data Anahy rce(s) Supporting Document(s) 0.90 mg/dL (0.60-1.00) CREATININE [facility] ([facility]) >60 (>59) GFR ( AMER) [facility] ([facility] [...] medication dosing.Unless otherwise specified, testing performed by [facility] [place] [address]

ID Date Data Source [id number] 11/13/2019 01:44:00 PM EDT [facility] ([facility]) Name Value Range Interpretation Code Description Data Anahy rce(s) Supporting Document(s) <0.3 (0.0-0.5) C REACTIVE PROTEIN @ [facility] ( [facility]) Unless otherwise specified, testing perf ormed by [facility] [address] [place] [id number]

ID Date Data Source [id number] 11/13/2019 01:44:00 PM EDT [facility] ([facility]) Name Value Range Interpretation Code Description Data Anahy rce(s) Supporting Document(s) 14 mm/h (0-20) ESR [facility] ([facility]) Unless otherwise specified, testing perf ormed by [facility] [address] [place] [address]

ID Date Data Source [id number] 11/13/2019 01:44:00 PM EDT [facility] ([facility]) Name Value Range Interpretation Code Description Data Anahy rce(s) Supporting Document(s) 4.37 10*6/uL (4.00-5.40) RBC [facility] ([facility]) 13.6 g/dL (12.0-16.0) HGB [facility] [...] otherwise specified, testing perf ormed by [facility] [address] [place] [address]

ID Date Data Source [id number] 11/13/2019 01:44:00 PM EDT [facility] ([facility]) Name Value Range Interpretation Code Description Data Anahy rce(s) Supporting Document(s) 4.1 g/dL (3.5-4.6) ALBUMIN [facility]) Unless otherwise specified, testing perf ormed by [facility] [address] [place] [id number]

ID Date Data Source [id number] 11/13/2019 01:44:00 PM EDT [facility] ([facility]) Name Value Range Interpretation Code Description Data Anahy rce(s) Supporting Document(s) 32 U/L (12-78) ALT (SGPT) [facility] ([facility]) Unless otherwise specified, testing perf ormed by [facility] [place] [facility] [address] [place] [address]

ID Date Data Source [id number] 11/13/2019 10:05:19 PM EDT Laboratory [facility] [...] - CORE MPV 7.7 fL (7.1-10.7) [facility] [place] [facility] [employer] - CORE NEUT % 69.4 % (35.0-75.0) [facility] - CORE LYMPH % 17.9 % (16.0-52.0) [facility] - CORE MONO % 7.9 % (0.0-8.0) [facility] [place] [facility] [employer] - CORE EOS % 4.3 % (0.0-5.0) [facility] [place] [facility] [employer] - CORE BASO % 0.5 % (0.0-4.0) [facility] [place] [facility] [employer] - CORE NEUT # 4.8 10*3/uL (1.8-7.7) [facility] - CORE LYMPH # 1.2 10*3/uL (1.2-4.8) Laboratory [facility] [place] - CORE MONO # 0.5 10*3/uL (0.0-0.8) Laboratory [facility] [place] - CORE Eosinophils [#/volume] in Blood by Automated count 0.3 10*3/uL (0.0-0 .5) [facility] [place] [facility] - CORE BASO # 0.0 10*3/uL (0.0-0.2) Laboratory [facility] - CORE ID Date Data Source 11/13/2019 10:13:32 PM EDT [facility] Name Value Range Interpretation Code Description Data Anahy rce(s) Supporting Document(s) ALBUMIN 4.1 g/dL (3.5-4.6) [facility] [place] [facility] ID Date Data Source 11/13/2019 10:13:32 PM EDT [facility] Name Value Range Interpretation Code Description Data Anahy rce(s) Supporting Document(s) ALT (SGPT) 32 U/L (12-78) [facility] [place] [facility] ID Date Data Source 11/13/2019 10:13:32 PM EDT [facility] Name Value Range Interpretation Code Description Data Anahy rce(s) Supporting Document(s) AST (SGOT) 16 U/L (11-39) [facility] [place] [facility] - [facility] ID Data Source 11/13/2019 10:13:32 PM EDT [facility] Name Value Range Interpretation Code Description Data Anahy rce(s) Supporting Document(s) CREATININE 0.90 mg/dL (0.60-1.00) [facility] - CORE GFR >60 ml/min/1.73m2 (>59) [facility] - CORE GFR ( AMER) >60 ml/min/1.73m2 (>59) [facility] [place] [facility] - CORE GFR INTERPRETATION [facility] [place] [facility] - CORE --NORMAL KIDNEY FUNCTION OR MILD DISEASE - GFR >OR= 60CHRONIC KIDNEY DISEASE - GFR 15 - 59RENAL FAILURE - GFR <15 Est. GFR calculation based on the MDRDstudy equation, which assumes a steadystate for creatinine. Est. GFR should notbe used for medication dosing. ID Date Data Source 11/13/2019 10:13:32 PM EDT [facility] Name Value Range Interpretation Code Description Data Anahy rce(s) Supporting Document(s) C REACTIVE PROTEIN @ <0.3 mg/dL (0.0-0.5) [facility]ato [facility] ID Date Data Source 11/13/2019 10:35:29 PM EDT [facility] Name Value Range Interpretation Code Description Data Anahy rce(s) Supporting Document(s) ESR 14 mm/h (0-20) Laboratory [facility] ID Date Data Source [id number] 11/11/2019 12:00:00 AM EDT [facility] Name Value Range Interpretation Code Description Data Anahy rce(s) Supporting Document(s) SARS coronavirus 2 RNA [Presence] in Res piratory specimen by CLARE with probe detection [facility] This lab was ordered by [facility] and reported by [facility]. ID Date Data Source [id number] 11/03/2019 12:00:00 AM EDT [facility] Name Value Range Interpretation Code Description Data Anahy rce(s) Supporting Document(s) SARS coronavirus 2 RNA [Presence] in Res piratory specimen by CLARE with probe detection [facility] This lab was ordered by [facility] and reported by [employer]. ID Date Data Source [id number] 10/27/2019 12:00:00 AM EDT [facility] Name Value Range Interpretation Code Description Data Anahy rce(s) Supporting Document(s) SARS coronavirus 2 RNA [Presence] in Res piratory specimen by CLARE with probe detection [facility] This lab was ordered by [facility] and reported by [employer]. ID Date Data Source [id number] 10/21/2019 12:00:00 AM EDT [facility] Name Value Range Interpretation Code Description Data Anahy rce(s) Supporting Document(s) SARS coronavirus 2 RNA [Presence] in Res piratory specimen by CLARE with probe detection [facility] This lab was ordered by [facility] and reported by [employer]. ID Date Data Source [id number] 10/20/2019 11:16:[address] [facility] Patient Name: MARY LOU GARAY : 1985 Sex: F Pt Unit #: [id number] Location:[facility] Provider: Visit Date/Time: 10/20/19 Primary Insurance: [facility] Secondary Insurance: Self Pay Intake Vital Signs [...] last visit. Patient reports only occasional diarrhea. Clinical Administrative Coordinator Required: No Accompanied by: Self / Same [...] Normal Medications:: Psychotropics HIV Testing Offer - [facility] HIV testing Offer: Yes Requirement for HIV [...] Screening Screening Have you traveled outside of [facility] or [facility] in the last 14 days.: No [facility] Medical History (Updated 10/20/19 @ 21:35 by [...] obesity due to excess calories SNOMED Code(s): [id number] Category: Medical Plan - Deysi Barron NP: [...] rce(s) Supporting Document(s) ID Date Data Source [id number] 10/13/2019 12:00:00 AM EDT [facility] Name Value Range Interpretation Code Description Data Anahy rce(s) Supporting Document(s) SARS coronavirus 2 RNA [Presence] in Res piratory specimen by CLARE with probe detection [facility] This lab was ordered by [facility] and reported by [employer]. ID Date Data Source [id number] 10/07/2019 12:00:00 AM EDT [facility] Name Value Range Interpretation Code Description Data Anahy rce(s) Supporting Document(s) SARS coronavirus 2 RNA [Presence] in Res piratory specimen by CLARE with probe detection [facility] This lab was ordered by [facility] and reported by [employer]. ID Date Data Source [id number] 09/30/2019 12:00:00 AM EDT [facility] Name Value Range Interpretation Code Description Data Anahy rce(s) Supporting Document(s) SARS coronavirus 2 RNA [facility] This lab was ordered by [facility] and reported by [facility]. ID Date Data Source [id number] 09/24/2019 10:54:00 AM EDT [facility] ([facility]) Name Value Range Interpretation Code Description Data Anahy rce(s) Supporting Document(s) Neisseria gonorrhoeae,Clare Laboratory test result [facility] ([facility]) {SOURCE: Random Void Source: Laboratory test result [facility] ([facility]) {SOURCE: Random Void Chlamydia trachomatis,Clare Laboratory test result [facility] ([facility]) {SOURCE: Random Void ID Date Data Source [id number] 09/24/2019 10:54:00 AM EDT [facility] ([facility]) Name Value Range Interpretation Code Description Data Anahy rce(s) Supporting Document(s) Chlamydia sp DNA [Presence] in Urine by Probe and targ et amplification method Laboratory test result [facility] ([facility]) ID Date Data Source [id number] 09/27/2019 06:33:00 AM EDT [facility] Name Value Range Interpretation Code Description Data Anahy rce(s) Supporting Document(s) SOURCE: Random Void [facility] Chlamydia trachomatis rRNA [Presence] in Unspecified specimen by Probe and target amplification method Negative Negative [facility] Neisseria gonorrhoeae rRNA [Presence] in Unspecified specimen by Probe and target amplification method Negative Negative [facility] ID Date Data Source [id number] 09/24/2019 10:29:00 AM EDT [facility] ([facility]) Name Value Range Interpretation Code Description Data Anahy rce(s) Supporting Document(s) Cervix Pathology biopsy report Laboratory test result [facility] ([facility]) Endocervical Biopsy Jar 1 Laboratory test result [facility] ([facility]) ID Date Data Source [id number] 09/24/2019 09:58:00 AM EDT [facility] ([facility]) Name Value Range Interpretation Code Description Data Anahy rce(s) Supporting Document(s) Inhouse Urine Test Laboratory test result [facility] ([facility]) ID Date Data Source [id number] 09/17/2019 12:00:00 AM EDT [facility] Name Value Range Interpretation Code Description Data Anahy rce(s) Supporting Document(s) SARS coronavirus 2 RNA [facility] This lab was ordered by [facility] and reported by [facility]. ID Date Data Source [id number] 09/11/2019 12:00:00 AM EDT [facility] Name Value Range Interpretation Code Description Data Anahy rce(s) Supporting Document(s) SARS coronavirus 2 RNA [facility] This lab was ordered by [facility] and reported by [facility]. ID Date Data Source [id number] 09/04/2019 01:05:00 PM EDT [facility] Name Value Range Interpretation Code Description Data Anahy rce(s) Supporting Document(s) SARS coronavirus 2 RNA [facility] This lab was ordered by [facility] and reported by [facility]. ID Date Data Source [id number] 08/28/2019 11:45:00 AM EDT [facility] Name Value Range Interpretation Code Description Data Anahy rce(s) Supporting Document(s) SARS CORONAVIRUS 2 RNA [facility] This lab was ordered by [facility] and reported by [facility]. ID Date Data Source [id number] 08/25/2019 03:54:00 PM EDT [facility] ([facility]) Name Value Range Interpretation Code Description Data Anahy rce(s) Supporting Document(s) Neisseria gonorrhoeae,Clare Laboratory test result [facility] ([facility]) {SOURCE: Genital~.~.~[id number] Source: Laboratory test result [facility] ([facility]) {SOURCE: Genital~.~.~Z01.419Z01.419 Chlamydia trachomatis,Clare Laboratory test result [facility] ([facility]) {SOURCE: Genital~.~.~Z01.419Z01.419 ID Date Data Source [id number] 08/29/2019 09:09:00 AM EDT [facility] Name Value Range Interpretation Code Description Data Anahy rce(s) Supporting Document(s) SOURCE: Genital [facility] Chlamydia trachomatis rRNA [Presence] in Unspecified specimen by Probe and target amplification method Negative Negative [facility] Neisseria gonorrhoeae rRNA [Presence] in Unspecified specimen by Probe and target amplification method Negative Negative [facility] ID Date Data Source [id number] 08/25/2019 11:11:[address] [facility] Method of Collection:: Clean Catch Name Value Range Interpretation Code Description Data Anahy rce(s) Supporting Document(s) Leukocytes [#/volume] in Blood by Automated count 6.3 10*3/uL 4.45-[address] [facility] Erythrocytes [#/volume] in Blood by Automated count 4.43 10*6/uL 4.20 -5.[address] [facility] Hemoglobin [Moles/volume] in Blood 14.1 g/dL 10.7-15.[address] [facility] Hematocrit [Volume Fraction] of Blood by Automated count 42.4 % 3 7-[address] [facility] Erythrocyte mean corpuscular volume [Ent itic volume] in Cord blood by Automated count 95.7 fL 80-96 N [facility] ital Erythrocyte mean corpuscular hemoglobin [Entitic mass] by Automated count 31.8 pg 27-31 Above high normal [facility] spital Erythrocyte mean corpuscular hemoglobin concentration [Mass/volume] in Cord blood 33.3 g/dL 33-37 N [facility] ital Erythrocyte distribution width [Entitic volume] by Automated count 12 % 11-[address] [facility] Platelets [#/volume] in Blood by Automated count 318 10*3/uL 130-[address] [facility] Platelet mean volume [Entitic volume] in Blood 9.0 fL 9.1-13. [address] [facility] Neutrophils/100 leukocytes in Blood by Automated count 63.5 % 41- [address] [facility] Neutrophils [#/volume] in Blood by Automated count 4.0 U 1.7-7.[address] [facility] Lymphocytes/100 leukocytes in Blood by Automated count 21.1 % 14- [address] [facility] Lymphocytes [#/volume] in Blood by Automated count 1.3 U 0.6-4.[address] [facility] Monocytes/100 leukocytes in Blood by Automated count 6.9 % 4-[address] [facility] Monocytes [#/volume] in Blood by Automated count 0.4 U 0.2-1.[address] [facility] Eosinophils/100 leukocytes in Blood by Automated count 7.7 % 0-[address] [facility] Eosinophils [#/volume] in Blood by Automated count 0.5 U 0.0-0.[address] [facility] Basophils/100 leukocytes in Blood by Automated count 0.6 % 0.4-[address] [facility] Basophils [#/volume] in Blood by Automated count 0.0 U 0.0-0.[address] [facility] NUCLEATED RED BLOOD CELL 0 % [facility] NUCLEATED RED BLOOD CELL# 0 U [facility] Immature granulocytes [Presence] in Blood by Automated count 0-[address] [facility] Immature granulocytes [#/volume] in Blood by Automated count 0.0 U 0-0.[address] [facility] Manual Differential panel - Blood NO [facility] ID Date Data Source [id number] 08/25/2019 11:55:[address] [facility] Method of Collection:: Clean Catch Name Value Range Interpretation Code Description Data Anahy rce(s) Supporting Document(s) Urea nitrogen [Mass/volume] in Serum or Plasma 14 mg/dL 9-[address] [facility] Sodium [Moles/volume] in Serum or Plasma 138 mmol/L 132-146 [facility] Potassium [Moles/volume] in Serum or Plasma 4.4 mmol/L 3.5-5.5 [facility] Chloride [Moles/volume] in Serum or Plasma 104 mmol/L 99-109 [facility] Carbon dioxide, total [Moles/volume] in Serum or Plasma 27 mmol/L 20 -31 [facility] Anion gap in Serum or Plasma 11 mmol/L 8-16 [facility] Glucose [Mass/volume] in Serum or Plasma 97 mg/dL 74-[address] [facility] Creatinine 0.9 mg/dL 0.5-1.1 [facility] Glomerular filtration rate/1.73 sq M.pre dicted [Volume Rate/Area] in Serum or Plasma Greater Than [address] [facility] Alanine aminotransferase [Enzymatic acti vity/volume] in Serum or Plasma by With P-5'-P 30 U/L 10-49 N [facility] ital Aspartate aminotransferase [Enzymatic ac tivity/volume] in Serum or Plasma by With P-5'-P 20 U/L 0-33 N [facility] pital Alkaline phosphatase [Enzymatic activity/volume] in Serum or Plasma 107 U/L 45-[address] [facility] Calcium [Mass/volume] in Serum or Plasma 9.2 mg/dL 8.5-10.[address] [facility] Bilirubin.total [Mass/volume] in Serum or Plasma 0.3 mg/dL 0.3-1.[address] [facility] Albumin [Mass/volume] in Serum or Plasma by Bromocresol purple (BCP) dye binding method 4.0 g/dL 3.2-4.8 N [facility] ital Protein [Mass/volume] in Serum or Plasma 7.4 g/dL 5.7-8.[address] [facility] ID Date Data Source [id number] 08/26/2019 08:09:00 AM [facility] Method of Collection:: Clean Catch Name Value Range Interpretation Code Description Data Anahy rce(s) Supporting Document(s) Thyroxine (T4) [Mass/volume] in Serum or Plasma 6.4 ug/dL 4.5-12.0 [facility] Performed at: RN - [facility] [place] [id number] Director: Jyoti Jackson MD, Phone: [phone] ID Date Data Source [id number] 08/25/2019 11:55:00 AM [facility] Method of Collection:: Clean Catch Name Value Range Interpretation Code Description Data Anahy rce(s) Supporting Document(s) Triglycerides 128 mg/dL 0-150 N [facility] Cholesterol 190 mg/dL 120-200 N [facility] HDL Cholesterol 52 mg/dL [facility] HDL Less than 40 mg/dL: Major risk for CHDHDL Greater than 59 mg/dL: Low risk for CHD LDL Cholesterol, Calc 113 mg/dL 0-[address] [facility] ID Date Data Source [id number] 08/25/2019 11:55:00 AM [facility] Method of Collection:: Clean Catch Name Value Range Interpretation Code Description Data Anahy rce(s) Supporting Document(s) Thyrotropin [Units/volume] in Serum or Plasma by Detec tion limit <= 0.005 mIU/L 1.87 u[iU]/mL 0.35-5.50 [facility] ID Date Data Source [id number] 08/25/2019 10:25:00 AM [facility] Method of Collection:: Clean Catch Name Value Range Interpretation Code Description Data Anahy rce(s) Supporting Document(s) Color of Urine [facility] Appearance of Urine CLEAR [facility] pH of Urine by Test strip 5.0 5-8 [facility] Specific gravity of Urine by Refractometry 1.025 1.005-1.030 [facility] Leukocyte esterase [Presence] in Urine by Test strip NEGAT [facility] Nitrite [Presence] in Urine by Test strip NEGATIVE [facility] Protein [Presence] in Urine by Test strip NEGATIVE [facility] Glucose [Mass/volume] in Urine by Automated test strip NEGATIVE NEG ATIVE [facility] Ketones [Presence] in Urine by Test strip NEGATIVE [facility] Urobilinogen [Presence] in Urine 0.2-1 EU/dl [facility] Bilirubin.total [Presence] in Urine by Automated test strip NEGATIVE [facility] Erythrocytes [#/volume] in Urine by Test strip NEGATIVE NEGATIVE [facility] URINE MICROSCOPIC? (CIF) NO [facility] ID Date Data Source [id number] [facility]OU [facility]AR[facility] : 1985 Sex: F Pt Unit #: [id number] Location:[facility] Provider: Visit Date/Time: 08/25/19 Primary Insurance: [facility] Secondary Insurance: Self Pay Intake Vital Signs [...] fasting today. Patients last labs were 11/20/18. Clinical Administrative Coordinator Required: No Accompanied by: Self / Same [...] Screening Screening Have you traveled outside of [facility] or [facility] in the last 14 days.: No Has patient experienced coronavirus symptoms: No [facility] Medical History abnormal pap smear allergies/hay fever [...] reports that she is followed by [facility] in [place] and Dr. Goss, a psychiatrist in [place]. She reports that she does not require [...] overweight Orientation: alert, awake and oriented x3 [facility] Head: normal to inspection, normocephalic and atraumatic [...] R63.5 - Abnormal weight gain SNOMED Code(s): 3857405 Category: Medical Plan - Deysi Barron NP: [...] F31.9 - Bipolar disorder, unspecified SNOMED Code(s): 098946081 Category: Medical Plan - Deysi Barron NP: Patient reports that she does have a d iagnosis of bipolar disorder. States that she is seeing a psychiatrist in [place] for this. States that she feels she [...] M06.9 - Rheumatoid arthritis, unspecified SNOMED Code(s): 73183334 Category: Medical Plan - Deysi Barron NP: Patient does report a history of rheumatoid arthritis. States that she does see a [facility]opedic [facility] in [place]. States that she does not see the same orthopedic coder every time, however she does see someone [...] rce(s) Supporting Document(s) ID Date Data Source [id number] 09/04/2019 10:11:34 AM EDT [facility] [email or web address] - CORE Name Value Range Interpretation Code Description Data Anahy rce(s) Supporting Document(s) HPV SOURCE [facility] [place] [facility] HPV GENOTYPE 16 [facility] Positive HPV GENOTYPE 18 45 [facility] [place] [facility] [employer] Negative INTERPRETIVE INFORMATION: HPV G enotypes 16, [...] in women under age 21. Performed by [facility], [address] [place] [id number] [email or web address], Jeffrey Haynes MD, Lab. Director ID Date Data Source [id number] 08/20/2019 12:05:00 PM EDT [facility] Name Value Range Interpretation Code Description Data Anahy rce(s) Supporting Document(s) SARS CORONAVIRUS 2 RNA [facility] This lab was ordered by [facility] and reported by [facility]. ID Date Data Source [id number] 08/14/2019 07:15:00 AM EDT [facility] Name Value Range Interpretation Code Description Data Anahy rce(s) Supporting Document(s) SARS CORONAVIRUS 2 RNA [facility] This lab was ordered by [facility] and reported by [facility]. ID Date Data Source [id number] 08/12/2019 11:30:00 AM EDT [facility] Name Value Range Interpretation Code Description Data Anahy rce(s) Supporting Document(s) SARS CORONAVIRUS 2 RNA [facility] This lab was ordered by [facility] and reported by [facility]. ID Date Data Source [id number] 08/06/2019 12:00:00 AM EDT [facility] Name Value Range Interpretation Code Description Data Anahy rce(s) Supporting Document(s) SARS CORONAVIRUS 2 RNA [facility] This lab was ordered by [facility] and reported by [facility]. ID Date Data Source [id number] 08/04/2019 10:30:00 AM EDT [facility] Name Value Range Interpretation Code Description Data Anahy rce(s) Supporting Document(s) SARS CORONAVIRUS 2 RNA [facility] This lab was ordered by [facility] and reported by [facility]. ID Date Data Source [id number] 07/31/2019 07:00:00 AM EDT [facility] Name Value Range Interpretation Code Description Data Anahy rce(s) Supporting Document(s) SARS CORONAVIRUS 2 RNA [facility] This lab was ordered by [facility] and reported by [facility]. ID Date Data Source [id number] 07/29/2019 07:00:00 PM EDT [facility] Name Value Range Interpretation Code Description Data Anahy rce(s) Supporting Document(s) SARS CORONAVIRUS 2 RNA [facility] This lab was ordered by [facility] and reported by [facility]. ID Date Data Source [id number] 07/25/2019 12:00:00 AM EDT [facility] Name Value Range Interpretation Code Description Data Anahy rce(s) Supporting Document(s) SARS CORONAVIRUS 2 RNA [facility] This lab was ordered by [facility] and reported by [facility]. ID Date Data Source [id number] 07/14/2019 03:44:00 PM EDT [facility] ([facility]) Name Value Range Interpretation Code Description Data Anahy rce(s) Supporting Document(s) 4.0 g/dL (3.5-4.6) ALBUMIN [facility] ([facility]) Unless otherwise specified, testing perf ormed by [facility] [place] [address]

ID Date Data Source [id number] 07/14/2019 03:44:00 PM EDT [facility] ([facility]) Name Value Range Interpretation Code Description Data Anahy rce(s) Supporting Document(s) 31 U/L (12-78) ALT (SGPT) [facility] ([facility]) Unless otherwise specified, testing perf ormed by [facility] [address] [place] [address]

ID Date Data Source [id number] 07/14/2019 03:44:00 PM EDT [facility] ([facility]) Name Value Range Interpretation Code Description Data Anahy rce(s) Supporting Document(s) 15 U/L (11-39) AST (SGOT) [facility] ([facility]) Unless otherwise specified, testing perf ormed by [facility] [place] [address]

ID Date Data Source [id number] 07/14/2019 03:44:00 PM EDT [facility] ([facility]) Name Value Range Interpretation Code Description Data Anahy rce(s) Supporting Document(s) >60 (>59) GFR [facility] 0.89 mg/dL (0.60-1.00) CREATININE [facility] [...] medication dosing.Unless otherwise specified, testing performed by [facility] [address] [place] [address]

ID Date Data Source [id number] 07/14/2019 03:44:00 PM EDT [facility] ([facility]) Name Value Range Interpretation Code Description Data Anahy rce(s) Supporting Document(s) <0.3 (0.0-0.5) C REACTIVE PROTEIN @ [facility] ( [facility]) Unless otherwise specified, testing perf ormed by [facility] [address] [place] [address]

ID Date Data Source [id number] 07/14/2019 03:44:00 PM EDT [facility] ([facility]) Name Value Range Interpretation Code Description Data Anahy rce(s) Supporting Document(s) 10 mm/h (0-20) ESR [facility] ([facility]) Unless otherwise specified, testing perf ormed by [facility] [place] [address]

ID Date Data Source [id number] 07/14/2019 03:44:00 PM EDT [facility] [...] otherwise specified, testing perf ormed by [facility] [place] [facility] [address] [place] [address]

0.4 10*3/uL (0.0-0.5) EOS # [facility] ([facility] [...] - CORE MPV 7.8 fL (7.1-10.7) [facility] [place] [facility] - [facility] NEUT % 54.8 % (35.0-75.0) [facility] - [facility] LYMPH % 28.5 % (16.0-52.0) [facility] - CORE MONO % 8.6 % (0.0-8.0) H [facility] [place] [facility] - CORE EOS % 7.1 % (0.0-5.0) H [facility] [place] [facility] - CORE BASO % 1.0 % (0.0-4.0) [facility] [place] [facility] - CORE NEUT # 3.1 10*3/uL (1.8-7.7) [facility] - CORE LYMPH # 1.6 10*3/uL (1.2-4.8) Laboratory [facility] - CORE MONO # 0.5 10*3/uL (0.0-0.8) Laboratory [facility] - CORE Eosinophils [#/volume] in Blood by Automated count 0.4 10*3/uL (0.0-0 .5) [facility] [place] [facility] - CORE BASO # 0.1 10*3/uL (0.0-0.2) Laboratory [facility] - CORE ID Date Data Source [id number]/14/2019 09:35:35 PM EDT [facility] Name Value Range Interpretation Code Description Data Anahy rce(s) Supporting Document(s) ESR 10 mm/h (0-20) [facility] [place] [facility] - [facility] ID Date Data Source [id number]/14/2019 09:37:00 PM EDT [facility] Name Value Range Interpretation Code Description Data Anahy rce(s) Supporting Document(s) ALT (SGPT) 31 U/L (12-78) [facility] [place] [facility] - [facility]ORE ID Date Data Source [id number]/14/2019 09:37:00 PM EDT [facility] Name Value Range Interpretation Code Description Data Anahy rce(s) Supporting Document(s) ALBUMIN 4.0 g/dL (3.5-4.6) Laboratory [facility] - CORE ID Data Source [id number]/14/2019 09:37:00 PM EDT [facility] Name Value Range Interpretation Code Description Data Anahy rce(s) Supporting Document(s) AST (SGOT) 15 U/L (11-39) [facility] [place] [facility] - [facility] ID Date Data Source [id number]/14/2019 09:37:00 PM EDT [facility] Name Value Range Interpretation Code Description Data Anahy rce(s) Supporting Document(s) CREATININE 0.89 mg/dL (0.60-1.00) [facility] - CORE GFR >60 ml/min/1.73m2 (>59) [facility] - CORE GFR ( AMER) >60 ml/min/1.73m2 (>59) [facility] [place] [facility] - CORE GFR INTERPRETATION [facility] [place] [facility] --NORMAL KIDNEY FUNCTION OR MILD DISEASE - GFR >OR= 60CHRONIC KIDNEY DISEASE - GFR 15 - 59RENAL FAILURE - GFR <15 Est. GFR calculation based on the MDRDstudy equation, which assumes a steadystate for creatinine. Est. GFR should notbe used for medication dosing. ID Date Data Source [id number] 07/14/2019 09:37:00 PM EDT [facility] Name Value Range Interpretation Code Description Data Anahy rce(s) Supporting Document(s) C REACTIVE PROTEIN @ <0.3 mg/dL (0.0-0.5) Laborato ry [place] [facility] ID Date Data Source [id number] 04/08/2019 04:31:00 PM EST [facility] ([facility]) Name Value Range Interpretation Code Description Data Anahy rce(s) Supporting Document(s) Chlamydia trachomatis,[place] Laboratory test result [facility] ([facility]) {SOURCE: Genital~.~.~Z01.419 Source: Laboratory test result [facility] ([facility]) {SOURCE: Genital~.~.~Z01.419 Neisseria gonorrhoeae,Clare Laboratory test result [facility] ([facility]) {SOURCE: Genital~.~.~Z01.419 ID Date Data Source [id number] 04/11/2019 08:59:00 PM EST [facility] Name Value Range Interpretation Code Description Data Anahy rce(s) Supporting Document(s) SOURCE: Genital [facility] Chlamydia trachomatis rRNA [Presence] in Unspecified specimen by Probe and target amplification method Negative Negative [facility] Neisseria gonorrhoeae rRNA [Presence] in Unspecified specimen by Probe and target amplification method Negative Negative [facility] ID Date Data Source [id number] 03/10/2019 12:04:00 PM EST [facility] ([facility]) Name Value Range Interpretation Code Description Data Anahy rce(s) Supporting Document(s) 26 U/L (11-39) AST (SGOT) [facility] ([facility]) Unless otherwise specified, testing perf ormed by [facility] [address] [place] [address] ID Date Data Source [id number] 03/10/2019 12:04:00 PM EST [facility] ([facility]) Name Value Range Interpretation Code Description Data Anahy rce(s) Supporting Document(s) 53 U/L (12-78) ALT (SGPT) [facility] ([facility]) Unless otherwise specified, testing perf ormed by [facility] [address] [place] [address] ID Date Data Source [id number] 03/10/2019 12:04:00 PM EST [facility] ([facility]) Name Value Range Interpretation Code Description Data Anahy rce(s) Supporting Document(s) 3.9 g/dL (3.5-4.6) ALBUMIN [facility] ([facility] [employer]) Unless otherwise specified, testing perf ormed by [facility] [address] [place] [address] ID Date Data Source [id number] 03/10/2019 12:04:00 PM EST [facility] [...] dosing.Unless otherwise specified, testing performed by [facility] [address] [place] [address]

ID Date Data Source [id number] 03/10/2019 12:04:00 PM EST [facility] ([facility]) Name Value Range Interpretation Code Description Data Anahy rce(s) Supporting Document(s) <0.3 (0.0-0.5) C REACTIVE PROTEIN @ [facility] ( [facility]) Unless otherwise specified, testing perf ormed by [facility] [address] [place] [address] ID Date Data Source [id number] 03/10/2019 12:04:00 PM EST [facility] ([facility]) Name Value Range Interpretation Code Description Data Anahy rce(s) Supporting Document(s) 12 mm/h (0-20) ESR [facility] ([facility]) Unless otherwise specified, testing perf ormed by [facility] [address] [place] [address] ID Date Data Source [id number] 03/10/2019 12:04:00 PM EST [facility] [...] 4.4 % (0.0-5.0) EOS % [facility] ([facility]) 1.6 10*3/uL (1.2-4.8) LYMPH # [facility] ([facility]) 1.0 % (0.0-4.0) BASO % [facility] ([facility]) 4.1 10*3/uL (1.8-7.7) NEUT # [facility] ([facility]) 0.1 10*3/uL (0.0-0.2) BASO # [facility] ([facility]) Unless otherwise specified, testing perf ormed by [facility] [place] [facility] [email or web address] [address] 0.8 10*3/uL (0.0-0.8) MONO # [facility] ([facility]) 0.3 10*3/uL (0.0-0.5) EOS # [facility] ([facility]) ID Date Data Source [id number] 03/10/2019 08:55:25 PM EST [facility] Name Value Range Interpretation Code Description Data [...] - CORE MPV 7.7 fL (7.1-10.7) [facility] [place] [facility] - CORE NEUT % 59.6 % (35.0-75.0) [facility] - CORE LYMPH % 23.5 % (16.0-52.0) [facility] - CORE MONO % 11.5 % (0.0-8.0) H [facility] [place] [facility] - CORE EOS % 4.4 % (0.0-5.0) [facility] [place] [facility] - CORE BASO % 1.0 % (0.0-4.0) [facility] [place] [facility] - CORE NEUT # 4.1 10*3/uL (1.8-7.7) [facility] - CORE LYMPH # 1.6 10*3/uL (1.2-4.8) [facility] - CORE MONO # 0.8 10*3/uL (0.0-0.8) [facility] - CORE Eosinophils [#/volume] in Blood by Automated count 0.3 10*3/uL (0.0-0 .5) [facility] [place] [facility] - CORE BASO # 0.1 10*3/uL (0.0-0.2) [facility] - [facility] ID Date Data Source [id number] 03/10/2019 09:04:38 PM EST [facility] [employer] - CORE Name Value Range Interpretation Code Description Data Anahy rce(s) Supporting Document(s) ALBUMIN 3.9 g/dL (3.5-4.6) [facility] [place] [facility] [employer] ID Date Data Source [id number] 03/10/2019 09:04:38 PM EST [facility] [employer] - CORE Name Value Range Interpretation Code Description Data Anahy rce(s) Supporting Document(s) ALT (SGPT) 53 U/L (12-78) [facility] [place] [facility] [employer] ID Date Data Source [id number] 03/10/2019 09:04:38 PM EST [facility] [email or web address] - CORE Name Value Range Interpretation Code Description Data Anahy rce(s) Supporting Document(s) AST (SGOT) 26 U/L (11-39) [facility] [place] [facility] [employer] ID Date Data Source [id number] 03/10/2019 09:04:38 PM EST [facility] [employer] - CORE Name Value Range Interpretation Code Description Data Anahy rce(s) Supporting Document(s) C REACTIVE PROTEIN @ <0.3 mg/dL (0.0-0.5) [facility] [place] [facility] [employer] ID Date Data Source [id number] 03/10/2019 09:04:38 PM EST [facility] [employer] - CORE Name Value Range Interpretation Code Description Data Anahy rce(s) Supporting Document(s) CREATININE 0.80 mg/dL (0.60-1.00) Laboratory [facility] [employer] - CORE GFR >60 ml/min/1.73m2 (>59) Laboratory [facility] [employer] - CORE GFR ( AMER) >60 ml/min/1.73m2 (>59) [facility] [place] [facility] [employer] GFR INTERPRETATION [facility] [place] [facility] [employer] --NORMAL KIDNEY FUNCTION OR MILD DISEASE - GFR >OR= 60CHRONIC KIDNEY DISEASE - GFR 15 - 59RENAL FAILURE - GFR <15 Est. GFR calculation based on the MDRDstudy equation, which assumes a steadystate for creatinine. Est. GFR should notbe used for medication dosing. ID Date Data Source [id number] 03/10/2019 09:34:46 PM EST [facility] Name Value Range Interpretation Code Description Data Anahy rce(s) Supporting Document(s) ESR 12 mm/h (0-20) [facility] [place] [facility] ID Date Data Source [id number] 02/21/2019 10:58:[address] [facility] Patient Name: MARY LOU GARAY : 1985 Sex: F Pt Unit #: [id number] Location:[facility] Provider: Visit Date/Time: 02/21/19 Primary Insurance: [employer] [facility] Secondary Insurance: Self Pay Intake Vital Signs [...] for hospital follow up pt was in [facility] dec 6[facility]16 pt was diagnosed with bi [...] offer been met?: [facility] Does the Patient have [...] she is doing better now. [facility] and they will be seeing her [...] at diet and exercise. She goes to [employer] 3times a week and tries to eat [...] F31.9 - Bipolar disorder, unspecified SNOMED Code(s): 993484029 Category: Medical Plan - Jose Valdivia MD: With recent hospitalization. Much better now. Continue Zyprexa and [facility]. (3) Weight gain: Status: Acute Code(s): R63.5 - Abnormal weight gain SNOMED Code(s): 8493776 Category: Medical Plan - Joes Valdivia MD: Trial of [employer]. Continue diet [...] leted Unknown if ever smoked [facility] ([facility]) Smoking 02/02/2020 12:00:00 AM EST Unknown if ever smoked comp leted Unknown if ever smoked [facility] ([facility]) Smoking 01/27/2020 12:00:00 AM EST Patient is a former smoker completed Patient is a former smoker MEDENT ([facility], [facility]) Caffeine Use Details 11/13/2019 12:00:00 AM EDT [...] leted Unknown if ever smoked [facility] ([facility]) Smoking 09/02/2019 12:00:00 AM EDT Unknown if ever smoked comp leted Unknown if ever smoked [facility] ([facility]) Smoking 08/21/2019 12:00:00 AM EDT Never Smoker completed Never S mary eCW1 ([facility]) Smoking 08/07/2019 12:00:00 AM EDT Unknown if ever smoked comp leted Unknown if ever smoked [facility] ([facility]) Smoking 07/23/2019 12:00:00 AM EDT Unknown if ever smoked comp leted Unknown if ever smoked [facility] ([facility]) Smoking 07/10/2019 12:00:00 AM EDT Unknown if ever smoked comp leted Unknown if ever smoked [facility] ([facility]) Smoking 05/28/2019 12:00:00 AM EDT Unknown if ever smoked comp leted Unknown if ever smoked [facility] ([facility]) Smoking 05/13/2019 12:00:00 AM EDT Unknown if ever smoked comp leted Unknown if ever smoked [facility] ([facility]) Smoking 05/02/2019 12:00:00 AM EST Unknown if ever smoked comp leted Unknown if ever smoked [facility] ([facility]) Smoking 04/25/2019 12:00:00 AM EST Patient is a former smoker completed Patient is a former smoker MEDENT ([facility]) Smoking 04/17/2019 12:00:00 AM EST Unknown if ever smoked comp leted Unknown if ever smoked [facility] ([facility]) Smoking 04/15/2019 12:00:00 AM EST Unknown if ever smoked comp leted Unknown if ever smoked [facility] ([facility]) Smoking 04/01/2019 12:00:00 AM EST Unknown if ever smoked comp leted Unknown if ever smoked [facility] ([facility]) Smoking 03/18/2019 12:00:00 AM EST Unknown if ever smoked comp leted Unknown if ever smoked [facility] ([facility]) Smoking 03/14/2019 12:00:00 AM EST Unknown if ever smoked comp leted Unknown if ever smoked [facility] ([facility]) Caffeine Use Details 03/10/2019 12:00:00 AM EST coffee and soda, 24 oz completed coffee and soda, 24 oz [facility] ([facility]) Smoking 02/21/2019 12:00:00 AM EST Unknown if ever smoked comp leted Unknown if ever smoked [facility] ([facility]) Vital Signs ID Date Data Source UNK Name Value Range Interpretation Code Description Data Source(s) Diastolic blood pressure 0 mm[Hg] Normal (applies to non-numeric results) 0 mm[Hg] [facility] ([facility]) Systolic blood pressure 0 mm[Hg] Normal (applies t o non-numeric results) 0 mm[Hg] [facility] ([facility]) Body mass index (BMI) [Ratio] 0.00 kg/m2 No rmal (applies to non-numeric results) 0.00 kg/m2 [facility] ([facility]) Body weight Measured 0.00 lbs Normal (applies to n on-numeric results) 0.00 lbs [facility] ([facility]) Body height 0.00 in Normal (applies to non-numeric resu lts) 0.00 in [facility] ([facility]) Diastolic blood pressure 0 mm[Hg] Normal (applies to non-numeric results) 0 mm[Hg] [facility] Systolic blood pressure 0 mm[Hg] Normal (applies t o non-numeric results) 0 mm[Hg] [facility] ([facility]) Body mass index (BMI) [Ratio] 0.00 kg/m2 No rmal (applies to non-numeric results) 0.00 kg/m2 [facility]) Body weight Measured 0.00 lbs Normal (applies to n on-numeric results) 0.00 lbs [facility] ([facility]) Body height 0.00 in Normal (applies to non-numeric resu lts) 0.00 in [facility]) Body mass index (BMI) [Ratio] 32.9 kg/m2 32.9 k g/m2 MEDENT ([facility], [facility]) Body height 65 [in_i] 65 [in_i] MEDENT ([facility], [facility]) 5'5" Body weight 198.00 [lb_av] 198.00 [lb_av] MEDEN T ([facility], [facility]) Body temperature 98.1 [degF] 98.1 [degF] MEDENT ([facility], [facility]) Oxygen saturation in Arterial blood by Pulse oximetry 96 % 96 % [facility] ([facility], [facility]) Respiratory rate 16 /min 16 /min MEDENT ( [facility], [facility]) Heart rate 81 /min 81 /min MEDENT ([facility], [facility]) Diastolic blood pressure 71 mm[Hg] 71 mm[Hg] MEDENT ([facility], [facility]) Systolic blood pressure 115 mm[Hg] 115 mm[Hg] M EDENT ([facility], [facility]) Body surface area Derived from formula 1.97 m2 1.97 m2 [facility] ([facility]) Body mass index (BMI) [Ratio] 34.8 kg/m2 34.8 k g[facility] Body height 64 [in_i] 64 [in_i] MEDENT ([facility]) 5'4" Body weight 92.081 kg 92.081 kg MEDENT ([facility]) Body weight 203.00 [lb_av] 203.00 [lb_av] MEDEN T ([facility]) Body temperature 96.9 [degF] 96.9 [degF] MEDENT ([facility]) Heart rate 80 /min 80 /min MEDENT ([facility]) Diastolic blood pressure 70 mm[Hg] 70 mm[Hg] MEDENT ([facility]) Systolic blood pressure 128 mm[Hg] 128 mm[Hg] [facility] Body surface area Derived from formula 1.97 m2 1.97 m2 [facility] ([facility]) Body mass index (BMI) [Ratio] 34.8 kg/m2 34.8 k g/m2 [facility] Body height 64 [in_i] 64 [in_i] MEDENT ([facility]) 5'4" Body weight 92.081 kg 92.081 kg MEDENT ([facility]) Body weight 203.00 [lb_av] 203.00 [lb_av] MEDEN T ([facility]) Body temperature 97.3 [degF] 97.3 [degF] MEDENT ([facility]) Heart rate 75 /min 75 /min MEDENT ([facility]) Diastolic blood pressure 75 mm[Hg] 75 mm[Hg] MEDENT ([facility]) Systolic blood pressure 135 mm[Hg] 135 mm[Hg] M EDENT ([facility]) Body surface area Derived from formula 1.95 m2 1.95 m2 [facility] ([facility]) Body mass index (BMI) [Ratio] 34.2 kg/m2 34.2 k g/m2 MEDENT ([facility]) Body height 64 [in_i] 64 [in_i] MEDENT ([facility]) 5'4" Body weight 90.266 kg 90.266 kg MEDENT ([facility]) Body weight 199.00 [lb_av] 199.00 [lb_av] MEDEN T ([facility]) Heart rate 70 /min 70 /min MEDENT ([facility]) Diastolic blood pressure 60 mm[Hg] 60 mm[Hg] MED[facility] ([facility]) Systolic blood pressure 120 mm[Hg] 120 mm[Hg] M EDENT ([facility]) Body surface area Derived from formula 1.96 m2 1.96 m2 [facility] Body mass index (BMI) [Ratio] 34.7 kg/m2 34.7 k g/m2 MEDENT ([facility]) Body height 64 [in_i] 64 [in_i] MEDENT ([facility]) 5'4" Body weight 91.627 kg 91.627 kg MEDENT ([facility]) Body weight 202.00 [lb_av] 202.00 [lb_av] MEDEN T ([facility]) Body temperature 98.6 [degF] 98.6 [degF] MEDENT ([facility]) Heart rate 82 /min 82 /min MEDENT ([facility]) Diastolic blood pressure 78 mm[Hg] 78 mm[Hg] MED[facility] ([facility]) Systolic blood pressure 110 mm[Hg] 110 mm[Hg] M EDENT ([facility]) Body mass index (BMI) [Ratio] 32.9 kg/m2 32.9 k g/m2 MEDENT ([facility], [facility]) Body height 65 [in_i] 65 [in_i] MEDENT ([facility], [facility]) 5'5" Body weight 198.00 [lb_av] 198.00 [lb_av] MEDEN T ([facility], [facility]) Body temperature 98.1 [degF] 98.1 [degF] MEDENT ([facility], [facility]) Oxygen saturation in Arterial blood by Pulse oximetry 96 % 96 % MEDENT ([facility], [facility]) Heart rate 107 /min 107 /min MEDENT ([facility], [facility]) Diastolic blood pressure 73 mm[Hg] 73 mm[Hg] MEDENT ([facility], [facility]) Systolic blood pressure 116 mm[Hg] 116 mm[Hg] [facility], [facility]) Body mass index (BMI) [Ratio] 32.9 kg/m2 32.9 k g/m2 [facility] ([facility], [facility]) Body height 65 [in_i] 65 [in_i] MEDENT ([facility], [facility]) 5'5" Body weight 198.00 [lb_av] 198.00 [lb_av] MEDEN T ([facility], [facility]) Body temperature 98.7 [degF] 98.7 [degF] [facility] ([facility], [facility]) Oxygen saturation in Arterial blood by Pulse oximetry 99 % 99 % [facility] ([facility], [facility]) Respiratory rate 16 /min 16 /min MEDENT ( [facility], [facility]) Heart rate 78 /min 78 /min [facility] ([facility], [facility]) Diastolic blood pressure 80 mm[Hg] 80 mm[Hg] [facility] ([facility], [facility]) Systolic blood pressure 124 mm[Hg] 124 mm[Hg] [facility] ([facility], [facility]) Body mass index (BMI) [Ratio] 32.4 kg/m2 32.4 k g/m2 [facility] ([facility], [facility]) Body height 65 [in_i] 65 [in_i] MEDENT ([facility], [facility]) 5'5" Body weight 195.00 [lb_av] 195.00 [lb_av] MEDEN T ([facility], [facility]) Body temperature 98.7 [degF] 98.7 [degF] [facility] ([facility]) Oxygen saturation in Arterial blood by Pulse oximetry 96 % 96 % [facility] ([facility]) Heart rate 67 /min 67 /min [facility] ([facility]) Diastolic blood pressure 66 mm[Hg] 66 mm[Hg] [facility] ([facility]) Systolic blood pressure 118 mm[Hg] 118 mm[Hg] [facility]) Body surface area Derived from formula 1.96 m2 1.96 m2 [facility] ([facility]) Body mass index (BMI) [Ratio] 34.5 kg/m2 34.5 k g/m2 [facility] ([facility]) Body height 64 [in_i] 64 [in_i] [facility] ([facility]) 5'4" Body weight 91.174 kg 91.174 kg [facility] ([facility]) Body weight 201.00 [lb_av] 201.00 [[facility]_av] [facility] Body temperature 98.2 [degF] 98.2 [degF] [facility] ([facility]) Heart rate 85 /min 85 /min [facility] ([facility]) Diastolic blood pressure 65 mm[Hg] 65 mm[Hg] [facility] ([facility]) Systolic blood pressure 120 mm[Hg] 120 mm[Hg] [facility] ([facility]) Body mass index (BMI) [Ratio] 33.37 kg/m2 Overweight 33.37 kg/m2 [facility] ([facility]) Diastolic blood pressure 58 mm[Hg] 58 mm[Hg] [facility] ([facility]) Systolic blood pressure 108 mm[Hg] 108 mm[Hg] N [facility] ([facility]) Body weight 90.265 kg 90.265 kg [facility] ([facility] Body height 164.47 cm 164.47 cm [facility] ([email or web address]) Body surface area 1.97 m2 1.97 m2 [facility] ([facility]) Body surface area Derived from formula 1.97 m2 1.97 m2 [facility] ([facility]) Body mass index (BMI) [Ratio] 35.0 kg/m2 35.0 k g/m2 [facility] ([facility]) Body height 64 [in_i] 64 [in_i] [facility] ([facility]) 5'4" Body weight 92.534 kg 92.534 kg MEDENT ([facility]) Body weight 204.00 [lb_av] 204.00 [lb_av] MEDEN T ([facility]) Body temperature 98.1 [degF] 98.1 [degF] [facility] ([facility]) Heart rate 80 /min 80 /min [facility] ([facility]) Diastolic blood pressure 70 mm[Hg] 70 mm[Hg] [facility] ([facility]) Systolic blood pressure 112 mm[Hg] 112 mm[Hg] [facility] ([facility]) Body weight 93.612 kg 93.612 kg [facility] ([facility]) Body weight 206.38 [lb_av] 206.38 [lb_av] MEDEN T ([facility]) Respiratory rate 16 /min 16 /min [facility] ( [facility]) Body temperature 98.0 [degF] 98.0 [degF] [facility] ([facility]) Heart rate 89 /min 89 /min [facility] ([facility]) Diastolic blood pressure 74 mm[Hg] 74 mm[Hg] [facility] Systolic blood pressure 128 mm[Hg] 128 mm[Hg] [facility]) Diastolic blood pressure 0 mm[Hg] Normal (applies to non-numeric results) 0 mm[Hg] [facility] ([facility]) Systolic blood pressure 0 mm[Hg] Normal (applies t o non-numeric results) 0 mm[Hg] [facility] ([facility]) Body mass index (BMI) [Ratio] 0.00 kg/m2 No rmal (applies to non-numeric results) 0.00 kg/m2 [facility] ([facility]) Body weight Measured 0.00 lbs Normal (applies to n on-numeric results) 0.00 lbs [facility] ([facility]) Body height 0.00 in Normal (applies to non-numeric resu lts) 0.00 in [facility] ([facility]) Body surface area 1.97 m2 1.97 m2 [facility] ([facility]) Body mass index (BMI) [Ratio] 35.0 kg/m2 35.0 k g/m2 [facility] ([facility]) Body height 64 [in_i] 64 [in_i] [facility] ([facility]) 5'4" Body weight 92.534 kg 92.534 kg [facility] ([facility]) Body weight 204.00 [lb_av] 204.00 [lb_av] MEDEN T ([facility]) Body temperature 98.1 [degF] 98.1 [degF] [facility] ([facility]) Heart rate 78 /min 78 /min [facility] ([facility]) Diastolic blood pressure 75 mm[Hg] 75 mm[Hg] [facility] ([facility]) Systolic blood pressure 116 mm[Hg] 116 mm[Hg] M EDENT ([facility]) Body mass index (BMI) [Ratio] 35.70 kg/m2 35.70 kg/m2 eCW1 ([facility]) Body height [in_i] eCW1 ([facility]) Body weight 208 [lb_av] 208 [lb_av] eCW1 ([facility]) Diastolic blood pressure 0 mm[Hg] Normal (applies to non-numeric results) 0 mm[Hg] [facility] ([facility]) Systolic blood pressure 0 mm[Hg] Normal (applies t o non-numeric results) 0 mm[Hg] [facility] ([facility]) Body mass index (BMI) [Ratio] 0.00 kg/m2 No rmal (applies to non-numeric results) 0.00 kg/m2 [facility] ([facility]) Body weight Measured 0.00 lbs Normal (applies to n on-numeric results) 0.00 lbs [facility] ([facility]) Body height 0.00 in Normal (applies to non-numeric resu lts) 0.00 in [facility] ([facility]) Body mass index (BMI) [Ratio] 33.20 kg/m2 Overweight 33.20 kg/m2 [facility] ([facility]) Diastolic blood pressure 58 mm[Hg] 58 mm[Hg] [facility] ([facility]) Systolic blood pressure 116 mm[Hg] 116 mm[Hg] N [facility] ([facility]) Body weight 89.811 kg 89.811 kg [facility] ([facility]) Body height 164.47 cm 164.47 cm [facility] Diastolic blood pressure 0 mm[Hg] Normal (applies to non-numeric results) 0 mm[Hg] [facility] ([facility]) Systolic blood pressure 0 mm[Hg] Normal (applies t o non-numeric results) 0 mm[Hg] [facility] ([facility]) Body mass index (BMI) [Ratio] 0.00 kg/m2 No rmal (applies to non-numeric results) 0.00 kg/m2 [facility] ([facility]) Body weight Measured 0.00 lbs Normal (applies to n on-numeric results) 0.00 lbs [facility] ([facility]) Body height 0.00 in Normal (applies to non-numeric resu lts) 0.00 in [facility]) Diastolic blood pressure 0 mm[Hg] Normal (applies to non-numeric results) 0 mm[Hg] [facility]) Systolic blood pressure 0 mm[Hg] Normal (applies t o non-numeric results) 0 mm[Hg] [facility] ([facility]) Body mass index (BMI) [Ratio] 0.00 kg/m2 No rmal (applies to non-numeric results) 0.00 kg/m2 [facility] ([facility]) Body weight Measured 0.00 lbs Normal (applies to n on-numeric results) 0.00 lbs [facility] ([facility]) Body height 0.00 in Normal (applies to non-numeric resu lts) 0.00 in [facility] ([facility]) Body mass index (BMI) [Ratio] 31.3 kg/m2 31.3 k g/m2 [facility] ([facility] ) Body weight 191.00 [lb_av] 191.00 [lb_av] MEDEN T ([facility] ) Body height 65.5 [in_i] 65.5 [in_i] MED[facility] ([facility] ) 5'5.50" Body temperature 98.4 [degF] 98.4 [degF] [facility] ([facility] ) Body mass index (BMI) [Ratio] 34.3 kg/m2 34.3 k g/m2 MEDENT ([facility], [facility]) Body height 64 [in_i] 64 [in_i] MED[facility] ([facility], [facility]) 5'4" Body weight 200.00 [lb_av] 200.00 [lb_av] MEDEN T ([facility], [facility]) Body temperature 982.0 [degF] 982.0 [degF] MEDE NT ([facility], [facility]) Oxygen saturation in Arterial blood by Pulse oximetry 98 % 98 % MED[facility] ([facility], [facility]) Respiratory rate 14 /min 14 /min MED[facility] ( [facility], [facility]) Heart rate 90 /min 90 /min MEDENT ([facility], [facility]) Diastolic blood pressure 68 mm[Hg] 68 mm[Hg] MEDENT ([facility], [facility]) Systolic blood pressure 100 mm[Hg] 100 mm[Hg] M EDENT ([facility], [facility]) Diastolic blood pressure 0 mm[Hg] Normal (applies to non-numeric results) 0 mm[Hg] [facility] ([facility]) Systolic blood pressure 0 mm[Hg] Normal (applies t o non-numeric results) 0 mm[Hg] [facility] ([facility]) Body mass index (BMI) [Ratio] 0.00 kg/m2 No rmal (applies to non-numeric results) 0.00 kg/m2 [facility] ([facility]) Body weight Measured 0.00 lbs Normal (applies to n on-numeric results) 0.00 lbs [facility] ([facility]) Body height 0.00 in Normal (applies to non-numeric resu lts) 0.00 in [facility] ([facility]) Body surface area 1.96 m2 1.96 m2 MED[facility] ([facility]) Body mass index (BMI) [Ratio] 34.3 kg/m2 34.3 k g/m2 [facility] ([facility]) Body height 64 [in_i] 64 [in_i] MED[facility] ([facility]) 5'4" Body weight 90.720 kg 90.720 kg [facility] ([facility]) Body weight 200.00 [lb_av] 200.00 [lb_av] MEDEN T ([facility]) Heart rate 75 /min 75 /min MED[facility] ([facility]) Diastolic blood pressure 80 mm[Hg] 80 mm[Hg] MED[facility] ([facility]) manual on left arm Systolic blood pressure 118 mm[Hg] 118 mm[Hg] M EDENT ([facility]) manual on left arm Diastolic blood pressure 62 mm[Hg] 62 mm[Hg] MED[facility] ([facility]) machine on right arm Systolic blood pressure 144 mm[Hg] 144 mm[Hg] M EDENT ([facility]) machine on right arm Respiratory rate 20 min Normal (applies to non-numeric results) 20 min [facility] ([facility]) Body height --lying 78 min Normal (applies to non-nume maryan results) 78 min [facility] ([facility]) Diastolic blood pressure 76 mm[Hg] Normal (applies to non-numeric results) 76 mm[Hg] [facility] ([facility]) Systolic blood pressure 108 mm[Hg] Normal (applies t o non-numeric results) 108 mm[Hg] [facility] ([facility]) Body mass index (BMI) [Ratio] 33.98 kg/m2 No rmal (applies to non-numeric results) 33.98 kg/m2 [facility] ([facility]) Body weight Measured 198.00 lbs Normal (applies to n on-numeric results) 198.00 lbs [facility] ([facility]) Body height 64.00 in Normal (applies to non-numeric resu lts) 64.00 in [facility] ([facility]) Respiratory rate 20 min Normal (applies to non-numeric results) 20 min [facility] ([facility]) Body height --lying 78 min Normal (applies to non-nume maryan results) 78 min [facility] ([facility]) Diastolic blood pressure 76 mm[Hg] Normal (applies to non-numeric results) 76 mm[Hg] [facility] ([facility]) Systolic blood pressure 108 mm[Hg] Normal (applies t o non-numeric results) 108 mm[Hg] [facility] ([facility]) Body mass index (BMI) [Ratio] 33.98 kg/m2 No rmal (applies to non-numeric results) 33.98 kg/m2 [facility] ([facility]) Body weight Measured 198.00 lbs Normal (applies to n on-numeric results) 198.00 lbs [facility] ([facility]) Body height 64.00 in Normal (applies to non-numeric resu lts) 64.00 in [facility] ([facility]) Respiratory rate 20 min Normal (applies to non-numeric results) 20 min [facility] ([facility]) Body height --lying 84 min Normal (applies to non-nume maryan results) 84 min [facility] ([facility]) Diastolic blood pressure 58 mm[Hg] Normal (applies to non-numeric results) 58 mm[Hg] [facility] ([facility]) Systolic blood pressure 108 mm[Hg] Normal (applies t o non-numeric results) 108 mm[Hg] [facility] ([facility]) Body mass index (BMI) [Ratio] 28.10 kg/m2 No rmal (applies to non-numeric results) 28.10 kg/m2 [facility] ([facility]) Body weight Measured 165.00 lbs Normal (applies to n on-numeric results) 165.00 lbs [facility] ([facility]) Body height 64.25 in Normal (applies to non-numeric resu lts) 64.25 in [facility] ([facility]) Body mass index (BMI) [Ratio] 33.54 kg/m2 Overweight 33.54 kg/m2 [facility] ([facility]) Diastolic blood pressure 66 mm[Hg] 66 mm[Hg] [facility] ([facility]) Systolic blood pressure 100 mm[Hg] 100 mm[Hg] N ext[facility] ([facility]) Body weight 90.718 kg 90.718 kg [facility] ([facility]) Body height 164.47 cm 164.47 cm [facility] ([facility]) ID Date Data Source [id number] 01/14/2020 02:44:35 PM [facility] Name Value Range Interpretation Code Description Data Source(s) WEIGHT RECORDED 198.00 pounds 198.00 pounds [facility] Height 65 Inches 065 Inches [facility] Patient Treatment Plan of Care Planned [...] Tablet [Zyprexa] [facility] ([facility]) Ergocalciferol 46143 UNT Oral Capsule [facility] ([facility]) Fluoxetine 10 MG Oral Capsule [Prozac] [facility] ([facility]) Trazodone Hydrochloride 100 MG Oral Tablet [facility] ([facility])
[2020-04-03] MEDS ORDERED: NS 1,000 ML IV ONE (23:45)
[2020-04-04 01:05] LABS: RSV AMPLIFICATION NEGATIVE (NEGATIVE)
[2020-04-04 02:22] LABS: ACETAMINOPHEN LEVEL 2.3 UG/ML (10.0-30.0); ETHYL ALCOHOL (ETHANOL) < 0.003 % (0.000-0.010); SALICYLATE LEVEL < 1.7 MG/DL (5.0-30.0)
--- NOTE | 2020-04-04 08:57 | ECGEPIP ---
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
[2020-04-04 12:47] VITALS: BP 120/61
== END 2020-04-04 12:49 ==
LOC: M ED 21:10
DX: T50.902A Poisoning by unspecified drugs, medicaments and biological substances, intentional self-harm, initial encounter (principal); T14.91XA Suicide attempt, initial encounter; F33.9 Major depressive disorder, recurrent, unspecified; R00.0 Tachycardia, unspecified; J45.909 Unspecified asthma, uncomplicated; K21.9 Gastro-esophageal reflux disease without esophagitis; Z91.013 Allergy to seafood; Z91.030 Bee allergy status; Z79.899 Other long term (current) drug therapy
CPT/HCPCS: 36415; 80048; 80076; 80307; 82550; 84443; 84703; 85025; 87631; 93005; 93041; 94760; 96360; 96361; 99285; G0480

== ENCOUNTER → 2020-10-28 | Outpatient (CLI) | payer OTHER ==
[~2020-10-28] MED LIST changes: +FLUO10CA16; +FLUO20CA22; +LATU20TA; -OLAN10TA2 PO; +OLAN1TAB20 PO; +PROZ20CA11; +TRAZ1TAB14; +TRAZ300T2
--- NOTE | 2020-10-28 16:03 | REP ---
INDICATION: RHEUMATOID ARTHRITIS WITH RHEUMATOID FACTOR, UNSPECIFIED. TECHNIQUE: Four views each hand FINDINGS: Left hand: The joint spaces are symmetric and well maintained. There is no marginal osteophytosis. There are no marginal erosions. There is no periarticular osteopenia. There is no fracture, dislocation, or subluxation. Right hand: The joint spaces are symmetric and well maintained. There is no marginal osteophytosis. There is no periarticular osteopenia. There is no fracture, dislocation, or subluxation. There are no marginal erosions. IMPRESSION: Bilateral negative hand. <Electronically signed by Mele Oswald > 10/28/20 1600
--- NOTE | 2020-10-28 16:06 | REP ---
INDICATION: RHEUMATOID ARTHRITIS WITH RHEUMATOID FACTOR, UNSPECIFIED. TECHNIQUE: Four views each wrist FINDINGS: Right wrist: All cortical margins are smooth. There is no fracture, dislocation, or subluxation. There is no destructive osseous lesion. There is an incidental bone island seen in the lunate. Left wrist: All cortical margins are smooth. There is no fracture, dislocation, or subluxation. An incidental bone island is seen in the lunate and an incidental bone island is seen in the distal radius. IMPRESSION: Bilateral wrist within normal limits. <Electronically signed by Mele Oswald > 10/28/20 [id number]
--- NOTE | 2020-10-28 16:07 | REP ---
INDICATION: RHEUMATOID ARTHRITIS WITH RHEUMATOID FACTOR, UNSPECIFIED. TECHNIQUE: Four views each ankle FINDINGS: Bilateral: No acute fracture or destructive osseous lesion. The mortise is intact. IMPRESSION: Within normal limits bilateral <Electronically signed by Mele Oswald > 10/28/20 [id number]
== END ==
LOC: M PLALAB 15:24
PROVIDERS: ATTEND Internal Medicine
DX: M05.9 Rheumatoid arthritis with rheumatoid factor, unspecified (principal)

== ENCOUNTER → 2020-10-28 | Outpatient (REF) | payer OTHER ==
[2020-10-28 18:17] LABS: BASO % 0.5 % (0.0-1.0); EOS # 0.4 10^3/uL (0.0-0.5); EOS % 7.4 % (0.0-3.0); HEMATOCRIT 45.1 % (36.0-47.0); HEMOGLOBIN 14.5 g/dl (12.0-15.5); LYMPH # 1.3 10^3/uL (1.5-5.0); LYMPH % 22.1 % (24.0-44.0); MEAN CORPUSCULAR HEMOGLOBIN 30.8 pg (27.0-33.0); MEAN CORPUSCULAR HGB CONC 32.2 g/dl (32.0-36.5); MEAN CORPUSCULAR VOLUME 95.8 fl (80.0-96.0); MONO # 0.6 10^3/uL (0.0-0.8); MONO % 9.4 % (2.0-8.0); NEUTROPHILS # 3.5 10^3/uL (1.5-8.5); NEUTROPHILS % 60.4 % (36.0-66.0); PLATELET COUNT, AUTOMATED 305 10^3/uL (150-450); RED BLOOD COUNT 4.71 10^6/uL (4.00-5.40); WHITE BLOOD COUNT 5.8 10^3/uL (4.0-10.0)
[2020-10-28 18:38] LABS: ALBUMIN 3.9 GM/DL (3.2-5.2); ALT/SGPT 33 U/L (12-78); BILIRUBIN,DIRECT 0.1 MG/DL (0.0-0.2); BILIRUBIN,TOTAL 0.3 MG/DL (0.2-1.0); BLOOD UREA NITROGEN 13 MG/DL (7-18); C REACTIVE PROTEIN QUANTITATIV 0.41 MG/DL (0.00-0.30); CALCIUM LEVEL 9.3 MG/DL (8.5-10.1); CARBON DIOXIDE LEVEL 29 MEQ/L (21-32); CHLORIDE LEVEL 106 MEQ/L (98-107); CPK CREATINE PHOSPHOKINASE 88 U/L (26-192); GLOMERULAR FILTRATION RATE > 60.0 (>60); GLUCOSE, FASTING 85 MG/DL (70-100); IMMUNOGLOBULIN G 856 MG/DL (681-1648); IRON (FE) 59 UG/DL (50-170); MAGNESIUM LEVEL 2.3 MG/DL (1.8-2.4); PHOSPHORUS LEVEL 2.3 MG/DL (2.5-4.9); POTASSIUM SERUM 4.5 MEQ/L (3.5-5.1); RHEUMATOID FACTOR QUANT 30.1 IU/ML (<15.0); SODIUM LEVEL 139 MEQ/L (136-145); TOTAL PROTEIN 7.4 GM/DL (6.4-8.2)
[2020-10-28 18:39] LABS: HEPATITIS B SURFACE ANTIBODY POSITIVE (POSITIVE); TOTAL 25(OH) VITAMIN D 28.7 NG/ML (30.0-100.0); VITAMIN B12 LEVEL 491 PG/ML (247-911)
[2020-10-28 18:50] LABS: HEPATITIS B SURFACE ANTIGEN NEGATIVE (NEGATIVE)
[2020-10-28 19:43] LABS: ERYTHROCYTE SEDIMENTATION RATE 9 mm/hr (0-20)
[2020-11-01 09:57] LABS: ALBUMIN 4.47 GM/DL (3.29-5.55); ALBUMIN % 60.4 % (55.8-66.1)
[2020-11-01 09:58] LABS: ALPHA-1-GLOBULIN % 4.1 % (2.9-4.9); ALPHA-2-GLOBULINS 0.88 GM/DL (0.42-0.99); ALPHA-2-GLOBULINS % 11.9 % (7.1-11.8); BETA-1-GLOBULINS 0.49 GM/DL (0.28-0.60); BETA-1-GLOBULINS % 6.6 % (4.7-7.2); BETA-2-GLOBULINS 0.36 GM/DL (0.19-0.55); BETA-2-GLOBULINS % 4.9 % (3.2-6.5); GAMMA GLOBULIN % 12.1 % (11.1-18.8)
[2020-11-02 01:06] LABS: ANA (HEP2) Negative (.); CYCLIC CITRULLINATED PEPTIDE 39 units (0-19); HEPATITIS B CORE ANTIBODY IGG Negative (Negative)
== END ==
LOC: M SFHCRHEU 14:25
PROVIDERS: ATTEND Internal Medicine
DX: M05.9 Rheumatoid arthritis with rheumatoid factor, unspecified (principal); M79.10 Myalgia, unspecified site; Z11.59 Encounter for screening for other viral diseases

== ENCOUNTER → 2020-11-25 | Outpatient (CLI) | payer OTHER ==
[2020-11-25 16:45] LABS: BASO % 0.7 % (0.0-1.0); EOS # 0.3 10^3/uL (0.0-0.5); EOS % 4.3 % (0.0-3.0); HEMATOCRIT 43.3 % (36.0-47.0); LYMPH # 1.5 10^3/uL (1.5-5.0); LYMPH % 24.9 % (24.0-44.0); MEAN CORPUSCULAR HEMOGLOBIN 30.6 pg (27.0-33.0); MEAN CORPUSCULAR HGB CONC 32.3 g/dl (32.0-36.5); MEAN CORPUSCULAR VOLUME 94.5 fl (80.0-96.0); MONO # 0.6 10^3/uL (0.0-0.8); MONO % 10.5 % (2.0-8.0); NEUTROPHILS # 3.6 10^3/uL (1.5-8.5); NEUTROPHILS % 59.3 % (36.0-66.0); PLATELET COUNT, AUTOMATED 301 10^3/uL (150-450); RED BLOOD COUNT 4.58 10^6/uL (4.00-5.40)
[2020-11-25 17:10] LABS: ALBUMIN 3.7 GM/DL (3.2-5.2); ALT/SGPT 22 U/L (12-78); BILIRUBIN,DIRECT < 0.1 MG/DL (0.0-0.2); BILIRUBIN,TOTAL 0.3 MG/DL (0.2-1.0); BLOOD UREA NITROGEN 17 MG/DL (7-18); CALCIUM LEVEL 8.9 MG/DL (8.5-10.1); CARBON DIOXIDE LEVEL 29 MEQ/L (21-32); CHLORIDE LEVEL 107 MEQ/L (98-107); CREATININE FOR GFR 0.96 MG/DL (0.55-1.30); GLOMERULAR FILTRATION RATE > 60.0 (>60); GLUCOSE, FASTING 113 MG/DL (70-100); POTASSIUM SERUM 4.6 MEQ/L (3.5-5.1); SODIUM LEVEL 141 MEQ/L (136-145); TOTAL PROTEIN 6.8 GM/DL (6.4-8.2)
== END ==
LOC: M WUC 14:27
PROVIDERS: ATTEND Internal Medicine
DX: M05.9 Rheumatoid arthritis with rheumatoid factor, unspecified (principal)

== ENCOUNTER → 2020-12-29 | Outpatient (REF) | payer OTHER | LOC: M WUC 19:49 | PROVIDERS: ATTEND Physician Assistant | DX: J20.9 Acute bronchitis, unspecified (principal); Z20.828 Contact with and (suspected) exposure to other viral communicable diseases ==

== ENCOUNTER → 2021-01-24 | Outpatient (CLI) | payer OTHER ==
[2021-01-24 16:07] LABS: BASO % 0.4 % (0.0-1.0); EOS # 0.3 10^3/uL (0.0-0.5); EOS % 4.8 % (0.0-3.0); HEMATOCRIT 42.2 % (36.0-47.0); HEMOGLOBIN 13.6 g/dl (12.0-15.5); LYMPH # 1.2 10^3/uL (1.5-5.0); MEAN CORPUSCULAR HEMOGLOBIN 30.6 pg (27.0-33.0); MEAN CORPUSCULAR HGB CONC 32.2 g/dl (32.0-36.5); MEAN CORPUSCULAR VOLUME 94.8 fl (80.0-96.0); MONO # 0.5 10^3/uL (0.0-0.8); MONO % 9.9 % (2.0-8.0); NEUTROPHILS # 3.2 10^3/uL (1.5-8.5); NEUTROPHILS % 61.7 % (36.0-66.0); PLATELET COUNT, AUTOMATED 248 10^3/uL (150-450); RED BLOOD COUNT 4.45 10^6/uL (4.00-5.40); WHITE BLOOD COUNT 5.3 10^3/uL (4.0-10.0)
[2021-01-24 16:26] LABS: ALBUMIN 3.7 GM/DL (3.2-5.2); ALT/SGPT 28 U/L (12-78); BILIRUBIN,DIRECT 0.1 MG/DL (0.0-0.2); BILIRUBIN,TOTAL 0.2 MG/DL (0.2-1.0); BLOOD UREA NITROGEN 16 MG/DL (7-18); C REACTIVE PROTEIN QUANTITATIV 0.62 MG/DL (0.00-0.30); CALCIUM LEVEL 8.7 MG/DL (8.5-10.1); CARBON DIOXIDE LEVEL 30 MEQ/L (21-32); CHLORIDE LEVEL 107 MEQ/L (98-107); CREATININE FOR GFR 1.03 MG/DL (0.55-1.30); GLOMERULAR FILTRATION RATE > 60.0 (>60); GLUCOSE, FASTING 128 MG/DL (70-100); POTASSIUM SERUM 4.3 MEQ/L (3.5-5.1); SODIUM LEVEL 141 MEQ/L (136-145); TOTAL PROTEIN 6.7 GM/DL (6.4-8.2)
== END ==
LOC: M WUC 13:34
PROVIDERS: ATTEND Internal Medicine
DX: M05.9 Rheumatoid arthritis with rheumatoid factor, unspecified (principal)

== ENCOUNTER → 2021-03-07 | Outpatient (REF) | payer OTHER | LOC: M LAB REF 11:48 | PROVIDERS: ATTEND Physician Assistant | DX: J02.9 Acute pharyngitis, unspecified (principal) ==

== ENCOUNTER → 2021-03-30 | Outpatient (CLI) | payer OTHER ==
[~2021-03-30] MED LIST changes: +FLUO-96 PO; -FLUO10CA16; +FLUO10CA18; -FLUO20CA20 PO
[2021-03-30 12:57] LABS: BASO # 0.1 10^3/uL (0.0-0.2); BASO % 0.7 % (0.0-1.0); EOS # 0.7 10^3/uL (0.0-0.5); EOS % 9.6 % (0.0-3.0); HEMATOCRIT 46.8 % (36.0-47.0); HEMOGLOBIN 14.9 g/dl (12.0-15.5); LYMPH # 1.8 10^3/uL (1.5-5.0); MEAN CORPUSCULAR HEMOGLOBIN 30.8 pg (27.0-33.0); MEAN CORPUSCULAR HGB CONC 31.8 g/dl (32.0-36.5); MEAN CORPUSCULAR VOLUME 96.9 fl (80.0-96.0); MONO # 0.5 10^3/uL (0.0-0.8); MONO % 7.3 % (2.0-8.0); NEUTROPHILS # 3.9 10^3/uL (1.5-8.5); PLATELET COUNT, AUTOMATED 301 10^3/uL (150-450); RED BLOOD COUNT 4.83 10^6/uL (4.00-5.40)
[2021-03-30 14:15] LABS: ALT/SGPT 25 U/L (12-78); BILIRUBIN,DIRECT < 0.1 MG/DL (0.0-0.2); BILIRUBIN,TOTAL 0.3 MG/DL (0.2-1.0); BLOOD UREA NITROGEN 13 MG/DL (7-18); CALCIUM LEVEL 9.4 MG/DL (8.5-10.1); CARBON DIOXIDE LEVEL 30 MEQ/L (21-32); CHLORIDE LEVEL 104 MEQ/L (98-107); CREATININE FOR GFR 0.96 MG/DL (0.55-1.30); GLOMERULAR FILTRATION RATE > 60.0 (>60); GLUCOSE, FASTING 133 MG/DL (70-100); POTASSIUM SERUM 4.2 MEQ/L (3.5-5.1); SODIUM LEVEL 140 MEQ/L (136-145); TOTAL PROTEIN 7.3 GM/DL (6.4-8.2)
== END ==
LOC: M WUC 09:28
PROVIDERS: ATTEND Internal Medicine
DX: M05.9 Rheumatoid arthritis with rheumatoid factor, unspecified (principal)

== ENCOUNTER → 2021-05-16 | Outpatient (REF) | payer OTHER ==
[2021-05-16 16:27] LABS: PHOSPHORUS LEVEL 2.6 MG/DL (2.5-4.9)
[2021-05-16 16:32] LABS: TOTAL 25(OH) VITAMIN D 31.2 NG/ML (30.0-100.0)
== END ==
LOC: M LABWUC 15:19
PROVIDERS: ATTEND Internal Medicine
DX: E55.9 Vitamin D deficiency, unspecified (principal)

== ENCOUNTER → 2021-07-19 | Outpatient (CLI) | payer OTHER ==
[2021-07-19 11:27] LABS: CHOLESTEROL RISK RATIO 3.395 (<5); FREE T4 1.01 NG/DL (0.76-1.46); THYROID STIMULATING HORMONE 1.6 uIU/ML (0.358-3.740)
[2021-07-19 11:40] LABS: BASO % 0.6 % (0.0-1.0); EOS # 0.5 10^3/uL (0.0-0.5); EOS % 7.6 % (0.0-3.0); HEMATOCRIT 43.1 % (36.0-47.0); HEMOGLOBIN 14.4 g/dl (12.0-15.5); LYMPH # 1.8 10^3/uL (1.5-5.0); LYMPH % 26.4 % (24.0-44.0); MEAN CORPUSCULAR HEMOGLOBIN 32.4 pg (27.0-33.0); MEAN CORPUSCULAR HGB CONC 33.4 g/dl (32.0-36.5); MEAN CORPUSCULAR VOLUME 96.9 fl (80.0-96.0); MONO # 0.7 10^3/uL (0.0-0.8); MONO % 9.7 % (2.0-8.0); NEUTROPHILS # 3.8 10^3/uL (1.5-8.5); NEUTROPHILS % 55.3 % (36.0-66.0); PLATELET COUNT, AUTOMATED 295 10^3/uL (150-450); RED BLOOD COUNT 4.45 10^6/uL (4.00-5.40); WHITE BLOOD COUNT 6.9 10^3/uL (4.0-10.0)
== END ==
LOC: M WUC 10:05
PROVIDERS: ATTEND Nurse Practitioner Family
DX: Z09 Encounter for follow-up examination after completed treatment for conditions other than malignant neoplasm (principal); G80.8 Other cerebral palsy; E03.9 Hypothyroidism, unspecified; E78.5 Hyperlipidemia, unspecified; E04.1 Nontoxic single thyroid nodule

== ENCOUNTER → 2021-10-18 | Outpatient (CLI) | payer OTHER ==
[2021-10-18 17:19] LABS: BASO % 0.6 % (0.0-1.0); EOS # 0.6 10^3/uL (0.0-0.5); HEMATOCRIT 43.5 % (36.0-47.0); HEMOGLOBIN 13.9 g/dl (12.0-15.5); LYMPH # 1.5 10^3/uL (1.5-5.0); LYMPH % 20.7 % (24.0-44.0); MEAN CORPUSCULAR HEMOGLOBIN 30.5 pg (27.0-33.0); MEAN CORPUSCULAR VOLUME 95.6 fl (80.0-96.0); MONO # 0.5 10^3/uL (0.0-0.8); MONO % 7.3 % (2.0-8.0); NEUTROPHILS # 4.6 10^3/uL (1.5-8.5); NEUTROPHILS % 63.1 % (36.0-66.0); PLATELET COUNT, AUTOMATED 283 10^3/uL (150-450); RED BLOOD COUNT 4.55 10^6/uL (4.00-5.40); WHITE BLOOD COUNT 7.2 10^3/uL (4.0-10.0)
[2021-10-18 17:39] LABS: BLOOD UREA NITROGEN 15 MG/DL (7-18); CREATININE FOR GFR 0.97 MG/DL (0.55-1.30); GLUCOSE, FASTING 134 MG/DL (70-100)
[2021-10-18 17:40] LABS: ALBUMIN 3.7 GM/DL (3.2-5.2); ALT/SGPT 31 U/L (12-78); BILIRUBIN,DIRECT 0.2 MG/DL (0.0-0.2); BILIRUBIN,TOTAL 0.3 MG/DL (0.2-1.0); CALCIUM LEVEL 9.1 MG/DL (8.5-10.1); CARBON DIOXIDE LEVEL 29 MEQ/L (21-32); CHLORIDE LEVEL 106 MEQ/L (98-107); GLOMERULAR FILTRATION RATE > 60.0 (>60); POTASSIUM SERUM 4.2 MEQ/L (3.5-5.1); SODIUM LEVEL 136 MEQ/L (136-145); TOTAL PROTEIN 6.9 GM/DL (6.4-8.2)
[2021-10-18 18:17] LABS: ERYTHROCYTE SEDIMENTATION RATE 9 mm/hr (0-20)
== END ==
LOC: M WUC 13:36
PROVIDERS: ATTEND Internal Medicine
DX: M05.9 Rheumatoid arthritis with rheumatoid factor, unspecified (principal)

== ENCOUNTER → 2022-03-21 | Outpatient (CLI) | payer OTHER ==
[2022-03-21 16:43] LABS: BASO # 0.1 10^3/uL (0.0-0.2); BASO % 0.7 % (0.0-1.0); EOS # 0.4 10^3/uL (0.0-0.5); EOS % 5.8 % (0.0-3.0); HEMATOCRIT 45.6 % (36.0-47.0); HEMOGLOBIN 14.8 g/dl (12.0-15.5); LYMPH # 1.6 10^3/uL (1.5-5.0); LYMPH % 21.4 % (24.0-44.0); MEAN CORPUSCULAR HGB CONC 32.5 g/dl (32.0-36.5); MEAN CORPUSCULAR VOLUME 95.4 fl (80.0-96.0); MONO # 0.7 10^3/uL (0.0-0.8); MONO % 10.2 % (2.0-8.0); NEUTROPHILS # 4.5 10^3/uL (1.5-8.5); NEUTROPHILS % 61.6 % (36.0-66.0); PLATELET COUNT, AUTOMATED 324 10^3/uL (150-450); RED BLOOD COUNT 4.78 10^6/uL (4.00-5.40); WHITE BLOOD COUNT 7.3 10^3/uL (4.0-10.0)
[2022-03-21 16:55] LABS: ERYTHROCYTE SEDIMENTATION RATE 17 mm/hr (0-20)
[2022-03-21 16:57] LABS: BILIRUBIN,DIRECT 0.1 MG/DL (<0.4)
[2022-03-21 18:34] LABS: C REACTIVE PROTEIN QUANTITATIV < 0.40 MG/DL (<1.0)
[2022-03-21 18:36] LABS: ALBUMIN 3.9 G/DL (3.2-5.2); ALKALINE PHOSPHATASE 89 U/L (46-116); ALT/SGPT 43 U/L (7.0-40); AST/SGOT 27 U/L (<34); BILIRUBIN,TOTAL 0.4 MG/DL (0.3-1.2); BLOOD UREA NITROGEN 16 MG/DL (9-23); CALCIUM LEVEL 9.2 MG/DL (8.5-10.1); CARBON DIOXIDE LEVEL 28 MMOL/L (20-31); CHLORIDE LEVEL 101 MMOL/L (98-107); CREATININE FOR GFR 1.04 MG/DL (0.55-1.30); GLOMERULAR FILTRATION RATE > 60.0 (>60); GLUCOSE, FASTING 96 MG/DL (60-100); PHOSPHORUS LEVEL 2.4 MG/DL (2.5-4.9); POTASSIUM SERUM 4.4 MMOL/L (3.5-5.1); SODIUM LEVEL 137 MMOL/L (136-145); TOTAL 25(OH) VITAMIN D 30.3 NG/ML (20.0-100.0)
== END ==
LOC: M WUC 14:32
PROVIDERS: ATTEND Internal Medicine
DX: M05.9 Rheumatoid arthritis with rheumatoid factor, unspecified (principal); E55.9 Vitamin D deficiency, unspecified

== ENCOUNTER → 2022-06-07 | Outpatient (CLI) | payer OTHER ==
[2022-06-07 15:38] LABS: THYROID STIMULATING HORMONE 3.528 uIU/ML (0.55-4.78)
[2022-06-07 15:41] LABS: ALBUMIN 3.9 G/DL (3.2-5.2); ALKALINE PHOSPHATASE 75 U/L (46-116); ALT/SGPT 26 U/L (7.0-40); AST/SGOT 18 U/L (<34); BILIRUBIN,TOTAL 0.3 MG/DL (0.3-1.2); BLOOD UREA NITROGEN 16 MG/DL (9-23); CALCIUM LEVEL 8.7 MG/DL (8.5-10.1); CARBON DIOXIDE LEVEL 27 MMOL/L (20-31); CHLORIDE LEVEL 107 MMOL/L (98-107); CHOLESTEROL LEVEL 159 MG/DL (<200); CREATININE FOR GFR 0.93 MG/DL (0.55-1.30); GLOMERULAR FILTRATION RATE > 60.0 (>60); GLUCOSE, FASTING 94 MG/DL (60-100); HDL CHOLESTEROL 49.6 MG/DL (>40); LDL CHOLESTEROL 86.4 MG/DL (<100); NON-HDL-C 109.4 MG/DL; POTASSIUM SERUM 4.2 MMOL/L (3.5-5.1); SODIUM LEVEL 142 MMOL/L (136-145); TOTAL PROTEIN 6.8 G/DL (5.7-8.2); TRIGLYCERIDES LEVEL 115 MG/DL (<150)
== END ==
LOC: M WUC 10:23
PROVIDERS: ATTEND Nurse Practitioner Family
DX: R53.83 Other fatigue (principal)

== ENCOUNTER → 2022-06-30 | Outpatient (CLI) | payer OTHER ==
[2022-06-30 18:20] LABS: BASO % 0.5 % (0.0-1.0); EOS # 0.4 10^3/uL (0.0-0.5); EOS % 4.4 % (0.0-3.0); HEMATOCRIT 39.5 % (36.0-47.0); HEMOGLOBIN 12.9 g/dl (12.0-15.5); LYMPH # 1.6 10^3/uL (1.5-5.0); LYMPH % 18.5 % (24.0-44.0); MEAN CORPUSCULAR HGB CONC 32.7 g/dl (32.0-36.5); MONO # 0.9 10^3/uL (0.0-0.8); MONO % 9.7 % (2.0-8.0); NEUTROPHILS # 5.9 10^3/uL (1.5-8.5); NEUTROPHILS % 66.7 % (36.0-66.0); PLATELET COUNT, AUTOMATED 259 10^3/uL (150-450); RED BLOOD COUNT 4.03 10^6/uL (4.00-5.40); WHITE BLOOD COUNT 8.8 10^3/uL (4.0-10.0)
[2022-06-30 18:52] LABS: ALBUMIN 3.9 G/DL (3.2-5.2); ALKALINE PHOSPHATASE 72 U/L (46-116); ALT/SGPT 21 U/L (7.0-40); AST/SGOT 25 U/L (<34); BILIRUBIN,DIRECT 0.1 MG/DL (<0.4); BILIRUBIN,TOTAL 0.3 MG/DL (0.3-1.2); BLOOD UREA NITROGEN 18 MG/DL (9-23); C REACTIVE PROTEIN QUANTITATIV < 0.40 MG/DL (<1.0); CALCIUM LEVEL 8.6 MG/DL (8.5-10.1); CARBON DIOXIDE LEVEL 27 MMOL/L (20-31); CHLORIDE LEVEL 106 MMOL/L (98-107); CREATININE FOR GFR 0.84 MG/DL (0.55-1.30); GLOMERULAR FILTRATION RATE > 60.0 (>60); GLUCOSE, FASTING 85 MG/DL (60-100); POTASSIUM SERUM 3.8 MMOL/L (3.5-5.1); SODIUM LEVEL 139 MMOL/L (136-145); TOTAL PROTEIN 6.7 G/DL (5.7-8.2)
[2022-06-30 19:05] LABS: ERYTHROCYTE SEDIMENTATION RATE 8 mm/hr (0-20)
== END ==
LOC: M WUC 15:45
PROVIDERS: ATTEND Internal Medicine
DX: M05.9 Rheumatoid arthritis with rheumatoid factor, unspecified (principal)

== ENCOUNTER → 2022-07-21 | Outpatient (CLI) | payer OTHER ==
[2022-07-21 20:42] LABS: HEMOGLOBIN A1c 4.8 % (4.0-6.0)
== END ==
LOC: M WUC 15:43
PROVIDERS: ATTEND Nurse Practitioner Family
DX: E66.01 Morbid (severe) obesity due to excess calories (principal)

== ENCOUNTER → 2022-09-18 | Outpatient (REF) | payer OTHER ==
[2022-09-18 12:23] LABS: BASO % 0.5 % (0.0-1.0); EOS # 0.6 10^3/uL (0.0-0.5); EOS % 7.7 % (0.0-3.0); HEMATOCRIT 44.1 % (36.0-47.0); HEMOGLOBIN 14.3 g/dl (12.0-15.5); LYMPH # 1.7 10^3/uL (1.5-5.0); LYMPH % 22.3 % (24.0-44.0); MEAN CORPUSCULAR HEMOGLOBIN 32.6 pg (27.0-33.0); MEAN CORPUSCULAR HGB CONC 32.4 g/dl (32.0-36.5); MEAN CORPUSCULAR VOLUME 100.5 fl (80.0-96.0); MONO # 0.8 10^3/uL (0.0-0.8); MONO % 10.6 % (2.0-8.0); NEUTROPHILS # 4.4 10^3/uL (1.5-8.5); NEUTROPHILS % 58.5 % (36.0-66.0); PLATELET COUNT, AUTOMATED 280 10^3/uL (150-450); RED BLOOD COUNT 4.39 10^6/uL (4.00-5.40); WHITE BLOOD COUNT 7.5 10^3/uL (4.0-10.0)
[2022-09-18 12:58] LABS: ALKALINE PHOSPHATASE 92 U/L (46-116); ALT/SGPT 34 U/L (7.0-40); AST/SGOT 20 U/L (<34); BILIRUBIN,DIRECT 0.1 MG/DL (<0.4); BILIRUBIN,TOTAL 0.3 MG/DL (0.3-1.2); BLOOD UREA NITROGEN 19 MG/DL (9-23); CALCIUM LEVEL 9.3 MG/DL (8.5-10.1); CARBON DIOXIDE LEVEL 27 MMOL/L (20-31); CHLORIDE LEVEL 103 MMOL/L (98-107); CREATININE FOR GFR 0.95 MG/DL (0.55-1.30); ERYTHROCYTE SEDIMENTATION RATE 18 mm/hr (0-20); GLOMERULAR FILTRATION RATE > 60.0 (>60); GLUCOSE, FASTING 105 MG/DL (60-100); POTASSIUM SERUM 4.3 MMOL/L (3.5-5.1); SODIUM LEVEL 138 MMOL/L (136-145); TOTAL PROTEIN 6.9 G/DL (5.7-8.2)
[2022-09-18 12:59] LABS: TOTAL 25(OH) VITAMIN D 26.5 NG/ML (20.0-100.0)
[2022-09-18 13:01] LABS: C REACTIVE PROTEIN QUANTITATIV < 0.40 MG/DL (<1.0)
== END ==
LOC: M SFHCRHEU 09:31
PROVIDERS: ATTEND Internal Medicine
DX: E55.9 Vitamin D deficiency, unspecified (principal); M05.9 Rheumatoid arthritis with rheumatoid factor, unspecified

== ENCOUNTER → 2022-12-15 | Outpatient (CLI) | payer OTHER ==
[~2022-12-15] MED LIST changes: +CETI5SOL3 PO; +EMTR1TAB16 PO; +ONDA4TAB6 PO; +RALT40TA PO
[2022-12-15 19:51] LABS: BASO # 0.1 10^3/uL (0.0-0.2); BASO % 0.6 % (0.0-1.0); EOS # 0.4 10^3/uL (0.0-0.5); EOS % 3.9 % (0.0-3.0); HEMATOCRIT 42.7 % (36.0-47.0); HEMOGLOBIN 13.7 g/dl (12.0-15.5); LYMPH # 1.6 10^3/uL (1.5-5.0); LYMPH % 15.3 % (24.0-44.0); MEAN CORPUSCULAR HEMOGLOBIN 32.4 pg (27.0-33.0); MEAN CORPUSCULAR HGB CONC 32.1 g/dl (32.0-36.5); MEAN CORPUSCULAR VOLUME 100.9 fl (80.0-96.0); MONO # 0.9 10^3/uL (0.0-0.8); MONO % 9.1 % (2.0-8.0); NEUTROPHILS # 7.4 10^3/uL (1.5-8.5); NEUTROPHILS % 70.8 % (36.0-66.0); PLATELET COUNT, AUTOMATED 307 10^3/uL (150-450); RED BLOOD COUNT 4.23 10^6/uL (4.00-5.40); WHITE BLOOD COUNT 10.4 10^3/uL (4.0-10.0)
[2022-12-15 19:59] LABS: ERYTHROCYTE SEDIMENTATION RATE 19 mm/hr (0-20)
[2022-12-15 20:21] LABS: C REACTIVE PROTEIN QUANTITATIV < 0.40 MG/DL (<1.0)
[2022-12-15 20:22] LABS: ALBUMIN 4.2 G/DL (3.2-5.2); ALKALINE PHOSPHATASE 86 U/L (46-116); ALT/SGPT 32 U/L (7.0-40); AST/SGOT 19 U/L (<34); BILIRUBIN,DIRECT < 0.1 MG/DL (<0.4); BILIRUBIN,TOTAL 0.3 MG/DL (0.3-1.2); BLOOD UREA NITROGEN 20 MG/DL (9-23); CALCIUM LEVEL 9.5 MG/DL (8.5-10.1); CARBON DIOXIDE LEVEL 29 MMOL/L (20-31); CHLORIDE LEVEL 102 MMOL/L (98-107); CREATININE FOR GFR 1.11 MG/DL (0.55-1.30); GLOMERULAR FILTRATION RATE 59.2 (>60); GLUCOSE, FASTING 91 MG/DL (60-100); POTASSIUM SERUM 3.9 MMOL/L (3.5-5.1); SODIUM LEVEL 139 MMOL/L (136-145); TOTAL PROTEIN 7.3 G/DL (5.7-8.2)
== END ==
LOC: M WUC 15:40
PROVIDERS: ATTEND Internal Medicine
DX: M05.9 Rheumatoid arthritis with rheumatoid factor, unspecified (principal)

== ENCOUNTER → 2023-02-12 | Outpatient (REF) ==
[2023-02-12 10:45] LABS: RSV AMPLIFICATION NEGATIVE (NEGATIVE)
== END ==
LOC: M EMP 08:33
PROVIDERS: ATTEND Family Medicine
DX: Z11.52 Encounter for screening for COVID-19 (principal)

== ENCOUNTER → 2023-02-12 | Outpatient (REF) | LOC: M EMP 08:28 | PROVIDERS: ATTEND Family Medicine | DX: Z11.52 Encounter for screening for COVID-19 (principal) ==

== ENCOUNTER → 2023-03-13 | Outpatient (REF) | LOC: M EMP 09:00 | PROVIDERS: ATTEND Family Medicine | DX: Z11.52 Encounter for screening for COVID-19 (principal); U07.1 COVID-19 ==

== ENCOUNTER → 2023-03-30 | Outpatient (CLI) | payer OTHER, BC ==
[2023-03-30 21:27] LABS: BASO % 0.5 % (0.0-1.0); EOS # 0.3 10^3/uL (0.0-0.5); HEMATOCRIT 40.9 % (36.0-47.0); HEMOGLOBIN 13.2 g/dl (12.0-15.5); LYMPH # 1.8 10^3/uL (1.5-5.0); LYMPH % 21.6 % (24.0-44.0); MEAN CORPUSCULAR HEMOGLOBIN 32.6 pg (27.0-33.0); MEAN CORPUSCULAR HGB CONC 32.3 g/dl (32.0-36.5); MONO # 0.9 10^3/uL (0.0-0.8); MONO % 10.1 % (2.0-8.0); NEUTROPHILS # 5.4 10^3/uL (1.5-8.5); NEUTROPHILS % 64.3 % (36.0-66.0); PLATELET COUNT, AUTOMATED 277 10^3/uL (150-450); RED BLOOD COUNT 4.05 10^6/uL (4.00-5.40); WHITE BLOOD COUNT 8.4 10^3/uL (4.0-10.0)
[2023-03-30 21:56] LABS: C REACTIVE PROTEIN QUANTITATIV < 0.40 MG/DL (<1.0)
[2023-03-30 21:58] LABS: ALBUMIN 3.9 G/DL (3.2-5.2); ALKALINE PHOSPHATASE 84 U/L (46-116); ALT/SGPT 74 U/L (7.0-40); AST/SGOT 44 U/L (<34); BILIRUBIN,DIRECT 0.1 MG/DL (<0.4); BILIRUBIN,TOTAL 0.3 MG/DL (0.3-1.2); BLOOD UREA NITROGEN 15 MG/DL (9-23); CALCIUM LEVEL 8.8 MG/DL (8.5-10.1); CARBON DIOXIDE LEVEL 29 MMOL/L (20-31); CHLORIDE LEVEL 104 MMOL/L (98-107); CREATININE FOR GFR 0.87 MG/DL (0.55-1.30); GLOMERULAR FILTRATION RATE > 60.0 (>60); GLUCOSE, FASTING 76 MG/DL (60-100); POTASSIUM SERUM 3.5 MMOL/L (3.5-5.1); SODIUM LEVEL 139 MMOL/L (136-145); TOTAL PROTEIN 6.9 G/DL (5.7-8.2)
[2023-03-30 22:01] LABS: ERYTHROCYTE SEDIMENTATION RATE 19 mm/hr (0-20)
== END ==
LOC: M WUC 15:40
PROVIDERS: ATTEND Internal Medicine
DX: M05.9 Rheumatoid arthritis with rheumatoid factor, unspecified (principal)

== ENCOUNTER → 2023-07-06 | Outpatient (REF) | payer BC, OTHER ==
[~2023-07-06] MED LIST changes: +FLUO-290; +FLUO-365; -FLUO10CA18; -FLUO20CA22; +ONDA-282 PO; -ONDA4TAB6 PO
[2023-07-06 19:01] LABS: ALBUMIN 4.1 G/DL (3.2-5.2); ALKALINE PHOSPHATASE 98 U/L (46-116); ALT/SGPT 45 U/L (7.0-40); AST/SGOT 31 U/L (<34); BILIRUBIN,DIRECT 0.1 MG/DL (<0.4); BILIRUBIN,TOTAL 0.4 MG/DL (0.3-1.2); BLOOD UREA NITROGEN 17 MG/DL (9-23); CALCIUM LEVEL 8.9 MG/DL (8.5-10.1); CARBON DIOXIDE LEVEL 26 MMOL/L (20-31); CHLORIDE LEVEL 102 MMOL/L (98-107); CREATININE FOR GFR 0.96 MG/DL (0.55-1.30); GLOMERULAR FILTRATION RATE > 60.0 (>60); GLUCOSE, FASTING 102 MG/DL (60-100); POTASSIUM SERUM 4.1 MMOL/L (3.5-5.1); SODIUM LEVEL 136 MMOL/L (136-145); TOTAL PROTEIN 6.9 G/DL (5.7-8.2)
[2023-07-06 19:04] LABS: BASO % 0.5 % (0.0-1.0); EOS # 0.3 10^3/uL (0.0-0.5); EOS % 3.9 % (0.0-3.0); HEMATOCRIT 39.8 % (36.0-47.0); HEMOGLOBIN 13.1 g/dl (12.0-15.5); LYMPH # 1.6 10^3/uL (1.5-5.0); MEAN CORPUSCULAR HEMOGLOBIN 32.1 pg (27.0-33.0); MEAN CORPUSCULAR HGB CONC 32.9 g/dl (32.0-36.5); MEAN CORPUSCULAR VOLUME 97.5 fl (80.0-96.0); MONO # 0.8 10^3/uL (0.0-0.8); MONO % 8.9 % (2.0-8.0); NEUTROPHILS # 5.9 10^3/uL (1.5-8.5); NEUTROPHILS % 68.6 % (36.0-66.0); PLATELET COUNT, AUTOMATED 264 10^3/uL (150-450); RED BLOOD COUNT 4.08 10^6/uL (4.00-5.40); WHITE BLOOD COUNT 8.7 10^3/uL (4.0-10.0)
[2023-07-06 19:15] LABS: ERYTHROCYTE SEDIMENTATION RATE 22 mm/hr (0-20)
== END ==
LOC: M LAB REF 18:41
PROVIDERS: ATTEND Internal Medicine
DX: M05.9 Rheumatoid arthritis with rheumatoid factor, unspecified (principal)

== ENCOUNTER → 2023-08-10 | Outpatient (CLI) | payer BC ==
[2023-08-10 20:18] LABS: TOTAL 25(OH) VITAMIN D 60.8 NG/ML (20.0-100.0)
[2023-08-10 20:20] LABS: ALBUMIN 3.9 G/DL (3.2-5.2); ALKALINE PHOSPHATASE 95 U/L (46-116); ALT/SGPT 42 U/L (7.0-40); AST/SGOT 22 U/L (<34); BILIRUBIN,TOTAL 0.3 MG/DL (0.3-1.2); BLOOD UREA NITROGEN 20 MG/DL (9-23); CALCIUM LEVEL 9.2 MG/DL (8.5-10.1); CARBON DIOXIDE LEVEL 27 MMOL/L (20-31); CHLORIDE LEVEL 103 MMOL/L (98-107); CREATININE FOR GFR 0.94 MG/DL (0.55-1.30); GLOMERULAR FILTRATION RATE > 60.0 (>60); GLUCOSE, FASTING 99 MG/DL (60-100); IRON (FE) 68 UG/DL (50-170); POTASSIUM SERUM 4.3 MMOL/L (3.5-5.1); SODIUM LEVEL 138 MMOL/L (136-145); TOTAL PROTEIN 6.9 G/DL (5.7-8.2)
== END ==
LOC: M PLALAB 15:49
PROVIDERS: ATTEND Family Medicine
DX: R94.5 Abnormal results of liver function studies (principal); E55.9 Vitamin D deficiency, unspecified

== ENCOUNTER → 2023-09-13 | Outpatient (REF) | LOC: M EMP 10:19 | PROVIDERS: ATTEND Family Medicine | DX: Z11.52 Encounter for screening for COVID-19 (principal) ==

== ENCOUNTER → 2023-10-17 | Outpatient (CLI) | payer BC ==
[2023-10-17 13:16] LABS: BASO % 0.7 % (0.0-1.0); EOS # 0.5 10^3/uL (0.0-0.5); EOS % 7.7 % (0.0-3.0); HEMATOCRIT 44.3 % (36.0-47.0); HEMOGLOBIN 14.3 g/dl (12.0-15.5); LYMPH # 1.8 10^3/uL (1.5-5.0); LYMPH % 29.9 % (24.0-44.0); MEAN CORPUSCULAR HGB CONC 32.3 g/dl (32.0-36.5); MEAN CORPUSCULAR VOLUME 99.1 fl (80.0-96.0); MONO # 0.7 10^3/uL (0.0-0.8); MONO % 10.9 % (2.0-8.0); NEUTROPHILS # 3.1 10^3/uL (1.5-8.5); NEUTROPHILS % 50.1 % (36.0-66.0); PLATELET COUNT, AUTOMATED 289 10^3/uL (150-450); RED BLOOD COUNT 4.47 10^6/uL (4.00-5.40); WHITE BLOOD COUNT 6.1 10^3/uL (4.0-10.0)
[2023-10-17 13:28] LABS: ERYTHROCYTE SEDIMENTATION RATE 17 mm/hr (0-20)
[2023-10-17 13:38] LABS: C REACTIVE PROTEIN QUANTITATIV < 0.40 MG/DL (<1.0)
[2023-10-17 13:40] LABS: ALBUMIN 3.7 G/DL (3.2-5.2); ALKALINE PHOSPHATASE 99 U/L (46-116); ALT/SGPT 44 U/L (7.0-40); AST/SGOT 22 U/L (<34); BILIRUBIN,DIRECT 0.1 MG/DL (<0.4); BILIRUBIN,TOTAL 0.4 MG/DL (0.3-1.2); BLOOD UREA NITROGEN 13 MG/DL (9-23); CALCIUM LEVEL 8.8 MG/DL (8.5-10.1); CARBON DIOXIDE LEVEL 27 MMOL/L (20-31); CHLORIDE LEVEL 104 MMOL/L (98-107); CREATININE FOR GFR 1.01 MG/DL (0.55-1.30); GLOMERULAR FILTRATION RATE > 60.0 (>60); GLUCOSE, FASTING 106 MG/DL (60-100); POTASSIUM SERUM 4.7 MMOL/L (3.5-5.1); SODIUM LEVEL 137 MMOL/L (136-145)
== END ==
LOC: M PLALAB 10:58
PROVIDERS: ATTEND Internal Medicine
DX: M05.9 Rheumatoid arthritis with rheumatoid factor, unspecified (principal)

== ENCOUNTER → 2024-01-07 | Outpatient (CLI) | payer BC ==
[2024-01-07 17:17] LABS: BASO % 0.6 % (0.0-1.0); EOS # 0.4 10^3/uL (0.0-0.5); EOS % 6.8 % (0.0-3.0); HEMATOCRIT 43.6 % (36.0-47.0); HEMOGLOBIN 14.1 g/dl (12.0-15.5); INR 0.98; LYMPH # 1.6 10^3/uL (1.5-5.0); LYMPH % 24.5 % (24.0-44.0); MEAN CORPUSCULAR HEMOGLOBIN 31.9 pg (27.0-33.0); MEAN CORPUSCULAR HGB CONC 32.3 g/dl (32.0-36.5); MEAN CORPUSCULAR VOLUME 98.6 fl (80.0-96.0); MONO # 0.8 10^3/uL (0.0-0.8); MONO % 12.1 % (2.0-8.0); NEUTROPHILS # 3.6 10^3/uL (1.5-8.5); NEUTROPHILS % 55.7 % (36.0-66.0); PARTIAL THROMBOPLASTIN TIME 28.9 SECONDS (24.8-34.2); PLATELET COUNT, AUTOMATED 304 10^3/uL (150-450); PROTHROMBIN TIME 13.3 SECONDS (12.5-14.5); RED BLOOD COUNT 4.42 10^6/uL (4.00-5.40); WHITE BLOOD COUNT 6.5 10^3/uL (4.0-10.0)
[2024-01-09 22:57] LABS: CARDIOLIPIN IGA ANTIBODY < 2.0 APL-U/mL (<20.0); CARDIOLIPIN IGG ANTIBODY < 2.0 GPL-U/mL (<20.0); CARDIOLIPIN IGM ANTIBODY < 2.0 MPL-U/mL (<20.0)
== END ==
LOC: M WUC 12:49
PROVIDERS: ATTEND Ophthalmology
DX: H34.8122 Central retinal vein occlusion, left eye, stable (principal)

== ENCOUNTER → 2024-01-10 | Outpatient (CLI) | payer BC ==
[2024-01-10 16:36] LABS: BASO # 0.1 10^3/uL (0.0-0.2); BASO % 0.7 % (0.0-1.0); EOS # 0.4 10^3/uL (0.0-0.5); EOS % 5.2 % (0.0-3.0); HEMATOCRIT 44.1 % (36.0-47.0); HEMOGLOBIN 14.2 g/dl (12.0-15.5); LYMPH # 2.2 10^3/uL (1.5-5.0); LYMPH % 29.8 % (24.0-44.0); MEAN CORPUSCULAR HGB CONC 32.2 g/dl (32.0-36.5); MEAN CORPUSCULAR VOLUME 99.3 fl (80.0-96.0); MONO # 0.8 10^3/uL (0.0-0.8); MONO % 11.3 % (2.0-8.0); NEUTROPHILS # 3.8 10^3/uL (1.5-8.5); NEUTROPHILS % 52.9 % (36.0-66.0); PLATELET COUNT, AUTOMATED 320 10^3/uL (150-450); RED BLOOD COUNT 4.44 10^6/uL (4.00-5.40); WHITE BLOOD COUNT 7.3 10^3/uL (4.0-10.0)
[2024-01-10 17:06] LABS: THYROID STIMULATING HORMONE 3.635 uIU/ML (0.55-4.78); TOTAL 25(OH) VITAMIN D 46.3 NG/ML (20.0-100.0)
[2024-01-10 17:07] LABS: FREE T4 1.35 NG/DL (0.89-1.76)
[2024-01-10 17:12] LABS: AMORPHOUS SEDIMENT LARGE (NEGATIVE); APPEARANCE, URINE TURBID (CLEAR); BACTERIA, URINE AUTO NEGATIVE (NEGATIVE); BILIRUBIN, URINE AUTO NEGATIVE (NEGATIVE); BLOOD, URINE BLOOD NEGATIVE (NEGATIVE); COLOR, URINE YELLOW (YELLOW); GLUCOSE, URINE (UA) AUTO NEGATIVE (NEGATIVE); KETONE, URINE AUTO TRACE mg/dL (NEGATIVE); LEUKOCYTE ESTERASE, URINE AUTO NEGATIVE (NEGATIVE); NITRITE, URINE AUTO NEGATIVE (NEGATIVE); PROTEIN, URINE AUTO NEGATIVE (NEGATIVE); RBC, URINE AUTO 0 /HPF (0-3); SPECIFIC GRAVITY URINE AUTO 1.025 (1.002-1.035); SQUAMOUS EPITHELIAL CELL UR AU 2 /HPF (0-6); UROBILINOGEN, URINE AUTO 0.2 mg/dL (0.0-2.0); WBC, URINE AUTO 0 /HPF (0-3)
[2024-01-10 17:17] LABS: ALBUMIN 4.1 G/DL (3.2-5.2); ALKALINE PHOSPHATASE 111 U/L (35-104); ALT/SGPT 84 U/L (7.0-40); AST/SGOT 43 U/L (<34); BILIRUBIN,TOTAL 0.5 MG/DL (0.3-1.2); BLOOD UREA NITROGEN 16 MG/DL (9-23); CARBON DIOXIDE LEVEL 25 MMOL/L (20-31); CHLORIDE LEVEL 106 MMOL/L (98-107); CHOLESTEROL LEVEL 204 MG/DL (<200); CHOLESTEROL RISK RATIO 4.19 (<5); CREATININE FOR GFR 0.98 MG/DL (0.55-1.30); GLOMERULAR FILTRATION RATE > 60.0 (>60); GLUCOSE, FASTING 119 MG/DL (60-100); HDL CHOLESTEROL 48.6 MG/DL (>40); LDL CHOLESTEROL 137.6 MG/DL (<100); NON-HDL-C 155.4 MG/DL; POTASSIUM SERUM 4.3 MMOL/L (3.5-5.1); SODIUM LEVEL 139 MMOL/L (136-145); TOTAL PROTEIN 7.4 G/DL (5.7-8.2); TRIGLYCERIDES LEVEL 89 MG/DL (<150)
[2024-01-10 17:27] LABS: HEMOGLOBIN A1c 5.2 % (4.0-6.0)
== END ==
LOC: M WUC 09:14
PROVIDERS: ATTEND Family Medicine
DX: M06.9 Rheumatoid arthritis, unspecified (principal); E66.9 Obesity, unspecified; R00.2 Palpitations

== ENCOUNTER → 2024-02-18 | Outpatient (CLI) | payer BC ==
[2024-02-18 18:41] LABS: BASO # 0.1 10^3/uL (0.0-0.2); BASO % 0.8 % (0.0-1.0); EOS # 0.5 10^3/uL (0.0-0.5); EOS % 6.4 % (0.0-3.0); HEMATOCRIT 41.8 % (36.0-47.0); HEMOGLOBIN 13.5 g/dl (12.0-15.5); LYMPH # 1.9 10^3/uL (1.5-5.0); LYMPH % 25.2 % (24.0-44.0); MEAN CORPUSCULAR HEMOGLOBIN 31.8 pg (27.0-33.0); MEAN CORPUSCULAR HGB CONC 32.3 g/dl (32.0-36.5); MEAN CORPUSCULAR VOLUME 98.4 fl (80.0-96.0); MONO # 0.7 10^3/uL (0.0-0.8); MONO % 8.8 % (2.0-8.0); NEUTROPHILS # 4.4 10^3/uL (1.5-8.5); NEUTROPHILS % 58.5 % (36.0-66.0); PLATELET COUNT, AUTOMATED 334 10^3/uL (150-450); RED BLOOD COUNT 4.25 10^6/uL (4.00-5.40); WHITE BLOOD COUNT 7.5 10^3/uL (4.0-10.0)
[2024-02-18 18:57] LABS: ERYTHROCYTE SEDIMENTATION RATE 18 mm/hr (0-20)
[2024-02-18 19:24] LABS: C REACTIVE PROTEIN QUANTITATIV < 0.50 MG/DL (<1.0)
[2024-02-18 19:26] LABS: TOTAL 25(OH) VITAMIN D 58.2 NG/ML (20.0-100.0)
[2024-02-18 19:27] LABS: ALBUMIN 3.9 G/DL (3.2-5.2); ALKALINE PHOSPHATASE 103 U/L (35-104); ALT/SGPT 66 U/L (7.0-40); AST/SGOT 34 U/L (<34); BILIRUBIN,DIRECT 0.1 MG/DL (<0.4); BILIRUBIN,TOTAL 0.4 MG/DL (0.3-1.2); BLOOD UREA NITROGEN 17 MG/DL (9-23); CALCIUM LEVEL 9.5 MG/DL (8.5-10.1); CARBON DIOXIDE LEVEL 26 MMOL/L (20-31); CHLORIDE LEVEL 103 MMOL/L (98-107); CREATININE FOR GFR 1.09 MG/DL (0.55-1.30); GLOMERULAR FILTRATION RATE > 60.0 (>60); GLUCOSE, FASTING 91 MG/DL (60-100); PHOSPHORUS LEVEL 3.1 MG/DL (2.5-4.9); POTASSIUM SERUM 4.3 MMOL/L (3.5-5.1); SODIUM LEVEL 138 MMOL/L (136-145)
== END ==
LOC: M WUC 15:38
PROVIDERS: ATTEND Internal Medicine
DX: H34.8122 Central retinal vein occlusion, left eye, stable (principal); M05.9 Rheumatoid arthritis with rheumatoid factor, unspecified; E83.39 Other disorders of phosphorus metabolism

== ENCOUNTER → 2024-05-21 | Outpatient (REF) | payer BC ==
[2024-05-21 12:58] LABS: APPEARANCE, URINE HAZY (CLEAR); BACTERIA, URINE AUTO NEGATIVE (NEGATIVE); BILIRUBIN, URINE AUTO NEGATIVE (NEGATIVE); BLOOD, URINE BLOOD NEGATIVE (NEGATIVE); COLOR, URINE YELLOW (YELLOW); GLUCOSE, URINE (UA) AUTO NEGATIVE (NEGATIVE); KETONE, URINE AUTO NEGATIVE (NEGATIVE); LEUKOCYTE ESTERASE, URINE AUTO NEGATIVE (NEGATIVE); MUCUS, URINE SMALL (NEGATIVE); NITRITE, URINE AUTO NEGATIVE (NEGATIVE); PROTEIN, URINE AUTO NEGATIVE (NEGATIVE); RBC, URINE AUTO 0 /HPF (0-3); SPECIFIC GRAVITY URINE AUTO 1.017 (1.002-1.035); SQUAMOUS EPITHELIAL CELL UR AU 9 /HPF (0-6); UROBILINOGEN, URINE AUTO 0.2 mg/dL (0.0-2.0); WBC, URINE AUTO 0 /HPF (0-3)
[2024-05-21 13:11] LABS: ALKALINE PHOSPHATASE 102 U/L (35-104); ALT/SGPT 44 U/L (7.0-40); AST/SGOT 23 U/L (<34); BILIRUBIN,TOTAL 0.5 MG/DL (0.3-1.2); BLOOD UREA NITROGEN 16 MG/DL (9-23); CALCIUM LEVEL 9.3 MG/DL (8.5-10.1); CARBON DIOXIDE LEVEL 28 MMOL/L (20-31); CHLORIDE LEVEL 104 MMOL/L (98-107); CHOLESTEROL LEVEL 130 MG/DL (<200); CHOLESTEROL RISK RATIO 2.89 (<5); CREATININE FOR GFR 0.98 MG/DL (0.55-1.30); GLOMERULAR FILTRATION RATE > 60.0 (>60); GLUCOSE, FASTING 120 MG/DL (60-100); HDL CHOLESTEROL 44.9 MG/DL (>40); LDL CHOLESTEROL 68.9 MG/DL (<100); NON-HDL-C 85.1 MG/DL; SODIUM LEVEL 138 MMOL/L (136-145); TOTAL PROTEIN 7.2 G/DL (5.7-8.2); TRIGLYCERIDES LEVEL 81 MG/DL (<150)
[2024-05-21 13:12] LABS: FREE T4 1.16 NG/DL (0.89-1.76)
[2024-05-21 13:13] LABS: TOTAL 25(OH) VITAMIN D 39.6 NG/ML (20.0-100.0)
[2024-05-21 13:17] LABS: BASO % 0.5 % (0.0-1.0); EOS # 0.4 10^3/uL (0.0-0.5); EOS % 4.6 % (0.0-3.0); HEMATOCRIT 43.2 % (36.0-47.0); HEMOGLOBIN 13.7 g/dl (12.0-15.5); LYMPH # 2.1 10^3/uL (1.5-5.0); LYMPH % 26.4 % (24.0-44.0); MEAN CORPUSCULAR HGB CONC 31.7 g/dl (32.0-36.5); MEAN CORPUSCULAR VOLUME 97.7 fl (80.0-96.0); MONO # 0.7 10^3/uL (0.0-0.8); NEUTROPHILS # 4.6 10^3/uL (1.5-8.5); NEUTROPHILS % 59.1 % (36.0-66.0); PLATELET COUNT, AUTOMATED 335 10^3/uL (150-450); RED BLOOD COUNT 4.42 10^6/uL (4.00-5.40); WHITE BLOOD COUNT 7.8 10^3/uL (4.0-10.0)
== END ==
LOC: M LABDRAWC 10:04
PROVIDERS: ATTEND Family Medicine
DX: M06.9 Rheumatoid arthritis, unspecified (principal); R00.2 Palpitations; E66.9 Obesity, unspecified

== ENCOUNTER → 2024-05-21 | Outpatient (REF) | payer BC ==
[2024-05-21 13:09] LABS: C REACTIVE PROTEIN QUANTITATIV < 0.50 MG/DL (<1.0)
[2024-05-21 13:10] LABS: ALBUMIN 3.9 G/DL (3.2-5.2); ALKALINE PHOSPHATASE 100 U/L (35-104); ALT/SGPT 42 U/L (7.0-40); AST/SGOT 24 U/L (<34); BILIRUBIN,DIRECT 0.2 MG/DL (<0.4); BILIRUBIN,TOTAL 0.5 MG/DL (0.3-1.2); BLOOD UREA NITROGEN 15 MG/DL (9-23); CALCIUM LEVEL 9.2 MG/DL (8.5-10.1); CARBON DIOXIDE LEVEL 28 MMOL/L (20-31); CHLORIDE LEVEL 105 MMOL/L (98-107); CREATININE FOR GFR 0.99 MG/DL (0.55-1.30); GLOMERULAR FILTRATION RATE > 60.0 (>60); GLUCOSE, FASTING 120 MG/DL (60-100); POTASSIUM SERUM 4.3 MMOL/L (3.5-5.1); SODIUM LEVEL 139 MMOL/L (136-145); TOTAL PROTEIN 7.1 G/DL (5.7-8.2)
[2024-05-21 13:17] LABS: BASO # 0.1 10^3/uL (0.0-0.2); BASO % 0.6 % (0.0-1.0); EOS # 0.4 10^3/uL (0.0-0.5); EOS % 4.7 % (0.0-3.0); HEMATOCRIT 42.9 % (36.0-47.0); HEMOGLOBIN 13.7 g/dl (12.0-15.5); LYMPH # 2.2 10^3/uL (1.5-5.0); LYMPH % 27.3 % (24.0-44.0); MEAN CORPUSCULAR HEMOGLOBIN 31.6 pg (27.0-33.0); MEAN CORPUSCULAR HGB CONC 31.9 g/dl (32.0-36.5); MEAN CORPUSCULAR VOLUME 99.1 fl (80.0-96.0); MONO # 0.7 10^3/uL (0.0-0.8); NEUTROPHILS # 4.7 10^3/uL (1.5-8.5); PLATELET COUNT, AUTOMATED 322 10^3/uL (150-450); RED BLOOD COUNT 4.33 10^6/uL (4.00-5.40); WHITE BLOOD COUNT 8.1 10^3/uL (4.0-10.0)
[2024-05-21 13:25] LABS: ERYTHROCYTE SEDIMENTATION RATE 22 mm/hr (0-20)
== END ==
LOC: M SFHCCLAY 09:31
PROVIDERS: ATTEND Internal Medicine
DX: M05.9 Rheumatoid arthritis with rheumatoid factor, unspecified (principal)

== ENCOUNTER → 2024-11-20 | Outpatient (REF) | payer BC ==
[~2024-11-20] MED LIST changes: -PROZ20CA11; +PROZ20CA12
[2024-11-20 18:43] LABS: BASO # 0.1 10^3/uL (0.0-0.2); BASO % 0.6 % (0.0-1.0); EOS # 0.5 10^3/uL (0.0-0.5); EOS % 6.2 % (0.0-3.0); LYMPH # 1.7 10^3/uL (1.5-5.0); LYMPH % 22.0 % (24.0-44.0); MONO # 0.5 10^3/uL (0.0-0.8); MONO % 6.3 % (2.0-8.0); NEUTROPHILS # 5.0 10^3/uL (1.5-8.5); NEUTROPHILS % 64.6 % (36.0-66.0); PLATELET COUNT, AUTOMATED 333 10^3/uL (150-450)
[2024-11-20 18:46] LABS: ALT/SGPT 43.0 U/L (7.0-40); AST/SGOT 30.0 U/L (<34); CALCIUM LEVEL 9.8 MG/DL (8.5-10.1); CARBON DIOXIDE LEVEL 26.0 MMOL/L (20-31); CHLORIDE LEVEL 102.0 MMOL/L (98-107); CREATININE FOR GFR 1.01 MG/DL (0.55-1.30); GLOMERULAR FILTRATION RATE 73.1 (>60); POTASSIUM SERUM 4.4 MMOL/L (3.5-5.1); SODIUM LEVEL 137.0 MMOL/L (136-145)
[2024-11-20 19:13] LABS: ERYTHROCYTE SEDIMENTATION RATE 45 mm/hr (0-20)
== END ==
LOC: M SFHCCLAY 11:48
PROVIDERS: ATTEND Internal Medicine
DX: M05.9 Rheumatoid arthritis with rheumatoid factor, unspecified (principal)

== ENCOUNTER → 2024-12-12 | Outpatient (REF) | payer BC ==
[2024-12-12 14:14] LABS: ESTIMATED AVERAGE GLUCOSE 103.0 MG/DL (60-110)
[2024-12-12 14:24] LABS: ALT/SGPT 39.0 U/L (7.0-40); AST/SGOT 23.0 U/L (<34); CALCIUM LEVEL 9.2 MG/DL (8.5-10.1); CARBON DIOXIDE LEVEL 27.0 MMOL/L (20-31); CHLORIDE LEVEL 103.0 MMOL/L (98-107); CHOLESTEROL LEVEL 136.0 MG/DL (<200); CHOLESTEROL RISK RATIO 3.0 (<5); CREATININE FOR GFR 1.03 MG/DL (0.55-1.30); GLOMERULAR FILTRATION RATE 71.4 (>60); LDL CHOLESTEROL 71.0 MG/DL (<100); NON-HDL-C 90.8 MG/DL; POTASSIUM SERUM 4.8 MMOL/L (3.5-5.1); SODIUM LEVEL 139.0 MMOL/L (136-145); TRIGLYCERIDES LEVEL 99.0 MG/DL (<150)
== END ==
LOC: M LAB REF 11:53 → M LABDRAWC 11:53
PROVIDERS: ATTEND Family Medicine
DX: R73.9 Hyperglycemia, unspecified (principal); E78.5 Hyperlipidemia, unspecified

== ENCOUNTER → 2025-02-12 | Outpatient (REF) | payer BC ==
[~2025-02-12] MED LIST changes: -PROZ20CA12; +PROZ20CA25
[2025-02-12 18:03] LABS: BASO # 0.0 10^3/uL (0.0-0.2); BASO % 0.4 % (0.0-1.0); EOS # 0.2 10^3/uL (0.0-0.5); EOS % 2.8 % (0.0-3.0); LYMPH # 1.5 10^3/uL (1.5-5.0); LYMPH % 21.8 % (24.0-44.0); MONO # 0.6 10^3/uL (0.0-0.8); MONO % 8.3 % (2.0-8.0); NEUTROPHILS # 4.5 10^3/uL (1.5-8.5); NEUTROPHILS % 66.6 % (36.0-66.0); PLATELET COUNT, AUTOMATED 344 10^3/uL (150-450)
[2025-02-12 18:31] LABS: ALT/SGPT 24 U/L (7.0-40); AST/SGOT 19 U/L (<34); C REACTIVE PROTEIN QUANTITATIV < 0.50 MG/DL (<1.0); CALCIUM LEVEL 9.0 MG/DL (8.5-10.1); CARBON DIOXIDE LEVEL 27 MMOL/L (20-31); CHLORIDE LEVEL 106 MMOL/L (98-107); CREATININE FOR GFR 1.06 MG/DL (0.55-1.30); GLOMERULAR FILTRATION RATE 69.0 (>60); POTASSIUM SERUM 5.0 MMOL/L (3.5-5.1); SODIUM LEVEL 141 MMOL/L (136-145)
== END ==
LOC: M LABDRAWC 17:21
PROVIDERS: ATTEND Internal Medicine
DX: M05.9 Rheumatoid arthritis with rheumatoid factor, unspecified (principal)